=== PATIENT | female | born 1990 | race Two or more races ===

== ENCOUNTER 2020-01-03 15:21 | Emergency (ER) | payer OTHER, SELFPAY ==
[2020-01-03 15:39] VITALS: BP 158/68; PULSE 97; RESP 16; TEMP 37.1; O2SAT 97; BMI 32.9
--- NOTE | 2020-01-03 16:58 | ED_ITS ---
HPI - General Adult General Chief complaint: General Medical Stated complaint: Multiple complaints Time Seen by Provider: 01/03/20 16:58 Source: patient Mode of arrival: ambulatory Limitations: no limitations History of Present Illness HPI narrative: 21-year-old female with past medical history that is significant for hypertension, depression, pseudotumor cerebri status post MICROPALEONTOLOGIST shunt, surgical history of lap cholecystectomy, who presents today with complaint of headache and also complain of low back pain. States this is been going on since yesterday. Denies any fever or chills. Headache as described by her as chronic in nature however the back pain is new for her. States she suffers from chronic headaches and sees Neurology for this. She otherwise denies any fever or chills. Denies any nausea vomiting or diarrhea. No vaginal discharge or bleeding. Onset (ago): day(s) Location: head Severity: moderate Pain Consistency: constant Relieving factors: none Exacerbating factors: none Associated symptoms: denies other symptoms Treatments prior to arrival: none Related Data Previous Rx's Medication Instructions Recorded cyclobenzaprine 10 mg PO TID PRN #20 tab 01/03/20 ibuprofen 800 mg PO Q8H PRN #30 tab 01/03/20 lidocaine 1 patch TOPICAL Q24H PRN #10 ea 01/03/20 Allergies Allergy/AdvReac Type Severity Reaction Status Date / Time ketorolac [From TORADOL] Allergy Unknown ANXIETY, Unverified 11/11/19 16:53 NAUSEA, DIZZY Review of Systems Review of Systems: Constitutional: No Weight loss, No Fever, No Chills, No Night Sweats, No Fatigue, No Malaise ENT/Mouth: No Hearing loss, No Ear Pain, No Nasal Congestion, No Sinus Pain, No Hoarseness, No sore throat, No Rhinorrhea, No Swallowing Difficulty Eyes: No Eye Pain, No Swelling, No Redness, No Foreign Body, No Discharge, No Vision Changes Cardiovascular: No Chest Pain, No SOB, No Dyspnea on Exertion, No Orthopnea, No Edema, No Palpitations Respiratory: No Cough, No Sputum, No Wheezing, No Smoke Exposure, No Dyspnea Gastrointestinal: No Nausea, No Vomiting, No Diarrhea, No Constipation, No abdominal Pain, No Hematochezia, No Melena Genitourinary: no irregular bleeding, No Dysuria, No Urinary Frequency, No Hematuria, No Urinary Incontinence, No Urgency, No Flank Pain, No Urinary Flow Changes, No Hesitancy Musculoskeletal: No joint pain, No Myalgias, No Joint Swelling Skin: No Skin Lesions, No rash Neuro: No Weakness, No Numbness, No Paresthesias, No Loss of Consciousness, No Dizziness, + Headache Psych: No Anxiety/Panic, No Depression, No SI/HI/AH/VH No Social Issues, Heme/Lymph: No Bruising, No Bleeding,No Lymphadenopathy Endocrine: No Polyuria, No Polydipsia, No Temperature Intolerance Yes all other systems are reviewed and are negative [facility] Past Medical History Attestation statement: The following information was validated with the patient. Source: unable to obtain Medical History (Updated 01/03/20 @ 20:45 by Dario Torres NP) Hypertension Pseudotumor cerebri Rheumatoid arthritis Social History Social History Alcohol intake: never Smoked in Last 30 Days: No Use of substances other than those prescribed or required for medical reasons: No Advance Directives: No Advance Directives Information Provided: Yes Physical Exam Vital Signs: Vital Signs: Last Vital Signs Temp 97.5 F 01/03/20 19:06 Pulse 93 01/03/20 20:14 Resp 24 H 01/03/20 20:14 BP 161/97 H 01/03/20 20:14 Pulse Ox 100 01/03/20 19:06 Body Mass Index 32.9 Reviewed Const: General: cooperative and healthy appearing; No acute distress or intoxicated appearing Nutritional Appearance: average body habitus Orientation/consciousness: patient oriented x3 HENMT: Head: Yes normal to inspection Ears: hearing grossly normal bilaterally Eyes: General: appearance normal, both eyes and all related structures Visual Valdes: normal visual valdes by confrontation Neck: Neck: Yes normal visual inspection, No positive Brudzinski's sign, No positive Kernig's sign and No tender Thyroid: Thyroid normal Chest: Chest palpation & inspection: normal inspection of the chest Resp: Effort & Inspection: normal respiratory effort Cardio: Jugular venous distension: no JVD GI: Inspection: Yes normal to inspection Percussion: Yes normal to percussion Auscultation: normal bowel sounds : General: Yes no CVA tenderness Back/Spine/Pelvis: Back: no CVA tenderness Skin: General skin exam: no rashes or lesions noted Neuro: General: patient oriented x3 Extrem: General: Yes normal to inspection Course Course Course Narrative: Labs overall stable. CT of the abdomen pelvis reveals no acute stone or obstructive process. UA no infection. She was resting comfortably after she declined Toradol was given morphine however requested Dilaudid by name. Alternative offered. She is noted to be resting comfortably but when the provider goes and she starts to become tearful. States her pain is being noted. States she has been given Dilaudid in the past works well for her. At this time she has no red flags of her headache. No low back pain red flags. Given that she is hemodynamically stable I believe the nature of her complaint is chronic in etiology and her prescription monitoring program was reviewed and reveal that she has gotten multiple prescriptions for Tylenol No. 3 and now reveals to me that she does get this for chronic headaches. I am concerned for some medication seeking behavior and advised to follow-up with her neurologist closely call tomorrow and her primary care doctor. Off note patient did become very upset at me and did insult me she does not have any headache her only concern is her low back pain. Medical Decision Making Lab Data Result diagrams: 01/03/20 17:21 01/03/20 17:21 Labs: Lab Results 01/03/20 01/03/20 01/03/20 Range/Units 17:21 17:21 17:21 WBC 11.4 H (4.8-10.8) X10*3/uL RBC 4.16 L (4.20-5.50) X10*6/uL Hgb 11.5 L (12.0-16.0) g/dl Hct 37.4 (37-47) % MCV 89.9 (80-98) fL MCH 27.6 (27.0-33.0) pg MCHC 30.7 L (31.0-35.0) g/dl RDW 14.6 (11.0-16.0) % Plt Count 426 H (160-400) X10*3/uL MPV 8.7 L (9.4-12.3) fL Immature Gran % (Auto) 0.4 (0.0-0.4) % Neut % (Auto) 58.3 (45-73) % Lymph % (Auto) 35.0 (20-40) % [place] % (Auto) 5.3 (2-11) % Eos % (Auto) 0.8 (0-4) % Baso % (Auto) 0.2 (0-2) % Lymph # (Auto) 4.0 (1.2-4.9) X10*3/uL [place] # (Auto) 0.6 (0.1-1.2) X10*3/uL Eos # (Auto) 0.1 (0.0-0.4) X10*3/uL Baso # (Auto) 0.0 (0.0-0.2) X10*3/uL Abs Immat Gran (auto) 0.05 H (0.00-0.03) X10*3/uL Absolute Neuts (auto) 6.6 (2.0-8.3) X10*3/uL Absolute Nucleated RBC 0.000 (0.0-0.012) X10*3/uL Nucleated RBC % (auto) 0.0 (0.0-0.2) /100WBC Sodium 138 (135-145) mmol/L Potassium 4.1 (3.3-5.1) mmol/l Chloride 102 (96-108) mmol/L Carbon Dioxide 29 (22-29) mmol/L Anion Gap 11 L (12-20) BUN 14 (9-16) mg/dL Creatinine 0.74 (0.5-1.4) mg/dL Estim Creat Clear Calc 112.0 Estimated GFR > 60 Random Glucose 81 (60-115) mg/dL Calcium 9.1 (8.4-10.2) mg/dL Total Bilirubin 0.6 (0.0-1.0) mg/dL AST 16 (5-31) U/L ALT 12 (0-31) U/L Alkaline Phosphatase 73 (39-117) U/L Total Protein 6.7 (6.5-8.0) g/dL Albumin 4.1 (3.5-5.0) g/dL Urine Color YELLOW Urine Appearance CLEAR Urine pH 6.5 (5.0-8.0) Ur Specific [place] 1.025 (1.005-1.025) Urine Protein NEG (NEG-TRACE) MG/DL Urine Glucose (UA) NEG (NEG) MG/DL Urine Ketones NEG (NEG) MG/DL Urine Blood NEG (NEG) Urine Nitrite NEG (NEG) Ur Leukocyte Esterase NEG (NEG) Urine Test NEGATIVE (NEGATIVE) Coronavirus (PCR) (Negative) 01/03/20 Range/Units 19:36 WBC (4.8-10.8) X10*3/uL RBC (4.20-5.50) X10*6/uL Hgb (12.0-16.0) g/dl Hct (37-47) % MCV (80-98) fL MCH (27.0-33.0) pg MCHC (31.0-35.0) g/dl RDW (11.0-16.0) % Plt Count (160-400) X10*3/uL MPV (9.4-12.3) fL Immature Gran % (Auto) (0.0-0.4) % Neut % (Auto) (45-73) % Lymph % (Auto) (20-40) % [place] % (Auto) (2-11) % Eos % (Auto) (0-4) % Baso % (Auto) (0-2) % Lymph # (Auto) (1.2-4.9) X10*3/uL [place] # (Auto) (0.1-1.2) X10*3/uL Eos # (Auto) (0.0-0.4) X10*3/uL Baso # (Auto) (0.0-0.2) X10*3/uL Abs Immat Gran (auto) (0.00-0.03) X10*3/uL Absolute Neuts (auto) (2.0-8.3) X10*3/uL Absolute Nucleated RBC (0.0-0.012) X10*3/uL Nucleated RBC % (auto) (0.0-0.2) /100WBC Sodium (135-145) mmol/L Potassium (3.3-5.1) mmol/l Chloride (96-108) mmol/L Carbon Dioxide (22-29) mmol/L Anion Gap (12-20) BUN (9-16) mg/dL Creatinine (0.5-1.4) mg/dL Estim Creat Clear Calc Estimated GFR Random Glucose (60-115) mg/dL Calcium (8.4-10.2) mg/dL Total Bilirubin (0.0-1.0) mg/dL AST (5-31) U/L ALT (0-31) U/L Alkaline Phosphatase (39-117) U/L Total Protein (6.5-8.0) g/dL Albumin (3.5-5.0) g/dL Urine Color Urine Appearance Urine pH (5.0-8.0) Ur Specific [place] (1.005-1.025) Urine Protein (NEG-TRACE) MG/DL Urine Glucose (UA) (NEG) MG/DL Urine Ketones (NEG) MG/DL Urine Blood (NEG) Urine Nitrite (NEG) Ur Leukocyte Esterase (NEG) Urine Test (NEGATIVE) Coronavirus (PCR) NEGATIVE (Negative) Discharge Plan Discharge Clinical Impression: Headache Back pain Qualifiers: Back pain location: low back pain Chronicity: unspecified Back pain laterality: bilateral Patient Disposition: Home, Self-Care Instructions: Acute Headache (ED), Back Pain (ED) Prescriptions: New cyclobenzaprine 10 mg tablet 10 mg PO TID PRN (Reason: muscle spasm) Qty: 20 RF: 0 lidocaine 4 % adhesive patch,medicated 1 patch topical Q24H PRN (Reason: pain) Qty: 10 RF: 0 ibuprofen 800 mg tablet 800 mg PO Q8H PRN (Reason: pain) Qty: 30 RF: 0 Referrals: Miya Lara DO [Primary Care Provider] - 2 days
[2020-01-03] MEDS: 0.9 % Sodium Chloride 1,000 ML 1000 ML IV (17:22)
[2020-01-03 17:25] LABS: MANUAL DIFF FLAG NO
[2020-01-03 17:26] LABS: Basophils Percent Auto 0.2 % (0-2); Eosinophils Absolute Auto 0.1 X10*3/uL (0.0-0.4); Eosinophils Percent Auto 0.8 % (0-4); Hematocrit 37.4 % (37-47); Hemoglobin 11.5 g/dl (12.0-16.0); Imm Gran Abs Auto 0.05 X10*3/uL (0.00-0.03); Imm Gran Pct Auto 0.4 % (0.0-0.4); Mean Corpuscular HGB Conc 30.7 g/dl (31.0-35.0); Mean Corpuscular Hemoglobin 27.6 pg (27.0-33.0); Mean Corpuscular Volume 89.9 fL (80-98); Mean Platelet Volume 8.7 fL (9.4-12.3); Monocytes Absolute Auto 0.6 X10*3/uL (0.1-1.2); Monocytes Percent Auto 5.3 % (2-11); Neutrophils Absolute Auto 6.6 X10*3/uL (2.0-8.3); Neutrophils Percent Auto 58.3 % (45-73); Platelet Count 426 X10*3/uL (160-400); Red Blood Count 4.16 X10*6/uL (4.20-5.50); Red Cell Distribution Width 14.6 % (11.0-16.0); White Blood Count 11.4 X10*3/uL (4.8-10.8)
[2020-01-03 17:27] LABS: Glucose Urine UA NEG (NEG); Leukocyte Esterase Urine NEG (NEG); Nitrite Urine NEG (NEG); PH 6.5 (5.0-8.0); Specific Gravity - Urine 1.025 (1.005-1.025); Urine Blood NEG (NEG); Urine Ketones NEG (NEG); Urine Protein NEG (NEG-TRACE)
[2020-01-03] MEDS: Morphine Sulfate 4 MG/ML CARTRIDGE IVPUSH (17:33)
[2020-01-03] MEDS: ondansetron HCL 4 MG/2 ML VIAL IVPUSH (17:33)
[2020-01-03 17:44] LABS: Appearance Urine CLEAR; Color Urine YELLOW
--- NOTE | 2020-01-03 17:47 | CT_ITS ---
EXAMINATION: CT ABDOMEN AND PELVIS WITHOUT CONTRAST CLINICAL INFORMATION: Flank pain COMPARISON: CT abdomen pelvis 09/16/2017 TECHNIQUE: Multidetector volumetric imaging was performed from the superior aspect of the liver through the pubic symphysis. Sagittal and coronal reformatted images were obtained on the technologist's workstation. This CT examination was performed using dose optimization techniques as appropriate, variously including the following: *Automated exposure control *Adjustment of mA and/or kV according to patient size (this includes techniques or standardized protocols for targeted exams where dose is matched to indication/reason for exam; i.e. extremities or head) *Use of iterative reconstruction technique DLP: 675 mGy-cm FINDINGS: LUNG BASES: The visualized lung bases are unremarkable. LIVER, GALLBLADDER, AND BILIARY TREE: The liver is normal in size, shape, and attenuation. No focal hepatic lesion or biliary ductal dilatation is present. Status post cholecystectomy PANCREAS: Unremarkable. SPLEEN: Unremarkable. ADRENAL GLANDS: Unremarkable. KIDNEYS AND URETERS: The kidneys are normal in size, shape, and attenuation. No hydronephrosis, hydroureter, or calculi seen. No perinephric stranding. BLADDER: Unremarkable. GASTROINTESTINAL TRACT: The small and large bowel are unremarkable. The appendix is unremarkable. MESENTERY: Ventricular peritoneal shunt catheter loops through the mesentery. No inflammation. No free air. No free fluid. ABDOMINAL WALL: No significant hernia is appreciated. LYMPH NODES: Normal. VASCULAR: Unremarkable. PELVIC VISCERA: Lobular contour of the uterine body suggesting uterine fibroids. There is no adnexal abnormality. OSSEOUS STRUCTURES: Unremarkable. CT/CT abdomen pelvis wo con IMPRESSION: No acute abnormality CT scan abdomen pelvis.
[2020-01-03 17:51] LABS: UPreg QC Valid YES; Urine Pregnancy NEGATIVE (NEGATIVE)
[2020-01-03 18:00] LABS: Alanine Aminotransferase 12 U/L (0-31); Albumin Level 4.1 g/dL (3.5-5.0); Alkaline Phosphatase 73 U/L (39-117); Anion Gap 11 (12-20); Aspartate Amino Transferase 16 U/L (5-31); Bilirubin Total 0.6 mg/dL (0.0-1.0); Blood Urea Nitrogen 14 mg/dL (9-16); Calcium 9.1 mg/dL (8.4-10.2); Carbon Dioxide 29 mmol/L (22-29); Chloride 102 mmol/L (96-108); Estimated Glomerular Filt Rate > 60; Glucose Random 81 mg/dL (60-115); Potassium 4.1 mmol/l (3.3-5.1); Sodium 138 mmol/L (135-145); Total Protein 6.7 g/dL (6.5-8.0)
[2020-01-03 18:09] VITALS: RESP 20
--- NOTE | 2020-01-03 18:52 | PC.NURSE ---
Report taken from Karely mcclure RN resuming care. Pt not given Toradol by previous RN due to allergy, this RN documenting against.
[2020-01-03 19:06] VITALS: BP 145/89; PULSE 95; RESP 18; TEMP 36.4; O2SAT 100
--- NOTE | 2020-01-03 19:07 | PC.NURSE ---
Pt found sitting upright in bed, moaning, crying, shaking in pain, reports no relief after Morphine. AGRICULTURAL INSPECTOR aware. help desk technician at bedside updating VS.
[2020-01-03] MEDS: Acetaminophen 325 MG TABLET 650 MG PO (19:34)
--- NOTE | 2020-01-03 19:35 | PC.NURSE ---
Pt medicated with Tylenol per EMAR. Covid swab obtained. Pt requesting Morphine for 10/10 pain, FINAL FINISHER aware.
--- NOTE | 2020-01-03 19:59 | PC.NURSE ---
Off to CT on hospital bed, plan to medicate with Tylenol upon return.
--- NOTE | 2020-01-03 20:13 | PC.NURSE ---
Pt ringing her call dominguez, requesting pain medication, reports no relief. VC noted above. WOODWORKING MACHINE FEEDER aware. Continue to monitor.
[2020-01-03 20:14] VITALS: BP 161/97; PULSE 93; RESP 24
--- NOTE | 2020-01-03 20:21 | PC.NURSE ---
Pt aware of plan of care, per CIGAR MAKING SUPERVISOR, awaiting Covid results. Pt provided with warm blankets to back. Pt continues crying in pain, CIGAR MAKING SUPERVISOR aware of pts discomfort at this time. Pt reporting concern regarding a possible problem with her LP shunt, CIGAR MAKING SUPERVISOR aware. Continue to monitor.
[2020-01-03 20:36] LABS: SARS COV2 PCR INHOUSE NEGATIVE (Negative)
--- NOTE | 2020-01-03 20:57 | PC.NURSE ---
WEAPONS MECHANIC at bedside discussing results and plan of care. WEAPONS MECHANIC explaining to pt that he is unable to provide narcotics due to RX history. Pt visibly upset, crying and shouting insults at WEAPONS MECHANIC. Pt asking for Morphine and Dilaudid while in ER, WEAPONS MECHANIC was agreeable to one dose of Morphine. WEAPONS MECHANIC agreeable to DC with muscle relaxers and Lidocaine patches. IV removed, pt escorted to the waiting room by this RN.
== END 2020-01-03 21:01 | disposition home or self-care (01) ==
PROVIDERS: Nurse Practitioner Primary Care; Emergency Provider Emergency Medicine; PCP Internal Medicine
DX: R51.9 Headache, unspecified (principal); M54.5 Low back pain; I10 Essential (primary) hypertension; F33.1 Major depressive disorder, recurrent, moderate; Z20.828 Contact with and (suspected) exposure to other viral communicable diseases; Z79.899 Other long term (current) drug therapy
CPT/HCPCS: 36415; 74176; 80053; 81003; 81025; 85025; 96361; 96374; 96375; 99284; J2270; J2405; U0003

== ENCOUNTER 2020-01-13 14:58 | Outpatient (REF) | payer OTHER, SELFPAY | END 2020-01-13 14:59 | disposition home or self-care (01) | LOC: HO.LAB 14:58 | PROVIDERS: PCP Internal Medicine; Visit Provider Internal Medicine | DX: Z20.828 Contact with and (suspected) exposure to other viral communicable diseases (principal) | CPT/HCPCS: C9803; U0003 ==

== ENCOUNTER 2020-02-28 09:22 | Outpatient (REF) | payer OTHER, SELFPAY | END 2020-02-28 09:23 | disposition home or self-care (01) | LOC: HO.LAB 09:22 | PROVIDERS: Visit Provider Internal Medicine | DX: Z20.822 Contact with and (suspected) exposure to COVID-19 (principal) | CPT/HCPCS: 36415; C9803; U0003 ==

== ENCOUNTER 2020-03-08 08:49 | Outpatient (REF) | payer OTHER, SELFPAY | END 2020-03-08 08:50 | disposition home or self-care (01) | LOC: HO.LAB 08:49 | PROVIDERS: PCP Internal Medicine; Visit Provider Internal Medicine | DX: Z20.822 Contact with and (suspected) exposure to COVID-19 (principal) | CPT/HCPCS: 36415; C9803; U0003 ==

== ENCOUNTER 2020-05-03 22:03 | Emergency (ER) | payer OTHER, SELFPAY ==
--- NOTE | ~2020-05-03 | CT_ITS ---
EXAMINATION: CT ABDOMEN AND PELVIS WITHOUT CONTRAST CLINICAL INFORMATION: Left flank pain, rule out renal colic COMPARISON: 01/03/2020 TECHNIQUE: Multidetector volumetric imaging was performed from the superior aspect of the liver through the pubic symphysis. Sagittal and coronal reformatted images were obtained on the technologist's workstation. This CT examination was performed using dose optimization techniques as appropriate, variously including the following: *Automated exposure control *Adjustment of mA and/or kV according to patient size (this includes techniques or standardized protocols for targeted exams where dose is matched to indication/reason for exam; i.e. extremities or head) *Use of iterative reconstruction technique DLP: 719 mGy-cm FINDINGS: LUNG BASES: The visualized lung bases are unremarkable. LIVER, GALLBLADDER, AND BILIARY TREE: The liver is normal in size, shape, and attenuation. No focal hepatic lesion or biliary ductal dilatation is present. Patient is status post cholecystectomy. PANCREAS: Unremarkable. SPLEEN: Unremarkable. ADRENAL GLANDS: Unremarkable. KIDNEYS AND URETERS: The kidneys are normal in size, shape, and attenuation. No hydronephrosis, hydroureter, or obstructing calculi seen. No perinephric stranding. BLADDER: Unremarkable. GASTROINTESTINAL TRACT: The small and large bowel are unremarkable. The appendix is unremarkable. There is trace fluid in the lower abdomen. ABDOMINAL WALL: Redemonstrated catheter tubing extending from the spine to the right abdominal wall into the abdominal cavity, ultimately terminating in the anterior left abdomen. LYMPH NODES: No lymphadenopathy is seen, though assessment is limited in the absence of intravenous contrast. VASCULAR: Unremarkable. PELVIC VISCERA: Unremarkable. OSSEOUS STRUCTURES: Unremarkable. CT/CT abdomen pelvis wo con IMPRESSION: No acute findings identified. No hydronephrosis or obstructing calculus.
[2020-05-03 23:21] VITALS: BP 108/68; PULSE 84; RESP 16; TEMP 36.6; O2SAT 98; BMI 34.4
--- NOTE | 2020-05-04 00:37 | ED_ITS ---
HPI - Back Pain/Injury General Chief Complaint: Abdominal Pain Stated Complaint: Flank pain Time Seen by Provider: 05/03/20 22:33 Source: patient Mode of arrival: ambulatory Limitations: no limitations History of Present Illness HPI Narrative: back pain for 3 days, now increasing. patient denies injury, states that she has nausea and chills. patient with more left flank pain, there is some dysuria MD elicited complaint: back pain Pertinent past history: kidney stones Onset (ago): day(s) Timing: constant Severity: moderate Quality: sharp Related Data Previous Rx's Medication Instructions Recorded cyclobenzaprine 10 mg PO TID PRN #20 tab 01/03/20 ibuprofen 800 mg PO Q8H PRN #30 tab 01/03/20 lidocaine 1 patch TOPICAL Q24H PRN #10 ea 01/03/20 Allergies Allergy/AdvReac Type Severity Reaction Status Date / Time ketorolac [From TORADOL] Allergy Unknown ANXIETY, Verified 05/03/20 23:30 NAUSEA, DIZZY Review of Systems Constitutional: Constitutional: Reports no additional constitutional complaints Eyes: Eyes: Reports no additional eye complaints ENT: Denies dizziness Cardiovascular: Cardiovascular: Reports no additional cardiovascular complaints Respiratory: Respiratory: Reports as per HPI Gastrointestinal: Gastrointestinal: Reports no additional gastrointestinal complaints Genitourinary: Genitourinary: Reports no additional female genitourinary complaints Musculoskeletal: Musculoskeletal: Reports no additional musculoskeletal complaints Integumentary/Breasts: Skin/Breast: Denies rash Neurologic: Reports system reviewed and no additional complaints, except as d ocumented, Denies dizziness and Denies Sensory deficit (Neuro) Psychiatric: Psychiatric: Denies anxiety [facility] [place] Past Medical History Medical History Hypertension Kidney stones Pseudotumor cerebri Rheumatoid arthritis Social History Social History Alcohol intake: never Smoking Status: Never smoker Use of substances other than those prescribed or required for medical reasons: No Advance Directives: No Advance Directives Information Provided: No Physical Exam 2 Vital Signs: Vital Signs: Last Vital Signs Temp 98.3 F 05/04/20 01:24 Pulse 85 05/04/20 01:24 Resp 16 05/04/20 01:24 BP 120/63 05/04/20 01:24 Pulse Ox 100 05/04/20 01:24 Body Mass Index 34.4 Const: Other: female in pain, acting like colic Nutritional Appearance: average body habitus Orientation/consciousness: oriented to person and patient oriented x3 Limitations: no limitations HENMT: Head: Yes normal to inspection Ears: external ears normal General nose exam: Normal external nose present Mouth: Normal oral and palatal mucosa present and oropharynx normal Throat: Yes posterior oropharynx normal Eyes: General: appearance normal, both eyes and all related structures Neck: Other: supple Neck: Yes normal visual inspection Chest: Chest palpation & inspection: normal inspection of the chest Resp: Auscultation: clear to auscultation bilaterally Cardio: Jugular venous distension: no JVD Rate: regular rate Rhythm: regular rhythm Heart sounds: S1 normal heart sound present and S2 normal hear t sound present GI: Inspection: Yes normal to inspection Palpation (GI): Soft to palpation, nontender and No hepatosplenomegaly present Auscultation: normal bowel sounds Back/Spine/Pelvis: Other: left CVAT greater than right Skin: General skin exam: no rashes or lesions noted Neuro: General: oriented to person and patient oriented x3 Cranial nerves: Yes CN's II-XII intact bilaterally Motor exam (neuro): 5/5 motor strength present throughout Sensory Exam: No Sensory deficit (Neuro) Extrem: General: Yes normal to inspection Psych: Appearance: grossly normal Course Course Course Narrative: awaiting CT will sign out to Dr. Smith [facility] - Back Pain/Injury Lab Data Labs: Lab Results 05/04/20 05/04/20 Range/Units 01:26 01:26 Urine Color YELLOW Urine Appearance CLEAR Urine pH 6.0 (5.0-8.0) Ur Specific [place] >= 1.030 H (1.005-1.025) Urine Protein NEG (NEG-TRACE) MG/DL Urine Glucose (UA) NEG (NEG) MG/DL Urine Ketones NEG (NEG) MG/DL Urine Blood NEG (NEG) Urine Nitrite NEG (NEG) Ur Leukocyte Esterase NEG (NEG) Urine Test NEGATIVE (NEGATIVE) Discharge Plan Discharge Prescriptions: No Action cyclobenzaprine 10 mg tablet 10 mg PO TID PRN (Reason: muscle spasm) Qty: 20 RF: 0 lidocaine 4 % adhesive patch,medicated 1 patch topical Q24H PRN (Reason: pain) Qty: 10 RF: 0 ibuprofen 800 mg tablet 800 mg PO Q8H PRN (Reason: pain) Qty: 30 RF: 0
[2020-05-04 01:24] VITALS: BP 120/63; PULSE 85; RESP 16; TEMP 36.8; O2SAT 100
[2020-05-04 01:35] LABS: Glucose Urine UA NEG (NEG); Leukocyte Esterase Urine NEG (NEG); Nitrite Urine NEG (NEG); Specific Gravity - Urine >= 1.030 (1.005-1.025); Urine Blood NEG (NEG); Urine Ketones NEG (NEG); Urine Protein NEG (NEG-TRACE)
[2020-05-04 01:36] LABS: Appearance Urine CLEAR; Color Urine YELLOW
[2020-05-04] MEDS: 0.9 % Sodium Chloride 1,000 ML 999 ML IVCONT ×2 (01:36→02:37)
[2020-05-04 01:37] LABS: UPreg QC Valid YES; Urine Pregnancy NEGATIVE (NEGATIVE)
[2020-05-04] MEDS: Ketorolac Tromethamine 15 MG/ML VIAL 30 MG IV (01:37)
[2020-05-04] MEDS: ondansetron HCL 4 MG/2 ML VIAL IVPUSH (01:37)
--- NOTE | 2020-05-04 04:23 | PC.NURSE ---
Patient was being discharged and did not wait for papers. Patient left with an peripheral iv in, when this poem writer went in to discharge patient she had left unannounced. I attempted to call patient to have her comeback so that I could remove the IV. Patient did not answer and I left a message with the emergency room number to contact us. Charge nurse aware.
== END 2020-05-04 04:25 | disposition left against medical advice (07) ==
PROVIDERS: Student in an Organized Health Care Education/Training Program; Emergency Provider Emergency Medicine; PCP Internal Medicine
DX: M62.830 Muscle spasm of back (principal); I10 Essential (primary) hypertension; Z87.442 Personal history of urinary calculi
CPT/HCPCS: 74176; 81003; 81025; 96361; 96374; 96375; 96376; 99284; J1885; J2405

== ENCOUNTER 2021-01-31 13:00 | Outpatient (REF) | payer OTHER, SELFPAY | END 2021-01-31 13:01 | disposition home or self-care (01) | LOC: HO.LAB 13:00 | PROVIDERS: Visit Provider Internal Medicine | DX: Z20.822 Contact with and (suspected) exposure to COVID-19 (principal) | CPT/HCPCS: C9803; U0003; U0005 ==

== ENCOUNTER 2021-03-01 11:59 | Outpatient (REF) | payer OTHER, SELFPAY ==
[2021-03-01 15:39] LABS: Binax Now Covid-19 Ag Negative (Negative)
[2021-03-01 15:40] LABS: Binax Internal Control QC Valid
== END 2021-03-01 12:00 | disposition home or self-care (01) ==
LOC: HO.LAB 11:59
PROVIDERS: Visit Provider Internal Medicine
DX: Z20.822 Contact with and (suspected) exposure to COVID-19 (principal)
CPT/HCPCS: 36415; C9803

== ENCOUNTER 2021-07-12 15:48 | Emergency (ER) | payer OTHER, SELFPAY ==
--- NOTE | ~2021-07-12 | US_ITS ---
EXAMINATION: US PELVIS CLINICAL INFORMATION: Pelvic pain and heavy bleeding COMPARISON: None TECHNIQUE: Ultrasound of the pelvis is performed using both transabdominal and transvaginal transducers along with Doppler. Transvaginal imaging is performed due to inadequate visualization transabdominally. FINDINGS: Uterus: The uterus is anteverted and measures 9.0 x 3.3 x 5.5 cm. Incidental nabothian cysts in the cervix The double wall endometrial thickness is 0.9 mm. The uterus is smooth in contour and has normal myometrial echogenicity. No visible fibroid. Adnexa: Both ovaries are visualized. There is normal color flow to the adnexa. There is no ovarian torsion. There is no pelvic ascites or fluid collection. Right ovary measures 6.2 x 4.0 x 4.9 cm. Volume 64 mL. 5.7 cm appearing cyst is noted. Left ovary measures 5.3 x 3.2 x 3.5 cm. Volume 31 mL with a 4.6 cm simple appearing cyst US/US pelvic and transvaginal IMPRESSION: Physiologic changes in the uterus and endometrium. Bilateral simple appearing cysts are seen possibly physiologic in a patient of this age. Consider follow-up pelvic ultrasound in 2-3 menstrual cycles to assess for evolution.
[2021-07-12 16:02] VITALS: BP 169/116; PULSE 95; RESP 22; TEMP 36.4; O2SAT 97; BMI 31.6
[2021-07-12 16:20] LABS: MANUAL DIFF FLAG NO
[2021-07-12 16:22] LABS: Basophils Absolute Auto 0.1 X10*3/uL (0.0-0.2); Basophils Percent Auto 0.5 % (0-2); Eosinophils Absolute Auto 0.2 X10*3/uL (0.0-0.4); Eosinophils Percent Auto 1.8 % (0-4); Hematocrit 33.4 % (37.0-47.0); Hemoglobin 10.7 g/dl (12.0-16.0); Imm Gran Abs Auto 0.02 X10*3/uL (0.00-0.03); Imm Gran Pct Auto 0.2 % (0.0-0.4); Lymphocytes Absolute Auto 3.2 X10*3/uL (1.2-4.9); Lymphocytes Percent Auto 32.6 % (20-40); Mean Corpuscular Hemoglobin 27.2 pg (27.0-33.0); Mean Platelet Volume 9.3 fL (9.4-12.3); Monocytes Absolute Auto 0.5 X10*3/uL (0.1-1.2); Monocytes Percent Auto 4.7 % (2-11); Neutrophils Percent Auto 60.2 % (45-73); Platelet Count 383 X10*3/uL (160-400); Red Blood Count 3.93 X10*6/uL (4.20-5.50); Red Cell Distribution Width 14.3 % (11.0-16.0); White Blood Count 9.9 X10*3/uL (4.8-10.8)
[2021-07-12 16:36] LABS: Anion Gap 9 (12-20); Blood Urea Nitrogen 10 mg/dL (9-16); Calcium 9.8 mg/dL (8.4-10.2); Carbon Dioxide 24 mmol/L (22-29); Chloride 111 mmol/L (96-108); Creatinine Clr Calc Pharmacy 104.6; Estimated Glomerular Filt Rate > 60; Glucose Random 102 mg/dL (60-115); Potassium 3.6 mmol/L (3.3-5.1); Sodium 140 mmol/L (135-145)
--- NOTE | 2021-07-12 19:43 | ED_ITS ---
HPI - Abdominal Pain General Chief Complaint: Abdominal Pain <CHANTELL Ray - Last Filed: 07/12/21 21:11> Stated Complaint: lower abd pain <CHANTELL Ray - Last Filed: 07/12/21 21:11> Time Seen by Provider: 07/12/21 19:42 <CHANTELL Ray - Last Filed: 07/12/21 21:11> Source: patient <CHANTELL Ray - Last Filed: 07/12/21 21:11> Mode of arrival: ambulatory <CHANTELL Ray - Last Filed: 07/12/21 21:11> Limitations: no limitations <CHANTELL Ray - Last Filed: 07/12/21 21:11> History of Present Illness HPI narrative: 30-year-old female presents to the ER with lower abdominal pain and heavy vaginal bleeding for the last 4 days. She reports getting her period on 06/09 and she has been having vaginal bleeding since. Prior to this she had normal, regular periods. She states since Friday she has been having worsening cramping pain in her lower abdomen and heavy vaginal bleeding. When she got out of the shower today she bled all over the floor and had large clots come out. She is sexually active with 1 partner and denies STI conern or any vaginal discharge. No vomiting or fevers but she is nauseated. <CHANTELL Ray - Last Filed: 07/12/21 21:11> MD elicited complaint: abdominal pain <CHANTELL Ray - Last Filed: 07/12/21 21:11> Pertinent past history: none <CHANTELL Ray - Last Filed: 07/12/21 21:11> Onset (ago): day(s) (4) <CHANTELL Ray - Last Filed: 07/12/21 21:11> Pain Consistency: constant <CHANTELL Ray Last Filed: 07/12/21 21:11> Location: suprapubic and pelvis <CHANTELL Ray Last Filed: 07/12/21 21:11> Severity: severe <CHANTELL Ray Last Filed: 07/12/21 21:11> Pain scale (0-10): 10 <CHANTELL Ray - Last Filed: 07/12/21 21:11> Quality: cramping <CHANTELL Ray - Last Filed: 07/12/21 21:11> Radiation: none <CHANTELL Ray Last Filed: 07/12/21 21:11> Migration to: no migration <CHANTELL Ray - Last Filed: 07/12/21 21:11> Exacerbating factors: nothing <CHANTELL Ray Last Filed: 07/12/21 21:11> Relieving factors: nothing <CHANTELL Ray Last Filed: 07/12/21 21:11> Associated symptoms: nausea <CHANTELL Ray Last Filed: 07/12/21 21:11> Related Data Date of Last Menstrual Period: 06/09/21 <CHANTELL Ray Last Filed: 07/12/21 21:11> Patient : No <CHANTELL Ray Last Filed: 07/12/21 21:11> Home Medications: Previous Rx's Medication Instructions Recorded cyclobenzaprine 10 mg tablet 10 mg PO TID PRN #20 tab 01/03/20 ibuprofen 800 mg tablet 800 mg PO Q8H PRN #30 tab 01/03/20 lidocaine 4 % topical patch 1 patch TOPICAL Q24H PRN #10 ea 01/03/20 medroxyprogesterone 10 mg tablet 10 mg PO DAILY #5 tab 07/12/21 (Provera) tramadol 50 mg tablet 50 mg PO BID PRN #6 tab 07/12/21 <CHANTELL Ray Last Filed: 07/12/21 21:11> Allergies/Adverse Reactions: Allergies Allergy/AdvReac Type Severity Reaction Status Date / Time ketorolac [From TORADOL] Allergy Unknown ANXIETY, Verified 05/03/20 23:30 NAUSEA, DIZZY <CHATNELL Ray Last Filed: 07/12/21 21:11> Review of Systems Review of Systems Constitutional: No Fever, No Chills ENT/Mouth: No sore throat Cardiovascular: No Chest Pain, No SOB Respiratory: No Cough, No Sputum, No Wheezing, No dyspnea Gastrointestinal: + Nausea, No Vomiting, No Diarrhea, + abdominal Pain, No Hematochezia, No Melena Genitourinary: No Dysuria, No Urinary Frequency, No Hematuria,+heavy vaginal bleeding, no vaginal discharge Musculoskeletal: No joint pain, No Myalgias Skin: No Skin Lesions, No rash Neuro: No Weakness, No Numbness, No Dizziness, No Headache Psych: No Anxiety/Panic, No Depression Heme/Lymph: No Bruising, No Lymphadenopathy Endocrine: No Polyuria, No Polydipsia <CHANTELL Ray - Last Filed: 07/12/21 21:11> [facility] Past Medical History Medical History: Medical History Hypertension Kidney stones Pseudotumor cerebri Rheumatoid arthritis <CHANTELL Ray - Last Filed: 07/12/21 21:11> Date of Last Menstrual Period: 06/09/21 <CHANTELL Ray - Last Filed: 07/12/21 21:11> Social History Social History: Social History Alcohol intake: never Advance Directives: No Advance Directives Information Provided: Yes Patient : No <CHANTELL Ray - Last Filed: 07/12/21 21:11> Physical Exam ED Vital Signs: Vital Signs - 24 hr 07/12/21 16:02 07/12/21 20:45 07/12/21 22:15 Temperature 97.5 F 98.0 F 97.6 F Pulse Rate 95 70 84 Respiratory Rate 22 H 16 18 Blood Pressure 169/116 H 180/108 H 160/101 H Pulse Oximetry 97 100 100 BMI result Body Mass Index 31.6 <CHANTELL Ray - Last Filed: 07/12/21 21:11> Vital Signs - 24 hr 07/12/21 16:02 07/12/21 20:45 07/12/21 22:15 Temperature 97.5 F 98.0 F 97.6 F Pulse Rate 95 70 84 Respiratory Rate 22 H 16 18 Blood Pressure 169/116 H 180/108 H 160/101 H Pulse Oximetry 97 100 100 BMI result Body Mass Index 31.6 <Jackeline Huston MD - Last Filed: 07/12/21 22:22> Appearance: Alert young female tearful and appears to be in pain Eyes: Pupils equal, round and reactive to light. ENT: Pharynx normal. Neck: Normal inspection. Neck supple. CVS: Normal heart rate and rhythm. Pulses normal. Respiratory: No respiratory distress. Breath sounds normal. Abdomen: Soft with suprapubic abdomainal tenderness, no rebound or guarding. normal +BS x4 Pelvic: Normal external genitalia. Vaginal canal with small amount of jimenes red blood. No adnexal tenderness on bimanual examination, no palpable pelvic mas ses. Skin: Skin warm and dry. Normal skin color. Normal skin turgor. No rashes. Extremities: No lower extremity edema. Neuro: Oriented X 3. Grossly normal, nonfocal <CHANTELL Ray - Last Filed: 07/12/21 21:11> Course Course Course Narrative: 30-year-old female presents to the ER with severe lower abdominal cramping and heavy vaginal bleeding for the last several days. She denies chance of . She denies fevers or vomiting. On examination she is tearful and appears to be in significant pain. She has some mild tenderness to deep p alpation in her lower abdomen. Her lab workup shows some mild anemia, H&H from a baseline of two years ago. Her a beta hCG is negative. Pelvic ultrasound is pending. Will get IV access, medicate with morphine and Zofran given her reports of severe pain. Will perform pelvic examination was her pain is better controlled. <CHANTELL Ray - Last Filed: 07/12/21 21:11> Reevaluation(s) Reevaluation #1: Pelvic exam unrevealing, no heavy bleeding, no adenxal tenderness. Pelvic ultrasound is pending. <CHANTELL Ray - Last Filed: 07/12/21 21:11> Reevaluation #2: 9:10 pm - Physiologic changes in the uterus and endometrium. Bilateral simple appearing cysts are seen possibly physiologic in a patient of this age. No ovarian torsion. Consider follow-up pelvic ultrasound in 2-3 menstrual cycles to assess for evolution. Another dose of pain medication as been ordered. Will reassess. Plan to start Provera upon d/c. Signed out to night provider who will reassess her pain <CHANTELL Ray - Last Filed: 07/12/21 21:11> Reevaluation #3: I received sign-out from CHANTELL Wilson, patient is ready for discharge. Prescriptions have already been sent to the patient's pharmacy. I offered to the patient that I can send additional pain medication to a 24 hour pharmacy, patient declined, patient states she will went until tomorrow to pick it up by her regular pharmacy. <Jackeline Huston MD - Last Filed: 07/12/21 22:22> MDM - Abdominal Pain Lab Data Result diagrams: : 07/12/21 16:13 07/12/21 16:13 <CHANTELL Ray - Last Filed: 07/12/21 21:11> Labs: Lab Results 07/12/21 07/12/21 07/12/21 Range/Units 16:13 16:13 20:26 WBC 9.9 (4.8-10.8) X10*3/uL RBC 3.93 L (4.20-5.50) X10*6/uL Hgb 10.7 L (12.0-16.0) g/dl Hct 33.4 L (37.0-47.0) % MCV 85.0 (80.0-98.0) fL MCH 27.2 (27.0-33.0) pg MCHC 32.0 (31.0-35.0) g/dl RDW 14.3 (11.0-16.0) % Plt Count 383 (160-400) X10*3/uL MPV 9.3 L (9.4-12.3) fL Immature Gran % (Auto) 0.2 (0.0-0.4) % Neut % (Auto) 60.2 (45-73) % Lymph % (Auto) 32.6 (20-40) % [place] % (Auto) 4.7 (2-11) % Eos % (Auto) 1.8 (0-4) % Baso % (Auto) 0.5 (0-2) % Lymph # (Auto) 3.2 (1.2-4.9) X10*3/uL [place] # (Auto) 0.5 (0.1-1.2) X10*3/uL Eos # (Auto) 0.2 (0.0-0.4) X10*3/uL Baso # (Auto) 0.1 (0.0-0.2) X10*3/uL Abs Immat Gran (auto) 0.02 (0.00-0.03) X10*3/uL Absolute Neuts (auto) 6.0 (2.0-8.3) x10*3/uL Absolute Nucleated RBC 0.000 (0.0-0.012) X10*3/uL Nucleated RBC % (auto) 0.0 (0.0-0.2) /100WBC Sodium 140 (135-145) mmol/L Potassium 3.6 (3.3-5.1) mmol/L Chloride 111 H (96-108) mmol/L Carbon Dioxide 24 (22-29) mmol/L Anion Gap 9 L (12-20) BUN 10 (9-16) mg/dL Creatinine 0.77 (0.5-1.4) mg/dL Estim Creat Clear Calc 104.6 Estimated GFR > 60 Random Glucose 102 (60-115) mg/dL Calcium 9.8 D (8.4-10.2) mg/dL Beta HCG, Quant < 2 mIU/mL Urine Color YELLOW Urine Appearance HAZY Urine pH 6.5 (5.0-8.0) Ur Specific [place] 1.025 (1.005-1.025) Urine Protein NEG (NEG-TRACE) MG/DL Urine Glucose (UA) NEG (NEG) MG/DL Urine Ketones NEG (NEG) MG/DL Urine Blood 3+ H (NEG) Urine Nitrite NEG (NEG) Ur Leukocyte Esterase NEG (NEG) Urine RBC 1-4 (0) /HPF Urine WBC 0 (0-4) /HPF Ur Squamous Epith Cells 1+ /LPF Amorphous Sediment 1+ /LPF Urine Bacteria NONE /LPF <CHANTELL Ray - Last Filed: 07/12/21 21:11> Lab Results 07/12/21 07/12/21 07/12/21 Range/Units 16:13 16:13 20:26 WBC 9.9 (4.8-10.8) X10*3/uL RBC 3.93 L (4.20-5.50) X10*6/uL Hgb 10.7 L (12.0-16.0) g/dl Hct 33.4 L (37.0-47.0) % MCV 85.0 (80.0-98.0) fL MCH 27.2 (27.0-33.0) pg MCHC 32.0 (31.0-35.0) g/dl RDW 14.3 (11.0-16.0) % Plt Count 383 (160-400) X10*3/uL MPV 9.3 L (9.4-12.3) fL Immature Gran % (Auto) 0.2 (0.0-0.4) % Neut % (Auto) 60.2 (45-73) % Lymph % (Auto) 32.6 (20-40) % [place] % (Auto) 4.7 (2-11) % Eos % (Auto) 1.8 (0-4) % Baso % (Auto) 0.5 (0-2) % Lymph # (Auto) 3.2 (1.2-4.9) X10*3/uL [place] # (Auto) 0.5 (0.1-1.2) X10*3/uL Eos # (Auto) 0.2 (0.0-0.4) X10*3/uL Baso # (Auto) 0.1 (0.0-0.2) X10*3/uL Abs Immat Gran (auto) 0.02 (0.00-0.03) X10*3/uL Absolute Neuts (auto) 6.0 (2.0-8.3) x10*3/uL Absolute Nucleated RBC 0.000 (0.0-0.012) X10*3/uL Nucleated RBC % (auto) 0.0 (0.0-0.2) /100WBC Sodium 140 (135-145) mmol/L Potassium 3.6 (3.3-5.1) mmol/L Chloride 111 H (96-108) mmol/L Carbon Dioxide 24 (22-29) mmol/L Anion Gap 9 L (12-20) BUN 10 (9-16) mg/dL Creatinine 0.77 (0.5-1.4) mg/dL Estim Creat Clear Calc 104.6 Estimated GFR > 60 Random Glucose 102 (60-115) mg/dL Calcium 9.8 D (8.4-10.2) mg/dL Beta HCG, Quant < 2 mIU/mL Urine Color YELLOW Urine Appearance HAZY Urine pH 6.5 (5.0-8.0) Ur Specific [place] 1.025 (1.005-1.025) Urine Protein NEG (NEG-TRACE) MG/DL Urine Glucose (UA) NEG (NEG) MG/DL Urine Ketones NEG (NEG) MG/DL Urine Blood 3+ H (NEG) Urine Nitrite NEG (NEG) Ur Leukocyte Esterase NEG (NEG) Urine RBC 1-4 (0) /HPF Urine WBC 0 (0-4) /HPF Ur Squamous Epith Cells 1+ /LPF Amorphous Sediment 1+ /LPF Urine Bacteria NONE /LPF <Jackeline Huston MD - Last Filed: 07/12/21 22:22> Critical Care Time Critical Care Time Critical Care Time: No <CHANTELL Ray - Last Filed: 07/12/21 21:11> Discharge Plan Discharge Clinical Impression: Dysmenorrhea, Anemia <CHANTELL Ray - Last Filed: 07/12/21 21:11> Patient Disposition: Home, Self-Care <CHANTELL Ray - Last Filed: 07/12/21 21:11> Instructions: Dysmenorrhea (ED) <CHANTELL Ray - Last Filed: 07/12/21 21:11> Additional Instructions: Follow up with your [employer] as soon as possible Start taking the prescribed medication as directed. Also recommend starting iron tablets If you develop new or worsening symptoms call 911 or come back to the ER for further evaluation. <CHANTELL Ray - Last Filed: 07/12/21 21:11> Prescriptions: New medroxyprogesterone [Provera] 10 mg tablet 10 mg PO DAILY Qty: 5 0RF tramadol 50 mg tablet 50 mg PO BID PRN (Reason: pain) Qty: 6 0RF No Action cyclobenzaprine 10 mg tablet 10 mg PO TID PRN (Reason: muscle spasm) Qty: 20 0RF lidocaine 4 % adhesive patch,medicated 1 patch topical Q24H PRN (Reason: pain) Qty: 10 0RF Rx Instructions: may leave on for up to 12 hrs ibuprofen 800 mg tablet 800 mg PO Q8H PRN (Reason: pain) Qty: 30 0RF <CHANTELL Ray - Last Filed: 07/12/21 21:11>
[2021-07-12 20:12] LABS: HCG Quantitative < 2 mIU/mL
[2021-07-12 20:36] LABS: Appearance Urine HAZY; Color Urine YELLOW; Glucose Urine UA NEG (NEG); Leukocyte Esterase Urine NEG (NEG); Nitrite Urine NEG (NEG); PH 6.5 (5.0-8.0); Specific Gravity - Urine 1.025 (1.005-1.025); UACC Culture Trigger NO; Urine Blood 3+ (NEG); Urine Ketones NEG (NEG); Urine Protein NEG (NEG-TRACE)
[2021-07-12] MEDS: ondansetron HCL 4 MG/2 ML VIAL IVPUSH (20:43)
[2021-07-12] MEDS: Morphine Sulfate 4 MG/ML CARTRIDGE IVPUSH (20:43)
[2021-07-12 20:45] VITALS: BP 180/108; PULSE 70; RESP 16; TEMP 36.7; O2SAT 100
[2021-07-12 20:50] LABS: Amorphous Sediment Urine 1+ /LPF; Squamous Epithelial Cell Urine 1+ /LPF; WBC Urine 0 /HPF (0-4)
[2021-07-12] MEDS: HYDROmorphone HCl 0.5 MG/0.5 ML SYRINGE IVPUSH (21:23)
[2021-07-12] MEDS: LORazepam 2 MG/ML VIAL 1 MG IVPUSH (21:23)
[2021-07-12 22:15] VITALS: BP 160/101; PULSE 84; RESP 18; TEMP 36.4; O2SAT 100
[2021-07-12] MEDS: Acetaminophen 325 MG TABLET 975 MG PO (22:23)
== END 2021-07-12 22:32 | disposition home or self-care (01) ==
PROVIDERS: Physician Assistant; Emergency Provider Internal Medicine
DX: N94.4 Primary dysmenorrhea (principal); R10.30 Lower abdominal pain, unspecified; N93.8 Other specified abnormal uterine and vaginal bleeding; D64.9 Anemia, unspecified; R10.2 Pelvic and perineal pain; Z79.899 Other long term (current) drug therapy
CPT/HCPCS: 36415; 76830; 76856; 80048; 81001; 84702; 85025; 96374; 96375; 99284; J1170; J2060; J2270; J2405

== ENCOUNTER 2021-08-14 09:09 | Day surgery (SDC) | payer OTHER, SELFPAY ==
[2021-08-14] VITALS (10 sets, daily range): BP systolic 141–175; BP diastolic 74–113; PULSE 67–81; RESP 18; TEMP 37.2; O2SAT 99–100; BMI 32.0
--- NOTE | ~2021-08-14 | FL_ITS ---
EXAMINATION: XR LUMBAR PUNCTURE CLINICAL INFORMATION: Pseudotumor cerebri. Had a lumbar peritoneal shunt. Recent pelvic surgery where the shunt was tangled with the ovary and was segregated after much time. Now presents with complaints of headache and visual disturbance similar to previous history dating to 2012. COMPARISON: Lumbar puncture 01/18/2015 and 09/11/2015. TECHNIQUE: Following explaining fluoroscopy-guided lumbar puncture procedure, benefits and risks, a written consent was obtained. Patient was placed prone on fluoroscopy table and low back area was cleaned and draped after selecting a site at L4-L5 disc level and marking on the skin. 1% lidocaine was injected at puncture site. A 22-gauge spinal needle was advanced from the skin intrathecally at the L4-L5 disc level. No CSF could be obtained. Hence 1% lidocaine was injected at L2-L3 disc level and 22-gauge spinal needle was advanced at L2-L3 disc level intrathecally. There was CSF fluid observed and immediate pressure was obtained in left lateral decubitus view. Subsequently fluid was collected in 4 test tubes. Postprocedure, stylet was reintroduced and needle withdrawn. Patient tolerated procedure extremely well. Sterile Band-Aid applied postprocedure. Prior to lumbar puncture patient had headache and visual disturbance 8 out of 10. FINDINGS: On visualized images there is maintained lumbar lordosis. The vertebral heights and alignment are normal. There is a lumbar peritoneal shunt noted at the L2-L3 disc level. There was an initial dry tap at the L4-L5 disc level. Subsequent lumbar puncture L2-L3 disc level revealed a CSF pressure of 13 cm of water. Approximately 11 mL of CSF was collected in 4 test tubes and sent to lab. FLUOROSCOPY TIME: 2.4 minutes. DOSE AREA PRODUCT: 16.726 uGy-m2 (microgray-meter squared) FL/FL guided lumbar puncture LP IMPRESSION: Successful ultrasound-guided lumbar puncture performed at the L2-L3 disc level. Opening CSF pressure was 13 cm of water. The CSF was clear and approximately 11 mL collected. There was a dry tap at the L4-L5 disc level.
[2021-08-14 10:21] LABS: MANUAL DIFF FLAG NO
[2021-08-14 10:23] LABS: Basophils Percent Auto 0.5 % (0-2); Eosinophils Absolute Auto 0.1 X10*3/uL (0.0-0.4); Eosinophils Percent Auto 1.8 % (0-4); Hematocrit 32.9 % (37.0-47.0); Hemoglobin 10.4 g/dl (12.0-16.0); Imm Gran Abs Auto 0.03 X10*3/uL (0.00-0.03); Imm Gran Pct Auto 0.4 % (0.0-0.4); Lymphocytes Absolute Auto 2.1 X10*3/uL (1.2-4.9); Lymphocytes Percent Auto 28.1 % (20-40); Mean Corpuscular HGB Conc 31.6 g/dl (31.0-35.0); Mean Corpuscular Hemoglobin 26.6 pg (27.0-33.0); Mean Corpuscular Volume 84.1 fL (80.0-98.0); Mean Platelet Volume 9.5 fL (9.4-12.3); Monocytes Absolute Auto 0.3 X10*3/uL (0.1-1.2); Monocytes Percent Auto 4.6 % (2-11); Neutrophils Absolute Auto 4.7 x10*3/uL (2.0-8.3); Neutrophils Percent Auto 64.6 % (45-73); Platelet Count 334 X10*3/uL (160-400); Red Blood Count 3.91 X10*6/uL (4.20-5.50); Red Cell Distribution Width 14.6 % (11.0-16.0); White Blood Count 7.3 X10*3/uL (4.8-10.8)
[2021-08-14 10:30] LABS: Prothrombin Time 11.2 SEC (9.9-13.0)
[2021-08-14 10:33] LABS: UPreg QC Valid YES; Urine Pregnancy NEGATIVE (NEGATIVE)
[2021-08-14 10:33] LABS: Partial Thromboplastin Time 30.8 SEC (24.1-38.0)
[2021-08-14] MEDS: oxyCODONE HCl Immed Release 5 MG TABLET PO ×2 (13:00→14:22)
[2021-08-14] MEDS: Acetaminophen 325 MG TABLET 650 MG PO (13:00)
[2021-08-14 13:25] LABS: Glucose CSF 62 mg/dL; Total Protein CSF 24.4 mg/dL (15-45)
[2021-08-14 13:33] LABS: Appearance CSF CLEAR; CSF Tube # 4
[2021-08-14 13:34] LABS: CSF Monos 0 %; Color CSF COLORLESS; Lymphocytes CSF 100 %; Neutrophils CSF 0 %; Red Blood Cell CSF 8 MM*3; White Blood Cell CSF 5 MM*3
[2021-08-14 13:43] LABS: CSF Appearance Clear, Colorless
[2021-08-14 13:44] LABS: CSF Tube # 3
== END 2021-08-14 11:00 ==
LOC: HO.SSS 09:09
PROVIDERS: Psychiatry & Neurology Neurology; Visit Provider Radiology Diagnostic Radiology
PROC: 009U3ZZ Drainage of Spinal Canal, Percutaneous Approach (ICD-10-PCS; CPT 62270; principal; 2021-08-14 11:00)
DX: G93.2 Benign intracranial hypertension (principal); I10 Essential (primary) hypertension; M06.9 Rheumatoid arthritis, unspecified; G43.909 Migraine, unspecified, not intractable, without status migrainosus; Z98.2 Presence of cerebrospinal fluid drainage device
CPT/HCPCS: 36415; 62328; 81025; 82945; 84157; 85025; 85610; 85730; 87015; 87070; 87205; 89051

== ENCOUNTER 2021-08-14 17:36 | Inpatient (IN) | payer OTHER, SELFPAY ==
[2021-08-14] VITALS (7 sets, daily range): BP systolic 153–181; BP diastolic 88–93; PULSE 60–79; RESP 16–20; TEMP 36.6–36.7; O2SAT 99–100; BMI 32.0
--- NOTE | ~2021-08-14 | CT_ITS ---
EXAMINATION: CT HEAD WITHOUT CONTRAST CLINICAL INFORMATION: Headache. COMPARISON: CT head 09/12/2019 TECHNIQUE: Contiguous axial imaging was performed from the skull base to vertex without intravenous administration of contrast. Coronal and sagittal reformatted images are performed at the CT scanner. [This CT examination was performed using dose optimization techniques as appropriate, variously including the following: *Automated exposure control *Adjustment of mA and/or kV according to patient size (this includes techniques or standardized protocols for targeted exams where dose is matched to indication/reason for exam; i.e. extremities or head) *Use of iterative reconstruction technique] DLP: 639 mGy-cm. FINDINGS: There is no evidence of acute intracranial hemorrhage or territorial infarction. No abnormal mass-effect or midline shift is seen. Garcia to white matter differentiation is well preserved. No extra-axial fluid collections are identified. The ventricles are normal in size. There is no abnormal attenuation within the brain parenchyma. There is no osseous abnormality. The mastoid air cells and visualized portions of the paranasal sinuses are well-aerated. CT/CT head/brain wo con IMPRESSION: No acute intracranial pathology.
--- NOTE | 2021-08-14 17:42 | ED.GENADULT ---
HPI - General Adult General Chief complaint: General Medical <CHANTELL Ward - Last Filed: 08/14/21 20:22> Stated complaint: multiple complaints <CHANTELL Ward - Last Filed: 08/14/21 20:22> Time Seen by Provider: 08/14/21 17:42 <CHANTELL Ward - Last Filed: 08/14/21 20:22> Source: patient <CHANTELL Ward - Last Filed: 08/14/21 20:22> Mode of arrival: other (Postop) <CHANTELL Ward Last Filed: 08/14/21 20:22> Limitations: no limitations <CHANTELL Ward - Last Filed: 08/14/21 20:22> History of Present Illness HPI narrative: This is a 30-year-old female past medical history significant for pseudotumor cerebri status post lumbar peritoneal shunt presenting to the emergency department status post lumbar puncture now complaining of severe headache, weakness, numbness and tingling to bilateral lower extremities. Patient tells me that a lumbar puncture was done by Dr. Russell today, and most these symptoms started after the lumbar puncture. She tells me she had had boring headache for 5 days prior however after the lumbar puncture it unless a, 10/10 localized to the occipital aspect of the head. She tells me that movement makes her headache much worse. She tells me she also feels extremely dizzy, weak and is having sensitivity to light. Patient tells me that she felt like she was going to fall when she tried to stand up due to weakness. She reports that about a month ago patient had surgery due to ovarian torsion secondary to a large ovarian cyst, she tells me that when they went in to operate on her ovary they noted that her shunt was out of place therefore she was advised to have a lumbar puncture. Patient denies vision changes, nausea, vomiting, abdominal pain, chest pain, shortness of breath, urinary/bowel incontinence/retention. <CHANTELL Ward Last Filed: 08/14/21 20:22> Onset (ago): hour(s) (2) <CHANTELL Ward Last Filed: 08/14/21 20:22> Location: head <CHANTELL Ward - Last Filed: 08/14/21 20:22> Severity: severe <CHANTELL Ward - Last Filed: 08/14/21 20:22> Severity scale (1-10): >10 <CHANTELL Ward - Last Filed: 08/14/21 20:22> Quality: aching, crushing and constant <CHANTELL Ward - Last Filed: 08/14/21 20:22> Pain Consistency: constant <CHANTELL Ward - Last Filed: 08/14/21 20:22> Relieving factors: none <CHANTELL Ward - Last Filed: 08/14/21 20:22> Exacerbating factors: movement and other (photophobia) <CHANTELL Ward - Last Filed: 08/14/21 20:22> Associated symptoms: headaches, malaise and weakness <CHANTELL Ward - Last Filed: 08/14/21 20:22> Treatments prior to arrival: none <CHANTELL Ward - Last Filed: 08/14/21 20:22> Related Data Home medications: Previous Rx's Medication Instructions Recorded cyclobenzaprine 10 mg tablet 10 mg PO TID PRN muscle spasm #20 01/03/20 tabs ibuprofen 800 mg tablet 800 mg PO Q8H PRN pain #30 tabs 01/03/20 lidocaine 4 % topical patch 1 patch topical Q24H PRN pain #10 01/03/20 ea medroxyprogesterone 10 mg tablet 10 mg PO DAILY #5 tabs 07/12/21 (Provera) tramadol 50 mg tablet 50 mg PO BID PRN pain #6 tabs 07/12/21 <CHANTELL Ward - Last Filed: 08/14/21 20:22> Allergies/adverse reactions: Allergies Allergy/AdvReac Type Severity Reaction Status Date / Time ketorolac [From TORADOL] Allergy Unknown ANXIETY, Verified 05/03/20 23:30 NAUSEA, DIZZY <CHANTELL Ward - Last Filed: 08/14/21 20:22> Review of Systems Review of Systems: Constitutional : No Weight loss, No Fever, No Chills, No Fatigue, No Malaise ENT/Mouth : No sore throat, No Rhinorrhea Eyes: No Eye Pain, No Swelling, No Redness Cardiovascular : No Chest Pain, No SOB, No Dyspnea on Exertion, No Orthopnea, No Edema, No Palpitations Respiratory : No Cough, No Sputum, No Wheezing Gastrointestinal : No Nausea, No Vomiting, No Diarrhea, No Constipation, No abdominal Pain, No Hematochezia, No Melena Genitourinary : No Dysuria, No Urinary Frequency, No Hematuria, Musculoskeletal : No joint pain, No Myalgias, No Joint Swelling Skin : No Skin Lesions, No rash Neuro : + Weakness, + Numbness, No Dizziness, + Headache All other systems reviewed and are negative <CHANTELL Ward - Last Filed: 08/14/21 20:22> Yes all other systems are reviewed and are negative <CHANTELL Ward - Last Filed: 08/14/21 20:22> [facility] Past Medical History Attestation statement: The following information was validated with the patient. <CHANTELL Ward - Last Filed: 08/14/21 20:22> Source: old records reviewed and nursing notes reviewed <CHANTELL Ward - Last Filed: 08/14/21 20:22> Medical History: Medical History Hypertension Kidney stones Pseudotumor cerebri Rheumatoid arthritis <CHANTELL Ward - Last Filed: 08/14/21 20:22> Social History Social History: Social History Alcohol intake: never Advance Directives: No Advance Directives Information Provided: No <CHANTELL Ward - Last Filed: 08/14/21 20:22> Physical Exam ED Vital Signs: Vital Signs - 24 hr 08/14/21 17:42 08/14/21 17:54 08/14/21 18:09 Temperature 98.1 F 98 F Pulse Rate 68 79 Respiratory Rate 18 16 20 Blood Pressure 153/92 H 173/88 H Pulse Oximetry 99 100 Oxygen Delivery Method Room Air Room Air 08/14/21 19:17 08/14/21 19:31 Temperature Pulse Rate 71 Respiratory Rate 18 18 Blood Pressure 181/91 H Pulse Oximetry Oxygen Delivery Method BMI result Body Mass Index 32.0 Vital signs stable <CHANTELL Ward - Last Filed: 08/14/21 20:22> Vital Signs - 24 hr 08/14/21 17:42 08/14/21 17:54 08/14/21 18:09 Temperature 98.1 F 98 F Pulse Rate 68 79 Respiratory Rate 18 16 20 Blood Pressure 153/92 H 173/88 H Pulse Oximetry 99 100 Oxygen Delivery Method Room Air Room Air 08/14/21 19:17 08/14/21 19:31 Temperature Pulse Rate 71 Respiratory Rate 18 18 Blood Pressure 181/91 H Pulse Oximetry Oxygen Delivery Method BMI result Body Mass Index 32.0 <Deejay Hui MD - Last Filed: 08/14/21 19:29> Appearance: Alert.? Oriented X3.? No acute distress.? Patient appears uncomfortable, lying on the stretcher with her eyes closed. Head: Normocephalic, atraumatic, no step-offs or deformities Eyes: Pupils equal, round and reactive to light.? ENT: Pharynx normal.? Neck: Normal inspection.? Neck supple.? CVS: Normal heart rate and rhythm.? Pulses normal.? Respiratory: No respiratory distress.? Breath sounds normal.? Abdomen: Soft and nontender.? Skin: Skin warm and dry.? Normal skin color.? Normal skin turgor.?+ bandaid over area of L1 (suspected site of LP) Extremities: No lower extremity edema.? No calf ttp. 5/5 strength to bilateral upper and 3/5 strength to b/l lower extremities. 2+ patellar pulses equal bilateral. Back: No midline tenderness, no C-spine tenderness, full range of motion, no CVA tenderness bilaterally Neuro: Oriented X 3.? No motor deficit.? + decreased sensation from hips down to toes. <CHANTELL Ward - Last Filed: 08/14/21 20:22> Course Reevaluation(s) Reevaluation #1: CBC appears to be around patient's baseline. Chemistry with no acute findings. Discussed obtaining a head CT of my attending, no need for head CT at this time. My attending has also been in contact with Neurology, advised this to admit patient for close observation possibly MRI in the morning. Also admitting for pain control. <CHANTELL Ward - Last Filed: 08/14/21 20:22> Time: 20:20 <CHANTELL Ward - Last Filed: 08/14/21 20:22> Medical Decision Making [facility] Narrative Medical decision making narrative: [birth year] 30-year-old female presents status post lumbar puncture earlier today with complaints of severe headache, numbness, weakness to bilateral lower extremities. I spoke to who called in and expect on this patient who told me that this is a 30-year-old female who has a history of pseudotumor cerebri with a lumbar peritoneal shunt in place, no complaining of severe headache status post lumbar puncture. The lumbar puncture was done by Dr. Muhammad, he tells me that patient's headache is so severe that she appears to be in acne. Patient is also complaining of numbness and weakness to toes and feet, consistent with patient history. He advises admission for observation and pain control. He tried to get a hold of Neurosurgery with no success. Physical examination significant for weakness from the hip down to the feet, with decreased sensation, patient has 3/5 strength lower extremities 5/5 strength upper extremities. 2+ patellar reflexes equal and b/l. There is a Band-Aid overlying L1, likely site of lumbar puncture. Patient appears uncomfortable, lying in the stretcher with her eyes closed. Reports headache with movement. Plan at this time is basic labs, COVID, head CT, MRI without contrast Low suspicion for cauda equina. Low concerns for spinal hematoma secondary to LP. Discussed w/ Dr. Hui who will evaluate patient. 1915; patient seen and evaluated patient with history of pseudotumor cerebri status post spinal shunt been having headache for last few days had spinal tap by radiologist today who tried 2 times was done at the L1 level at 10:00 immediately after the spinal tap patient been complaining of pain in the lower back area with numbness feeling in both legs right more than the left no bladder or bowel involvement no motor weakness as such. On examination patient does have sensory loss to all modalities including pain temperature light touch and pin prick from level of T8 on the right side slightly crossing to the left not exactly in the midline all the way to the toes no loss of sensation to the other side deep tendon reflexes are 3+ bilateral has good strength bilateral Babinski bilateral negative tone is normal. Etiology of presentation is not very clear likely from lidocaine given during the procedure unlikely to be Brown-Sequard syndrome or any segmental syndrome. Case discussed with Dr. Urban neurologist advised to give for observation with the symptoms continues may need MRI at this time we cannot confirm the type of patient's shunt patient has . All the patient says that she had MRI after shunt was placed about 5 years ago, will admit the patient for pain control re-evaluate in the morning reassure the patient <CHANTELL Ward - Last Filed: 08/14/21 20:22> 1645 30-year-old female presents status post lumbar puncture earlier today with complaints of severe headache, numbness, weakness to bilateral lower extremities. I spoke to who called in and expect on this patient who told me that this is a 30-year-old female who has a history of pseudotumor cerebri with a lumbar peritoneal shunt in place, no complaining of severe headache status post lumbar puncture. The lumbar puncture was done by Dr. Muhammad, he tells me that patient's headache is so severe that she appears to be in acne. Patient is also complaining of numbness and weakness to toes and feet, consistent with patient history. He advises admission for observation and pain control. He tried to get a hold of Neurosurgery with no success. Physical examination significant for weakness from the hip down to the feet, with decreased sensation, patient has 3/5 strength lower extremities 5/5 strength upper extremities. 2+ patellar reflexes equal and b/l. There is a Band-Aid overlying L1, likely site of lumbar puncture. Patient appears uncomfortable, lying in the stretcher with her eyes closed. Reports headache with movement. Plan at this time is basic labs, COVID, head CT, MRI without contrast Low suspicion for cauda equina. However concerns for spinal hematoma secondary to LP. Will obtain an MRI to rule this Discussed w/ Dr. Hui who will evaluate patient. 1915; patient seen and evaluated patient with history of pseudotumor cerebri status post spinal shunt been having headache for last few days had spinal tap by radiologist today who tried 2 times was done at the L1 level at 10:00 immediately after the spinal tap patient been complaining of pain in the lower back area with numbness feeling in both legs right more than the left no bladder or bowel involvement no motor weakness as such. On examination patient does have sensory loss to all modalities including pain temperature light touch and pin prick from level of T8 on the right side slightly crossing to the left not exactly in the midline all the way to the toes no loss of sensation to the other side deep tendon reflexes are 3+ bilateral has good strength bilateral Babinski bilateral negative tone is normal. Etiology of presentation is not very clear likely from lidocaine given during the procedure unlikely to be Brown-Sequard syndrome or any segmental syndrome. Case discussed with Dr. Urban neurologist advised to give for observation with the symptoms continues may need MRI at this time we cannot confirm the type of patient's shunt patient has . All the patient says that she had MRI after shunt was placed about 5 years ago, will admit the patient for pain control re-evaluate in the morning reassure the patient <Deejay Hui MD - Last Filed: 08/14/21 19:29> Medical Records Medical records reviewed: Yes I reviewed the patient's medical records. <CHANTELL Ward - Last Filed: 08/14/21 20:22> Lab Data Lab results reviewed: Yes I reviewed the patient's lab results. <CHANTELL Ward - Last Filed: 08/14/21 20:22> Result diagrams: : 08/14/21 18:09 08/14/21 18:09 <CHANTELL Ward - Last Filed: 08/14/21 20:22> Labs: Lab Results 08/14/21 08/14/21 08/14/21 Range/Units 18:09 18:09 18:09 WBC 7.4 (4.8-10.8) X10*3/uL RBC 3.92 L (4.20-5.50) X10*6/uL Hgb 10.2 L (12.0-16.0) g/dl Hct 32.4 L (37.0-47.0) % MCV 82.7 (80.0-98.0) fL MCH 26.0 L (27.0-33.0) pg MCHC 31.5 (31.0-35.0) g/dl RDW 14.4 (11.0-16.0) % Plt Count 317 (160-400) X10*3/uL MPV 9.1 L (9.4-12.3) fL Immature Gran % (Auto) 0.3 (0.0-0.4) % Neut % (Auto) 53.4 (45-73) % Lymph % (Auto) 37.9 (20-40) % [place] % (Auto) 6.1 (2-11) % Eos % (Auto) 1.9 (0-4) % Baso % (Auto) 0.4 (0-2) % Lymph # (Auto) 2.8 (1.2-4.9) X10*3/uL [place] # (Auto) 0.5 (0.1-1.2) X10*3/uL Eos # (Auto) 0.1 (0.0-0.4) X10*3/uL Baso # (Auto) 0.0 (0.0-0.2) X10*3/uL Abs Immat Gran (auto) 0.02 (0.00-0.03) X10*3/uL Absolute Neuts (auto) 4.0 (2.0-8.3) x10*3/uL Absolute Nucleated RBC 0.000 (0.0-0.012) X10*3/uL Nucleated RBC % (auto) 0.0 (0.0-0.2) /100WBC PT 11.8 (9.9-13.0) SEC INR 1.0 (0.9-1.1) Sodium 140 (135-145) mmol/L Potassium 3.4 (3.3-5.1) mmol/L Chloride 108 (96-108) mmol/L Carbon Dioxide 25 (22-29) mmol/L Anion Gap 10 L (12-20) BUN 7 L (9-16) mg/dL Creatinine 0.72 (0.5-1.4) mg/dL Estim Creat Clear Calc 112.5 Estimated GFR > 60 Random Glucose 88 (60-115) mg/dL Calcium 9.0 D (8.4-10.2) mg/dL Magnesium 2.0 (1.6-2.6) mg/dL Total Bilirubin 0.5 (0.0-1.0) mg/dL AST 15 (5-31) U/L ALT 12 (0-31) U/L Alkaline Phosphatase 82 (39-117) U/L Total Protein 6.9 (6.5-8.0) g/dL Albumin 4.0 (3.5-5.0) g/dL COVID-19 ([facility]) (Negative) COVID-19 Clin Com 08/14/21 Range/Units 18:09 WBC (4.8-10.8) X10*3/uL RBC (4.20-5.50) X10*6/uL Hgb (12.0-16.0) g/dl Hct (37.0-47.0) % MCV (80.0-98.0) fL MCH (27.0-33.0) pg MCHC (31.0-35.0) g/dl RDW (11.0-16.0) % Plt Count (160-400) X10*3/uL MPV (9.4-12.3) fL Immature Gran % (Auto) (0.0-0.4) % Neut % (Auto) (45-73) % Lymph % (Auto) (20-40) % [place] % (Auto) (2-11) % Eos % (Auto) (0-4) % Baso % (Auto) (0-2) % Lymph # (Auto) (1.2-4.9) X10*3/uL [place] # (Auto) (0.1-1.2) X10*3/uL Eos # (Auto) (0.0-0.4) X10*3/uL Baso # (Auto) (0.0-0.2) X10*3/uL Abs Immat Gran (auto) (0.00-0.03) X10*3/uL Absolute Neuts (auto) (2.0-8.3) x10*3/uL Absolute Nucleated RBC (0.0-0.012) X10*3/uL Nucleated RBC % (auto) (0.0-0.2) /100WBC PT (9.9-13.0) SEC INR (0.9-1.1) Sodium (135-145) mmol/L Potassium (3.3-5.1) mmol/L Chloride (96-108) mmol/L Carbon Dioxide (22-29) mmol/L Anion Gap (12-20) BUN (9-16) mg/dL Creatinine (0.5-1.4) mg/dL Estim Creat Clear Calc Estimated GFR Random Glucose (60-115) mg/dL Calcium (8.4-10.2) mg/dL Magnesium (1.6-2.6) mg/dL Total Bilirubin (0.0-1.0) mg/dL AST (5-31) U/L ALT (0-31) U/L Alkaline Phosphatase (39-117) U/L Total Protein (6.5-8.0) g/dL Albumin (3.5-5.0) g/dL COVID-19 ([facility]VETTE) Negative (Negative) COVID-19 Clin Com See Note <CHANTELL Ward - Last Filed: 08/14/21 20:22> Lab Results 08/14/21 08/14/21 08/14/21 Range/Units 18:09 18:09 18:09 WBC 7.4 (4.8-10.8) X10*3/uL RBC 3.92 L (4.20-5.50) X10*6/uL Hgb 10.2 L (12.0-16.0) g/dl Hct 32.4 L (37.0-47.0) % MCV 82.7 (80.0-98.0) fL MCH 26.0 L (27.0-33.0) pg MCHC 31.5 (31.0-35.0) g/dl RDW 14.4 (11.0-16.0) % Plt Count 317 (160-400) X10*3/uL MPV 9.1 L (9.4-12.3) fL Immature Gran % (Auto) 0.3 (0.0-0.4) % Neut % (Auto) 53.4 (45-73) % Lymph % (Auto) 37.9 (20-40) % [place] % (Auto) 6.1 (2-11) % Eos % (Auto) 1.9 (0-4) % Baso % (Auto) 0.4 (0-2) % Lymph # (Auto) 2.8 (1.2-4.9) X10*3/uL [place] # (Auto) 0.5 (0.1-1.2) X10*3/uL Eos # (Auto) 0.1 (0.0-0.4) X10*3/uL Baso # (Auto) 0.0 (0.0-0.2) X10*3/uL Abs Immat Gran (auto) 0.02 (0.00-0.03) X10*3/uL Absolute Neuts (auto) 4.0 (2.0-8.3) x10*3/uL Absolute Nucleated RBC 0.000 (0.0-0.012) X10*3/uL Nucleated RBC % (auto) 0.0 (0.0-0.2) /100WBC PT 11.8 (9.9-13.0) SEC INR 1.0 (0.9-1.1) Sodium 140 (135-145) mmol/L Potassium 3.4 (3.3-5.1) mmol/L Chloride 108 (96-108) mmol/L Carbon Dioxide 25 (22-29) mmol/L Anion Gap 10 L (12-20) BUN 7 L (9-16) mg/dL Creatinine 0.72 (0.5-1.4) mg/dL Estim Creat Clear Calc 112.5 Estimated GFR > 60 Random Glucose 88 (60-115) mg/dL Calcium 9.0 D (8.4-10.2) mg/dL Magnesium 2.0 (1.6-2.6) mg/dL Total Bilirubin 0.5 (0.0-1.0) mg/dL AST 15 (5-31) U/L ALT 12 (0-31) U/L Alkaline Phosphatase 82 (39-117) U/L Total Protein 6.9 (6.5-8.0) g/dL Albumin 4.0 (3.5-5.0) g/dL COVID-19 ([facility]) (Negative) COVID-19 Clin Com 08/14/21 Range/Units 18:09 WBC (4.8-10.8) X10*3/uL RBC (4.20-5.50) X10*6/uL Hgb (12.0-16.0) g/dl Hct (37.0-47.0) % MCV (80.0-98.0) fL MCH (27.0-33.0) pg MCHC (31.0-35.0) g/dl RDW (11.0-16.0) % Plt Count (160-400) X10*3/uL MPV (9.4-12.3) fL Immature Gran % (Auto) (0.0-0.4) % Neut % (Auto) (45-73) % Lymph % (Auto) (20-40) % [place] % (Auto) (2-11) % Eos % (Auto) (0-4) % Baso % (Auto) (0-2) % Lymph # (Auto) (1.2-4.9) X10*3/uL [place] # (Auto) (0.1-1.2) X10*3/uL Eos # (Auto) (0.0-0.4) X10*3/uL Baso # (Auto) (0.0-0.2) X10*3/uL Abs Immat Gran (auto) (0.00-0.03) X10*3/uL Absolute Neuts (auto) (2.0-8.3) x10*3/uL Absolute Nucleated RBC (0.0-0.012) X10*3/uL Nucleated RBC % (auto) (0.0-0.2) /100WBC PT (9.9-13.0) SEC INR (0.9-1.1) Sodium (135-145) mmol/L Potassium (3.3-5.1) mmol/L Chloride (96-108) mmol/L Carbon Dioxide (22-29) mmol/L Anion Gap (12-20) BUN (9-16) mg/dL Creatinine (0.5-1.4) mg/dL Estim Creat Clear Calc Estimated GFR Random Glucose (60-115) mg/dL Calcium (8.4-10.2) mg/dL Magnesium (1.6-2.6) mg/dL Total Bilirubin (0.0-1.0) mg/dL AST (5-31) U/L ALT (0-31) U/L Alkaline Phosphatase (39-117) U/L Total Protein (6.5-8.0) g/dL Albumin (3.5-5.0) g/dL COVID-19 ([facility]) Negative (Negative) COVID-19 Clin Com See Note <Deejay Hui MD - Last Filed: 08/14/21 19:29> Critical Care Time Critical Care Time Critical Care Time: Yes <CHANTELL Ward - Last Filed: 08/14/21 20:22> Total Critical Care Time: 35 <CHANTELL Ward - Last Filed: 08/14/21 20:22> Attestation: I attest to this time spent taking care of the patient, obtaining history, physical, reviewing labs, imaging, speaking to my attending, speaking to specialist. <CHANTELL Ward - Last Filed: 08/14/21 20:22> Discharge Plan Discharge Clinical Impression: Weakness, Sensory deficit present, Headache <CHANTELL Ward - Last Filed: 08/14/21 20:22> Patient Disposition: Admitted As Inpatient <CHANTELL Ward - Last Filed: 08/14/21 20:22> Prescriptions: No Action cyclobenzaprine 10 mg tablet 10 mg PO TID PRN (Reason: muscle spasm) Qty: 20 0RF lidocaine 4 % adhesive patch,medicated 1 patch topical Q24H PRN (Reason: pain) Qty: 10 0RF Rx Instructions: may leave on for up to 12 hrs ibuprofen 800 mg tablet 800 mg PO Q8H PRN (Reason: pain) Qty: 30 0RF medroxyprogesterone [Provera] 10 mg tablet 10 mg PO DAILY Qty: 5 0RF tramadol 50 mg tablet 50 mg PO BID PRN (Reason: pain) Qty: 6 0RF <CHANTELL Ward - Last Filed: 08/14/21 20:22>
[2021-08-14] MEDS: ondansetron HCL 4 MG/2 ML VIAL IVPUSH (17:54)
[2021-08-14] MEDS: Morphine Sulfate 4 MG/ML CARTRIDGE IVPUSH (17:54)
[2021-08-14 18:17] LABS: MANUAL DIFF FLAG NO
[2021-08-14 18:19] LABS: Basophils Percent Auto 0.4 % (0-2); Eosinophils Absolute Auto 0.1 X10*3/uL (0.0-0.4); Eosinophils Percent Auto 1.9 % (0-4); Hematocrit 32.4 % (37.0-47.0); Hemoglobin 10.2 g/dl (12.0-16.0); Imm Gran Abs Auto 0.02 X10*3/uL (0.00-0.03); Imm Gran Pct Auto 0.3 % (0.0-0.4); Lymphocytes Absolute Auto 2.8 X10*3/uL (1.2-4.9); Lymphocytes Percent Auto 37.9 % (20-40); Mean Corpuscular HGB Conc 31.5 g/dl (31.0-35.0); Mean Corpuscular Volume 82.7 fL (80.0-98.0); Mean Platelet Volume 9.1 fL (9.4-12.3); Monocytes Absolute Auto 0.5 X10*3/uL (0.1-1.2); Monocytes Percent Auto 6.1 % (2-11); Neutrophils Percent Auto 53.4 % (45-73); Platelet Count 317 X10*3/uL (160-400); Red Blood Count 3.92 X10*6/uL (4.20-5.50); Red Cell Distribution Width 14.4 % (11.0-16.0); White Blood Count 7.4 X10*3/uL (4.8-10.8)
[2021-08-14 18:35] LABS: Prothrombin Time 11.8 SEC (9.9-13.0)
[2021-08-14 18:39] LABS: COVID-19 Test Negative (Negative); IDNOW Serial# 9DB6401D
[2021-08-14 18:42] LABS: Alanine Aminotransferase 12 U/L (0-31); Alkaline Phosphatase 82 U/L (39-117); Anion Gap 10 (12-20); Aspartate Amino Transferase 15 U/L (5-31); Bilirubin Total 0.5 mg/dL (0.0-1.0); Blood Urea Nitrogen 7 mg/dL (9-16); Carbon Dioxide 25 mmol/L (22-29); Chloride 108 mmol/L (96-108); Creatinine Clr Calc Pharmacy 112.5; Estimated Glomerular Filt Rate > 60; Glucose Random 88 mg/dL (60-115); Potassium 3.4 mmol/L (3.3-5.1); Sodium 140 mmol/L (135-145); Total Protein 6.9 g/dL (6.5-8.0)
--- NOTE | 2021-08-14 19:22 | PC.NURSE ---
Pt reported increased headache pain and lower back pain. Vitals reassessed. Provider notified.
[2021-08-14] MEDS: HYDROmorphone HCl 0.5 MG/0.5 ML SYRINGE IVPUSH ×2 (19:31→22:34)
[2021-08-14] MEDS: clonazePAM 1 MG TABLET PO (20:25)
[2021-08-14] MEDS: dexAMETHasone sod phosphate 10 MG/ML VIAL IVPUSH (20:25)
--- NOTE | 2021-08-14 20:35 | PHA.MEDREC ---
Pharmacy Consult ? Medication Reconciliation Pharmacy has completed the medication reconciliation. Pt states that she no longer takes cymbalta, norvasc, or hctz
--- NOTE | 2021-08-14 22:16 | P.HPHOSP_ITS ---
History of Present Illness Date of Service: 08/14/21 Chief Complaint: headache 30-year-old female with a past medical history of hypertension, pseudotumor cerebri status post LP shunt, rheumatoid arthritis, recent admission to the [facility] for ovarian torsion status post surgery; presented to the hospital today with a chief complaint of headache post lumbar puncture. Patient reported that when she had the surgery she was noted to have L patient dips dangling in the abdomen; later on concern for malfunctioning of the L patient. As patient has been complaining of headaches for the past 5 days as sociated blurry vision; 10/10 in intensity. Patient follows with Dr. Urban in the Neurology [facility] and has scheduled an outpatient lumbar puncture on 08/14/2021; post lumbar puncture patient developed severe headache and numbness in her right lower extremity subsequently patient was sent to the hospital for further evaluation. Patient reported that post lumbar puncture she developed 10/10 headache; also had back pain at the puncture site; followed by numbness in her right lower extremity. Mentioned that her pain slightly improved after she got pain medications in the ER. Denies any numbness tingling or focal weakness of the bilateral upper extremities are left lower extremity; Mentions that she has remote history of spinal headache postprocedure and received blood patch with improvement in her symptoms. Patient also mentioned that when she had the lumbar puncture done today she had about opening pressure of 13 cc of water; followed by patient had 9.5 cc of the cerebrospinal fluid removed. Denies any fever chills cough. Denies any neck pain. Denies any chest pain or palpitations. Denies any GI symptoms. Review of all other systems is negative except mentioned above ER course: Per ER team patient noted to have right lower extremity numbness; strength exam in the right lower extremity is limited secondary to the pain. Initially MRI was considered and discussed with neurology Dr. Urban-mentioned no need for MRI for tonight and can be admitted to the hospital for observation. Patient was given Dilaudid for pain. Off note: I interviewed the patient, explained about the patient's current management plan and recommendations with the Neurology; also suggested if he wants to MRI, patient can be transferred to the [facility] Asthma not have MRI available for tonight. Patient mentioned that she understands her current health situation and denied MRI as well as CT head. Mentioned that she would like to be admitted to the [facility]. [facility] Medical History Hypertension Kidney stones Pseudotumor cerebri Rheumatoid arthritis Pertinent family history: Reviewed Social History Household Members: Children Housing: House Do you presently have visiting nurse or other home services: No Alcohol intake: never Patient Tobacco Use Status: Current someday Tobacco user service: No Current occupational status: unemployed Meds Allergies Allergy/AdvReac Type Severity Reaction Status Date / Time ketorolac [From TORADOL] Allergy Unknown ANXIETY, Verified 05/03/20 23:30 NAUSEA, DIZZY Active Medications: Current Medications Amitriptyline HCl (Amitriptyline Hcl 50 Mg Tablet) 50 mg PO BEDTIME [facility] Aripiprazole (Aripiprazole 5 Mg Tablet) 5 mg PO DAILY [facility] Clonazepam (Clonazepam 1 Mg Tablet) 1 mg PO TID PRN PRN Reason: Anxiety Famotidine (Famotidine 20 Mg Tablet) 40 mg PO BEDTIME PRN PRN Reason: Heartburn Hydromorphone HCl (Hydromorphone Hcl 0.5 Mg/0.5 Ml Syringe) 0.5 mg IVPUSH Q4H PRN; Protocol PRN Reason: Pain, Severe (Pain Scale 7-10) Hydroxyzine HCl (Hydroxyzine Hcl 25 Mg Tablet) 25 mg PO BID PRN PRN Reason: Anxiety Sodium Chloride (Ns) 1,000 mls @ 75 mls/hr IVCONT .[id number] [facility] Ibuprofen (Ibuprofen 600 Mg Tablet) 600 mg PO Q6H PRN PRN Reason: mild pain Lisinopril (Lisinopril 40 Mg Tablet) 40 mg PO DAILY [facility]; Protocol Melatonin (Melatonin 3 Mg Tablet) 6 mg PO BEDTIME PRN PRN Reason: Insomnia Omeprazole (Omeprazole 40 Mg Capsule.Dr) 40 mg PO DAILY@0630 [facility] Pharmacy Consult (Consult Rx Perform Med Rec) 1 each MISCELLANE ONCE PRN PRN Reason: Consult order Senna (Sennosides 8.6 Mg Tablet) 17.2 mg PO BEDTIME PRN PRN Reason: Constipation Sodium Chloride (0.9 % Sodium Chloride Flush 3 Ml Syringe) 3 ml IVFLUSH QSHIFT [facility] Home Medications Medication Instructions Recorded Confirmed Last Taken Type acetaminophen 300 mg-codeine 30 mg 1 tab PO Q6H PRN migraine 08/14/21 08/14/21 08/14/21 History tablet amitriptyline 25 mg tablet 2 tab PO BEDTIME 08/14/21 08/14/21 08/13/21 History aripiprazole 5 mg tablet 1 tab PO DAILY 08/14/21 08/14/21 08/14/21 History clonazepam 1 mg tablet 1 tab PO TID PRN Anxiety 08/14/21 08/14/21 08/14/21 History famotidine 40 mg tablet 1 tab PO BEDTIME PRN Heartburn 08/14/21 08/14/21 Unknown History hydroxyzine pamoate 25 mg capsule 1 cap PO BID PRN Anxiety 08/14/21 08/14/21 Unknown History ibuprofen 600 mg tablet 1 tab PO Q6H PRN mild pain 08/14/21 08/14/21 Unknown History lisinopril 40 mg tablet 1 tab PO DAILY 08/14/21 08/14/21 08/14/21 History omeprazole 20 mg capsule,delayed 40 mg PO DAILY 08/14/21 08/14/21 08/14/21 History release Physical Exam Vital Signs and Narrative: Vital Signs: Last Vital Signs Temp 98 F 08/14/21 18:09 Pulse 71 08/14/21 19:17 Resp 18 08/14/21 19:31 BP 181/91 H 08/14/21 19:17 Pulse Ox 100 08/14/21 18:09 O2 Del Method 08/14/21 18:09 BMI result Body Mass Index 32.0 Gen: Appears be in no acute distress. Speaks in full sentences HEENT: NCAT, Moist mucosa. Neck is supple. Pulmonary: Vesicular breath sounds, fair air entry CVS: Normal S1-S2 Abdomen: BS+, Soft, Nontender Extremities: Warm well perfused Neuro: Alert and awake. Strength 5/5 in bilateral upper extremities and left lower extremity; right lower extremity exam limited secondary to the pain. Patient able to bend the knee and also plantar flex 5/5 on the right lower extremity. Sensations equal bilaterally except for right lower extremity-patient sensation decreased spoke to soft touch and pinprick. Reflexes normal on bilateral knees. Results Labs CBC and Chem 7: 08/15/21 07:08 08/15/21 07:08 Labs: Laboratory Results - last 24 hr 08/14/21 08/14/21 08/14/21 18:09 18:09 18:09 MCV 82.7 MCH 26.0 L MCHC 31.5 RDW 14.4 Plt Count 317 MPV 9.1 L Immature Gran % (Auto) 0.3 Neut % (Auto) 53.4 Lymph % (Auto) 37.9 Lee % (Auto) 6.1 Eos % (Auto) 1.9 Baso % (Auto) 0.4 Lymph # (Auto) 2.8 Lee # (Auto) 0.5 Eos # (Auto) 0.1 Baso # (Auto) 0.0 Abs Immat Gran (auto) 0.02 Absolute Neuts (auto) 4.0 Absolute Nucleated RBC 0.000 Nucleated RBC % (auto) 0.0 PT 11.8 INR 1.0 Anion Gap 10 L Estim Creat Clear Calc 112.5 Estimated GFR > 60 Random Glucose 88 Calcium 9.0 D Magnesium 2.0 Total Bilirubin 0.5 AST 15 ALT 12 Alkaline Phosphatase 82 Total Protein 6.9 Albumin 4.0 COVID-19 ([facility]) COVID-19 Clin Com 08/14/21 18:09 MCV MCH MCHC RDW Plt Count MPV Immature Gran % (Auto) Neut % (Auto) Lymph % (Auto) Lee % (Auto) Eos % (Auto) Baso % (Auto) Lymph # (Auto) Lee # (Auto) Eos # (Auto) Baso # (Auto) Abs Immat Gran (auto) Absolute Neuts (auto) Absolute Nucleated RBC Nucleated RBC % (auto) PT INR Anion Gap Estim Creat Clear Calc Estimated GFR Random Glucose Calcium Magnesium Total Bilirubin AST ALT Alkaline Phosphatase Total Protein Albumin COVID-19 ([facility]) Negative COVID-19 Clin Com See Note Assessment and Plan (1) Headache: (2) Sensory deficit present: (3) Headache: Status: Acute Plan 30-year-old female with a past medical history of hypertension, pseudotumor cerebri status post LP shunt, rheumatoid arthritis, recent admission to the [facility] for ovarian torsion status post surgery; presented to the hospital today with a chief complaint of headache post lumbar puncture under IR guidance by Dr. Muhammad. Headaches: Concern for spinal headache. Patient had 9.6 cc of CSF fluid removed from the LP on 08/14/2021. Patient had opening pressure of 13 cc of water. Will continue gentle IV fluids Dilaudid p.r.n. for pain control. Patient refused CT head. Dr. Urban from Neurology aware of the patient. Low back pain/right leg numbness: Question related to anesthesia Strength exam on the right lower extremity is limited secondary to the pain. Neurology consult recommended admission for observation, no further imaging overnight. Pain control Fall precautions Neuro checks History of pseudotumor cerebri: Patient does LP stone. History of hypertension: Continue home lisinopril History of anxiety/depression: Continue home amitriptyline, aripiprazole, clonazepam DVT prophylaxis: SCD boots Code status: Full code Quality Stroke Does the patient have a stroke diagnosis?: No VTE Prior VTE?: No VTE Risk Level:: Medical - moderate - high VTE Device Contraindication: N/A - Device Ordered VTE Drug Contraindication: Treatment Not Indicated
[2021-08-14] MEDS: 0.9 % Sodium Chloride 1,000 ML 75 ML IVCONT (22:34)
--- NOTE | 2021-08-14 23:40 | PC.NURSE ---
Pt refused covid swab, states She is not here for Covid. Will agree to swab only if admitted
[2021-08-15] VITALS: BP 147/89; PULSE 70; RESP 16; TEMP 36.5; O2SAT 98
[2021-08-15] MEDS: clonazePAM 1 MG TABLET PO ×4 (00:46→20:44)
[2021-08-15] MEDS: Amitriptyline HCl 50 MG TABLET PO ×2 (00:59→20:41)
[2021-08-15] MEDS: 0.9 % Sodium Chloride Flush 3 ML SYRINGE IVFLUSH (01:00)
[2021-08-15] MEDS: Melatonin 3 MG TABLET 6 MG PO (01:36)
[2021-08-15] MEDS: Ibuprofen 600 MG TABLET PO ×2 (01:36→20:41)
[2021-08-15] MEDS: HYDROmorphone HCl 0.5 MG/0.5 ML SYRINGE IVPUSH ×4 (02:35→17:16)
[2021-08-15 02:53] VITALS: BMI 31.7
[2021-08-15] MEDS: Omeprazole 40 MG CAPSULE.DR PO (06:26)
[2021-08-15 07:36] LABS: Basophils Percent Auto 0.1 % (0-2); Hematocrit 35.4 % (37.0-47.0); Hemoglobin 11.1 g/dl (12.0-16.0); Imm Gran Abs Auto 0.04 X10*3/uL (0.00-0.03); Imm Gran Pct Auto 0.5 % (0.0-0.4); Lymphocytes Absolute Auto 0.7 X10*3/uL (1.2-4.9); Lymphocytes Percent Auto 8.5 % (20-40); MANUAL DIFF FLAG SCAN; Mean Corpuscular HGB Conc 31.4 g/dl (31.0-35.0); Mean Corpuscular Hemoglobin 26.2 pg (27.0-33.0); Mean Corpuscular Volume 83.5 fL (80.0-98.0); Mean Platelet Volume 9.7 fL (9.4-12.3); Monocytes Absolute Auto 0.1 X10*3/uL (0.1-1.2); Monocytes Percent Auto 0.7 % (2-11); Neutrophils Absolute Auto 6.9 x10*3/uL (2.0-8.3); Neutrophils Percent Auto 90.2 % (45-73); Platelet Count 349 X10*3/uL (160-400); Red Blood Count 4.24 X10*6/uL (4.20-5.50); Red Cell Distribution Width 14.3 % (11.0-16.0); SCAN SMEAR FLAG 1; White Blood Count 7.6 X10*3/uL (4.8-10.8)
[2021-08-15] MEDS: ARIPiprazole 5 MG TABLET PO (07:39)
[2021-08-15] MEDS: lisinopriL 40 MG TABLET PO (07:39)
[2021-08-15 07:48] VITALS: BP 129/74; PULSE 63; RESP 20; TEMP 36.3; O2SAT 97
[2021-08-15 07:53] LABS: Anion Gap 12 (12-20); Blood Urea Nitrogen 10 mg/dL (9-16); Calcium 9.1 mg/dL (8.4-10.2); Carbon Dioxide 25 mmol/L (22-29); Chloride 104 mmol/L (96-108); Creatinine Clr Calc Pharmacy 113.6; Estimated Glomerular Filt Rate > 60; Glucose Random 133 mg/dL (60-115); Potassium 4.1 mmol/L (3.3-5.1); Sodium 137 mmol/L (135-145)
[2021-08-15 07:56] LABS: SLIDE REVIEW VERIFIED
--- NOTE | 2021-08-15 09:25 | MHC.CM.PN ---
Addendum entered by Lacey Juárez 08/15/21 09:28: No HCP on file. A copy of pts HCP has been requested. Original Note: Female 30 DX Headache she lives with her kids. She is independent with all functional mobility. PCP is Dr Arabella Holland. DP home no services family transport.
[2021-08-15] MEDS: Butalb/Acetamin/Caff 50/325/40 TABLET 1 TAB PO (10:38)
--- NOTE | 2021-08-15 10:43 | P.CNNE_ITS ---
History of Present Illness Data of Consult Service Date: 08/15/21 Primary Care Provider: Unknown Physician HPI Reason for consult: severe headache. Right lower extremity numbness up to umbilicus this is a 30-year-old woman who I follow in the office for about 10 years for pseudotumor cerebri which was treated with a lumbar peritoneal shunt by Dr. Bell about 7 years ago. She has continued having headaches and her last few lumbar puncture showed normal opening pressure in her spinal fluid. She also suffers from tension anxiety depression and chronic headache. She came in for a lumbar puncture on 08/14/21 because she had recently had some abdominal procedure in which her shunt and was found to be entangled. She was having severe headaches and we wanted to rule out shunt malfunction. Lumbar puncture was done by Dr. Forbes at L4-5 and he says he got a dry tap so he went to L2-3 and was able to obtain normal sspinal fluid with an opening pressure of 11. The normal pressure indicated either that she does not need the shunt or that it is working. After the procedure she said her pre-existing headache got a lot worse even in the lying position but no postural change and her back pain became a lot worse radiating from the lumbar spine up to the neck and then after a while she said she couldn't feel anything in the right lower extremity. She was seen in the emergency room where she was found to have no sensation of any kind up to the umbilicus on the right but normal on the left. She was therefore admitted for observation Review of Systems 2 Review of Systems: Yes all other systems are reviewed and are negative [facility] Past Medical History Medical History Hypertension Kidney stones Pseudotumor cerebri Rheumatoid arthritis Family History Pertinent family history: Reviewed Social History Social History Household Members: Children Housing: House Do you presently have visiting nurse or other home services: No Alcohol intake: never Patient Tobacco Use Status: Current someday Tobacco user Patient Interested in Nicotine Replacement: No Patient Given Instructions on How to Stop Smoking: Yes Date Education Initiated: 08/15/21 Use of substances other than those prescribed or required for medical reasons: No Have you been hit, kicked, punched, or otherwise hurt by someone within the past year? If so, by whom?: No Do you feel safe in your current relationship?: No Current Relationship Is there a partner from a previous relationship who is making you feel unsafe now?: No Are you made to feel afraid or neglected: No Advance Directives: No Advance Directives Information Provided: No Do you have thoughts of harming others: None Do you have a plan to hurt others: No Plan Recently lost weight without trying: No Eating poorly because of decreased appetite: No Nutrition Risks: No Nutritional Risk Patient : No : No Poor oral hygiene: No service: No Current occupational status: unemployed Meds Allergies Allergy/AdvReac Type Severity Reaction Status Date / Time ketorolac [From TORADOL] Allergy Unknown ANXIETY, Verified 05/03/20 23:30 NAUSEA, DIZZY Active Medications: Current Medications Acetaminophen/Butalbital/Caffeine (Butalb/Acetamin/Caff 50/325/40 Tablet) 1 tab PO Q4H PRN PRN Reason: headache Last Admin: 08/15/21 10:38 Dose: 1 tab Amitriptyline HCl (Amitriptyline Hcl 50 Mg Tablet) 50 mg PO BEDTIME [facility] Last Admin: 08/15/21 00:59 Dose: 50 mg Aripiprazole (Aripiprazole 5 Mg Tablet) 5 mg PO DAILY [facility] Last Admin: 08/15/21 07:39 Dose: 5 mg Clonazepam (Clonazepam 1 Mg Tablet) 1 mg PO TID PRN PRN Reason: Anxiety Last Admin: 08/15/21 07:43 Dose: 1 mg Famotidine (Famotidine 20 Mg Tablet) 40 mg PO BEDTIME PRN PRN Reason: Heartburn Hydromorphone HCl (Hydromorphone Hcl 0.5 Mg/0.5 Ml Syringe) 0.5 mg IVPUSH Q4H PRN; Protocol PRN Reason: Pain, Severe (Pain Scale 7-10) Last Admin: 08/15/21 10:38 Dose: 0.5 mg Hydroxyzine HCl (Hydroxyzine Hcl 25 Mg Tablet) 25 mg PO BID PRN PRN Reason: Anxiety Sodium Chloride (Ns) 1,000 mls @ 75 mls/hr IVCONT .[id number] [facility] Last Infusion: 08/15/21 08:40 Dose: 75 mls/hr Ibuprofen (Ibuprofen 600 Mg Tablet) 600 mg PO Q6H PRN PRN Reason: mild pain Last Admin: 08/15/21 01:36 Dose: 600 mg Lisinopril (Lisinopril 40 Mg Tablet) 40 mg PO DAILY [facility]; Protocol Last Admin: 08/15/21 07:39 Dose: 40 mg Melatonin (Melatonin 3 Mg Tablet) 6 mg PO BEDTIME PRN PRN Reason: Insomnia Last Admin: 08/15/21 01:36 Dose: 6 mg Omeprazole (Omeprazole 40 Mg Capsule.Dr) 40 mg PO DAILY@0630 [facility] Last Admin: 08/15/21 06:26 Dose: 40 mg Pharmacy Consult (Consult Rx Perform Med Rec) 1 each MISCELLANE ONCE PRN PRN Reason: Consult order Senna (Sennosides 8.6 Mg Tablet) 17.2 mg PO BEDTIME PRN PRN Reason: Constipation Sodium Chloride (0.9 % Sodium Chloride Flush 3 Ml Syringe) 3 ml IVFLUSH QSHIFT [facility] Last Admin: 08/15/21 10:04 Dose: Not Given Home Medications Medication Instructions Recorded Confirmed Last Taken Type acetaminophen 300 mg-codeine 30 mg 1 tab PO Q6H PRN migraine 08/14/21 08/14/21 08/14/21 History tablet amitriptyline 25 mg tablet 2 tab PO BEDTIME 08/14/21 08/14/21 08/13/21 History aripiprazole 5 mg tablet 1 tab PO DAILY 08/14/21 08/14/21 08/14/21 History clonazepam 1 mg tablet 1 tab PO TID PRN Anxiety 08/14/21 08/14/21 08/14/21 History famotidine 40 mg tablet 1 tab PO BEDTIME PRN Heartburn 08/14/21 08/14/21 Unknown History hydroxyzine pamoate 25 mg capsule 1 cap PO BID PRN Anxiety 08/14/21 08/14/21 Unknown History ibuprofen 600 mg tablet 1 tab PO Q6H PRN mild pain 08/14/21 08/14/21 Unknown History lisinopril 40 mg tablet 1 tab PO DAILY 08/14/21 08/14/21 08/14/21 History omeprazole 20 mg capsule,delayed 40 mg PO DAILY 08/14/21 08/14/21 08/14/21 History release Physical Exam Vital Signs: Vital Signs: Last Vital Signs Temp 97.4 F 08/15/21 07:48 Pulse 63 08/15/21 07:48 Resp 20 08/15/21 07:48 BP 129/74 08/15/21 07:48 Pulse Ox 97 08/15/21 07:48 O2 Del Method 08/15/21 07:48 BMI result Body Mass Index 31.7 Neuro: Other: she cllaims to have a headache at this time 10 on a scale of 10 is lying in bed with the head up about 5? and was on her cell phone when I went into the room. She does not have any photophobia or sonophobia her neck is supple. Cognitive functions are normal. Muscle tone and strength are normal in the upper extremities. She complains of a lot of pain on moving the right lower extremity and yet says that she has no feeling in the right lower extremity where she denies feeling any pinprick up to the T9 level on the right with a sharp split at the midline. She would not feel any vibration sensation at the ankles and knees and iliac crest. When I did the yes and no pinprick test every time I start the pin on her right anesthetics side on the back she would see no indicating that this is a conversion disorder. Reflexes are symmetrical 2+ plantar response was flexor. She is able to bear weight to take a few steps. Results Labs CBC & Chem 7: 08/15/21 07:08 08/15/21 07:08 Labs: Short CBC 08/14/21 08/15/21 Range/Units 18:09 07:08 WBC 7.4 7.6 (4.8-10.8) X10*3/uL Hgb 10.2 L 11.1 L (12.0-16.0) g/dl Hct 32.4 L 35.4 L (37.0-47.0) % Plt Count 317 349 (160-400) X10*3/uL BMP 08/14/21 08/15/21 18:09 07:08 Sodium 140 137 Potassium 3.4 4.1 D Chloride 108 104 Carbon Dioxide 25 25 BUN 7 L 10 Creatinine 0.72 0.71 Calcium 9.0 D 9.1 Liver Function 08/14/21 Range/Units 18:09 Total Bilirubin 0.5 (0.0-1.0) mg/dL AST 15 (5-31) U/L ALT 12 (0-31) U/L Alkaline Phosphatase 82 (39-117) U/L Albumin 4.0 (3.5-5.0) g/dL Assessment and Plan (1) Conversion disorder: Status: Acute her right lower extremity sensory abnormality is clearly a conversion disorder based on my examination and has no neurological basis. The patient was reassured that these things can happen sometimes after the procedure and should clear up within 24 hours. She was encouraged to not worry about it and to walk about normally (2) Headache: Status: Acute chronic headache currently not related to pseudotumor cerebri as her opening pressure was only 11. The headache is not a post lumbar puncture headache because lying in bed in flat she still says that she has a 10 out of 10 headache and yet she is on her cell phone in her checking her messages. I would treat her headaches with Percocet 5/325 every 6 hours as needed. No blood patch as necessary (3) Sensory deficit present: Status: Acute (4) Back pain: Status: Acute the Percocet for the headache should cover the back pain. She may use some heat to the back. Plan 30-year-old female with a past medical history of hypertension, pseudotumor cerebri status post LP shunt, rheumatoid arthritis, recent admission to the [facility] for ovarian torsion status post surgery; presented to the hospital today with a chief complaint of headache post lumbar puncture under IR guidance by Dr. Muhammad. Headaches: Concern for spinal headache. Patient had 9.6 cc of CSF fluid removed from the LP on 08/14/2021. Patient had opening pressure of 13 cc of water. Will continue gentle IV fluids Dilaudid p.r.n. for pain control. Patient refused CT head. Dr. Urban from Neurology aware of the patient. Low back pain/right leg numbness: Question related to anesthesia Strength exam on the right lower extremity is limited secondary to the pain. Neurology consult recommended admission for observation, no further imaging overnight. Pain control Fall precautions Neuro checks History of pseudotumor cerebri: Patient does LP stone. History of hypertension: Continue home lisinopril History of anxiety/depression: Continue home amitriptyline, aripiprazole, clonazepam DVT prophylaxis: SCD boots Code status: Full code Procedures Date of Service Date of Service: 08/15/21
[2021-08-15 11:48] VITALS: BP 141/91; PULSE 69; RESP 20; TEMP 36.6; O2SAT 93
--- NOTE | 2021-08-15 14:10 | P.PNIM_ITS ---
Subjective Subjective Date of Service: 08/15/21 Interval History: severe 10/10 headache RLE numbness Review of Systems Review of Systems: Yes all other systems are reviewed and are negative Physical Exam Vital Signs: Vital Signs: Last Vital Signs Temp 97.8 F 08/15/21 11:48 Pulse 69 08/15/21 11:48 Resp 20 08/15/21 11:48 BP 141/91 H 08/15/21 11:48 Pulse Ox 93 08/15/21 11:48 O2 Del Method 08/15/21 11:48 BMI result Body Mass Index 31.7 Gen: in no acute distress HEENT: sclera anicteric, moist mucus membranes Neck: supple Lungs: clear to auscultation bilaterally Heart: regular rate and rhythm, no murmurs Abd: soft, non-tender, non-distended Ext: no edema Skin: warm/well-perfused Neuro: alert and oriented x3, no focal findings Psych: appropriate affect Objective Data Active Medications Acetaminophen/Butalbital/Caffeine (Butalb/Acetamin/Caff 50/325/40 Tablet) 1 tab PO Q4H PRN PRN Reason: headache Last Admin: 08/15/21 10:38 Dose: 1 tab Documented By: PRAKASH Amitriptyline HCl (Amitriptyline Hcl 50 Mg Tablet) 50 mg PO BEDTIME [facility] Last Admin: 08/15/21 00:59 Dose: 50 mg Documented By: AIRAM Aripiprazole (Aripiprazole 5 Mg Tablet) 5 mg PO DAILY [facility] Last Admin: 08/15/21 07:39 Dose: 5 mg Documented By: PRAKASH Clonazepam (Clonazepam 1 Mg Tablet) 1 mg PO TID PRN PRN Reason: Anxiety Last Admin: 08/15/21 07:43 Dose: 1 mg Documented By: PRAKASH Famotidine (Famotidine 20 Mg Tablet) 40 mg PO BEDTIME PRN PRN Reason: Heartburn Hydroxyzine HCl (Hydroxyzine Hcl 25 Mg Tablet) 25 mg PO BID PRN PRN Reason: Anxiety Sodium Chloride (Ns) 1,000 mls @ 75 mls/hr IVCONT .[id number] [facility] Last Infusion: 08/15/21 08:40 Dose: 75 mls/hr Documented By: PRAKASH Ibuprofen (Ibuprofen 600 Mg Tablet) 600 mg PO Q6H PRN PRN Reason: mild pain Last Admin: 08/15/21 01:36 Dose: 600 mg Documented By: ALEXANDER Lisinopril (Lisinopril 40 Mg Tablet) 40 mg PO DAILY [facility]; Protocol Last Admin: 08/15/21 07:39 Dose: 40 mg Documented By: PRAKASH Melatonin (Melatonin 3 Mg Tablet) 6 mg PO BEDTIME PRN PRN Reason: Insomnia Last Admin: 08/15/21 01:36 Dose: 6 mg Documented By: ALEXANDER Omeprazole (Omeprazole 40 Mg Capsule.Dr) 40 mg PO DAILY@0630 [facility] Last Admin: 08/15/21 06:26 Dose: 40 mg Documented By: ALEXANDER Oxycodone HCl (Oxycodone Hcl Immed Release 5 Mg Tablet) 5 mg PO Q4H PRN PRN Reason: severe pain Pharmacy Consult (Consult Rx Perform Med Rec) 1 each MISCELLANE ONCE PRN PRN Reason: Consult order Senna (Sennosides 8.6 Mg Tablet) 17.2 mg PO BEDTIME PRN PRN Reason: Constipation Sodium Chloride (0.9 % Sodium Chloride Flush 3 Ml Syringe) 3 ml IVFLUSH QSHIFT [facility] Last Admin: 08/15/21 10:04 Dose: Not Given Documented By: PRAKASH Non-Admin Reason: IV Running Labs CBC & Chem 7: 08/15/21 07:08 08/15/21 07:08 Labs: Laboratory Results - last 24 hr 08/14/21 08/14/21 08/14/21 18:09 18:09 18:09 MCV 82.7 MCH 26.0 L MCHC 31.5 RDW 14.4 Plt Count 317 MPV 9.1 L Immature Gran % (Auto) 0.3 Neut % (Auto) 53.4 Lymph % (Auto) 37.9 [place] % (Auto) 6.1 Eos % (Auto) 1.9 Baso % (Auto) 0.4 Lymph # (Auto) 2.8 [place] # (Auto) 0.5 Eos # (Auto) 0.1 Baso # (Auto) 0.0 Abs Immat Gran (auto) 0.02 Absolute Neuts (auto) 4.0 Absolute Nucleated RBC 0.000 Nucleated RBC % (auto) 0.0 Smear Tech's Comments PT 11.8 INR 1.0 Anion Gap 10 L Estim Creat Clear Calc 112.5 Estimated GFR > 60 Random Glucose 88 Calcium 9.0 D Magnesium 2.0 Total Bilirubin 0.5 AST 15 ALT 12 Alkaline Phosphatase 82 Total Protein 6.9 Albumin 4.0 COVID-19 ([facility]) COVID-19 Clin Com 08/14/21 08/15/21 08/15/21 18:09 07:08 07:08 MCV 83.5 MCH 26.2 L MCHC 31.4 RDW 14.3 Plt Count 349 MPV 9.7 Immature Gran % (Auto) 0.5 H Neut % (Auto) 90.2 H Lymph % (Auto) 8.5 L [place] % (Auto) 0.7 L Eos % (Auto) 0.0 Baso % (Auto) 0.1 Lymph # (Auto) 0.7 L [place] # (Auto) 0.1 Eos # (Auto) 0.0 Baso # (Auto) 0.0 Abs Immat Gran (auto) 0.04 H Absolute Neuts (auto) 6.9 Absolute Nucleated RBC 0.000 Nucleated RBC % (auto) 0.0 Smear Tech's Comments VERIFIED PT INR Anion Gap 12 Estim Creat Clear Calc 113.6 Estimated GFR > 60 Random Glucose 133 H Calcium 9.1 Magnesium Total Bilirubin AST ALT Alkaline Phosphatase Total Protein Albumin COVID-19 ([facility]ETTE) Negative COVID-19 Clin Com See Note Assessment and Plan (1) Conversion disorder: Status: Acute (2) Sensory deficit present: Status: Acute (3) Headache: Status: Acute Plan hospital d#2 30yo F with pseudotumor cerebri s/p lumbar peritoneal shunt, underwent LP yesterday to r/o shunt dysfunction. Found to have normal opening pressure indicating shunt working, or perhaps shunt not needed. Admitted for post-LP HILL + RLE numbness. # post-LP HILL - Neuro consulted, not thought to be a dural leak. giving oxycodone + Fioricet prn # sensory deficit - per Neuro likely conversion disorder; should clear within 24 hr chronic issues: # HTN: continue lisinopril # mood disorder: continue amitriptylline, aripiprazole, clonazepam # VTE ppx: SCDs In my clinical judgment, the patient requires continued hospitalization for the following reasons: severe pain Quality Stroke Does the patient have a stroke diagnosis?: No VTE Prior VTE?: No VTE Risk Level:: Medical - moderate - high VTE Device Contraindication: N/A - Device Ordered VTE Drug Contraindication: Treatment Not Indicated
[2021-08-15] MEDS: oxyCODONE HCl Immed Release 5 MG TABLET PO ×2 (14:52→20:44)
[2021-08-15 16:00] VITALS: BP 134/73; PULSE 76; RESP 14; TEMP 36.8; O2SAT 97
[2021-08-15 20:00] VITALS: BP 130/65; PULSE 89; RESP 14; TEMP 36.2; O2SAT 98
[2021-08-16] VITALS: BP 128/70; PULSE 67; RESP 16; TEMP 36.7
[2021-08-16] MEDS: HYDROmorphone HCl 0.5 MG/0.5 ML SYRINGE IVPUSH (01:16)
[2021-08-16] MEDS: 0.9 % Sodium Chloride Flush 3 ML SYRINGE IVFLUSH (01:17)
[2021-08-16] MEDS: Butalb/Acetamin/Caff 50/325/40 TABLET 1 TAB PO ×2 (01:17→13:28)
[2021-08-16 03:22] VITALS: BP 149/68; PULSE 56; RESP 16; TEMP 37.2; O2SAT 95
[2021-08-16 08:00] VITALS: BP 149/89; PULSE 80; RESP 18; TEMP 36.6; O2SAT 99
[2021-08-16] MEDS: lisinopriL 40 MG TABLET PO (09:43)
[2021-08-16] MEDS: ARIPiprazole 5 MG TABLET PO (09:43)
[2021-08-16] MEDS: oxyCODONE HCl Immed Release 5 MG TABLET PO (09:48)
--- NOTE | 2021-08-16 09:49 | P.DS_ITS ---
DS: Providers Provider Date of Service: 08/16/21 Date of admission: 08/14/21 21:51 Date of discharge: 08/16/21 Primary care physician: Marisol Holland MD Consults: 08/14/21 22:12 Consult to Neurology Routine Consulting Provider: [facility] Reason for consultation: RLE numbness; back pain post LP and Headache DS: Diagnosis Discharge Diagnosis (1) Conversion disorder: Status: Acute (2) Sensory deficit present: Status: Acute (3) Headache: Status: Acute DS: Summary Hospital Course Hospital Course: from admission H+P by Og Guerra, 08/14/21: 30-year-old female with a past medical history of hypertension, pseudotumor cerebri status post LP shunt, rheumatoid arthritis, recent admission to the [facility] for ovarian torsion status post surgery; presented to the hospital today with a chief complaint of headache post lumbar puncture.? Patient reported that when she had the surgery she was noted to have L patient dips dangling in the abdomen; later on concern for malfunctioning of the L patient.? As patient has been complaining of headaches for the past 5 days associated blurry vision; 10/10 in intensity.? Patient follows with Dr. Urban in the Neurology Clinic and has scheduled an outpatient lumbar puncture on 08/14/2021; post lumbar puncture patient developed severe headache and numbness in her right lower extremity subsequently patient was sent to the hospital for further evaluation.? Patient reported that post lumbar puncture she developed 10/10 headache; also had back pain at the puncture site; followed by numbness in her right lower extremity.? Mentioned that her pain slightly improved after she got pain medications in the ER.? Denies any numbness tingling or focal weakness of the bilateral upper extremities are left lower extremity; Mentions that she has remote history of spinal headache postprocedure and received blood patch with improvement in her symptoms.? Patient also mentioned that when she had the lumbar puncture done today she had about opening pressure of 13 cc of water; followed by patient had 9.5 cc of the cerebrospinal fluid removed.? Denies any fever chills cough.? Denies any neck pain. Denies any chest pain or palpitations.? Denies any GI symptoms.? Review of all other systems is negative except mentioned above ER course: Per ER team patient noted to have right lower extremity numbness; strength exam in the right lower extremity is limited secondary to the pain.? Initially MRI was considered and discussed with neurology Dr. Urban-mentioned no need for MRI for tonight and can be admitted to the hospital for observation. Patient was given Dilaudid for pain.? Off note: I interviewed the patient, explained about the patient's current management plan and recommendations with the Neurology; also suggested if he wants to MRI, patient can be transferred to the [facility] Asthma not have MRI available for tonight.? Patient mentioned that she understands her current health situation and denied MRI as well as CT head.? Mentioned that she would like to be admitted to the [facility]. 30yo F with pseudotumor cerebri s/p lumbar peritoneal shunt, underwent LP yesterday to r/o shunt dysfunction.? Found to have normal opening pressure indicating shunt working, or perhaps shunt not needed.? Admitted for post-LP HILL + RLE numbness Per her neurologist, who saw her in the hospital: (1) Conversion disorder: ?Status:?Acute her right lower extremity sensory abnormality is clearly a conversion disorder based on my examination and has no neurological basis.? The patient was reassured that these things can happen sometimes after the procedure and should clear up within 24 hours.? She was encouraged to not worry about it and to walk about normally (2) Headache: ?Status:?Acute chronic headache currently not related to pseudotumor cerebri as her opening pressure was only 11.? The headache is not a post lumbar puncture headache because lying in bed in flat she still says that she has a 10 out of 10 headache and yet she is on her cell phone in her checking her messages.? I would treat her headaches with Percocet 5/325 every 6 hours as needed.? No blood patch as necessary Leg numbness resolved. She was discharged home with prescription for Fiorcet as needed for headache. Time Spent with Patient Time attestation: Total time spent providing and/or coordinating discharge services: Discharge coordination time: Less than 30 minutes Quality: Safe Use of Opioids Does Pt have an Active Cancer Diagnosis on the Problem List?: No Quality: Stroke Does the patient have a stroke diagnosis?: No Physical Exam Vital Signs: Vital Signs: Last Vital Signs Temp 97.9 F 08/16/21 08:00 Pulse 80 08/16/21 08:00 Resp 18 08/16/21 08:00 BP 149/89 H 08/16/21 08:00 Pulse Ox 99 08/16/21 08:00 O2 Del Method 08/16/21 08:00 BMI result Body Mass Index 31.7 Gen: in no acute distress HEENT: sclera anicteric, moist mucus membranes Neck: supple Lungs: clear to auscultation bilaterally Heart: regular rate and rhythm, no murmurs Abd: soft, non-tender, non-distended Ext: no edema Skin: warm/well-perfused Neuro: alert and oriented x3, no focal findings Psych: appropriate affect DS: Data Data Completed and Pending Completed studies during hospitalization [Text1]: Laboratory Results WBC 7.6 X10*3/uL (4.8-10.8) 08/15/21 07:08 RBC 4.24 X10*6/uL (4.20-5.50) 08/15/21 07:08 Hgb 11.1 g/dl (12.0-16.0) L 08/15/21 07:08 Hct 35.4 % (37.0-47.0) L 08/15/21 07:08 MCV 83.5 fL (80.0-98.0) 08/15/21 07:08 MCH 26.2 pg (27.0-33.0) L 08/15/21 07:08 MCHC 31.4 g/dl (31.0-35.0) 08/15/21 07:08 RDW 14.3 % (11.0-16.0) 08/15/21 07:08 Plt Count 349 X10*3/uL (160-400) 08/15/21 07:08 MPV 9.7 fL (9.4-12.3) 08/15/21 07:08 Immature Gran % (Auto) 0.5 % (0.0-0.4) H 08/15/21 07:08 Neut % (Auto) 90.2 % (45-73) H 08/15/21 07:08 Lymph % (Auto) 8.5 % (20-40) L 08/15/21 07:08 [place] % (Auto) 0.7 % (2-11) L 08/15/21 07:08 Eos % (Auto) 0.0 % (0-4) 08/15/21 07:08 Baso % (Auto) 0.1 % (0-2) 08/15/21 07:08 Lymph # (Auto) 0.7 X10*3/uL (1.2-4.9) L 08/15/21 07:08 [place] # (Auto) 0.1 X10*3/uL (0.1-1.2) 08/15/21 07:08 Eos # (Auto) 0.0 X10*3/uL (0.0-0.4) 08/15/21 07:08 Baso # (Auto) 0.0 X10*3/uL (0.0-0.2) 08/15/21 07:08 Abs Immat Gran (auto) 0.04 X10*3/uL (0.00-0.03) H 08/15/21 07:08 Absolute Neuts (auto) 6.9 x10*3/uL (2.0-8.3) 08/15/21 07:08 Absolute Nucleated RBC 0.000 X10*3/uL (0.0-0.012) 08/15/21 07:08 Nucleated RBC % (auto) 0.0 /100WBC (0.0-0.2) 08/15/21 07:08 Smear Tech's Comments VERIFIED 08/15/21 07:08 PT 11.8 SEC (9.9-13.0) 08/14/21 18:09 INR 1.0 (0.9-1.1) 08/14/21 18:09 Sodium 137 mmol/L (135-145) 08/15/21 07:08 Potassium 4.1 mmol/L (3.3-5.1) D 08/15/21 07:08 Chloride 104 mmol/L (96-108) 08/15/21 07:08 Carbon Dioxide 25 mmol/L (22-29) 08/15/21 07:08 Anion Gap 12 (12-20) 08/15/21 07:08 BUN 10 mg/dL (9-16) 08/15/21 07:08 Creatinine 0.71 mg/dL (0.5-1.4) 08/15/21 07:08 Estim Creat Clear Calc 113.6 08/15/21 07:08 Estimated GFR > 60 08/15/21 07:08 Random Glucose 133 mg/dL (60-115) H 08/15/21 07:08 Calcium 9.1 mg/dL (8.4-10.2) 08/15/21 07:08 Magnesium 2.0 mg/dL (1.6-2.6) 08/14/21 18:09 Total Bilirubin 0.5 mg/dL (0.0-1.0) 08/14/21 18:09 AST 15 U/L (5-31) 08/14/21 18:09 ALT 12 U/L (0-31) 08/14/21 18:09 Alkaline Phosphatase 82 U/L (39-117) 08/14/21 18:09 Total Protein 6.9 g/dL (6.5-8.0) 08/14/21 18:09 Albumin 4.0 g/dL (3.5-5.0) 08/14/21 18:09 COVID-19 ([facility]) Negative (Negative) 08/14/21 18:09 COVID-19 Clin Com See Note 08/14/21 18:[address] 08/14/21 23:14 IMPRESSION: No acute intracranial pathology. Discharge Plan Discharge Patient Disposition: Home, Self-Care Discharge Diagnosis: headache, sensory deficit Referrals: [facility] [Provider Group] - 1 Week Nathan Urban MD [Physician] - 1 Week Marisol Holland MD [Primary Care Provider] - 1 Week Discharge Medications: New ynegnwrwbi-mzlirdynkaumz-apbp 50-325-40 mg Tablet 1 tab PO Q4H PRN (Reason: headache) Qty: 18 0RF Continued famotidine 40 mg tablet 1 tab PO BEDTIME PRN (Reason: Heartburn) clonazepam 1 mg tablet 1 tab PO TID PRN (Reason: Anxiety) acetaminophen-codeine 300-30 mg tablet 1 tab PO Q6H PRN (Reason: migraine) amitriptyline 25 mg tablet 2 tab PO BEDTIME omeprazole 20 mg Capsule,Delayed Release(Dr/Ec) 40 mg PO DAILY ibuprofen 600 mg tablet 1 tab PO Q6H PRN (Reason: mild pain) lisinopril 40 mg tablet 1 tab PO DAILY hydroxyzine pamoate 25 mg capsule 1 cap PO BID PRN (Reason: Anxiety) aripiprazole 5 mg tablet 1 tab PO DAILY Diet: advance to usual diet Activity on Discharge: As tolerated Stand Alone Forms: Patient Portal Discharge page Care Plan Goals: relief of headache Health Concerns: headache sensory deficit Plan of Treatment: Fiorcet as needed for headache follow up with primary care and neurology in 1-2 weeks Assessment: See Discharge Summary
[2021-08-16 11:12] VITALS: BP 140/83; PULSE 76; RESP 18; TEMP 36.7; O2SAT 98
[2021-08-16 13:19] VITALS: BP 140/83; PULSE 76; O2SAT 98
[2021-08-16] MEDS: Ibuprofen 600 MG TABLET PO (13:27)
[2021-08-16] MEDS: hydrOXYzine HCL 25 MG TABLET PO (13:28)
--- NOTE | 2021-08-16 16:15 | MHC.CM.PN ---
P.T. recommends Acute rehab. Referrals have been made to all 3 rehabs. The patient left with dc instructions and prescriptions. No services ordered. She declind Acute Rehab as a final dispo.
== END 2021-08-16 13:00 | disposition home or self-care (01) | DRG 54 ==
LOC: HO.ED 20:22 → HO.EDOVER 22:19 → HO.IMC 08-15 00:37
PROVIDERS: Physician Assistant; Admitting Provider Hospitalist; Emergency Provider Internal Medicine; PCP Internal Medicine; Visit Provider Family Medicine
DX: R51.9 Headache, unspecified (principal); F44.6 Conversion disorder with sensory symptom or deficit; F17.210 Nicotine dependence, cigarettes, uncomplicated; F41.9 Anxiety disorder, unspecified; F32.A Depression, unspecified; I10 Essential (primary) hypertension; G93.2 Benign intracranial hypertension; M06.9 Rheumatoid arthritis, unspecified; Z71.6 Tobacco abuse counseling; Z56.0 Unemployment, unspecified; Z20.822 Contact with and (suspected) exposure to COVID-19; Z98.2 Presence of cerebrospinal fluid drainage device; Z79.899 Other long term (current) drug therapy
CPT/HCPCS: 36415; 70450; 80048; 80053; 83735; 85025; 85610; 87635; 96374; 96375; 97163; 99219; 99285; J1100; J1170; J2270; J2405

== ENCOUNTER 2022-12-05 23:16 | Emergency (ER) | payer OTHER, SELFPAY ==
--- NOTE | 2022-12-05 | ECG_ITS ---
Test Reason : CHEST PAIN Blood Pressure : / mmHG Vent. Rate : 108 BPM Atrial Rate : 108 BPM P-R Int : 142 ms QRS Dur : 096 ms QT Int : 362 ms P-R-T Axes : 021 -07 043 degrees QTc Int : 485 ms Sinus tachycardia Minimal voltage criteria for LVH, may be normal variant ( R in aVL ) Borderline ECG When compared with ECG of 23-OCT-2019 13:03, No significant change was found Referred By: Generic ED Physician Electronically Signed By:MENDEL FARMER MD
--- NOTE | ~2022-12-05 | XR_ITS ---
EXAMINATION: XR KUB, XR lumbar spine 2-3V CLINICAL INFORMATION: Reason for Exam eval shunt COMPARISON: None. TECHNIQUE: Supine AP views of the abdomen 3 views of the lumbar spine FINDINGS: Images demonstrate a lumboperitoneal shunt which enters the thecal sac at the level of L3-L4 terminating at the level of T12. The shunt courses through the soft tissues of the right flank before entering the peritoneal cavity posterolaterally. The shunt catheter terminates in the left hemiabdomen. The catheter/tubing is intact without kinking or discontinuity. Limited lumbar spine intact. No fractures. Vertebral body heights maintained. Paraspinal soft tissues unremarkable. XR/XR lumbar spine 2-3V IMPRESSION: Lumboperitoneal shunt as described. The catheter/tubing is intact without kinking or discontinuity.
--- NOTE | ~2022-12-05 | CT_ITS ---
EXAMINATION: CT HEAD WITHOUT CONTRAST CLINICAL INFORMATION: History of pseudotumor cerebri status post LP shunt. Headache. COMPARISON: 08/14/2021 TECHNIQUE: Contiguous axial imaging was performed from the skull base to vertex without intravenous administration of contrast. This CT examination was performed using dose optimization techniques as appropriate, variously including the following: *Automated exposure control *Adjustment of mA and/or kV according to patient size (this includes techniques or standardized protocols for targeted exams where dose is matched to indication/reason for exam; i.e. extremities or head) *Use of iterative reconstruction technique DLP: 650 mGy-cm FINDINGS: There is no evidence of acute intracranial hemorrhage or territorial infarction. No abnormal mass effect or midline shift is seen. Garcia to white matter differentiation is well preserved. No extra-axial fluid collections are identified. No hydrocephalus. No significant volume loss. There is no abnormal attenuation within the brain parenchyma. No acute osseous or soft tissue abnormality. The mastoid air cells and visualized portions of the paranasal sinuses are well aerated. CT/CT head/brain wo IV con IMPRESSION: No acute intracranial pathology.
--- NOTE | ~2022-12-05 | XR_ITS ---
EXAMINATION: XR KUB, XR lumbar spine 2-3V CLINICAL INFORMATION: Reason for Exam eval shunt COMPARISON: None. TECHNIQUE: Supine AP views of the abdomen 3 views of the lumbar spine FINDINGS: Images demonstrate a lumboperitoneal shunt which enters the thecal sac at the level of L3-L4 terminating at the level of T12. The shunt courses through the soft tissues of the right flank before entering the peritoneal cavity posterolaterally. The shunt catheter terminates in the left hemiabdomen. The catheter/tubing is intact without kinking or discontinuity. Limited lumbar spine intact. No fractures. Vertebral body heights maintained. Paraspinal soft tissues unremarkable. XR/XR KUB IMPRESSION: Lumboperitoneal shunt as described. The catheter/tubing is intact without kinking or discontinuity.
[2022-12-05 23:29] VITALS: BP 158/83; PULSE 116; RESP 18; TEMP 36.8; O2SAT 98; BMI 29.6
[2022-12-05 23:33] LABS: Hematocrit 36.1 % (37.0-47.0); Hemoglobin 11.5 g/dl (12.0-16.0); Mean Corpuscular HGB Conc 31.9 g/dl (31.0-35.0); Mean Corpuscular Volume 81.7 fL (80.0-98.0); Mean Platelet Volume 9.2 fL (9.4-12.3); Platelet Count 347 X10*3/uL (160-400); Red Blood Count 4.42 X10*6/uL (4.20-5.50); Red Cell Distribution Width 17.3 % (11.0-16.0); White Blood Count 10.2 X10*3/uL (4.8-10.8)
[2022-12-05 23:47] LABS: Alanine Aminotransferase 9 U/L (0-31); Albumin Level 4.6 g/dL (3.5-5.0); Alkaline Phosphatase 79 U/L (39-117); Anion Gap 14 (12-20); Aspartate Amino Transferase 15 U/L (5-31); Bilirubin Total 0.3 mg/dL (0.0-1.0); Blood Urea Nitrogen 12 mg/dL (9-16); Calcium 9.9 mg/dL (8.4-10.2); Carbon Dioxide 20 mmol/L (22-29); Chloride 109 mmol/L (96-108); Estimated Glomerular Filt Rate > 60; Glucose Random 115 mg/dL (60-115); Potassium 3.2 mmol/L (3.3-5.1); Sodium 140 mmol/L (135-145); Total Protein 7.9 g/dL (6.5-8.0)
[2022-12-05 23:57] LABS: Troponin-I High Sensitivity < 2.7 ng/L (<3.5-17.0)
--- NOTE | 2022-12-06 00:27 | ED_ITS ---
HPI - Chest Pain General Chief Complaint: Chest Pain Stated Complaint: Chest pain, left arm pain Time Seen by Provider: 12/06/22 00:25 Source: patient, RN notes reviewed and old records reviewed History of Present Illness HPI narrative: 32-year-old female with a past medical history of HTN, pseudotumor cerebri s/p LP shunt, RA, conversion disorder, presenting to the ED complaining of headache x1 week described as pressure with associated nausea and visual changes. States HILL worsening over the past 2 days. admits to similar headache in the past. Also reports CP and SOB with increasing anxiety x today w/ associated LUE paresthesias. Admits to taking Motrin today for pain without relief. Denies fever/chills, vomiting diarrhea, weakness, abdominal pain MD complaint: chest pain Related Data Home Medications Medication Instructions Recorded Confirmed acetaminophen 300 mg-codeine 30 mg 1 tab PO Q6H PRN migraine 08/14/21 05/20/22 tablet aripiprazole 5 mg tablet 1 tab PO DAILY 08/14/21 08/14/21 famotidine 40 mg tablet 1 tab PO BEDTIME PRN Heartburn 08/14/21 08/14/21 hydroxyzine pamoate 25 mg capsule 1 cap PO BID PRN Anxiety 08/14/21 08/14/21 ibuprofen 600 mg tablet 1 tab PO Q6H PRN mild pain 08/14/21 05/20/22 lisinopril 40 mg tablet 1 tab PO DAILY 08/14/21 05/20/22 adalimumab 40 mg/0.4 mL 40 mg subcut Q2W 05/20/22 05/20/22 subcutaneous pen kit (Humira(CF) Pen) amitriptyline 25 mg tablet 25 mg PO BEDTIME 05/20/22 05/20/22 clonazepam 1 mg tablet 1 mg PO BID PRN Anxiety 05/20/22 05/20/22 gabapentin 100 mg capsule 100 mg PO TID 05/20/22 05/20/22 omeprazole 20 mg capsule,delayed 20 mg PO BID 05/20/22 05/20/22 release polyethylene glycol 3350 17 gram 17 g PO DAILY 05/20/22 05/20/22 oral powder packet (Miralax) Previous Rx's Medication Instructions Recorded ctdeaudjof-urvnyebssjchb-gtvkvukv 1 tab PO Q4H PRN headache #18 tabs 06/23/22 50 mg-325 mg-40 mg tablet Allergies Allergy/AdvReac Type Severity Reaction Status Date / Time ketorolac [From TORADOL] Allergy Unknown ANXIETY, Verified 05/03/20 23:30 NAUSEA, DIZZY diphenhydramine Allergy Hives Verified 12/05/22 23:36 [From Benadryl] metoclopramide [From Reglan] Allergy Hives Verified 12/05/22 23:36 Review of Systems 2 Review of Systems: Constitutional: No Fever, No Chills, No Fatigue, No Malaise ENT/Mouth: No Ear Pain, No Nasal Congestion, No sore throat, No Rhinorrhea, No Swallowing Difficulty Eyes: No Eye Pain, No Swelling, No Redness, No Discharge, + Vision Changes Cardiovascular: + Chest Pain, + SOB, No Edema, No Palpitations Respiratory: No Cough, No Sputum, No Dyspnea Gastrointestinal: No Nausea, No Vomiting, No Diarrhea, No Constipation, No Abdominal pain Genitourinary: No Dysuria, No Urinary Frequency, No Hematuria, No Flank Pain Musculoskeletal: No joint pain, No Myalgias, No Joint Swelling Skin: No Skin Lesions, No rash Neuro: No Weakness, No Numbness, + Paresthesias, No Loss of Consciousness, No Dizziness, + Headache Yes all other systems are reviewed and are negative Constitutional: Constitutional: Reports as per HPI Neurologic: Denies Abnormal speech present [facility] Past Medical History Attestation statement: The following information was validated with the patient. Source: old records reviewed Medical History delivery delivered Pseudotumor cerebri Pituitary microadenoma Papanicolaou smear of cervix with low grade squamous intraepithelial lesion (LGSIL) Conversion disorder Back pain Headache Sensory deficit present Weakness Kidney stones Hypertension Rheumatoid arthritis Surgical History History of esophagogastroduodenoscopy (EGD) S/P [employer] shunt H/O lumbosacral spine surgery Family History Family History Mother Asthma HTN (hypertension) Pituitary tumor Anxiety Arthritis Brain tumor Father Arthritis Prediabetes Hyperlipidemia Pacemaker Sister Asthma Lupus Brother Arthritis Maternal Grandmother HTN (hypertension) Hyperlipidemia Diabetes Arthritis Maternal Grandfather Heart attack Paternal Grandfather Alzheimer disease Maternal Aunt Breast cancer Social History Social History Household Members: Children Housing: House Do you presently have visiting nurse or other home services: No Alcohol intake: current Alcohol intake frequency: does not drink Patient Tobacco Use Status: Current someday Tobacco user Tobacco use type: Cigarette Smoked in Last 30 Days: No Use of substances other than those prescribed or required for medical reasons: No Advance Directives: No Advance Directives Information Provided: No Patient : No service: No Current occupational status: unemployed Physical Exam 2 Vital Signs: Vital Signs: Last Vital Signs Temp 98.3 F 12/05/22 23:29 Pulse 108 H 12/06/22 01:02 Resp 18 12/06/22 01:02 BP 158/83 H 12/05/22 23:29 Pulse Ox 97 12/06/22 01:02 O2 Del Method Room Air 12/06/22 01:02 BMI result Body Mass Index 29.6 Const: Other: tearful General: cooperative, healthy appearing, no acute distress and anxious O rientation/consciousness: patient oriented x3 Limitations: no limitations HEENT: Head: Yes normal to inspection and Yes atraumatic Ears: hearing grossly normal bilaterally General nose exam: Normal external nose present Face and sinus: Yes normal facial exam Throat: Yes posterior oropharynx normal, Yes uvula midline, No uvula laterally displaced and No uvular edema Eyes: General: appearance normal, both eyes and all related structures P upils: Equal, round and reactive pupils present EOM: EOMs intact bilaterally Direct Ophthalmoscopy: no photophobia Neck: Neck: Yes normal visual inspection and Yes no meningeal signs Resp: Effort & Inspection: normal respiratory effort and no respiratory distress Auscultation: clear to auscultation bilaterally Cardio: Rate: regular rate and tachycardic Heart sounds: S1 normal heart sound present and S2 normal heart sound present GI: Inspection: Yes normal to inspection Palpation (GI): Soft to palpation, nontender, no guarding and not rigid Skin: Rashes: no rashes Wounds: no wounds Neuro: General: patient oriented x3, tone normal, moves all extremities, no meningeal signs, no focal motor deficits and CN's II-XI intact bilaterally C ranial nerves: Yes CN's II-XII intact bilaterally, Yes Equal, round and reactive pupils present and Yes Bilaterally intact EOM present Cognition (Neuro): n ormal cognition Speech: No Abnormal speech present Motor exam (neuro): 5/5 motor strength present throughout, Pronator motor function not present and no tremor noted Coordination: fxaagz-ts-vxba test normal Romberg Test: N egative Extrem: General: Yes normal to inspection Course Course Course Narrative: -0111-- no leukocytosis. H&H at patient's baseline. Potassium low at 3.2 > 60 mEq p.o. repletion ordered - initial troponin negative -0200-- ED care transferred to Dr. Hui pending repeat troponin, COVID-19 testing, UA, head CT, x-rays, and re-evaluation Medications Administered Generic Name Dose Route Start Last Admin Trade Name Freq PRN Reason Stop Dose Admin Sodium Chloride 1,000 mls @ 999 mls/hr 12/06/22 00:45 12/06/22 01:11 Ns IV 12/06/22 01:45 999 mls/hr .Q1H1M CLEMENTE Administration Discontinued Medications Generic Name Dose Route Start Last Admin Trade Name Freq PRN Reason Stop Dose Admin Acetaminophen/Butalbital/Caffeine 2 tab 12/06/22 00:40 12/06/22 01:03 Butalb/Acetamin/Caff 50/325/40 Tablet PO 12/06/22 00:41 2 tab ONCE ONE Administration Droperidol 1.25 mg 12/06/22 01:04 12/06/22 01:16 Droperidol 5 Mg/2 Ml Vial IVPUSH 12/06/22 01:05 1.25 mg ONCE ONE Administration Ondansetron HCl 4 mg 12/06/22 00:58 12/06/22 01:16 Ondansetron Hcl 4 Mg/2 Ml Vial IVPUSH 12/06/22 00:59 4 mg ONCE ONE Administration Potassium Chloride 60 meq 12/06/22 01:12 12/06/22 01:24 Potassium Chloride Packet 20 Meq Packet PO 12/06/22 01:13 60 meq ONCE ONE Administration Medical Decision Making Medical Decision Making [facility] Narrative: 32-year-old female with a past medical history of HTN, pseudotumor cerebri s/p LP shunt, RA, conversion disorder, presenting to the ED complaining of headache x1 week described as pressure with associated nausea and visual changes. Also reports CP and SOB with increasing anxiety x today w/ associated LUE paresthesias. On exam anxious, tachycardic likely from anxiety, tearful, no focal deficits, lungs CTA, abdomen soft /nontender. Concern for migraine headache vs shunt malfunction vs anxiety vs viral syndrome vs ACS. Lower suspicion for PE, ICH, pneumonia low suspicion for severe sepsis plan: EKG, labs, head CT, KUB, lumbar x-ray, IVF, antiemetics, pain control, re-evaluate Please refer to course for remaining clinical decision making, interpretation of labs/imaging results, and discussions with consultants and/or family members. Differential Diagnosis Differential Diagnoses: The differential diagnosis associated with the presentation includes As above Admission/Observation Consideration of admission/observation: Escalation of care including admission/observation considered Lab Data MDM Lab Attestation statement: I reviewed the patient's lab results. 12/05/22 23:25 12/05/22 23:25 Labs: Lab Results 12/05/22 Range/Units 23:25 WBC 10.2 (4.8-10.8) X10*3/uL RBC 4.42 (4.20-5.50) X10*6/uL Hgb 11.5 L (12.0-16.0) g/dl Hct 36.1 L (37.0-47.0) % MCV 81.7 (80.0-98.0) fL MCH 26.0 L (27.0-33.0) pg MCHC 31.9 (31.0-35.0) g/dl RDW 17.3 H (11.0-16.0) % Plt Count 347 (160-400) X10*3/uL MPV 9.2 L (9.4-12.3) fL Absolute Nucleated RBC 0.000 (0.0-0.012) X10*3/uL Nucleated RBC % (auto) 0.0 (0.0-0.2) /100WBC Sodium 140 (135-145) mmol/L Potassium 3.2 L D (3.3-5.1) mmol/L Chloride 109 H (96-108) mmol/L Carbon Dioxide 20 L (22-29) mmol/L Anion Gap 14 (12-20) BUN 12 (9-16) mg/dL Creatinine 0.75 (0.5-1.4) mg/dL Estim Creat Clear Calc 102.0 Estimated GFR > 60 Random Glucose 115 (60-115) mg/dL Calcium 9.9 D (8.4-10.2) mg/dL Magnesium 1.8 (1.6-2.6) mg/dL Total Bilirubin 0.3 (0.0-1.0) mg/dL AST 15 (5-31) U/L ALT 9 (0-31) U/L Alkaline Phosphatase 79 (39-117) U/L Troponin I High Sens < 2.7 (<3.5-17.0) ng/L Total Protein 7.9 (6.5-8.0) g/dL Albumin 4.6 (3.5-5.0) g/dL Independent Interpretation I performed an independent interpretation of an: EKG ( my interpretation EKG sinus tachycardia rate of 108. QRS 96. QTC 485. No significant change when compared to prior) Radiology Impression Discussion of test interpretation with radiology: I have reviewed the radiologist's reading. External Record Review External record reviewed: Inpatient record, Office record, Outpatient record, Prior outpatient labs, Prior outpatient radiology, Primary care record and Outside ED record Tests considered The following testing was considered but not selected: As above Prescription Management I considered prescription management with: Pain Medication Chronic Conditions Patient?s care impacted by: Other ( pseudotumor cerebri s/p [employer]GER shunt) Critical Care Time Critical Care Time Critical Care Time: Yes Total Critical Care Time: 35 Attestation: I have personally provided critical care time exclusive of time spent on separately billable procedures. Time includes review of lab data, radiology results, discussion with consultants, and monitoring for potential decompensation. Intervention performed as documented. Discharge Plan Discharge Clinical Impression: Headache, Chest pain Patient Disposition: Still a Patient Instructions: Chest Pain (DC), Acute Headache (DC) Prescriptions: No Action famotidine 40 mg tablet 1 tab PO BEDTIME PRN (Reason: Heartburn) acetaminophen-codeine 300-30 mg tablet 1 tab PO Q6H PRN (Reason: migraine) ibuprofen 600 mg tablet 1 tab PO Q6H PRN (Reason: mild pain) lisinopril 40 mg tablet 1 tab PO DAILY hydroxyzine pamoate 25 mg capsule 1 cap PO BID PRN (Reason: Anxiety) aripiprazole 5 mg tablet 1 tab PO DAILY ypfqpkkebj-detptrqkyyfjf-xmnn 50-325-40 mg Tablet 1 tab PO Q4H PRN (Reason: headache) Qty: 18 0RF amitriptyline 25 mg tablet 25 mg PO BEDTIME clonazepam 1 mg tablet 1 mg PO BID PRN (Reason: Anxiety) omeprazole 20 mg capsule,delayed release(DR/EC) 20 mg PO BID Humira(CF) Pen 40 mg/0.4 mL pen injector kit 40 mg subcut Q2W gabapentin 100 mg capsule 100 mg PO TID polyethylene glycol 3350 [Miralax] 17 gram powder in packet 17 g PO DAILY Referrals: Nathan Urban MD [Physician] - Anish Wesley MD [Primary Care Provider] -
[2022-12-06 00:41] LABS: Magnesium 1.8 mg/dL (1.6-2.6)
[2022-12-06 01:02] VITALS: PULSE 108; RESP 18; O2SAT 97
[2022-12-06] MEDS: Butalb/Acetamin/Caff 50/325/40 TABLET 2 TAB PO (01:03)
[2022-12-06] MEDS: 0.9 % Sodium Chloride 1,000 ML 999 ML IV (01:11)
[2022-12-06] MEDS: ondansetron HCL 4 MG/2 ML VIAL IVPUSH (01:16)
[2022-12-06] MEDS: droPERidol 5 MG/2 ML VIAL 1.25 MG IVPUSH (01:16)
--- OUTSIDE RECORDS SUMMARY | 2022-12-06 01:16 | XMS_ITS | Continuity of Care Document ---
Author Name Unknown Organization [facility] ter Address [address] [place] [phone] Care Team Providers Care Java Project Manager Name Role Phone Jeffrey Adiel Miya [facility] Donna wei Encounter [facility] Date(s): 02/06/22 - 02/09/[address] [address]- Discharge Disposition: A-D/C Home Attending Physician: Jason CALABRESE, Nate Admitting Physician: Talisha Velazquez MD Referring Physician: Not on Staff, Referring MD Allergies, Adverse Reactions, Alerts Substance Reaction Severity Status ketorolac Severe anxiety (panic) Activ e Immunizations Given and Recorded Vaccine Date Status Refusal Reason influenza virus vaccine, inactivated 02/08/22 Give n influenza virus vaccine, inactivated 11/24/19 North rded influenza virus vaccine, inactivated 12/05/17 Give n influenza virus vaccine, inactivated 11/12/12 North rded influenza virus vaccine, inactivated 12/26/11 North rded influenza virus vaccine, inactivated 11/20/10 North rded influenza virus vaccine, inactivated 11/13/09 North rded influenza virus vaccine, inactivated 11/22/08 North rded influenza virus vaccine, inactivated 01/06/08 North rded SARS-CoV-2 (COVID-19) mRNA-1273 vaccine 10/17/20 R ecorded SARS-CoV-2 (COVID-19) mRNA-1273 vaccine 09/19/20 R ecorded tetanus/diphtheria/pertussis, acel(Tdap) 11/24/19 Recorded tetanus/diphtheria/pertussis, acel(Tdap) 09/20/08 Recorded Human Papillomavirus Vaccine 01/06/08 Recorded Human Papillomavirus Vaccine 01/27/07 Recorded Human Papillomavirus Vaccine 11/24/06 Recorded Meningococcal Conjugate Vaccine 11/24/06 Recorded tetanus-diphtheria toxoids (Td) 1 04/15/03 Given Hepatitis B Vaccine (old term) 12/17/96 Given Hepatitis B Vaccine (old term) 10/15/96 Given Hepatitis B Vaccine (old term) 07/22/96 Given Haemophilus B Conj Vaccine (oldterm) 11/12/95 Give n Haemophilus B Conj Vaccine (oldterm) 01/24/93 Give n Haemophilus B Conj Vaccine (oldterm) 05/01/92 Give n Haemophilus B Conj Vaccine (oldterm) 03/02/92 Give n Poliovirus Vaccine, Inactivated 11/12/95 Given Poliovirus Vaccine, Inactivated 01/24/93 Given Poliovirus Vaccine, Inactivated 05/01/92 Given Poliovirus Vaccine, Inactivated 03/12/92 Given Poliovirus Vaccine, Inactivated 03/02/92 Recorded Diphth/Pertussis, Whl Cell/Tet(oldterm) 11/12/95 G iven Diphth/Pertussis, Whl Cell/Tet(oldterm) 08/30/93 G iven Diphth/Pertussis, Whl Cell/Tet(oldterm) 01/24/93 G iven Diphth/Pertussis, Whl Cell/Tet(oldterm) 05/01/92 G iven Diphth/Pertussis, Whl Cell/Tet(oldterm) 03/12/92 G iven diphtheria/tetanus/pertussis, acel(DTaP) 08/31/95 Recorded Measles/Mumps/Rubella Virus Vaccine 05/12/93 Given Measles/Mumps/Rubella Virus Vaccine 2 01/24/93 Giv en 1Admin Note: TD 2Admin Note: hx varicella Medications acetaminophen 325 mg oral tablet 650 mg, By Mouth, 3 times a day, Temperature Greater than 100.5, Refills 0, Maintenance, 02/09/22 11:13:00 EST, Partial fill upon patient request if the prescription is for a schedule II opioid drug. Start Date: 02/09/22 Status: Ordered Acetaminophen Tablet 650 mg, Tablet, By Mouth, Temperature Greater than 100.5, 02/09/22 9:00:00 EST, Stop date 02/09/22 9:00:00 EST Start Date: 02/09/22 Stop Date: 02/09/22 Status: Completed amitriptyline 25 mg oral tablet TAKE 2 TABLETS BY MOUTH EVERY DAY AT BEDTIME Start Date: 02/07/22 Status: Ordered clonazePAM 1 mg oral tablet TAKE 1 TABLET BY MOUTH THREE TIMES A DAY NEEDED Start Date: 02/07/22 Status: Ordered lisinopril 20 mg oral tablet 40 mg, Tablet, By Mouth, 02/09/22 9:00:00 EST Start Date: 02/09/22 Stop Date: 02/09/22 Status: Completed lisinopril 40 mg oral tablet TAKE 1 TABLET BY MOUTH DAILY Start Date: 02/07/22 Status: Ordered omeprazole 40 mg oral enteric coated capsule TAKE 1 CAPSULE BY MOUTH EVERY DAY Start Date: 02/07/22 Status: Ordered oxyCODONE 5 mg oral tablet 10 mg, Tablet, By Mouth, Every 6 hours, PRN for Pain , Severe, KARMA, 02/07/22 11:20:00 EST Start Date: 02/07/22 Stop Date: 02/09/22 Status: Discontinued oxyCODONE 5 mg oral tablet 5 mg, 1, tablet, By Mouth, Every 6 hours, PRN, for 2 days, # 8 tablet, Refills 0, Tot. Refills 0, Acute 02/11/22 11:13:00 EST, Pain , Severe, 02/09/22 11:13:00 EST, Route to Pharmacy Electronically, [facility]/pharmacy #[id number], Partial fill upon patient reques... Start Date: 02/09/22 Stop Date: 02/11/22 Status: Ordered topiramate 100 mg oral tablet 1 tablet = 100 mg, By Mouth, 2 times a day, # 60 tablet, 0 Refills, Maintenance, 02/09/22 11:12:00 EST, Tablet, [facility]/pharmacy #[id number], Partial fill upon patient request if the prescription is for a schedule II opioid drug., 157.4, cm, 02/09/22 4:25:00 ES... Start Date: 02/09/22 Stop Date: 03/11/22 Status: Ordered Problem List Condition Confirmation Course Effective Dates Status Health St atus Informant Anxiety Confirmed Active Pseudotumor cerebri Confirmed Active GERD (gastroesophageal reflux disease) 1 Confirmed 2012 Active Hx of preeclampsia, prior , currently Confirmed Active TOOL WORKER (ventriculoperitone al) shunt status Confirmed Active Headache 2 Confirmed Active HTN (hypertension) 3 Confirmed 2009 Active IBS (irritable bowel syndrome) 4 Confirmed 2013 Active Obese class I Confirmed Active Severe pre-eclampsia, with delivery Confirmed Active 1On medication 2During , currently treated for them, related to shunt/extra fluid 3On Medication 4Not using being treating, not seeing specialist right now Results Radiology Reports * Exam Date Time Procedure Performing Provider Status 02/06/22 8:[address] Head/Brain W/O Contrast Susy Johnson; Auth (Verified) Notes: (CT Head/Brain W/O Contrast) Reason For Exam: Headache(s) RESULT: CT Head/Brain W/O Contrast CT Head/Brain W/O Contrast INDICATION: Hx of Present Illness: midsternal cp since 3am, constant. Radiating up neck. Head pressure all over, hx of shunt placed 8 years ago. Finishing antibiotics for recent UTI.; Reason: Headache(s); Clinical Question(s): Subarachnoid Hemorrhage; TECHNIQUE: Noncontrast head CT using axial technique and reconstructed in axial and coronal plane. Iterative reconstruction techniques are used to optimize dose and image quality. CTDIvol Head: 45.12 mGy, DLP Head: 722 mGy*cm. COMPARISON: Noncontrast head CT 01/06/2019. FINDINGS: BRAIN and EXTRA-AXIAL SPACES: No parenchymal hemorrhage, midline shift or mass effect. Garcia-white matter differentiation is well preserved. No acute infarct. Ventricles, sulci and basilar cisterns are normal. No white matter lesions. No subarachnoid hemorrhage, subdural or epidural collections. CALVARIUM, SKULL BASE AND SOFT TISSUES: No fractures or suspicious bony lesions. Aerosolized secretions in the right sphenoid sinus. Visualized orbits and globes are intact. The extracranial soft tissues are unremarkable. IMPRESSION: No acute intracranial abnormality. Aerosolized secretions in the right sphenoid sinus; clinically correlate for sinusitis. I have personally reviewed the images and I agree with this report. WSN: [id number] Ordering Physician: Oc Lugo Dictated By: Erasmo Fernandes DO Dictated Date/Time: 02/06/22 9:19 pm Reviewed By: Lupillo Britton MD Signed By: Lupillo Britton MD Signed Date/Time: 02/06/22 9:24 pm Transcribed By: TUNDE Transcribed Date/Time: 02/06/22 8:56 pm Vital Signs Most recent to oldest [Reference Range]: 1 2 3 Height 157.4 cm (02/09/22 4:25 AM) 157.4 cm (02/08/22 11:05 PM) 157.4 cm (02/08/22 7:17 PM) Weight 76 kg (02/07/22 5:49 AM) 76 kg (02/07/22 4:36 AM) 77.2 kg (02/07/22 1:50 AM) Oxygen Saturation [94-100 %] 100 % (02/09/22 11:30 AM) 100 % (02/09/22 7:34 AM) 98 % (02/09/22 4:25 AM) Pulse Rate [55-90 bpm] 89 bpm (02/09/22 11:30 AM) 92 bpm *H* (02/09/22 7:34 AM) 85 bpm (02/09/22 4:25 AM) Body Mass Index [18.5-24.99 kg/m2] 30.68 kg/m2 *>HHI* (02/07/22 5:49 AM) 30.68 kg/m2 *>HHI* (02/07/22 4:36 AM) Blood Pressure [90-138/55-84 mm Hg] 101/65mm Hg (02/09/22 11:30 AM) 106/61mm Hg (02/09/22 8:15 AM) 106/61mm Hg (02/09/22 7:34 AM) Respiratory Rate [16-30 br/min] 16 br/min (02/09/22 11:30 AM) 17 br/min (02/09/22 11:23 AM) 17 br/min (02/09/22 9:15 AM) Temperature [96.8-100.4 DegF] 97.6 DegF (02/09/22 11:30 AM) 97.4 DegF (02/09/22 7:34 AM) 97.7 DegF (02/09/22 4:25 AM) Mode of Delivery (Oxygen) Room air (02/09/22 11:30 AM) Room air (02/09/22 7:34 AM) Room air (02/09/22 4:25 AM) Blood pressure sites Arm, left (02/09/22 11:30 AM) Arm, left (02/09/22 7:34 AM) Arm, right (02/09/22 4:25 AM) Temperature Route Oral (02/09/22 11:30 AM) Oral (02/09/22 7:34 AM) Oral (02/09/22 4:25 AM) Dry Weight 76 kg (02/07/22 5:49 AM) 77 kg (02/06/22 1:14 PM) Weight Obtained Via Standing scale (02/07/22 4:36 AM) Patient/family stated (02/06/22 1:14 PM) Dry Weight Obtained Via Patient/family s tated (02/06/22 1:14 PM) Social History Social History Type Response Smoking Status Never smoker; Tobacc o user in household: Yes; Other: father; entered on: 11/14/17 Sex Admission evaluation note * Bessie Parra DO: MODIFY, MODIFY, PERFORM, MODIFY Event Display: Admission Note Authored Date: [id number] Patient: ??MARIO JIMENEZ ? Age:??31 Years?Sex:??Female?:??1990?? Chief Complaint/Reason for Consultation headache, back pain, and blurry spots in vision History of Present Illness Mario Jimenez is a 31 year old female with PMH of pseudotumor cerebri with lumbar shunt who presented to ED on 02/06 with headache, back pain, and blurry spots in vision. ?? Patient reports she developed sudden onset headache along with chest pain at 4am on day of presentation. She has had headaches like this before when she needed fluid drained. She reports the headacheas being behind her eyes, rated 10/10 associated with blurry spots in her vision. She reports left sided chest pain which radiated up to her neck, which was associated with shortness of breath. She has never had pain like this before. She reported some back pain, which has since resolved. She was recently treated outside for UTI with course of keflex, which she has since completed. She denies fevers, cough, shortness of breath, weakness, decreased sensation, any urinary symptoms or decreased urination. ?? In ED, vitals were BP 135-166/72-101, HR 73-82, RR 16-20, T afebrile, and O2 on RA. Labs were WBC 5.3, Hgb 10.6, Plt 299, normal electrolytes and kidney function, negative, COVID negative. UA with 4 WBCs, negative nitrites and albumin. EKG - NSR. ?? CT head noncontrast with no acute intracranial abnormality, aerosolized secretions in right sphenoid sinus. ?? In ED, patient received compazine, morphine, acetazolamide, and topamax. ?? On my evaluation of patient, she reported that headache had improved to about 7/10 which was tolerable. She reports chest pain had resolved. Review of Systems A full review of systems was completed and is otherwise negative except as mentioned in history of present illness. Objective Vital Signs?? Temperature: 97.8 DegF (02/06/22 23:40:00) Temperature Route: Oral (02/06/22 23:40:00) Pulse Rate: 76 bpm (02/06/22 23:40:00) Respiratory Rate: 16 br/min (02/06/22 23:40:00) Systolic Blood Pressure: 138 mm Hg (02/06/22 23:40:00) Diastolic Blood Pressure: 72 mm Hg (02/06/22 23:40:00) Blood pressure sites: Arm, left (02/06/22 23:40:00) Mean Arterial Pressure: 105 mm Hg (02/06/22 22:03:00) Pulse Pressure: 49 mm Hg (02/06/22 22:03:00) Oxygen Saturation: 98 % (02/06/22 23:40:00) Mode of Delivery (Oxygen): Room air (02/06/22 23:40:00) Early Warning Score: 2 (02/07/22 00:08:45) ? Physical Exam Constitutional: Alert, in no acute distress. Head EENT: Extraocular muscle movement intact.??Moist mucous membranes.?? Neck: Supple. No JVD. Cardiovascular: S1S2 regular. No murmurs, rubs or gallops. Respiratory: Clear to auscultation. No wheezing or crackles. No use of accessory muscles. Gastrointestinal: Abdomen soft, non-tender, non-distended. Normal bowel sounds. Extremities: No lower extremity pitting??edema. Neurologic: AAOx3, Speech normal. CN II-XII grossly intact. No focal neurological deficits. Skin: No rash. Psychiatric: Normal mood and affect. Assessment/Plan Mario Jimenez is a 31 year old female with PMH of pseudotumor cerebri with lumbar shunt who presented to ED on 02/06 with headache, back pain, and blurry spots in vision. ?? Headache, back pain, blurry vision History of pseudotumor cerebri s/p TOOL WORKER shunt Patient presenting with symptoms when she usually gets LP to help with symptoms They did improve some with pain and nausea meds given in ED CT head negative for acute intracranial abnormality She has no focal neurological deficits ?? Plan: -Neuro checks Q4h -Order placed for IR guided LP ?? Lymphocytosis Unclear etiology, denies infectious symptoms, COVID negative ?? Plan: -Repeat CBC in AM ?? Chest pain - resolved ACS ruled out with EKG showing NSR and negative troponin ?? Chronic stable medical conditions Hypertension: continue lisinopril Anxiety: continue clonazepam and amitriptyline GERD: continue PPI ?? Quality Measures Diet: NPO after MN DVT Prophylaxis: hold for procedure Code: FULL ?? Patient's care and plan discussed with attending, Dr. Velazquez. ?? Bessie Parra DO Internal Medicine PGY2 [id number] Histories Allergies Allergies ?(Active and Proposed Allergies Only) ketorolac? (Severity: Unknown severity, Onset: Unknown) ?Reactions: Severe anxiety (panic) ?? Past Medical History/Problem List Active Problems??(9) Anxiety GERD (gastroesophageal reflux disease) Headache HTN (hypertension) Hx of preeclampsia, prior , currently IBS (irritable bowel syndrome) Pseudotumor cerebri Severe pre-eclampsia, with delivery TOOL WORKER (ventriculoperitoneal) shunt status ?? Past Surgical History delivery only;: 03/04/18 Lumboperitoneal shunt: 2016 Polyp of cervix: 2014 Cholecystectomy: 2011 ?? Social History 5-6 cigarettes/day for 1 year, quit recently Social alcohol use Denies recreational drug use? Family History Mother: Asthma; Depression; Hyperlipidemia; Hypertension; Migraine; Thyroid disease Father: Alcoholism; Congestive heart failure; Hyperlipidemia; Hypertension Medications Home Medications amiTRIPTYLINE (amitriptyline 25 mg oral tablet)?TAKE 2 TABLETS BY MOUTH EVERY DAY AT BEDTIME Clonazepam (clonazePAM 1 mg oral tablet)?TAKE 1 TABLET BY MOUTH THREE TIMES A DAY NEEDED Lisinopril (lisinopril 40 mg oral tablet)?TAKE 1 TABLET BY MOUTH DAILY Norethindrone (norethindrone 0.35 mg oral tablet)?TAKE 1 TABLET BY MOUTH EVERY DAY Omeprazole (omeprazole 40 mg oral enteric coated capsule)?TAKE 1 CAPSULE BY MOUTH EVERY DAY Results Recent Labs BLOOD COUNT & DIFF WBC 5.3 k/mm3 ()?? 02/06/2022 13:31 RBC 4.20 m/mm3 ()?? 02/06/2022 13:31 Hgb 10.6 Gm/dL (Low)?? 02/06/2022 13:31 Hct 34.8 % (Low)?? 02/06/2022 13:31 MCV 82.9 femtoliters ()?? 02/06/2022 13:31 MCH 25.2 pg (Low)?? 02/06/2022 13:31 MCHC 30.5 g/dL (Low)?? 02/06/2022 13:31 Platelet Count 299 k/mm3 ()?? 02/06/2022 13:31 RDW-SD 47.7 femtoliters (High)?? 02/06/2022 13:31 MPV 9.4 femtoliters ()?? 02/06/2022 13:31 Nucleated RBC (Automated) 0.0 #/100 WBC'S ()?? 02/06/2022 13:31 Abs. NRBC 0.0 k/mm3 ()?? 02/06/2022 13:31 Abs. Neut 1.9 k/mm3 ()?? 02/06/2022 13:31 Abs. Lymph 3.1 k/mm3 ()?? 02/06/2022 13:31 Abs. [place] 0.3 k/mm3 (Low)?? 02/06/2022 13:31 Abs. Eo 0.1 k/mm3 ()?? 02/06/2022 13:31 Abs. Baso 0.0 k/mm3 ()?? 02/06/2022 13:31 Neut % 35.0 % (Low)?? 02/06/2022 13:31 Lymph % 58.2 % (High)?? 02/06/2022 13:31 [place] % 4.9 % ()?? 02/06/2022 13:31 Eos % 1.3 % ()?? 02/06/2022 13:31 Baso % 0.4 % ()?? 02/06/2022 13:31 Imm Gran 0.2 % ()?? 02/06/2022 13:31 Abs. Imm Gran 0.0 k/mm3 ()?? 02/06/2022 13:31 ?? CARDIAC High Sensitivity Troponin (HSTnT) <6 ng/L ()?? 02/06/2022 13:27 ?? CHEM GENERAL Sodium 140 mmol/L ()?? 02/06/2022 13:31 Potassium 4.5 mmol/L ()?? 02/06/2022 13:31 Chloride 106 mmol/L ()?? 02/06/2022 13:31 Bicarbonate Level 26 mmol/L ()?? 02/06/2022 13:31 Anion Gap 8 ()?? 02/06/2022 13:31 Glucose Level 89 mg/dL ()?? 02/06/2022 13:31 BUN 12 mg/dL ()?? 02/06/2022 13:31 Creatinine-Blood 0.7 mg/dL ()?? 02/06/2022 13:31 Estimated GFR Creatinine 120 ML/MIN/1.73 M2 ()?? 02/06/2022 13:31 Calcium 9.4 mg/dL ()?? 02/06/2022 13:31 ?? ENDOCRINE/TUMOR MARKER Serum Qual NEGATIVE mIU/mL ()?? 02/06/2022 13:31 ?? HEME OTHER Hold Blue Top SPECIMEN DISCARDED AFTER 4 HOURS. ()?? 02/06/2022 13:31 ?? UA/URINALYSIS Appear/Color, Urine LIGHT YELLOW ()?? 02/06/2022 23:37 Specific [place], Urine 1.022 ()?? 02/06/2022 23:37 pH, Urine 6.0 ()?? 02/06/2022 23:37 Albumin, Urine NEGATIVE ()?? 02/06/2022 23:37 Glucose, Urine NEGATIVE ()?? 02/06/2022 23:37 Ketones, Urine NEGATIVE ()?? 02/06/2022 23:37 Bilirubin, Urine NEGATIVE ()?? 02/06/2022 23:37 Hemoglobin, Urine NEGATIVE ()?? 02/06/2022 23:37 Nitrite, Urine NEGATIVE ()?? 02/06/2022 23:37 Leukocyte, Urine 1+ (Abnormal)?? 02/06/2022 23:37 Urobilinogen NORMAL mg/dL ()?? 02/06/2022 23:37 WBC's, Urine 4 /HPF ()?? 02/06/2022 23:37 RBC's, Urine 2 /HPF ()?? 02/06/2022 23:37 Squamous Epith 8 /HPF ()?? 02/06/2022 23:37 Mucus SLIGHT /LPF ()?? 02/06/2022 23:37 Hold Urine Culture Testing available 48 hours from time of collection. ()?? 02/06/2022 23:37 ?? VIROLOGY COVID-19 POC Result NEGATIVE ()?? 02/06/2022 16:53 ?? * Marcus CALABRESE, Talisha Recinos: PERFORM Event Display: Admission Note Authored Date: [id number] Attending attestation.??Patient seen and examined on Feb 07. Reviewed HPIGILMA. I have independently examined the patient and confirmed physical exam findings. Agree with assessment and plan as outlined in Dr. Parra's??note. ?? 31-year-old woman with history of hypertension, IIH status post lumbar shunt presents to the emergency room for evaluation of headache, back pain and blurry vision. Apparently she has had similar symptoms in the past requiring lumbar puncture under IR guidance. Upon presentation she was afebrile, blood pressure 166/102 labs notable for normal white cell count, no left shift. Hemoglobin 10.6, hematocrit 34.8. COVID-[address] CT was reported as no acute intracranial abnormality. She was given 500 mg of acetazolamide, 25 mg of diphenhydramine, 4 mg of Zofran, 100 mg of topiramate, 4 mg of IV morphine followed by 2 mg of IV morphine, 10 mg of Compazine in the emergency room. Appa rently her lumbar shunt was [facility] in [facility] by Dr. Bell. EKG study * Event Display: ECG 12-Lead Authored Date: Please click on pdf link to open report * Event Display: ECG 12-Lead Authored Date: Ventricular Rate: 77 BPM Atrial Rate: 77 BPM P-R Interval: 158 ms QRS Duration: 100 ms Q-T Interval: 410 ms QTC Calculation(Bazett): 463 ms P Addy: 21 degrees R Addy: 2 degrees T Addy: 18 degrees Normal sinus rhythm Normal ECG When compared with ECG of 12-AUG-2020 16:06, No significant change was found Confirmed by YARI CALABRESE [facility] ([id number]) on 02/06/2022 4:50:49 PM [place]: YARI CALABRESE,[facility] Progress note * Jason CALABRESE, Nate: PERFORM Event Display: [facility] Authored Date: Patient: ??MARIO JIMENEZ ? Age:??31 Years?Sex:??Female?:??1990?? Subjective Follow-up on acute on chronic headache. ?? Patient seen eval in a.m. Reviewed lab, medication, neurosurgery consult and??neurology ??Per neurosurgery, no issues on TOOL WORKER shunt Headache better after adding Topamax? no fever, no leukocytosis, no neck stiffness, unlikely??intracranial infection??headache better, ?? Possible discharge home tomorrow if headache getting better ?? Review of Systems Headache better,??retrobulbar/eye pain better No neck stiffness No altered mental status ??no nausea vomiting or diarrhea No chest pain no chest heaviness ?? As above otherwise negative ?? Objective Measurements?? Height: 157.4 cm (02/08/22) Weight: 76 kg (02/07/22) Dry Weight: 76 kg (02/07/22) Body Mass Index:??30.68 kg/m2??Critical (02/07/22) ? Vital Signs?? Temperature: 98.2 DegF (02/08/22 11:31:00) Temperature Route: Oral (02/08/22 11:31:00) Pulse Rate: 67 bpm (02/08/22 11:31:00) Respiratory Rate: 18 br/min (02/08/22 11:31:00) Systolic Blood Pressure: 98 mm Hg (02/08/22 11:31:00) Diastolic Blood Pressure: 56 mm Hg (02/08/22 11:31:00) Blood pressure sites: Arm, left (02/08/22 11:31:00) Mean Arterial Pressure: 70 mm Hg (02/08/22 11:31:00) Pulse Pressure: 42 mm Hg (02/08/22 11:31:00) Oxygen Saturation: 97 % (02/08/22 11:31:00) Mode of Delivery (Oxygen): Room air (02/08/22 11:31:00) Early Warning Score: 1 (02/08/22 11:31:37) ? Intake/Output? 02/06 12:55 02/08 07:00 02/07 07:00 02/06 07:00 02/05 07:00 ?? 02/08 11:34 02/08 11:34 02/08 06:59 02/07 06:59 02/06 06:59 Intake ?170 ?0 ?170 ?0 ?0 Output ?0 ?0 ?0 ?0 ?0 Net Total ?170 ?0 ?170 ?0 ?0 ? Physical Exam ?? General:??Alert, awake, not in?? acute cardiopulmonary distress. Neck:??Supple, Full range of motion. ??No neck stiffness, no??rigidity, Respiratory:??Clear to auscultation??. No wheezing, rales or rhonchi. Cardiovascular:??Heart sounds normal. Regular rate and rhythm, no murmurs Gastrointestinal:??Abdomen soft, non-tender, non-distended. Normal bowel sounds. Genitourinary:??No costovertebral angle tenderness. Neurologic:??Cranial nerves II-XII grossly intact. No focal neurological deficits.?? Skin:??No rashes or lesions. No edema. Musculoskeletal:??No cyanosis or clubbing. No gross deformities. _ Home Medications amiTRIPTYLINE (amitriptyline 25 mg oral tablet)?TAKE 2 TABLETS BY MOUTH EVERY DAY AT BEDTIME Clonazepam (clonazePAM 1 mg oral tablet)?TAKE 1 TABLET BY MOUTH THREE TIMES A DAY NEEDED Lisinopril (lisinopril 40 mg oral tablet)?TAKE 1 TABLET BY MOUTH DAILY Norethindrone (norethindrone 0.35 mg oral tablet)?TAKE 1 TABLET BY MOUTH EVERY DAY Omeprazole (omeprazole 40 mg oral enteric coated capsule)?TAKE 1 CAPSULE BY MOUTH EVERY DAY ? Inpatient Medications Medications (14) Active SCHEDULED: (6) Acetaminophen 325 mg Tablet (Acetaminophen Tablet) ??650 mg, By Mouth, 3 times a day Amitriptyline 25 mg Tablet (amitriptyline 25 mg oral tablet) ??50 mg, By Mouth, Daily at bedtime Lisinopril 20 mg Tablet (lisinopril 20 mg oral tablet) ??40 mg, By Mouth, Daily NaCl 0.9% Flush 3ml (NaCL 0.9% Flush) ??3 mL, IV Push, Every 8 hours Pantoprazole 20 mg EC Tablet (pantoprazole 20 mg oral delayed release tablet) ??20 mg, By Mouth, Daily Topiramate 100 mg Tablet (Topamax Tablet) ??100 mg, By Mouth, 2 times a day CONTINUOUS: (0) PRN: (8) Clonazepam 1 mg Tablet (clonazePAM 1 mg oral tablet) ??1 mg, By Mouth, 3 times a day Melatonin 3 mg Tablet (Melatonin Tablet) ??3 mg, By Mouth, Daily at bedtime MorPHINE 2 mg Inj Syringe (MorPHINE Inj) ??2 mg, IV Push Slowly, Every 4 hours NaCl 0.9% Flush 3ml (NaCL 0.9% Flush) ??3 mL, IV Push, Every 8 hours OxyCODONE 5 mg IR Tablet (oxyCODONE 5 mg oral tablet) ??10 mg, By Mouth, Every 6 hours Polyethylene Glycol 17 Gm Powder (MiraLax Powder) ??17 Gm 1 pack/packet, By Mouth, Daily Senna 8.6 mg / Docusate 50 mg tablet (Docusate/Senna Tablet) ??1 tablet, By Mouth, 2 times a day Simethicone 80 mg Chewable Tablet (Simethicone Tablet) ??80 mg, Chew, 3 times a day ? Results Recent Labs BLOOD COUNT & DIFF WBC 5.2 k/mm3 ()?? 02/08/2022 03:55 RBC 4.62 m/mm3 ()?? 02/08/2022 03:55 Hgb 11.4 Gm/dL (Low)?? 02/08/2022 03:55 Hct 39.0 % ()?? 02/08/2022 03:55 MCV 84.4 femtoliters ()?? 02/08/2022 03:55 MCH 24.7 pg (Low)?? 02/08/2022 03:55 MCHC 29.2 g/dL (Low)?? 02/08/2022 03:55 Platelet Count 320 k/mm3 ()?? 02/08/2022 03:55 RDW-SD 49.2 femtoliters (High)?? 02/08/2022 03:55 MPV 9.4 femtoliters ()?? 02/08/2022 03:55 Nucleated RBC (Automated) 0.0 #/100 WBC'S ()?? 02/08/2022 03:55 Abs. NRBC 0.0 k/mm3 ()?? 02/08/2022 03:55 ?? CHEM GENERAL Sodium 137 mmol/L ()?? 02/08/2022 03:55 Potassium 4.8 mmol/L ()?? 02/08/2022 03:55 Chloride 106 mmol/L ()?? 02/08/2022 03:55 Bicarbonate Level 21 mmol/L (Low)?? 02/08/2022 03:55 Anion Gap 10 ()?? 02/08/2022 03:55 Creatinine-Blood 1.0 mg/dL ()?? 02/08/2022 03:55 Estimated GFR Creatinine 75 ML/MIN/1.73 M2 ()?? 02/08/2022 03:55 C-Reactive Protein <0.3 mg/dL ()?? 02/08/2022 03:55 ?? HEME OTHER Sed Rate 51 mm/hr (High)?? 02/08/2022 03:55 ? Assessment/Plan ?? Mario Jimenez is a 31 year old female with PMH of pseudotumor cerebri with lumbar shunt who presented to ED on 02/06 with headache, back pain, and blurry spots in vision.?? Patient has chronic pain,normally follows ??with a neurologist at [facility]. ? Headache, back pain, blurry vision History of pseudotumor cerebri s/p TOOL WORKER shunt CT head negative for acute intracranial abnormality s/p lumboperitoneal shunt by Dr. Bell She has no focal neurological deficits Neurosurgery has seen patient,??and reviewed CT abdomen from [facility]?01/31???no issues on TOOL WORKER shunt??, no further intervention Depakote did not help for headache, better headache with Topamax Per neurology,??idiopathic intracranial hypertension-IIH??unlikely in setting of functioning shunt and previous LP for similar symptoms with normal pressure Neurosurgery, neurology signed off Plan: Neuro checks Q4h Continue Topamax-to be discharged on Topamax??continue home medication???amitriptyline outpatient ophthalmology evaluation?? and follow up with her neurologist after discharge Spoke to patient regarding avoiding OCPs with IIH ?? Lymphocytosis Unclear etiology, denies infectious symptoms, COVID negative Plan: -Repeat CBC ? Chest pain - resolved ACS ruled out EKG showing NSR and negative troponin ?? Chronic stable medical conditions Hypertension: continue lisinopril Anxiety: continue clonazepam and amitriptyline GERD: continue PPI ?? Quality Measures Diet: Regular DVT Prophylaxis: Patient ambulatory, SCD boot Code: FULL ? Discharge plan???possible discharge home tomorrow on Topamax. * Bety Sims: MODIFY, MODIFY, MODIFY, MODIFY, PERFORM, MODIFY, MODIFY, MODIFY, MODIFY Event Display: Progress Note Hospital Authored Date: [id number] Patient: ??MARIO JIMENEZ ? Age:??31 Years?Sex:??Female?:??1990?? Subjective Interval history Pt continues with headache Started on topamax 100 mg bid headache 10/03 - slightly better but not resolved No other complaints ? Review of Systems ?Eyes: denies visual changes, blurry vision ?ENT: denies hearing changes ?Neurological: +headache;??denies?? dizziness, loss of vision, blurry vision, hearing changes, trouble swallowing, slurring, word finding difficulties ?? Past Medical History Active Problems??(10) Anxiety GERD (gastroesophageal reflux disease) Headache HTN (hypertension) Hx of preeclampsia, prior , currently IBS (irritable bowel syndrome) Obese class I Pseudotumor cerebri Severe pre-eclampsia, with delivery TOOL WORKER (ventriculoperitoneal) shunt status ? Objective Vital Signs?? Temperature: 98.4 DegF (02/08/22 07:29:00) Temperature Route: Oral (02/08/22 07:29:00) Pulse Rate: 76 bpm (02/08/22 07:29:00) Respiratory Rate: 18 br/min (02/08/22 07:29:00) Systolic Blood Pressure: 120 mm Hg (02/08/22 08:41:00) Diastolic Blood Pressure: 67 mm Hg (02/08/22 08:41:00) Blood pressure sites: Arm, left (02/08/22 07:29:00) Mean Arterial Pressure: 85 mm Hg (02/08/22 07:29:00) Pulse Pressure: 53 mm Hg (02/08/22 07:29:00) Oxygen Saturation: 99 % (02/08/22 07:29:00) Mode of Delivery (Oxygen): Room air (02/08/22 07:29:00) Early Warning Score: 0 (02/08/22 08:42:30) ? Physical Exam General Exam Appearance: Appears comfortable and appropriate, in no acute distress. Appears stated age.? HEENT: Normocephalic, atraumatic.? Respiratory: Normal inspiration and expiration ?? Rheumatologic: No swelling, deformities or tenderness ?? Dermatologic: No significant skin lesions, rash, or bruising ?? Extremities: No edema or stasis changes ?? Psychiatric: Not depressed or anxious. Full and appropriate Affect. ?? Neurologic: Mentation: Awake, alert. Patient is oriented to person, place, time, and situation. Speech is clearand without slurring. Follows commands. chaser apprentice: PERRL. EOMI. No nystagmus. VFF to confrontation. No droop. Tongue midline and uvula rises symmetrically. Facial sensation in tact to light touch. Hearing acuity in tact to voice. Lateral head deviation and shoulder shrug 5/5?? Motor: Normal bulk/tone. Strength 5/5 UEs and LEs. 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 No pronator drift. Sensation: In tact to light touch of UEs and LEs, no extinction to DTS Coordination: Finger to nose smooth Gait:??deferred _ Home Medications amiTRIPTYLINE (amitriptyline 25 mg oral tablet)?TAKE 2 TABLETS BY MOUTH EVERY DAY AT BEDTIME Clonazepam (clonazePAM 1 mg oral tablet)?TAKE 1 TABLET BY MOUTH THREE TIMES A DAY NEEDED Lisinopril (lisinopril 40 mg oral tablet)?TAKE 1 TABLET BY MOUTH DAILY Norethindrone (norethindrone 0.35 mg oral tablet)?TAKE 1 TABLET BY MOUTH EVERY DAY Omeprazole (omeprazole 40 mg oral enteric coated capsule)?TAKE 1 CAPSULE BY MOUTH EVERY DAY ? Inpatient Medications Medications (14) Active SCHEDULED: (6) Acetaminophen 325 mg Tablet (Acetaminophen Tablet) ??650 mg, By Mouth, 3 times a day Amitriptyline 25 mg Tablet (amitriptyline 25 mg oral tablet) ??50 mg, By Mouth, Daily at bedtime Lisinopril 20 mg Tablet (lisinopril 20 mg oral tablet) ??40 mg, By Mouth, Daily NaCl 0.9% Flush 3ml (NaCL 0.9% Flush) ??3 mL, IV Push, Every 8 hours Pantoprazole 20 mg EC Tablet (pantoprazole 20 mg oral delayed release tablet) ??20 mg, By Mouth, Daily Topiramate 100 mg Tablet (Topamax Tablet) ??100 mg, By Mouth, 2 times a day CONTINUOUS: (0) PRN: (8) Clonazepam 1 mg Tablet (clonazePAM 1 mg oral tablet) ??1 mg, By Mouth, 3 times a day Melatonin 3 mg Tablet (Melatonin Tablet) ??3 mg, By Mouth, Daily at bedtime MorPHINE 2 mg Inj Syringe (MorPHINE Inj) ??2 mg, IV Push Slowly, Every 4 hours NaCl 0.9% Flush 3ml (NaCL 0.9% Flush) ??3 mL, IV Push, Every 8 hours OxyCODONE 5 mg IR Tablet (oxyCODONE 5 mg oral tablet) ??10 mg, By Mouth, Every 6 hours Polyethylene Glycol 17 Gm Powder (MiraLax Powder) ??17 Gm 1 pack/packet, By Mouth, Daily Senna 8.6 mg / Docusate 50 mg tablet (Docusate/Senna Tablet) ??1 tablet, By Mouth, 2 times a day Simethicone 80 mg Chewable Tablet (Simethicone Tablet) ??80 mg, Chew, 3 times a day ? Results Recent Labs BLOOD COUNT & DIFF WBC 5.2 k/mm3 ()?? 02/08/2022 03:55 RBC 4.62 m/mm3 ()?? 02/08/2022 03:55 Hgb 11.4 Gm/dL (Low)?? 02/08/2022 03:55 Hct 39.0 % ()?? 02/08/2022 03:55 MCV 84.4 femtoliters ()?? 02/08/2022 03:55 MCH 24.7 pg (Low)?? 02/08/2022 03:55 MCHC 29.2 g/dL (Low)?? 02/08/2022 03:55 Platelet Count 320 k/mm3 ()?? 02/08/2022 03:55 RDW-SD 49.2 femtoliters (High)?? 02/08/2022 03:55 MPV 9.4 femtoliters ()?? 02/08/2022 03:55 Nucleated RBC (Automated) 0.0 #/100 WBC'S ()?? 02/08/2022 03:55 Abs. NRBC 0.0 k/mm3 ()?? 02/08/2022 03:55 ?? CHEM GENERAL Sodium 137 mmol/L ()?? 02/08/2022 03:55 Potassium 4.8 mmol/L ()?? 02/08/2022 03:55 Chloride 106 mmol/L ()?? 02/08/2022 03:55 Bicarbonate Level 21 mmol/L (Low)?? 02/08/2022 03:55 Anion Gap 10 ()?? 02/08/2022 03:55 Creatinine-Blood 1.0 mg/dL ()?? 02/08/2022 03:55 Estimated GFR Creatinine 75 ML/MIN/1.73 M2 ()?? 02/08/2022 03:55 C-Reactive Protein <0.3 mg/dL ()?? 02/08/2022 03:55 ?? HEME OTHER Sed Rate 51 mm/hr (High)?? 02/08/2022 03:55 ? Assessment/Plan 31yo F PMH IIH s/p lumboperitoneal shunt by Dr. Bell not on meds follows with Dr. Urban requiring intermittent therapeutic LPs despite shunt, anxiety, IBS, HTN, obesity,??who presented 02/06 withc/o acute onset headache which woke her from sleep day of arrival. Endorses few days of eye pain then acute onset 10/10 throbbing posterior headache with blurry vision and floaters which has persisted . BP elevated??to 170/120s day of presentation.??Minimal relief with migraine cocktail in ER. Also endorsed fluctuance of lower back at drain site. CTH nonacute. Neurosurg saw and shunt in tact on their review of recent 01/31/22 outpt films.??No relief with depakote. Started on topamax with minimal i mprovement. ?? Ddx: acute onset headache with prodromal eye pain; no improvement with depakote - IIH unlikely in setting of functioning shunt and previous LP for similar symptoms with normal pressure; less likely migraine given characteristics and patient denies hx of migraine however external med list shows typical meds for migraine from neurologist, vs ?rebound headache??if taking any of her prescriptions forfioricet or acetaminophen/codeine (history inconsistent) ? Recs: - nsg has seen for shunt - in tact per notes - continue topamax 100 mg bid - will help migraine and IIH - Patient should have outpatient ophthalmology evaluation for papilledema and follow up with her neurologist after discharge -??Spoke to patient regarding avoiding OCPs with IIH ? thank you no further neuro recs, signing off pls call if questions ?? Dw Dr. Yates, cortext Dr. Gomez?? * Victorino Marquez RN: PERFORM, SIGN, VERIFY Event Display: Progress Note Hospital Authored Date: [id number] Patient: MARIO JIMENEZ Age: 31 years Sex: Female : 1990 Associated Diagnoses: None Author: Victorino Marquez RN Findings Narrative/Incidental A+O x 4, MARIO with generalized weakness. Speech clear, appropriate, follows commands. Hand grasps equal, strong, +plantar dorsi flexion. Continues to c/o headache 7-8/10. Medicated with Oxycodone 10mgalternating with IV Morphine. Pt reports improvement in pain to 4-5/10 but only lasts a short whileand headache returns. Room dark througout the night and cold packs applied to head for comfort. Assisted to turn and reposition. Hourly rounding in place to address patient needs.. Note * Tamela Lane RN: PERFORM Event Display: Discharge/Transfer Note Hospital Authored Date: [id number] Nursing Discharge Note Entered On: 02/09/2022 12:58 EST Performed On: 02/09/2022 12:[address] RN Nursing Discharge Note 2 Discharge Time : 02/09/2022 12:58 EST Discharge Level of Care at Discharge : Home/Mcfp/Foster Care Patient Left Unit Via : Wheelchair Patient Accompanied Off Unit with : Responsible adult DC Instructions Provided & Signed by Pt : Yes Patient Understands D/C Instructions : Yes Patient Instructions Discharge Signed : Yes Did Pt have Specialty Bed or Wound Vac : No Tamela Lane RN - 02/09/2022 12:58 EST * Nate Gomez MD: PERFORM Event Display: Discharge/Transfer Note Hospital Authored Date: [id number] Patient: ??MARIO JIMENEZ ? Age:??31 Years?Sex:??Female?:??1990?? Patient Information Discharge Location: [facility] Primary Care Physician: Miya Lara DO Admit Date/Time: 02/06/22 12:55 Discharge Disposition Discharge Disposition: Home: No Services Discharge Diagnosis ??Acute on chronic headache GERD?? essential hypertension History of pseudotumor cerebri Anxiety _ Discharge Medications Acetaminophen (acetaminophen 325 mg oral tablet)?650?Milligram?By Mouth?3 times a day?Temperature Greater than 100.5 amiTRIPTYLINE (amitriptyline 25 mg oral tablet)?TAKE 2 TABLETS BY MOUTH EVERY DAY AT BEDTIME Clonazepam (clonazePAM 1 mg oral tablet)?TAKE 1 TABLET BY MOUTH THREE TIMES A DAY NEEDED Lisinopril (lisinopril 40 mg oral tablet)?TAKE 1 TABLET BY MOUTH DAILY Omeprazole (omeprazole 40 mg oral enteric coated capsule)?TAKE 1 CAPSULE BY MOUTH EVERY DAY Oxycodone (oxyCODONE 5 mg oral tablet)?5?Milligram?1?tablet?By Mouth?Every 6 hours?as needed?for 2?Days?Pain , Severe Topiramate (topiramate 100 mg oral tablet)?1?tab(s)?100?Milligram?By Mouth?2 times a day?for 30?Days ? Medications Started Topamax, Tylenol, oxycodone Medications Discontinued ??None Doses Changed ??None Allergies Allergies ?(Active and Proposed Allergies Only) ketorolac? (Severity: Unknown severity, Onset: Unknown) ?Reactions: Severe anxiety (panic) ? PCP Follow-Up/Heads-Up Follow-up with PCP on headache.? follow-up with ophthalmology for??headache? Hospital Course ? Mario Jimenez is a 31 year old female with PMH of pseudotumor cerebri with lumbar shunt who presented to ED on 02/06 with headache, back pain, and blurry spots in vision.?? Patient has chronic pain,normally follows ??with a neurologist at [facility]. ??Has got history of LP shunt placement [place] [address] Bell at [facility] who arrives from home with severe acute on chronic HILL and Lt posterioreye pain.?Patient does have chronic headache at baseline. ??Initially called neurosurgery to assess??lumbar shunt functionality.?? Per neurosurgery, ``CT abd from [facility] which was performed on 01/31/2022 was personally reviewed by neurosurgery??attending which did not show evidence of shunt complications. Unlikely this is a shunt problem given the chronic, intermittent nature of pt's symptoms with previous workup during 2019 exacerbation and recent imaging without evidence of shunt malfunction.`` ??Seen by neurology, no signs of??intracranial infection.?? Recommended IV Depakote, did not help for headache.?? After starting Topamax, headache is much better.? Currently patient awake alert oriented, headache better,??ambulating. ??Being discharged home todaywith follow-up??with her primary care doctor as well as her neurologist in [facility].?? Patient??needs ??to follow-up with??ophthalmology for??HILL evaluation as outpatient, patient fully aware ? Acute??on chronic headache??of unknown etiology Headache, back pain, blurry vision History of pseudotumor cerebri s/p TOOL WORKER shunt CT head negative for acute intracranial abnormality s/p lumboperitoneal shunt by Dr. Bell She has no focal neurological deficits Neurosurgery has seen patient,??and reviewed CT abdomen from [facility]?01/31???no issues on TOOL WORKER shunt??, no further intervention Depakote did not help for headache, better headache with Topamax Per neurology,??idiopathic intracranial hypertension-IIH??unlikely in setting of functioning shunt and previous LP for similar symptoms with normal pressure Neurosurgery, neurology signed off Headache better with Topamax Plan:?? Continue Topamax???new medication, sent to her pharmacy home medication???amitriptyline, clonazepam?? patient does not take anymore control pill???advised to??avoid it and??to use different mode of contraception?? Follow-up with primary ??neurologist at [facility] Follow-up with ophthalmology??as outpatient??for headache evaluation, patient fully aware ? Chest pain - resolved ACS ruled out EKG showing NSR and negative troponin ?? Chronic stable medical conditions Hypertension: continue lisinopril Anxiety: continue clonazepam and amitriptyline GERD: continue PPI ? . Objective Assessment and Plan Discharge Planning:? Vital Signs?? Temperature: 97.4 DegF (02/09/22 07:34:00) Temperature Route: Oral (02/09/22 07:34:00) Pulse Rate:??92 bpm??High (02/09/22 07:34:00) Respiratory Rate: 17 br/min (02/09/22 09:15:00) Systolic Blood Pressure: 106 mm Hg (02/09/22 08:15:00) Diastolic Blood Pressure: 61 mm Hg (02/09/22 08:15:00) Blood pressure sites: Arm, left (02/09/22 07:34:00) Mean Arterial Pressure: 78 mm Hg (02/09/22 04:25:00) Pulse Pressure: 45 mm Hg (02/09/22 04:25:00) Oxygen Saturation: 100 % (02/09/22 07:34:00) Mode of Delivery (Oxygen): Room air (02/09/22 07:34:00) Early Warning Score: 2 (02/09/22 10:56:09) ? . Physical Exam General:??Alert, awake, not in?? acute cardiopulmonary distress. Eyes:??no eye redness Ear, Nose and Throat:??Oropharynx clear, mucous membranes moist.??no thrush Neck:??Supple, Full range of motion. Respiratory:??Clear to auscultation??. No wheezing, rales or rhonchi. Cardiovascular:??Heart sounds normal. Regular rate and rhythm, no murmurs Gastrointestinal:??Abdomen soft, non-tender, non-distended. Normal bowel sounds. Genitourinary:??No costovertebral angle tenderness. Neurologic:??Cranial nerves II-XII grossly intact. No focal neurological deficits.?? Skin:??No rashes or lesions. No edema. Musculoskeletal:??No cyanosis or clubbing. No gross deformities. Consultants Neurosurgery, neurology Pending Results COVID-19 (2019 Novel Coronavirus) PCR ordered on 02/07/2022 Follow-Up Appointments Added Follow Up ?Time Frame ?Comments Jeffrey Chun DO, Miya?1 to 2 weeks?Follow-up withPCP in 1 to 2 weeks for headache. ??Please give a call to office for appointment Post Discharge Care Diet: Regular Diet Code Status: ?? Full Resuscitation Condition: Stable Prognosis: Fair Discharge ?02/09/22 11:16:00 EST Discharge Prescriptions ?ePrescribed, ??02/09/22 11:16:00 EST Home Health Face to Face ^HomeHealthFTF Results Discharge Labs BLOOD COUNT & DIFF WBC 5.2 k/mm3 ()?? 02/08/2022 03:55 RBC 4.62 m/mm3 ()?? 02/08/2022 03:55 Hgb 11.4 Gm/dL (Low)?? 02/08/2022 03:55 Hct 39.0 % ()?? 02/08/2022 03:55 MCV 84.4 femtoliters ()?? 02/08/2022 03:55 MCH 24.7 pg (Low)?? 02/08/2022 03:55 MCHC 29.2 g/dL (Low)?? 02/08/2022 03:55 Platelet Count 320 k/mm3 ()?? 02/08/2022 03:55 RDW-SD 49.2 femtoliters (High)?? 02/08/2022 03:55 MPV 9.4 femtoliters ()?? 02/08/2022 03:55 Nucleated RBC (Automated) 0.0 #/100 WBC'S ()?? 02/08/2022 03:55 Abs. NRBC 0.0 k/mm3 ()?? 02/08/2022 03:55 Abs. Neut 1.9 k/mm3 ()?? 02/06/2022 13:31 Abs. Lymph 3.1 k/mm3 ()?? 02/06/2022 13:31 Abs. [place] 0.3 k/mm3 (Low)?? 02/06/2022 13:31 Abs. Eo 0.1 k/mm3 ()?? 02/06/2022 13:31 Abs. Baso 0.0 k/mm3 ()?? 02/06/2022 13:31 Neut % 35.0 % (Low)?? 02/06/2022 13:31 Lymph % 58.2 % (High)?? 02/06/2022 13:31 [place] % 4.9 % ()?? 02/06/2022 13:31 Eos % 1.3 % ()?? 02/06/2022 13:31 Baso % 0.4 % ()?? 02/06/2022 13:31 Imm Gran 0.2 % ()?? 02/06/2022 13:31 Abs. Imm Gran 0.0 k/mm3 ()?? 02/06/2022 13:31 ?? CARDIAC High Sensitivity Troponin (HSTnT) <6 ng/L ()?? 02/06/2022 13:27 ? CHEM GENERAL Sodium 137 mmol/L ()?? 02/08/2022 03:55 Potassium 4.8 mmol/L ()?? 02/08/2022 03:55 Chloride 106 mmol/L ()?? 02/08/2022 03:55 Bicarbonate Level 21 mmol/L (Low)?? 02/08/2022 03:55 Anion Gap 10 ()?? 02/08/2022 03:55 Glucose Level 89 mg/dL ()?? 02/06/2022 13:31 BUN 12 mg/dL ()?? 02/06/2022 13:31 Creatinine-Blood 1.0 mg/dL ()?? 02/08/2022 03:55 Estimated GFR Creatinine 75 ML/MIN/1.73 M2 ()?? 02/08/2022 03:55 Calcium 9.4 mg/dL ()?? 02/06/2022 13:31 C-Reactive Protein <0.3 mg/dL ()?? 02/08/2022 03:55 ? ENDOCRINE/TUMOR MARKER Serum Qual NEGATIVE mIU/mL ()?? 02/06/2022 13:31 ? HEME OTHER Sed Rate 51 mm/hr (High)?? 02/08/2022 03:55 Hold Blue Top SPECIMEN DISCARDED AFTER 4 HOURS. ()?? 02/06/2022 13:31 ?? UA/URINALYSIS Appear/Color, Urine LIGHT YELLOW ()?? 02/06/2022 23:37 Specific [place], Urine 1.022 ()?? 02/06/2022 23:37 pH, Urine 6.0 ()?? 02/06/2022 23:37 Albumin, Urine NEGATIVE ()?? 02/06/2022 23:37 Glucose, Urine NEGATIVE ()?? 02/06/2022 23:37 Ketones, Urine NEGATIVE ()?? 02/06/2022 23:37 Bilirubin, Urine NEGATIVE ()?? 02/06/2022 23:37 Hemoglobin, Urine NEGATIVE ()?? 02/06/2022 23:37 Nitrite, Urine NEGATIVE ()?? 02/06/2022 23:37 Leukocyte, Urine 1+ (Abnormal)?? 02/06/2022 23:37 Urobilinogen NORMAL mg/dL ()?? 02/06/2022 23:37 WBC's, Urine 4 /HPF ()?? 02/06/2022 23:37 RBC's, Urine 2 /HPF ()?? 02/06/2022 23:37 Squamous Epith 8 /HPF ()?? 02/06/2022 23:37 Mucus SLIGHT /LPF ()?? 02/06/2022 23:37 Hold Urine Culture Testing available 48 hours from time of collection. ()?? 02/06/2022 23:37 ?? VIROLOGY COVID-19 POC Result NEGATIVE ()?? 02/06/2022 16:53 ? Imaging(s) ?CT Head/Brain W/O Contrast ?? 02/06/2022 20:51??by Lupillo Britton MD ? IMPRESSION: ?? No acute intracranial abnormality ? 35_ minutes spent on discharge * Tamela Lane RN: PERFORM Event Display: Patient Education/Instruction Authored Date: [id number] Inpatient Adult Discharge Instructions [address] [address] Name: MARIO JIMENEZ : 1990 Visit: 02/06/2022 12:55:00 Current Date: 02/09/2022 12:16 Account: [id number] Inpatient Adult Discharge Instructions We would like to thank you for allowing us to assist you with your healthcare needs. The following includes patient education materials and information regarding your injury/illness. Our entire staffstrives to provide an excellent experience for our patients and their families. PLEASE ENSURE YOU FOLLOW-UP PER THE INSTRUCTIONS BELOW! ?? YOUR OPINION IS IMPORTANT TO US! Please complete the survey you may receive by mail or email. Your feedback will be used to make improvements to the healthcare experiences of our patients and their families. Surveys are administered by [employer] ?? If further treatment with your primary care physician or another doctor is recommended, it is important for you to keep the appointment. Call your primary care physician or return to the Emergency Department immediately if your condition worsens, fails to improve, or new symptoms develop. If you need to find a doctor, you can call [facility] [employer] for a referral at [phone] or toll free at [phone]) or log in to [email or web address].. ?? You can view and manage your care through the patient portal or by using a health care gabo of your choosing. [employer] is a website that allows you to securely view your medical information including your hospital discharge summary, office visit summaries, medications and follow-up visits. You can also request appointments, renew medications, and request access to your medical information using a health care gabo of your choosing, or just ask a question. You can enroll at [email or web address] or register during your next office visit. You have been discharged from [facility], Patient Care Unit: D3B. If you have any questions regarding these instructions after you leave, please call us and we will be happy to assist you. [facility] Your Care Team Attending Physician Jason CALABRESE, Nate Consulting Providers Jason CALABRESE, Nate Discharging Providers Jason CALABRESE, Nate Reason for Admission chest pain/htn Tests Performed Below is a partial list of the tests performed during your hospitalization. You may have had other tests and procedures not included in this list. Please discuss all test results with your provider. Basic Metabolic Panel CBC CBC w/ Differential COVID-19 RNA POC Creatinine CRP ESR High??Sensitivity??Troponin T Hold Blue Top Tube Lytes Serum Qualitative Urinalysis w/hold for Urine Culture CT Head/Brain W/O Contrast Primary Care Provider Miya Lara DO Advance Directive Health Care Proxy on File Yes - Health Care Proxy No qualifying data available. Discharge Vitals Temperature: 97.6 DegF Height: 157.4 cm Pulse Rate: 89 bpm Weight: 76 kg Respiratory Rate: 16 br/min Body Mass Index:??30.68 kg/m2??Critical Systolic Blood Pressure: 101 mm Hg Body surface area: 1.82 Diastolic Blood Pressure: 65 mm Hg ?? Oxygen Saturation: 100 % ?? Studies Pending All tests and labs ordered during this hospital stay have been completed unless listed below. Please discuss all pending results with your provider listed above in these instructions. ?? COVID-19 (2019 Novel Coronavirus) PCR What to do next Instructions From Your Doctor Discharge Orders Diet:??Regular Diet Code Status:?? Full Resuscitation Condition:??Stable Prognosis:??Fair You Need to Schedule the Following Appointments Follow Up with??Miya Lara DO When??Within 1 to 2 weeks Why: Follow-up with PCP in 1 to 2 weeks for headache. ??Please give a call to office for appointment Where: ?? Discharge Medications MARIO JIMENEZ :1990 Visit Date:02/06/2022 Medications: Please continue your medications until treatment is completed or stopped by your provider. Medications not listed below should be discontinued. Discuss any questions related to medications with your provider. What How Much When Instructions Next Dose New Acetaminophen (acetaminophen 325 mg oral tablet) 650 Milligram Oral 3 times a day Temperature Greater than 100.5 ?? as needed New Oxycodone (oxyCODONE 5 mg oral tablet) 1 tab(s) Oral Every 6 hours as needed for Pain , Severe Duration: 2 Days Pickup at [facility]/pharmacy #[id number] last dose @ 11:20AM New Topiramate (topiramate 100 mg oral tablet) 1 tab(s) Oral Twice a day Duration: 30 Days Pickup at [facility]/pharmacy #[id number] 02/09 PM Changed Clonazepam (clonazePAM 1 mg oral tablet) TAKE 1 TABLET BY MOUTH THREE TIMES A DAY NEEDED ?? as needed Changed Lisinopril (lisinopril 40 mg oral tablet) TAKE 1 TABLET BY MOUTH DAILY ?? 02/10 Changed Omeprazole (omeprazole 40 mg oral enteric coated capsule) TAKE 1 CAPSULE BY MOUTH EVERY DAY ?? 02/10 Unchanged amiTRIPTYLINE (amitriptyline 25 mg oral tablet) TAKE 2 TABLETS BY MOUTH EVERY DAY AT BEDTIME ?? 02/09 PM Pharmacy Information [facility]/pharmacy #[id number]: [address] [place] [address] [phone] ?? What How Much When Comments Stop Taking Aspirin (aspirin 81 mg oral delayed release tablet) 1 tab(s) Oral Daily Stop Taking Docusate (Colace sodium 100 mg oral capsule) 1 capsule Oral Twice a day as needed for for constipation Stop Taking Durable Medical Equipment ( Cradle) See instructions Use as directed ?? Stop Taking Famotidine Stop Taking Ferrous Sulfate (ferrous sulfate 325 mg oral enteric coated tablet) 1 tab(s) Oral Twice a day Stop Taking Labetalol (labetalol 200 mg oral tablet) 1 tab(s) Oral Twice a day Stop Taking Multivitamin, ( Multivitamin Tablet) 20 Milligram Oral Daily Stop Taking Norethindrone (norethindrone 0.35 mg oral tablet) TAKE 1 TABLET BY MOUTH EVERY DAY ?? Stop Taking Ondansetron (Zofran ODT 4 mg oral tablet, disintegrating) 4 Milligram Oral 3 times a day Test Results Below is a partial list of the most recent Laboratory test results done prior to this discharge. You may have had other tests and procedures not included in this list. Please discuss all test resultswith your provider. Basic Metabolic Panel (02/06/2022) ???Sodium - 140 mmol/L???Potassium - 4.5 mmol/L???Chloride - 106 mmol/L???Bicarbonate Level - 26 mmol/L???Anion Gap - 8???Glucose Level - 89 mg/dL???BUN - 12 mg/dL???Creatinine-Blood - 0.7 mg/dL???Estimated GFR Creatinine - 120 ML/MIN/1.73 M2???Calcium - 9.4 mg/dL CBC (02/08/2022) ???WBC - 5.2 k/mm3???RBC - 4.62 m/mm3???Hgb - 11.4 Gm/dL???Hct - 39.0 %???MCV - 84.4 femtoliters???MCH - 24.7 pg???MCHC - 29.2 g/dL???Platelet Count - 320 k/mm3???RDW-SD - 49.2 femtoliters???MPV - 9.4 femtoliters???Nucleated RBC (Automated) - 0.0 #/100 WBC'S???Abs. NRBC - 0.0 k/mm3 CBC w/ Differential (02/06/2022) ???WBC - 5.3 k/mm3???RBC - 4.20 m/mm3???Hgb - 10.6 Gm/dL???Hct - 34.8 %???MCV - 82.9 femtoliters???MCH - 25.2 pg???MCHC - 30.5 g/dL???Platelet Count - 299 k/mm3???RDW-SD - 47.7 femtoliters???MPV - 9.4 femtoliters???Nucleated RBC (Automated) - 0.0 #/100 WBC'S???Abs. NRBC - 0.0 k/mm3???Abs. Neut - 1.9 k/mm3???Abs. Lymph - 3.1 k/mm3???Abs. [place] - 0.3 k/mm3???Abs. Eo - 0.1 k/mm3???Abs. Baso - 0.0 k/mm3???Neut % - 35.0 %???Lymph % - 58.2 %???[place] % - 4.9 %???Eos % - 1.3 %???Baso % - 0.4 %???Imm Gran- 0.2 %???Abs. Imm Gran - 0.0 k/mm3 COVID-19 RNA POC (02/06/2022) ???COVID-19 POC Result - NEGATIVE Creatinine (02/08/2022) ???Creatinine-Blood - 1.0 mg/dL???Estimated GFR Creatinine - 75 ML/MIN/1.73 M2 CRP (02/08/2022) ? ?C-Reactive Protein - <0.3 mg/dL ESR (02/08/2022) ???Sed Rate - 51 mm/hr High??Sensitivity??Troponin T (02/06/2022) ? ?High Sensitivity Troponin (HSTnT) - <6 ng/L Hold Blue Top Tube (02/06/2022) ???Hold Blue Top - SPECIMEN DISCARDED AFTER 4 HOURS. Lytes (02/08/2022) ???Sodium - 137 mmol/L???Potassium - 4.8 mmol/L???Chloride - 106 mmol/L???Bicarbonate Level - 21 mmol/L???Anion Gap - 10 Serum Qualitative (02/06/2022) ??? Serum Qual - NEGATIVE Urinalysis w/hold for Urine Culture (02/06/2022) ???Appear/Color, Urine - LIGHT YELLOW???Specific [place], Urine - 1.022???pH, Urine - 6.0???Albumin, Urine - NEGATIVE???Glucose, Urine - NEGATIVE???Ketones, Urine - NEGATIVE???Bilirubin, Urine - NEGATIVE???Hemoglobin, Urine - NEGATIVE???Nitrite, Urine - NEGATIVE???Leukocyte, Urine - 1+???Urobilinogen - NORMAL???WBC's, Urine - 4 /HPF???RBC's, Urine - 2 /HPF???Squamous Epith - 8 /HPF???Mucus - SLIGHT???Hold Urine Culture - Testing available 48 hours from time of collection. Immunizations This Visit Given Vaccine Dateinfluenza virus vaccine, inactivated 02/08/2022 Allergies (NKA means No Known Allergies) ketorolac??(Severe anxiety (panic)) Problems Active Problems??(11) Anxiety?? GERD (gastroesophageal reflux disease)?? Headache?? HTN (hypertension)?? Hx of preeclampsia, prior , currently ?? IBS (irritable bowel syndrome)?? Obese class I?? palpitations?? Pseudotumor cerebri?? Severe pre-eclampsia, with delivery?? TOOL WORKER (ventriculoperitoneal) shunt status?? Education Materials Below is the list of Educational Leaflet Providered with your Discharge Instructions. Valuables and Belongings I fully understand and agree that [facility] accepts no responsibility for all my personal property including clothing, toilet articles, radios, jewelry, dentures, hearing aids, rings, money, or any other property that is in my possession or is brought to me after admission. I understand certain valuables may be placed in a hospital safe for a short period of time. I understand that the hospital is not liable for loss or damage due to accident, fire, or other natural occurrence while said property is in the safe. I accept full responsibility for any personal property that I keep with me, and will not hold the hospital responsible in case of loss or disappearance. I acknowledge that i have been encouraged to send valuables and belongings home. ?? Review of Valuable and Belonging List: With patient Date for Pt to Sign Valuables/Belongings: 02/07/22 04:37:00 ?? Other Discharge Information ? Pulmonary Rehab Status?? Pulmonary Rehab Discharge Status?? Respiratory Rate: 16 br/min ? Common Emergency Awareness Tips IS IT A STROKE? Act FAST and Check for these signs: FACE Does the face look uneven? ARM Does one arm drift down? SPEECH Does their speech sound strange? TIME Call at any sign of stroke ?? Heart Attack Signs Chest discomfort: Most heart attacks involve discomfort in the center of the chest and lasts more than a few minutes, or goes away and comes back. It can feel like uncomfortable pressure, squeezing, fullness or pain. Discomfort in upper body: Symptoms can include pain or discomfort in one or both arms, back, neck, jaw or stomach. Shortness of breath: With or without discomfort. Other signs: Breaking out in a cold sweat, nausea, or lightheaded. Remember, MINUTES DO MATTER. If you experience any of these heart attack warning signs, call to get immediate medical attention! ?? Smoking can increase your chances of developing chronic health problems and can cause harmful effects to other family members in your house. If you smoke, you are strongly encouraged to quit. Please call [facility] at [phone] or [phone] ([phone]) or log in to [email or web address] for referrals to smoking cessation programs. ?? The National Suicide Prevention Hotline is available 16/09 if you or someone you know needs to find a reason to keep living. By calling 8-961-880-[employer] (0982) you'll be connected to a skilled, trained counselor at a crisis center in your area. INPATIENT DISCHARGE INSTRUCTIONS SIGNATURE MARIO ROJAS Location:[facility] Registration Date and Time:02/06/2022 12:55 EST Primary Care Physician: Miya Lara DO, I MARIO JIMENEZ, have received the above patient education materials/instructions and have verbalized understanding. If ambulance or transport services are being used I further acknowledge being given a choice of service. ?? If you need to contact me, please call me at this number: . Patient/Cork Molder Name: Patient/Cork Molder Signature: Relationship to Patient: Witness Name/Signature: Date: * Tamela Lane RN: PERFORM Event Display: Patient Education Leaflets Authored Date: [id number] Unspecified Headache ?? [id number] Headache, Unspecified A number of things can cause headaches. The cause of your headache isn???t clear. But it doesn???t seem to be a sign of any serious illness. Headache affects almost everyone at some time. It's the most common reason people miss days from work or school. You could have a tension headache or a migraine headache. Stress can cause a tension headache. This can happen if you tense the muscles of your shoulders, neck, and scalp without knowing it. If this stress lasts long enough, you may develop a tension headache. It's not clear why migraines occur, but certain things called triggers can raise the risk of having a migraine attack. Migraine triggers may include emotional stress or depression, or by hormone changes during the menstrual cycle. Other triggers include control pills and other medicines, alcohol or caffeine, foods with tyramine such as aged cheese or wine, eyestrain, weather changes, missed meals, and lack of sleep or oversleeping. Other causes of headache include: ??? Viral illness with high fever ??? Head injury with concussion ??? Sinus, ear, or throat infection ??? Dental pain and jaw joint (TMJ) pain More serious but less common causes of headache include stroke, brain hemorrhage, brain tumor, meningitis, and encephalitis. Home care Follow these tips when taking care of yourself at home: ??? Don???t drive yourself home if you were given pain medicine for your headache. Instead, have someone else drive you home. Try to sleep when you get home. You should feel much better when you wakeup. ??? Apply heat to the back of your neck to ease a neck muscle spasm. Take care of a migraine headache by putting an ice pack on your forehead or at the base of your skull. ??? If you have nausea or vomiting, eat a light diet until your headache eases. ??? If you have a migraine headache, use sunglasses when in the daylight or around bright indoor lighting until your symptoms get better. Bright glaring light can make this type of headache worse. Follow-up care Follow up with your healthcare provider, or as advised. Talk with your provider if you have frequent headaches. They can help figure out a treatment plan. By knowing the earliest signs of headache, and starting treatment right away, you may be able to stop the pain yourself. When to seek medical advice Call your healthcare provider right away??if any of these occur: ??? Your head pain suddenly gets worse after sexual intercourse or strenuous activity ??? Your head pain doesn???t get better within 24 hours ??? You aren???t able to keep liquids down (repeated vomiting) ??? Fever of 100.4??F (38??C)or higher, or as directed by your healthcare provider ??? Stiff neck ??? Extreme drowsiness, confusion, or fainting ??? Dizziness or dizziness with spinning sensation (vertigo) ??? Weakness in an armor leg or one side of your face ??? You have trouble talking or seeing Last Reviewed Date: 2020 ?? 1555-1960 [employer]. All rights reserved. This information is not intended as a substitute for professional medical care. Always follow your healthcare professional's instructions. ?? CT Head WO contrast * BHSPowerscribe , CIS S: TRANSCRILupillo Dillon MD: VERIFY Erasmo Fernandes DO: SIGN Event Display: Result: Authored Date: [id number] CT Head/Brain W/O Contrast INDICATION: Hx of Present Illness: midsternal cp since 3am, constant. Radiating up neck. Head pressure all over, hx of shunt placed 8 years ago. Finishing antibiotics for recent UTI.; Reason: Headache(s); Clinical Question(s): Subarachnoid Hemorrhage; TECHNIQUE: Noncontrast head CT using axial technique and reconstructed in axial and coronal plane. Iterative reconstruction techniques are used to optimize dose and image quality. CTDIvol Head: 45.12 mGy, DLP Head: 722 mGy*cm. COMPARISON: Noncontrast head CT 01/06/2019. FINDINGS: BRAIN and EXTRA-AXIAL SPACES: No parenchymal hemorrhage, midline shift or mass effect. Garcia-white matter differentiation is well preserved. No acute infarct. Ventricles, sulci and basilar cisterns are normal. No white matter lesions. No subarachnoid hemorrhage, subdural or epidural collections. CALVARIUM, SKULL BASE AND SOFT TISSUES: No fractures or suspicious bony lesions. Aerosolized secretions in the right sphenoid sinus. Visualized orbits and globes are intact. The extracranial soft tissues are unremarkable. IMPRESSION: No acute intracranial abnormality. Aerosolized secretions in the right sphenoid sinus; clinically correlate for sinusitis. I have personally reviewed the images and I agree with this report. WSN: [id number] Ordering Physician: Oc Lugo Dictated By: Erasmo Fernandes DO Dictated Date/Time: 02/06/22 9:19 pm Reviewed By: Lupillo Britton MD Signed By: Lupillo Britton MD Signed Date/Time: 02/06/22 9:24 pm Transcribed By: TUNDE Transcribed Date/Time: 02/06/22 8:56 pm Patient Care team information Care Team Personnel Name: Claudia Marie RN Position: [facility] OB RN Member Role: Primary Care Nurse Name: Ilda Cheema RN Position: [facility] OB RN Member Role: Primary Care Nurse Name: Nita Arguelles Position: [facility] RN Member Role: Primary Care Nurse Name: Miya Lara DO Position: [facility] Physician (General Medicine) Member Role: PCP Address: Address: [address] [place] [address] Name: Alfred Ko RN Position: [facility] RN Member Role: Primary Care Nurse Name: Anne Trinidad RN Position: [facility] RN Member Role: Primary Care Nurse Name: *[facility], Inpt Attending Position: [facility] ED Medicine MD Name: Nissa Mena Position: [facility] ED OA Charge Member Role: ED Associate Name: Liseth Jiménez LPN Position: [facility] ED RN W/OE and Tasks Member Role: Patient Care Provider Name: Michelle Weller Position: [facility] ED TA [facility] Member Role: Patient Care Provider Care Team Related Persons Name: JINNY KIRBY Address: [address] Address: [address] [place] [address] [place] Name: MIKIE BRENNAN Address: home [address] [place] [address]
--- OUTSIDE RECORDS SUMMARY | 2022-12-06 01:16 | XMS_ITS | Continuity of Care Document ---
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 Role Phone Miya Lara DO Primary Care Donna wei En[place] [facility] [place](s): 12/16/19 - 12/23/19 [facility] [address] [place] [address]- [facility] Attending Physician: Viviana Maurer MD Referring Physician: Miya Lara DO Allergies, Adverse Reactions, Alerts Substance Reaction Severity Status ketorolac Severe anxiety (panic) Activ e Immunizations Given and Recorded Vaccine Date Status Refusal Reason influenza virus vaccine, inactivated 12/05/17 Give n tetanus-diphtheria toxoids (Td) 1 04/15/03 Given Hepatitis [...] 05/01/92 Given Poliovirus Vaccine, Inactivated 03/12/92 Given Diphth/Pertussis, Whl Cell/Tet(oldterm) 11/12/95 G iven Diphth/Pertussis, Whl Cell/Tet(oldterm) 08/30/93 G iven Diphth/Pertussis, Whl Cell/Tet(oldterm) 01/24/93 G iven Diphth/Pertussis, Whl Cell/Tet(oldterm) 05/01/92 G iven Diphth/Pertussis, Whl Cell/Tet(oldterm) 03/12/92 G iven Measles/Mumps/Rubella Virus Vaccine 05/12/93 Given Measles/Mumps/Rubella Virus Vaccine 2 01/24/93 Giv en 1Admin Note: TD 2Admin Note: hx varicella Medications aspirin 81 mg oral delayed release tablet 81 mg, 1, tablet, By Mouth, Daily, # 90 tablet, Refills 6, Tot. Refills 6, Maintenance, 12/05/17 8:55:17 EDT, Route to Pharmacy Electronically, NCPDP_ID- [id number], [facility] Start Date: 12/05/17 Status: Ordered clonazePAM 0.5 mg oral tablet 1 tablet = 0.5 mg, By Mouth, 3 times a day, 0 Refills, Maintenance, 08/04/16 17:54:44 Start Date: 08/04/16 Status: Ordered Colace sodium 100 mg oral capsule 100 mg, 1, capsule, By Mouth, 2 times a day, PRN, # 40 capsule, Refills 0, Tot. Refills 0, Maintenance, for constipation, 12/23/17 4:55:41 EDT, Route to Pharmacy Electronically, NCPDP_ID-[id number], [facility] [address] Start Date: 12/23/17 Status: Ordered Famotidine 0 Refills, Maintenance, 11/01/17 0:13:56 EDT Start Date: 11/01/17 Status: Ordered ferrous sulfate 325 mg oral enteric coated tablet 325 mg, 1, tablet, By Mouth, 2 times a day, # 120 tablet, Refills 2, Tot. Refills 2, Maintenance, 02/25/18 20:14:50 EST, Route to Pharmacy Electronically, NCPDP_ID-[id number], [facility] [address] Start Date: 02/25/18 Status: Ordered labetalol 200 mg oral tablet 1 tablet = 200 mg, By Mouth, 2 times a day, # 60 tablet, 2 Refills, Maintenance, 02/25/18 22:24:36 EST, Tablet Start Date: 02/25/18 Status: Ordered Lisinopril By Mouth, Daily, 0 Refills, Maintenance, 06/02/18 9:56:22 EDT Start Date: 06/02/18 Status: Ordered Omeprazole By Mouth, Daily, 0 Refills, Maintenance, 01/06/19 14:48:01 EST Start Date: 01/06/19 Status: Ordered Cradle See Instructions, # 1 units, Maintenance, Use as directed, 02/13/18 10:25:36 EST, [facility] Start Date: 02/13/18 Status: Ordered Multivitamin Tablet = 20 mg, By Mouth, Daily, 0 Refills, Maintenance, 11/01/17 0:14:14 EDT Start Date: 11/01/17 Status: Ordered Zofran ODT 4 mg oral tablet, disintegrating 1 tablet = 4 mg, By Mouth, 3 times a day, # 90 tablet, 1 Refills, Maintenance, 11/01/17 4:09:42 EDT Start Date: 11/01/17 Status: Ordered Problem List Condition Effective Dates Status Health Status Inform ant Anxiety(Confirmed) Active Pseudotumor cerebri(Confirmed) Active GERD (gastroesophageal reflu x disease)(Confirmed) 1 2012 Active Hx of preeclampsia, prior pr egnancy, currently (Confirmed) Active 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
--- OUTSIDE RECORDS SUMMARY | 2022-12-06 01:17 | XMS_ITS | Continuity of Care Document ---
Author Name Unknown Organization [facility] Address [address] [place] [address]- Care Team Providers Care Director Of Development Name Role Phone Miya Lara DO Primary Care Donna wei [place] [facility] [place] 11/25/19 - 12/02/19 [facility] [address] [place] [address]- [facility] Encounter Diagnosis Travel advice encounter(Discharge Diagnosis) - 11/25/19 Attending Physician: Roberto Jolley MD Referring Physician: Miya Lara DO Allergies, [...] Diphth/Pertussis, Whl Cell/Tet(oldterm) 01/24/93 G iven Diphth/Pertussis, l Cell/Tet(oldterm) 05/01/92 G iven Diphth/Pertussis, [facility] Cell/Tet(oldterm) 03/12/92 G iven Measles/Mumps/Rubella Virus Vaccine 05/12/93 Given Measles/Mumps/Rubella Virus Vaccine 2 01/24/93 Giv en 1Admin Note: TD 2Admin Note: hx varicella Medications aspirin 81 mg oral delayed release tablet 81 mg, 1, tablet, By Mouth, Daily, # 90 tablet, Refills 6, Tot. Refills 6, Maintenance, 12/05/17 8:55:17 EDT, Route to Pharmacy Electronically, NCPDP_ID- [id number], [facility] Start Date: 12/05/17 Status: Ordered clonazePAM 0.5 [...] 12/23/17 4:55:41 EDT, Route to Pharmacy Electronically, NCPDP_ID-[id number], [facility] Start Date: 12/23/17 Status: Ordered Famotidine 0 Refills, Maintenance, 11/01/17 0:13:56 EDT Start Date: 11/01/17 Status: Ordered ferrous sulfate 325 mg oral enteric coated tablet 325 mg, 1, tablet, By Mouth, 2 times a day, # 120 tablet, Refills 2, Tot. 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) sh unt status(Confirmed) Active Headache(Confirmed) 2 Active HTN (hypertension)(Confirmed) 3 2009 Active IBS (irritable bowel syndrome)(Confirmed) 4 2013 Active Severe pre-eclampsia, with delivery(Confirmed) Active 1On medication 2During , currently treated for them, related to shunt/extra fluid 3On Medication 4Not using being treating, not seeing specialist right now Diagnosis Diagnosis Type Effective Dates Health Status Cl inical Service Informant Travel advice encounter Discharge Diagnosis 11/25/19 Social History Social History Type Response Smoking Status Never smoker; Tobacc o user in household: Yes; Other: father; entered on: 11/14/17 Sex
--- OUTSIDE RECORDS SUMMARY | 2022-12-06 01:17 | XMS_ITS | Continuity of Care Document ---
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 Name Role Phone Jeffrey Adiel Miya Primary Care Donna wei Encounter [facility] Date(s): 08/12/20 - 08/12/[address] [address]- Discharge Disposition: A-D/C Walkout Attending Physician: Not on Staff, Attending MD Admitting Physician: Not on Staff, Admitting MD Referring Physician: Not on Staff, Referring [...] 8:55:17 EDT, Route to Pharmacy Electronically, NCPDP_ID- [id number], [facility] Start Date: 12/05/17 Status: Ordered clonazePAM 0.5 [...] 12/23/17 4:55:41 EDT, Route to Pharmacy Electronically, NCPDP_ID-[id number], [facility] Start Date: 12/23/17 Status: Ordered Famotidine 0 Refills, Maintenance, 11/01/17 0:13:56 EDT Start Date: 11/01/17 Status: Ordered ferrous sulfate 325 mg oral enteric coated tablet 325 mg, 1, tablet, By Mouth, 2 times a day, # 120 tablet, Refills 2, Tot. 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(Confirmed) Active Headache(Confirmed) 2 Active HTN (hypertension)(Confirmed) 3 2009 Active IBS (irritable bowel syndrome)(Confirmed) 4 2013 Active Severe pre-eclampsia, with delivery(Confirmed) Active 1On medication 2During , currently treated for them, related to shunt/extra fluid 3On Medication 4Not using being treating, not seeing specialist right now Vital Signs Most recent to oldest [Reference Range]: 1 Oxygen Saturation [94-100 %] 98 % (08/12/20 3:12 PM) Pulse Rate [55-90 bpm] 92 bpm *H* (08/12/20 3:12 PM) Blood Pressure [90-138/55-84 mm Hg] 128/ 65mm Hg (08/12/20 3:12 PM) Respiratory Rate [16-30 br/min] 18 br/mi n (08/12/20 3:12 PM) Temperature [96.8-100.4 DegF] 98.6 DegF (08/12/20 3:12 PM) Mode of Delivery (Oxygen) Room air (08/12/20 3:12 PM) Blood pressure sites Arm, right (08/12/20 3:12 PM) Temperature Route Oral (08/12/20 3:12 PM) Social History Social History Type Response Smoking Status Never smoker; Tobacc o user in household: Yes; Other: father; entered on: 11/14/17 Sex
[2022-12-06] MEDS: Potassium Chloride Packet 20 MEQ PACKET 60 MEQ PO (01:24)
--- NOTE | 2022-12-06 01:31 | PC.NURSE ---
this rn assumed care of pt. pt reports a migraine for one week that has not subsided. pt reports when she arrived to the ED she felt anxious with chest pain. 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 pt tearful at this time and reporting a 10/10 headache. pt a&ox3. nuero assessment in tact. pt lung sounds clear bilaterally. pt sinus tachy on tele 106-110. iv access established and medicated per apr. pt resting with lights off.
[2022-12-06 01:51] LABS: HCG Quantitative < 2 mIU/mL
[2022-12-06 01:51] LABS: Troponin-I High Sensitivity < 2.7 ng/L (<3.5-17.0)
[2022-12-06 01:54] LABS: COVID-19 Test Negative (Negative); IDNOW Serial# 6674DD1D
[2022-12-06 02:34] VITALS: BP 140/95; PULSE 106; RESP 12; O2SAT 98
[2022-12-06] MEDS: HYDROmorphone HCl 1 MG/ML SYRINGE IVPUSH (02:50)
--- NOTE | 2022-12-06 02:52 | PC.NURSE ---
pt refused ativan dose at this time. pt reports she does not like the feeling . provider aware.
[2022-12-06 03:00] LABS: Appearance Urine Clear; Color Urine Yellow; Glucose Urine UA Negative (Negative); Leukocyte Esterase Urine Negative (Negative); Nitrite Urine Negative (Negative); Urine Blood Negative (Negative); Urine Ketones Negative (Negative); Urine Protein Negative (Neg-Trace)
[2022-12-06 03:02] LABS: UPreg QC Valid YES; Urine Pregnancy NEGATIVE (NEGATIVE)
== END 2022-12-06 03:35 | disposition home or self-care (01) ==
PROVIDERS: Physician Assistant; Emergency Provider Emergency Medicine; PCP Internal Medicine
DX: R07.9 Chest pain, unspecified (principal); R51.9 Headache, unspecified; F44.9 Dissociative and conversion disorder, unspecified; Z79.899 Other long term (current) drug therapy; I10 Essential (primary) hypertension; Z11.52 Encounter for screening for COVID-19
CPT/HCPCS: 36415; 70450; 72100; 74018; 80053; 81003; 81025; 83735; 84484; 84702; 85027; 87635; 93005; 96361; 96374; 96375; 99285; J1170; J1790; J2405

== ENCOUNTER 2023-03-06 18:25 | Emergency (ER) | payer OTHER, SELFPAY ==
[2023-03-06 18:43] VITALS: BP 153/77; PULSE 86; RESP 20; TEMP 36.7; O2SAT 99; BMI 31.8
--- NOTE | 2023-03-06 18:43 | ED.ABDPAIN ---
HPI - Abdominal Pain General Chief Complaint: Abdominal Pain Stated Complaint: back pain Time Seen by Provider: 03/07/23 00:24 Source: patient Mode of arrival: ambulatory Limitations: no limitations History of Present Illness HPI narrative: Patient comes to the emergency room complaining of dysuria, bilateral flank pain, frequency for approximately 2 weeks. Patient denies fever chills. Patient denies any injuries, complaining also of epigastric pain with eating or drinking for several weeks. Related Data Home Medications Medication Instructions Recorded Confirmed acetaminophen 300 mg-codeine 30 mg 1 tab PO Q6H PRN migraine 08/14/21 05/20/22 tablet aripiprazole 5 mg tablet 1 tab PO DAILY 08/14/21 08/14/21 famotidine 40 mg tablet 1 tab PO BEDTIME PRN Heartburn 08/14/21 08/14/21 hydroxyzine pamoate 25 mg capsule 1 cap PO BID PRN Anxiety 08/14/21 08/14/21 ibuprofen 600 mg tablet 1 tab PO Q6H PRN mild pain 08/14/21 05/20/22 lisinopril 40 mg tablet 1 tab PO DAILY 08/14/21 05/20/22 adalimumab 40 mg/0.4 mL 40 mg subcut Q2W 05/20/22 05/20/22 subcutaneous pen kit (Humira(CF) Pen) amitriptyline 25 mg tablet 25 mg PO BEDTIME 05/20/22 05/20/22 clonazepam 1 mg tablet 1 mg PO BID PRN Anxiety 05/20/22 05/20/22 gabapentin 100 mg capsule 100 mg PO TID 05/20/22 05/20/22 omeprazole 20 mg capsule,delayed 20 mg PO BID 05/20/22 05/20/22 release polyethylene glycol 3350 17 gram 17 g PO DAILY 05/20/22 05/20/22 oral powder packet (Miralax) Previous Rx's Medication Instructions Recorded dtofncumgo-jffdoyuhjthtd-nqvuvkxp 1 tab PO Q4H PRN headache #18 tabs 08/16/21 50 mg-325 mg-40 mg tablet acetaminophen 500 mg tablet 500 mg PO QID PRN pain #20 tabs 03/07/23 (Tylenol Extra Strength) levofloxacin 500 mg tablet 500 mg PO DAILY #9 tabs 03/07/23 omeprazole 20 mg capsule,delayed 20 mg PO DAILY #20 caps 03/07/23 release Allergies Allergy/AdvReac Type Severity Reaction Status Date / Time ketorolac [From TORADOL] Allergy Unknown ANXIETY, Verified 03/06/23 18:46 NAUSEA, DIZZY diphenhydramine Allergy Hives Verified 03/06/23 18:46 [From Benadryl] metoclopramide [From Reglan] Allergy Hives Verified 03/06/23 18:46 Review of Systems Review of Systems Constitutional : No Weight loss, No Fever, No Chills, No Night Sweats, No Fatigue, No Malaise ENT/Mouth : No Hearing loss, No Ear Pain, No Nasal Congestion, No Sinus Pain, No Hoarseness, No sore throat, No Rhinorrhea, No Swallowing Difficulty Eyes: No Eye Pain, No Swelling, No Redness, No Foreign Body, No Discharge, No Vision Changes Cardiovascular : No Chest Pain, No SOB, No Dyspnea on Exertion, No Orthopnea, No Edema, No Palpitations Respiratory : No Cough, No Sputum, No Wheezing, No Smoke Exposure, No Dyspnea Gastrointestinal : No Nausea, No Vomiting, No Diarrhea, No Constipation, complaining of epigastric burning sensation with eating and drinking. No abdominal Pain, No Hematochezia, No Melena Genitourinary : Complaining of dysuria, frequency, No Hematuria, No Urinary Incontinence, No Urgency, No Flank Pain, No Urinary Flow Changes, No Hesitancy Musculoskeletal : No joint pain, No Myalgias, No Joint Swelling Skin : No Skin Lesions, No rash Neuro : No Weakness, No Numbness, No Paresthesias, No Loss of Consciousness, No Dizziness, No Headache Psych : No Anxiety/Panic, No Depression, No SI/HI/AH/VH, No Social Issues, Heme/Lymph: No Bruising, No Bleeding,No Lymphadenopathy Endocrine : No Polyuria, No Polydipsia, No Temperature Intolerance PMFSH Past Medical History Onset Date is defined in the Problem List Problems that require an onset date and time if occurred within 24 hrs of arrival to the ED Aortic Dissection and Rupture; Neurologic impairment; Cardiopulmonary Arrest; Endotracheal Intubation; Insertion or Replacement of Mechanical Circulatory Assist Device Medical History delivery delivered Pseudotumor cerebri Pituitary microadenoma Papanicolaou smear of cervix with low grade squamous intraepithelial lesion (LGSIL) Conversion disorder Back pain Headache Sensory deficit present Weakness Kidney stones Hypertension Rheumatoid arthritis Surgical History History of esophagogastroduodenoscopy (EGD) S/P FOX RAISER shunt H/O lumbosacral spine surgery Family History Family History Mother Asthma HTN (hypertension) Pituitary tumor Anxiety Arthritis Brain tumor Father Arthritis Prediabetes Hyperlipidemia Pacemaker Sister Asthma Lupus Brother Arthritis Maternal Grandmother HTN (hypertension) Hyperlipidemia Diabetes Arthritis Maternal Grandfather Heart attack Paternal Grandfather Alzheimer disease Maternal Aunt Breast cancer Social History Social History Household Members: Children Housing: House Do you presently have visiting nurse or other home services: No Alcohol intake: current Alcohol intake frequency: does not drink Patient Tobacco Use Status: Current someday Tobacco user Tobacco use type: Cigarette service: No Current occupational status: unemployed Physical Exam ED Vital Signs: Vital Signs - 24 hr 03/06/23 18:43 Temperature 98.0 F Pulse Rate 86 Respiratory Rate 20 Blood Pressure 153/77 H Pulse Oximetry 99 Oxygen Delivery Method Room Air BMI result Body Mass Index 31.8 Const Other: Appearance: Alert. Oriented X3. No acute distress. Well-appearing Eyes: Pupils equal, round and reactive to light. ENT: Pharynx normal. Neck: Normal inspection. Neck supple. No lymph nodes noted. No crepitus CVS: Normal heart rate and rhythm. Pulses normal. Normal S1 and S2 Respiratory: No respiratory distress. Breath sounds normal. No Wheezing. No rales Abdomen: Soft and nontender. No rigidity. No distention. Back: No pain to palpation over cervical thoracic or lumbar spine. Pain in bilateral flanks and bilateral paraspinal muscles Skin: Skin warm and dry. Normal skin color. Normal skin turgor. Extremities: No lower extremity edema. No Lacerations. No Rash Neuro: Oriented X 3. No motor deficit. No sensory deficit. Moving all extremities. No slurred speech. CN 2 through 12 grossly intact Psych: calm, cooperative, normal affect Course Course Course Narrative: Right mid back to RUQ pain x 3 days with associated nausea and intermittent sharp stabbing pains. Symptoms worse after eating. Reports slow urination that starts and stops. Denies fevers hx: cholecystectomy, kidney stones RME: NAD, A&Ox4, MAEx4, LS CTA, HR RRR, Abd soft tender to palp RUQ. Medical Decision Making Medical Decision Making [facility] Narrative: -my interpretation of labs: Hematology and chemistry unremarkable. Urinalysis is borderline positive. Patient has a large amount of squamous cells in the urine. However, patient has positive leukocyte esterase and also given her symptoms, we will go ahead and treat as UTI. -patient was given a dose of levofloxacin in the emergency room -sepsis is not suspected, normal vitals -regarding the burning sensation with eating in the epigastric area, patient likely has gastritis versus peptic ulcer. Patient has history of cholecystectomy, no right upper quadrant pain Differential Diagnosis Differential Diagnoses: The differential diagnosis associated with the presentation includes (Musculoskeletal pain, UTI, pyelonephritis) Lab Data [facility] Lab Attestation statement: I reviewed the patient's lab results. 03/06/23 19:41 03/06/23 19:41 Labs: Lab Results 03/06/23 Range/Units 19:41 WBC 9.9 (4.8-10.8) X10*3/uL RBC 3.94 L (4.20-5.50) X10*6/uL Hgb 10.2 L (12.0-16.0) g/dl Hct 33.2 L (37.0-47.0) % MCV 84.3 (80.0-98.0) fL MCH 25.9 L (27.0-33.0) pg MCHC 30.7 L (31.0-35.0) g/dl RDW 14.4 (11.0-16.0) % Plt Count 314 (160-400) X10*3/uL MPV 9.3 L (9.4-12.3) fL Immature Gran % (Auto) 0.2 (0.0-0.4) % Neut % (Auto) 63.0 (45-73) % Lymph % (Auto) 29.5 (20-40) % Ralls % (Auto) 5.4 (2-11) % Eos % (Auto) 1.4 (0-4) % Baso % (Auto) 0.5 (0-2) % Lymph # (Auto) 2.9 (1.2-4.9) X10*3/uL Ralls # (Auto) 0.5 (0.1-1.2) X10*3/uL Eos # (Auto) 0.1 (0.0-0.4) X10*3/uL Baso # (Auto) 0.1 (0.0-0.2) X10*3/uL Abs Immat Gran (auto) 0.02 (0.00-0.03) X10*3/uL Absolute Neuts (auto) 6.2 (2.0-8.3) x10*3/uL Absolute Nucleated RBC 0.000 (0.0-0.012) X10*3/uL Nucleated RBC % (auto) 0.0 (0.0-0.2) /100WBC Sodium 141 (135-145) mmol/L Potassium 3.8 (3.3-5.1) mmol/L Chloride 109 H (96-108) mmol/L Carbon Dioxide 26 (22-29) mmol/L Anion Gap 10 L (12-20) BUN 12 (9-16) mg/dL Creatinine 0.82 (0.5-1.4) mg/dL Estim Creat Clear Calc 96.6 Estimated GFR > 60 Random Glucose 103 (60-115) mg/dL Calcium 9.6 (8.4-10.2) mg/dL Total Bilirubin 0.2 (0.0-1.0) mg/dL AST 20 (5-31) U/L ALT 14 (0-31) U/L Alkaline Phosphatase 80 (39-117) U/L Total Protein 7.3 (6.5-8.0) g/dL Albumin 4.1 (3.5-5.0) g/dL Amylase 56 (28-100) U/L Lipase 31 (8-78) U/L Urine Color Yellow Urine Appearance Clear Urine pH 6.0 (5.0-9.0) Ur Specific [place] 1.025 (1.005-1.025) Urine Protein Negative (Neg-Trace) mg/dL Urine Glucose (UA) Negative (Negative) mg/dL Urine Ketones Trace (Negative) mg/dL Urine Blood Negative (Negative) Urine Nitrite Negative (Negative) Ur Leukocyte Esterase Small (1+) H (Negative) Urine RBC 0-2 (0-2) /HPF Urine WBC 11-20 H (0-5) /HPF Ur Squamous Epith Cells 11-20 (0-2) /HPF Urine Bacteria Trace (None Seen) Hyaline Casts 0-2 (0-2) /LPF COVID-19 (YVETTE) Negative (Negative) COVID-19 Clin Com See Note Influenza Type A (STACY) Negative (Negative) Influenza Type B (STACY) Negative (Negative) Influenza A & B Note See Note Discharge Plan Discharge Clinical Impression: Pyelonephritis, Peptic ulcer Patient Disposition: Home, Self-Care Instructions: Diet for Stomach Ulcers and Gastritis (ED), Kidney Infection (ED) Additional Instructions: Please follow-up with your primary care physician tomorrow. If you have any worsening or new symptoms, please return to the emergency room or call 911 Prescriptions: New levofloxacin 500 mg tablet 500 mg PO DAILY Qty: 9 0RF omeprazole 20 mg capsule,delayed release(DR/EC) 20 mg PO DAILY Qty: 20 0RF acetaminophen [Tylenol Extra Strength] 500 mg tablet 500 mg PO QID PRN (Reason: pain) Qty: 20 0RF No Action famotidine 40 mg tablet 1 tab PO BEDTIME PRN (Reason: Heartburn) acetaminophen-codeine 300-30 mg tablet 1 tab PO Q6H PRN (Reason: migraine) ibuprofen 600 mg tablet 1 tab PO Q6H PRN (Reason: mild pain) lisinopril 40 mg tablet 1 tab PO DAILY hydroxyzine pamoate 25 mg capsule 1 cap PO BID PRN (Reason: Anxiety) aripiprazole 5 mg tablet 1 tab PO DAILY bynoqjtxwm-mjhxbospqzvkw-pwsb 50-325-40 mg Tablet 1 tab PO Q4H PRN (Reason: headache) Qty: 18 0RF amitriptyline 25 mg tablet 25 mg PO BEDTIME clonazepam 1 mg tablet 1 mg PO BID PRN (Reason: Anxiety) omeprazole 20 mg capsule,delayed release(DR/EC) 20 mg PO BID Humira(CF) Pen 40 mg/0.4 mL pen injector kit 40 mg subcut Q2W gabapentin 100 mg capsule 100 mg PO TID polyethylene glycol 3350 [Miralax] 17 gram powder in packet 17 g PO DAILY
[2023-03-06 19:47] LABS: MANUAL DIFF FLAG NO
[2023-03-06 19:49] LABS: Appearance Urine Clear; Basophils Absolute Auto 0.1 X10*3/uL (0.0-0.2); Basophils Percent Auto 0.5 % (0-2); Color Urine Yellow; Eosinophils Absolute Auto 0.1 X10*3/uL (0.0-0.4); Eosinophils Percent Auto 1.4 % (0-4); Glucose Urine UA Negative (Negative); Hematocrit 33.2 % (37.0-47.0); Hemoglobin 10.2 g/dl (12.0-16.0); Imm Gran Abs Auto 0.02 X10*3/uL (0.00-0.03); Imm Gran Pct Auto 0.2 % (0.0-0.4); Leukocyte Esterase Urine Small (1+) (Negative); Lymphocytes Absolute Auto 2.9 X10*3/uL (1.2-4.9); Lymphocytes Percent Auto 29.5 % (20-40); Mean Corpuscular HGB Conc 30.7 g/dl (31.0-35.0); Mean Corpuscular Hemoglobin 25.9 pg (27.0-33.0); Mean Corpuscular Volume 84.3 fL (80.0-98.0); Mean Platelet Volume 9.3 fL (9.4-12.3); Monocytes Absolute Auto 0.5 X10*3/uL (0.1-1.2); Monocytes Percent Auto 5.4 % (2-11); Neutrophils Absolute Auto 6.2 x10*3/uL (2.0-8.3); Nitrite Urine Negative (Negative); Platelet Count 314 X10*3/uL (160-400); Red Blood Count 3.94 X10*6/uL (4.20-5.50); Red Cell Distribution Width 14.4 % (11.0-16.0); Specific Gravity - Urine 1.025 (1.005-1.025); UMIC TRIGGER UACC YES; Urine Blood Negative (Negative); Urine Ketones Trace mg/dL (Negative); Urine Protein Negative (Neg-Trace); White Blood Count 9.9 X10*3/uL (4.8-10.8)
[2023-03-06 19:52] LABS: Bacteria Urine Trace (None Seen); Hyaline Casts Urine 0-2 /LPF (0-2); RBC Urine 0-2 /HPF (0-2); UACC Culture Trigger YES
[2023-03-06 20:02] LABS: Alanine Aminotransferase 14 U/L (0-31); Albumin Level 4.1 g/dL (3.5-5.0); Alkaline Phosphatase 80 U/L (39-117); Amylase 56 U/L (28-100); Anion Gap 10 (12-20); Aspartate Amino Transferase 20 U/L (5-31); Bilirubin Total 0.2 mg/dL (0.0-1.0); Blood Urea Nitrogen 12 mg/dL (9-16); Calcium 9.6 mg/dL (8.4-10.2); Carbon Dioxide 26 mmol/L (22-29); Chloride 109 mmol/L (96-108); Creatinine Clr Calc Pharmacy 96.6; Estimated Glomerular Filt Rate > 60; Glucose Random 103 mg/dL (60-115); Lipase 31 U/L (8-78); Potassium 3.8 mmol/L (3.3-5.1); Sodium 141 mmol/L (135-145); Total Protein 7.3 g/dL (6.5-8.0)
[2023-03-06 20:05] LABS: COVID-19 Test Negative (Negative); IDNOW Serial# 08D9AD1C
[2023-03-06 20:06] LABS: IDNOW Serial# 152EDE1D; Influenza A Negative (Negative); Influenza B2 Negative (Negative)
[2023-03-07] MEDS: levoFLOXacin 500 MG TABLET PO (00:54)
--- NOTE | 2023-03-07 00:56 | PC.NURSE ---
pt very upset that she waiting so long in the waitnig room just to be brought back and d/c. refused vitals upon d/c
== END 2023-03-07 00:56 | disposition home or self-care (01) ==
PROVIDERS: Nurse Practitioner Family; Emergency Provider Emergency Medicine
DX: N12 Tubulo-interstitial nephritis, not specified as acute or chronic (principal); K27.9 Peptic ulcer, site unspecified, unspecified as acute or chronic, without hemorrhage or perforation; R30.0 Dysuria; M54.50 Low back pain, unspecified; R10.9 Unspecified abdominal pain; Z11.52 Encounter for screening for COVID-19; Z20.828 Contact with and (suspected) exposure to other viral communicable diseases; Z79.899 Other long term (current) drug therapy
CPT/HCPCS: 36415; 80053; 81001; 82150; 83690; 85025; 87086; 87502; 87635; 99282; 99283

== ENCOUNTER 2023-08-04 09:06 | Emergency (ER) | payer OTHER, SELFPAY ==
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
[2023-08-04 09:13] VITALS: BP 182/104; BP 189/101; PULSE 100; PULSE 89; RESP 18; TEMP 36.7; O2SAT 98; O2SAT 99; BMI 31.6
--- OUTSIDE RECORDS SUMMARY | 2023-08-04 09:31 | XMS_ITS | Continuity of Care Document ---
Author Organization [facility] ter Address [address] [place] [id number]- Care Team Providers Care [employer] Name Role Phone Jeffrey Adiel Miya DENISE Primary Care Donna wei Encounter [facility] Date(s): 07/17/23 - 07/17/[address] [address]- Encounter Diagnosis Acute gastritis(Final) - 07/17/23 Discharge Disposition: A-D/C Home Attending Physician: Gen Shahid MD Admitting Physician: Gen Shahid MD Referring Physician: Not on Staff, Referring MD Allergies, Adverse Reactions, Alerts Substance Reaction Severity Status ketorolac Severe anxiety (panic) Activ e Singulair Active Immunizations Given and Recorded Vaccine Date Status [...] opioid drug. Start Date: 02/09/22 Status: Ordered aluminum hydroxide-magnesium carbonate 95 mg-358 mg/15 mL oral suspension 15 mL, By Mouth, 3 times a day after meals and bedtime, PRN for indigestion, # 355 mL, 0 Refills, Acute 08/18/23 19:47:00 EDT, 07/17/23 19:47:00 EDT, Suspension, [id number], Partial fill uponpatient request if the prescription is for a schedu... Start Date: 07/17/23 Stop Date: 08/18/23 Status: Ordered amitriptyline 25 mg oral tablet TAKE 2 TABLETS BY MOUTH EVERY DAY AT BEDTIME Start Date: 02/07/22 Status: Ordered clonazePAM 1 mg oral tablet TAKE 1 TABLET BY MOUTH THREE TIMES A DAY NEEDED Start Date: 02/07/22 Status: Ordered lisinopril 40 mg oral tablet TAKE 1 TABLET BY MOUTH DAILY Start Date: 02/07/22 Status: Ordered omeprazole 40 mg oral enteric coated capsule TAKE 1 CAPSULE BY MOUTH EVERY DAY Start Date: 02/07/22 Status: Ordered ondansetron 4 mg oral tablet, disintegrating 1 tablet = 4 mg, By Mouth, Every 6 hours, PRN as needed for nausea/vomiting, # 8 tablet, 0 Refills,Acute 08/18/23 19:26:00 EDT, 07/17/23 19:26:00 EDT, DIS Tablet, [id number], Partial fill upon patient request if the prescription is for a sche... 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 (ventriculoperitone al) shunt status Confirmed Active Headache [...] recent to oldest [Reference Range]: 1 2 Oxygen Saturation [94-100 %] 100 % (07/17/23 7:34 PM) 98 % (07/17/23 3:17 PM) Pulse Rate [55-90 bpm] 83 bpm (07/17/23 7:34 PM) 75 bpm (07/17/23 3:17 PM) Blood Pressure [90-138/55-84 mm Hg] 136/ 74mm Hg (07/17/23 7:34 PM) 180/100mm Hg *H* (07/17/23 3:17 PM) Respiratory Rate [16-30 br/min] 18 br/mi n (07/17/23 7:34 PM) 18 br/min (07/17/23 3:17 PM) Temperature [96.8-100.4 DegF] 97.4 DegF (07/17/23 7:34 PM) 98.3 DegF (07/17/23 3:17 PM) Mode of Delivery (Oxygen) Room air (07/17/23 7:34 PM) Room air (07/17/23 3:17 PM) Blood pressure sites Arm, left (07/17/23 7:34 PM) Arm, left (07/17/23 3:17 PM) Temperature Route Oral (07/17/23 7:34 PM) Oral (07/17/23 3:17 PM) Social History Social History Type Response Smoking Status Never smoker; Tobacc o user in household: Yes; Other: father; entered on: 11/14/17 Sex Note * Yessenia Espinoza MD: PERFORM Event Display: Patient Education Leaflets Authored Date: [id number] GERD (Gastroesophageal Reflux Disease) ?? GERD (Gastroesophageal Reflux Disease) - Video Gastroesophageal reflux disease (GERD) is more commonly known as acid indigestion or heartburn. It is a burning feeling behind the breastbone. This video takes a look at the possible causes of GERD, typical symptoms, and when treatment is warranted. To view the video go to this web address: [email or web address] Or, scan this QR code with your smart phone Last Reviewed Date: 2020 ?? [employer]. All rights reserved. This information is not intended as a substitute for professional medical care. Always follow your healthcare professional's instructions. ?? * Yessenia Espinoza MD: PERFORM Event Display: Patient Education Leaflets Authored Date: [id number] GERD (Adult) ?? [id number] GERD (Adult) The esophagus is a tube that carries food from the mouth to the stomach. A valve (lower esophageal sphincter) prevents stomach acid from flowing upward. Sometimes this valve doesn't work correctly. Then stomach contents may flow (reflux) into the esophagus. When it happens again and again, it's called??GERD (gastroesophageal reflux disease).??GERD can irritate the esophagus. It can cause pain. Itcan also cause problems with swallowing or breathing. In severe cases, GERD can cause pneumonia that keeps coming back. This is from breathing in particles (aspiration). Symptoms of reflux include burning, pressure, or sharp pain in the upper belly (abdomen). Symptoms may also be in the mid- to lower chest. The pain can spread to the neck, back, or shoulder. You may have: ??? Belching ??? Acid taste in the back of the throat ??? Chronic cough ??? Sore throat ??? Hoarseness GERD symptoms often occur during the day after a big meal. They can also occur at night when lying down.?? Home care Lifestyle changes can help ease symptoms. Your healthcare provider may also prescribe medicines.??Symptoms often get better with treatment. But if treatment is stopped, the symptoms often return after a few months. Most people with GERD will need to continue treatment. Or they may need treatment onand off. Lifestyle changes ??? Limit or don't eat fatty, fried, or spicy foods. Also limit coffee, chocolate, mint, and foods with high acid content. These include tomatoes and citrus fruit and juices (orange, grapefruit, and lemon). ??? Don???t eat large meals, especially at night. Frequent, smaller meals are best. Don't lie down right after eating. And don???t eat anything 3 hours before going to bed. ??? Don't drink alcohol or smoke. As much as possible, stay away from secondhand smoke. ??? If you are overweight, losing weight will reduce symptoms.? Don't wear tight clothing around your stomach area. ??? If your symptoms occur during sleep, use a foam wedge to raise your upper body not just your head. Or place 4-inch blocks under the head of your bed. Or use 2 bed risers under your bed frame. ??? Talk with your provider if you have trouble making the suggested lifestyle changes. They may be able to give you resources to help. Medicines Medicines can help ease the symptoms of GERD. They also help prevent damage to the esophagus. Discuss a medicine plan with your healthcare provider. This may include one or more of these medicines: ??? Antacids. These help neutralize the normal acids in your stomach. ??? Acid blockers (histamine or H2 blockers). These decrease how much acid your stomach makes. ??? Acid inhibitors (proton pump inhibitors PPIs). These also decrease how much acid your body makes, but in a different way from the blockers. They may work better. But they can take a little longer to do so. Take an antacid 30 to 60 minutes after eating and at bedtime, but not at the same time as an acid corey. Try not to take medicines such as ibuprofen and aspirin. If you take aspirin for your heart or other health reasons, talk with your healthcare provider about stopping it. ?? Follow-up care Follow up with your healthcare provider as advised. ?? When to seek medical advice Call your healthcare provider if any of the following occur: ??? Stomach pain gets worse or moves to the lower right belly (appendix area) ??? Chest pain appears or gets worse, or spreads to the back, neck, shoulder, or arm ??? An dven-veo-rrwmknt trial of medicine doesn't relieve your symptoms ???Weight loss that can't be explained ??? Trouble or pain swallowing ??? Frequent vomiting (can???t keep down liquids) ??? Blood in the stool or vomit (red or black in color) ??? Feeling weak or dizzy ??? Fever of 100.4??F (38??C) or higher, or as directed by your healthcare provider ??? Symptoms getworse or you have new symptoms ?? Last Reviewed Date: 2020 ?? [id number] [employer]. All rights reserved. This information is not intended as a substitute for professional medical care. Always follow your healthcare professional's instructions. ?? * Yessenia Espinoza MD: PERFORM Event Display: Patient Education Leaflets Authored Date: [id number] Gastritis (Adult) ?? [id number] Gastritis (Adult) Gastritis is??inflammation and??irritation of the stomach lining. You can have it for a short time (acute) or it can be long lasting (chronic). Infection with bacteria called??H. pylori most often causes gastritis.??More than 1 out of 3 people in the [place] have these bacteria in their bodies. In many cases,??H. pylori??causes no problems or symptoms. But in some people, the infection irritates thestomach lining and causes gastritis. H. pylori may be diagnosed through blood, stool, or breath tests, or by a biopsy during an endoscopy. Other causes of stomach irritation include drinking alcohol,smoking or chewing tobacco, or taking pain-relieving medicines called nonsteroidal anti-inflammatory drugs (NSAIDs), such as aspirin or ibuprofen. Some illegal drugs (such as cocaine) and immune conditions can also cause gastritis. Symptoms of gastritis can include: ??? Belly pain or bloating ??? Feeling full quickly ??? Loss of appetite ??? Weight loss ??? Nauseaor vomiting ??? Vomiting blood or having black stools ??? Feeling more tired than normal An inflamed and irritated stomach lining is more likely to develop a sore called an ulcer. To help prevent this, gastritis should be evaluated and treated as soon as symptoms occur. Home care If needed, your healthcare provider may prescribe medicines. If you have??H. pylori??infection, treating it will likely ease your symptoms. Other changes can help reduce stomach irritation and help it heal. ??? Take prescription medicines as directed. If you have been prescribed medicines for??H. pylori??infection, take them as directed. Take all of the medicine until it's finished or until your provider tells you to stop taking it, even if you start to feel better. ??? Follow your healthcare provider's advice on NSAIDs. Your provider may advise you not to take NSAIDs such as ibuprofen. If you take daily aspirin for your heart or other health reasons, don't stop without talking with your provider first. ??? Don't drink alcohol. If you need help stopping your use of alcohol, ask your provider for treatment resources. ??? Stop smoking. Smoking can irritate the stomach and delay healing. As much as possible, stay away from secondhand smoke. If you smoke and have trouble stopping, ask your provider for help. ?? Follow-up care Follow up with your healthcare provider, or as advised. You may need testing to check for inflammation or an ulcer. ?? When to get medical advice Call your healthcare provider if any of the following occur: ??? Stomach pain that gets worse or moves to the lower right belly (appendix area) ??? Chest pain that suddenly appears or gets worse, or spreads to the back, neck, shoulder, or arm ??? Frequent vomiting (can???t keep down liquids) ??? Blood in the stool or vomit (red or black in color) ??? Feeling weak or dizzy ??? Shortness of breath ??? Unexplained weight loss ??? Fever of 100.4??F (38??C) or higher, or as directed by your healthcare provider ??? Symptoms that get worse, or new symptoms ?? Last Reviewed Date: 2022 ?? [id number] [employer]. All rights reserved. This information is not intended as a substitute for professional medical care. Always follow your healthcare professional's instructions. ?? Patient Care team information Care Team Personnel Name: Claudia Marie RN Position: [facility] RN Member Role: Primary Care Nurse Name: Ilda Cheema RN Position: [facility] RN Member Role: Primary Care Nurse Name: Nita Arguelles Position: S RN Member Role: Primary Care Nurse Name: Miya Lara DO Position: [facility] Physician - Primary Care Member Role: PCP Address: Address: [address] [place] [id number]- Name: Alfred Ko RN Position: S RN Member Role: Primary Care Nurse Name: Anne Trinidad RN Position: S RN Member Role: Primary Care Nurse Care Team Related Persons Name: JINNY KIRBY Address: [id number] Address: home [address] [place] [id number] [place] Name: MIKIE BRENNAN Address: home [address] [place] [id number]
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
[2023-08-04] MEDS: Acetaminophen 325 MG TABLET 650 MG PO (11:28)
[2023-08-04 12:05] LABS: MANUAL DIFF FLAG NO
[2023-08-04 12:08] LABS: Basophils Percent Auto 0.1 % (0-2); Eosinophils Percent Auto 0.1 % (0-4); Hematocrit 34.3 % (37.0-47.0); Hemoglobin 10.6 g/dl (12.0-16.0); Imm Gran Abs Auto 0.07 X10*3/uL (0.00-0.03); Imm Gran Pct Auto 0.5 % (0.0-0.4); Lymphocytes Absolute Auto 3.1 X10*3/uL (1.2-4.9); Lymphocytes Percent Auto 20.6 % (20-40); Mean Corpuscular HGB Conc 30.9 g/dl (31.0-35.0); Mean Corpuscular Hemoglobin 24.6 pg (27.0-33.0); Mean Corpuscular Volume 79.6 fL (80.0-98.0); Mean Platelet Volume 8.9 fL (9.4-12.3); Monocytes Absolute Auto 0.8 X10*3/uL (0.1-1.2); Monocytes Percent Auto 5.2 % (2-11); Neutrophils Absolute Auto 10.9 x10*3/uL (2.0-8.3); Neutrophils Percent Auto 73.5 % (45-73); Platelet Count 334 X10*3/uL (160-400); Red Blood Count 4.31 X10*6/uL (4.20-5.50); Red Cell Distribution Width 17.2 % (11.0-16.0); White Blood Count 14.9 X10*3/uL (4.8-10.8)
[2023-08-04 12:21] LABS: Prothrombin Time 11.7 SEC (11.1-13.3)
[2023-08-04 12:24] VITALS: BP 176/93; PULSE 82; RESP 18; O2SAT 99
[2023-08-04 12:24] LABS: Partial Thromboplastin Time 26.9 SEC (26.0-36.8)
[2023-08-04 12:28] LABS: HCG Quantitative < 2 mIU/mL
[2023-08-04 12:30] LABS: Alanine Aminotransferase 11 U/L (0-31); Albumin Level 4.2 g/dL (3.5-5.0); Alkaline Phosphatase 82 U/L (39-117); Anion Gap 10 (12-20); Aspartate Amino Transferase 17 U/L (5-31); Blood Urea Nitrogen 6 mg/dL (9-16); Calcium 9.8 mg/dL (8.4-10.2); Carbon Dioxide 25 mmol/L (22-29); Chloride 109 mmol/L (96-108); Creatinine Clr Calc Pharmacy 108.3; Estimated Glomerular Filt Rate > 60; Glucose Random 95 mg/dL (60-115); Potassium 3.2 mmol/L (3.3-5.1); Sodium 141 mmol/L (135-145); Total Protein 7.5 g/dL (6.5-8.0)
[2023-08-04] MEDS: ondansetron HCL 4 MG/2 ML VIAL IVPUSH (12:30)
[2023-08-04] MEDS: Morphine Sulfate 4 MG/ML CARTRIDGE IVPUSH (12:30)
[2023-08-04 12:42] LABS: Bilirubin Total 0.4 mg/dL (0.0-1.0)
[2023-08-04] MEDS: iohexoL 350 MG/ML 100 ML INFUS..BTL 85 ML IV (13:13)
[2023-08-04] MEDS: HYDROmorphone HCl 0.5 MG/0.5 ML SYRINGE IVPUSH (14:21)
[2023-08-04 15:50] VITALS: BP 176/93; PULSE 82; RESP 18; TEMP 36.7; O2SAT 99
== END 2023-08-04 15:51 | disposition home or self-care (01) ==
PROVIDERS: Physician Assistant Medical; Registered Nurse Emergency; Emergency Provider Emergency Medicine; PCP Internal Medicine
DX: Z04.1 Encounter for examination and observation following transport accident (principal); M54.50 Low back pain, unspecified; M54.2 Cervicalgia; R51.9 Headache, unspecified; I10 Essential (primary) hypertension
CPT/HCPCS: 36415; 70450; 72125; 72132; 80053; 84702; 85025; 85610; 85730; 96374; 96375; 99284; J1170; J2270; J2405; Q9967

== ENCOUNTER 2023-12-24 09:08 | Day surgery (SDC) | payer OTHER, SELFPAY ==
[2023-12-24] VITALS (7 sets, daily range): BP systolic 119–135; BP diastolic 77–88; PULSE 71–79; RESP 6–18; TEMP 36.6–36.9; O2SAT 95–99; BMI 30.7
--- NOTE | ~2023-12-24 | FL_ITS ---
FLUOROSCOPIC LUMBAR PUNCTURE INDICATION: Pseudotumor cerebri status post shunting. Assess opening pressure to determine if shunt is functioning. TECHNIQUE: Risks and benefits and possible complications were discussed with the patient and the consent form was signed. Patient was placed prone on the fluoroscopy table. The back was prepped and draped in routine sterile fashion. Betadine was used as a skin antiseptic. Utilizing fluoroscopic guidance, the L4-5 level was accessed with a 22 gague Kyra spinal needle and clear CSF fluid was obtained. Opening pressure was 17 cm H2O. 10 cc of fluid was sent for analysis. The needle was removed without immediate complications. Total fluoroscopy time: 0.4 min FL/FL guided lumbar puncture LP IMPRESSION: Successful fluoroscopic guided lumbar puncture at L4-L5. Opening pressure was 17 cm H2O. This procedure was performed by Car Prajapati PA-C and supervised by Dr. Montenegro. Electronically signed by: Norris Montenegro MD 12/25/2023 02:02 PM EDT
--- OUTSIDE RECORDS SUMMARY | 2023-12-24 09:10 | XMS_ITS | Continuity of Care Document ---
Author Organization [facility] ter Address [address] [place] [address]- Care Team Providers Care Filling Operator Name Role Phone Jeffrey Adiel Miya Primary Care Donna wei Encounter [facility] [place] Date(s): 12/01/23 - 12/01/[address] [address]- Discharge Disposition: A-D/C Walkout Attending Physician: Not on Staff, Attending MD Admitting Physician: Not on Staff, Admitting MD Referring Physician: Not on Staff, Referring MD Allergies, Adverse Reactions, Alerts Substance Reaction Severity Status ketorolac Severe anxiety (panic) Activ e Reglan Active Singulair Active Immunizations Given and Recorded Vaccine [...] Note: TD 2Admin Note: hx varicella Medications amitriptyline 25 mg oral tablet TAKE 2 TABLETS BY MOUTH EVERY DAY AT BEDTIME Start Date: 02/07/22 Status: Ordered amLODIPine 5 mg oral tablet TAKE 1 TABLET BY MOUTH EVERY DAY Start Date: 09/18/23 Status: Ordered cholecalciferol 2000 intl units oral tablet TAKE 1 TABLET BY MOUTH EVERY DAY Start Date: 09/18/23 Status: Ordered clonazePAM 1 mg oral tablet TAKE 1 TABLET BY MOUTH THREE TIMES A DAY NEEDED Start Date: 02/07/22 Status: Ordered escitalopram 10 mg oral tablet TAKE 1 TABLET BY MOUTH EVERY MORNING FOR ANXIETY AND DEPRESSION Start Date: 09/18/23 Status: Ordered ferrous gluconate 324 mg oral tablet TAKE 1 TABLET BY MOUTH EVERY DAY Start Date: 09/18/23 Status: Ordered folic acid 1 mg oral tablet TAKE 1 TABLET BY MOUTH EVERY DAY Start Date: 09/18/23 Status: Ordered ibuprofen 600 mg oral tablet TAKE 1 TABLET BY MOUTH EVERY 8 HOURS NEEDED FOR PAIN Start Date: 09/18/23 Status: Ordered lisinopril 40 mg oral tablet TAKE 1 TABLET BY MOUTH DAILY Start Date: 02/07/22 Status: Ordered omeprazole 40 mg oral enteric coated capsule TAKE 1 CAPSULE BY MOUTH EVERY DAY Start Date: 02/07/22 Status: Ordered sucralfate 1 gm oral tablet TAKE 1 TABLET BY MOUTH 3 TIMES DAILY WITH MEALS Start Date: 09/18/23 Status: Ordered Problem List Condition Confirmation Course Effective Dates Status Health St atus Informant Anxiety Confirmed Active Pseudotumor cerebri Confirmed Active GERD (gastroesophageal reflux disease) 1 Confirmed 2012 Active Hx of preeclampsia, prior , currently Confirmed Active 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 Headache 2 Confirmed Active HTN (hypertension) 3 Confirmed 2009 Active IBS (irritable bowel syndrome) 4 Confirmed 2013 Active Severe pre-eclampsia, with delivery Confirmed Active 1On medication 2During , currently treated for them, related to shunt/extra fluid 3On Medication 4Not using being treating, not seeing specialist right now Vital Signs Most recent to oldest [Reference Range]: 1 2 3 Height 158 cm (12/01/23 10:34 PM) 158 cm (12/01/23 7:55 PM) 158 cm (12/01/23 3:35 PM) Weight 73 kg (12/01/23 10:34 PM) 73 kg (12/01/23 7:55 PM) 73 kg (12/01/23 3:35 PM) Oxygen Saturation [94-100 %] 98 % (12/01/23 10:34 PM) 100 % (12/01/23 8:43 PM) 98 % (12/01/23 7:55 PM) Pulse Rate [55-90 bpm] 79 bpm (12/01/23 10:34 PM) 70 bpm (12/01/23 8:43 PM) 71 bpm (12/01/23 7:55 PM) Body Mass Index [18.5-24.99 kg/m2] 29.24 kg/m2 *H* (12/01/23 10:34 PM) 29.24 kg/m2 *H* (12/01/23 7:55 PM) Blood Pressure [90-138/55-84 mm Hg] 150/90mm Hg *H* (12/01/23 10:34 PM) 158/93mm Hg *H* (12/01/23 8:43 PM) 161/96mm Hg *H* (12/01/23 7:55 PM) Respiratory Rate [16-30 br/min] 19 br/min (12/01/23 10:34 PM) 20 br/min (12/01/23 8:43 PM) 19 br/min (12/01/23 7:55 PM) Temperature [96.8-100.4 DegF] 97.9 DegF (12/01/23 8:43 PM) 98.0 DegF (12/01/23 6:11 PM) 98.4 DegF (12/01/23 2:59 PM) Mode of Delivery (Oxygen) Room air (12/01/23 10:34 PM) Room air (12/01/23 8:43 PM) Room air (12/01/23 7:55 PM) Blood pressure sites Arm, right (12/01/23 8:43 PM) Arm, left (12/01/23 6:11 PM) Arm, right (12/01/23 2:59 PM) Temperature Route Oral (12/01/23 8:43 PM) Oral (12/01/23 6:11 PM) Oral (12/01/23 2:59 PM) Dry Weight 73 kg (12/01/23 10:34 PM) 73 kg (12/01/23 7:55 PM) 73 kg (12/01/23 3:35 PM) Weight Obtained Via Patient/family state d (12/01/23 2:59 PM) Dry Weight Obtained Via Patient/family s tated (12/01/23 2:59 PM) Social History Social History Type Response Smoking Status Never smoker; Tobacc o user in household: Yes; Other: father; entered on: 11/14/17 Sex EKG study * Event Display: ECG 12-Lead Authored Date: Please click on pdf link to open report * Event Display: ECG 12-Lead Authored Date: Ventricular Rate: 70 BPM Atrial Rate: 70 BPM P-R Interval: 138 ms QRS Duration: 94 ms Q-T Interval: 434 ms QTC Calculation(Bazett): 468 ms P Cougar: 41 degrees R Cougar: 8 degrees T Cougar: 7 degrees Normal sinus rhythm Normal ECG When compared with ECG of 18-SEP-2023 02:26, No significant change was found Confirmed by AUGUSTUS MARTINEZ ([id number]) on 12/01/2023 3:38:14 PM Commerce: AUGUSTUS MARTINEZ Patient Care team information Care Team Personnel Name: Claudia Marie RN Position: S OB RN Member Role: Primary Care Nurse Name: Andrews Lowry RN Position: S RN Member Role: Primary Care Nurse Name: Ilda Cheema RN Position: [facility] OB RN Member Role: Primary Care Nurse Name: Nita Arguelles Position: S RN Member Role: Primary Care Nurse Name: Miya Lara DO Position: S Physician - Primary Care Member Role: PCP Address: Address: [address] [place] [address] Name: Alfred Ko RN Position: S RN Member Role: Primary Care Nurse Name: Anne Trinidad RN Position: S RN Member Role: Primary Care Nurse Name: Shalini Mccauley LPN Position: S RN Member Role: Primary Care Nurse Care Team Related Persons Name: JINNY KIRBY Address: [id number] Address: home [address] [place] [id number] [place] Name: MIKIE BRENNAN Address: home [address] [place] [address]
--- OUTSIDE RECORDS SUMMARY | 2023-12-24 09:10 | XMS_ITS | Continuity of Care Document ---
Author Organization [facility] ter Address [address] [place] [id number]- Care Team Providers Care Engineering Secretary Name Role Phone Miya Lara DO Primary Care Donna wei Encounter [facility] Date(s): 12/13/23 - 12/13/[address] [address]- Discharge Disposition: A-D/C Home Attending Physician: Kalpesh Tipton DO Admitting Physician: Kalpesh Tipton DO Referring Physician: Not on Staff, Referring MD Allergies, Adverse Reactions, Alerts Substance Reaction Severity Status ketorolac Severe anxiety (panic) Activ e Singulair Active Reglan Active Immunizations Given and Recorded Vaccine Date [...] of preeclampsia, prior , currently Confirmed Active DIRECTOR OF RADIO SERVICES (ventriculoperitone al) shunt status Confirmed Active Headache [...] Exam Date Time Procedure Performing Provider Status 12/13/23 10:50 PM Abdomen AP Gailrocki Talyaa; Auth (V erified) Notes: (Abdomen AP) Reason For Exam: Vomiting;Other: RESULT: XR Abdomen AP XR Abdomen AP 1 view INDICATION/CLINICAL QUESTION: Hx of Present Illness: Patient reports chest pain, sob, dizziness x 2days.; Reason: Other:; Vomiting; Clinical Question(s): Obstruction; Special Instructions: Flat COMPARISON: None FINDINGS: Moderate stool retention but otherwise normal bowel gas pattern. No evidence of obstruction. No evidence of pneumoperitoneum. No organomegaly, masses or calcifications. No acute bone findings. IMPRESSION: Moderate stool retention but otherwise normal. WSN: [id number] Ordering Physician: Princess Mcfarlane Dictated By: Lupillo Britton MD Dictated Date/Time: 12/13/23 10:53 p Reviewed By: Lupillo Britton MD Signed By: Lupillo Britton MD Signed Date/Time: 12/13/23 10:53 pm Transcribed By: TUNDE Transcribed Date/Time: 12/13/23 10:53 pm * Exam Date Time Procedure Performing Provider Status 12/13/23 10:[address] Head/Brain W/O Contrast Pete Benitez; Ovidio (Verified) Notes: (CT Head/Brain W/O Contrast) Reason For Exam: Headache(s) RESULT: CT Head/Brain W/O Contrast CT Head/Brain W/O Contrast INDICATION: Hx of Present Illness: Patient reports chest pain, sob, dizziness x 2 dasy.; Reason: Headache(s); Clinical Question(s): Other:; Special Instructions: DIRECTOR OF RADIO SERVICES shunt TECHNIQUE: Noncontrast head CT using axial technique and reconstructed in axial and coronal planes.Iterative reconstruction techniques are used to optimize dose and image quality. COMPARISON: None. FINDINGS: Java Support Engineer view findings, lines and tubes: None. BRAIN AND EXTRA-AXIAL SPACES: No parenchymal hemorrhage, midline shift, or mass effect. Garcia-white matter differentiation is wellpreserved. No acute infarct. Ventricles, sulci, and basilar cisterns are normal. No white matter lesions. No subarachnoid hemorrhage. No subdural or epidural collection. CALVARIUM, SKULL BASE, AND SOFT TISSUES: No fractures or suspicious bony lesions. The paranasal sinuses and mastoid air cells are clear. Visualized orbits and globes are intact. The extracranial soft tissues are unremarkable. IMPRESSION: No acute intracranial pathology. WSN: [id number] Ordering Physician: Princess Mcfarlane Dictated By: Osmar Vargas MD Dictated Date/Time: 12/13/23 10:27 p Reviewed By: Osmar Vargas MD Signed By: Osmar Vargas MD Signed Date/Time: 12/13/23 10:27 pm Transcribed By: TUNDE Transcribed Date/Time: 12/13/23 10:26 pm * Exam Date Time Procedure Performing Provider Status 12/13/23 8:30 PM Chest 2 Views Frontal and Lat Roly Malloy (Verified) Notes: (Chest 2 Views Frontal and Lat) Reason For Exam: Chest Pain;Other: RESULT: Chest 2 Views Frontal and Lat Chest 2 Views Frontal and Lat Reason: Other:; Chest Pain; Clinical Question(s): Other: COMPARISON: None. FINDINGS: LINES AND TUBES: None. LUNGS AND PLEURA: Clear lungs. Normal pulmonary vascularity. No pleural effusion. No pneumothorax. HEART, MEDIASTINUM AND RICARDO: Heart is normal in size. Normal mediastinal and hilar contour. BONES AND SOFT TISSUES: No acute abnormality. IMPRESSION: No acute abnormality. WSN: [id number] Ordering Physician: Jackeline Howard Dictated By: Lupillo Britton MD Dictated Date/Time: 12/13/23 8:44 pm Reviewed By: Lupillo Britton MD Signed By: Lupillo Britton MD Signed Date/Time: 12/13/23 8:44 pm Transcribed By: TUNDE Transcribed Date/Time: 12/13/23 8:44 pm Vital Signs Most recent to oldest [Reference Range]: 1 2 3 Height 158 cm (12/13/23 9:19 PM) 158 cm (12/13/23 7:44 PM) Weight 77.5 kg (12/13/23 9: PM) 77.5 kg (12/13/23 7:44 PM) Oxygen Saturation [94-100 %] 100 % (12/13/23: PM) 100 % (12/13/23 7:44 PM) 100 % (12/13/23 7:38 PM) Pulse Rate [55-90 bpm] 64 bpm (12/13/23 11: PM) 92 bpm *H* (12/13/23 7:44 PM) 95 bpm *H* (12/13/23 7:38 PM) Body Mass Index [18.5-24.99 kg/m2] 31.04 kg/m2 *>HHI* (12/13/23 7:44 PM) Blood Pressure [90-138/55-84 mm Hg] 117/63mm Hg (12/13/23: PM) 150/95mm Hg *H* (12/13/23 7:44 PM) Respiratory Rate [16-30 br/min] 16 br/min (12/13/23 11:27 PM) 19 br/min (12/13/23 7:44 PM) 18 br/min (12/13/23 7:38 PM) Temperature [96.8-100.4 DegF] 97.7 DegF (12/13/23 11: PM) 97.9 DegF (12/13/23 7:44 PM) Mode of Delivery (Oxygen) Room air (12/13/23 11:27 PM) Room air (12/13/23 9:40 PM) Room air (12/13/23 7:44 PM) Blood pressure sites Arm, left (12/13/23 11:27 PM) Arm, left (12/13/23 9:40 PM) Arm, left (12/13/23 7:44 PM) Temperature Route Oral (12/13/23 11:27 PM) Oral (12/13/23 9:40 PM) Oral (12/13/23 7:44 PM) Dry Weight 77.5 kg (12/13/23 9:19 PM) 77.5 kg (12/13/23 7:44 PM) Weight Obtained Via Standing scale (12/13/23 7:44 PM) Dry Weight Obtained Via Standing scale (12/13/23 7:44 PM) Social History Social History Type Response Smoking Status Never smoker; Tobacc o user in household: Yes; Other: father; entered on: 11/14/17 Sex Patient Care team information Care Team Personnel Name: Claudia Marie RN Position: [facility] OB RN Member Role: Primary Care Nurse Name: Andrews Lowry RN Position: S RN Member Role: Primary Care Nurse Name: Ilda Cheema RN Position: [facility] OB RN Member Role: Primary Care Nurse Name: Nita Arguelles Position: [facility] RN Araceli Member Role: Primary Care Nurse Name: Miya Lara DO Position: [facility] Physician - Primary Care Member Role: PCP Address: Address: [address] [place] [address]- Name: Alfred Ko RN Position: S RN Member Role: Primary Care Nurse Name: Anne Trinidad RN Position: S RN Member Role: Primary Care Nurse Name: Shalini Mccauley LPN Position: S RN Member Role: Primary Care Nurse Care Team Related Persons Name: JINNY KIRBY Address: [id number] Address: home [address] [place] [phone] [place] Name: MIKIE BRENNAN Address: home [address] [place] [id number]
--- OUTSIDE RECORDS SUMMARY | 2023-12-24 09:10 | XMS_ITS | Continuity of Care Document ---
Author Organization [facility] ter Address [address] [place] [id number] Care Team Providers Care Tile Professional Name Role Phone Jeffrey Adiel Miya Primary Care Donna wei Encounter [facility] – [place] Date(s): 09/18/23 - 09/22/[address] [id number] Encounter Diagnosis Recurrent syncope(Final) - 09/18/23 IIH (idiopathic intracranial hypertension)(Final) - 09/18/23 Fall(Final) - 09/18/23 Fall(Final) - 09/18/23 Recurrent syncope(Final) - 09/18/23 IIH (idiopathic intracranial hypertension)(Final) - 09/18/23 Discharge Disposition: A-D/C Home Attending Physician: Miquel Cetneno MD Admitting Physician: Brady Borjas MD Referring Physician: Not on Staff, Referring [...] Note: TD 2Admin Note: hx varicella Medications acetaminophen/butalbital/caffeine 325 mg-50 mg-40 mg oral tablet 1 tablet, By Mouth, Every 4 hours, PRN Pain , Moderate, for 7 days, TAKE 1 TABLET BY MOUTH EVERY 6 HOURS NEEDED FOR 30 DAYS ORALLY 30 DAYS, # 28 tablet, 0 Refills, Acute 09/29/23 10:56:00 EDT, 09/22/23 10:56:00 EDT, Tablet, [facility]... Start Date: 09/22/23 Stop Date: 09/29/23 Status: Ordered amitriptyline 25 mg oral tablet TAKE 2 TABLETS BY MOUTH EVERY DAY AT BEDTIME Start Date: 02/07/22 Status: Ordered amLODIPine 5 mg oral tablet 5 mg, Tablet, By Mouth, 09/22/23 9:00:00 EDT Start Date: 09/22/23 Stop Date: 09/22/23 Status: Completed amLODIPine 5 mg oral tablet TAKE 1 TABLET BY MOUTH EVERY DAY Start Date: 09/18/23 Status: Ordered cholecalciferol 2000 intl units oral tablet TAKE 1 TABLET BY MOUTH EVERY DAY Start Date: 09/18/23 Status: Ordered clonazePAM 1 mg oral tablet TAKE 1 TABLET BY MOUTH THREE TIMES A DAY NEEDED Start Date: 02/07/22 Status: Ordered Dilaudid 2 mg oral tablet 1 tablet = 2 mg, By Mouth, 4 times a day, PRN as needed for pain, for 3 days, # 12 tablet, 0 Refills, Acute 09/25/23 10:57:00 EDT, 09/22/23 10:57:00 EDT, Tablet, [facility], Partial fill upon patient request if the prescription is for a... 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 (ventriculoperitone al) shunt status Confirmed Active Headache [...] Exam Date Time Procedure Performing Provider Status 09/19/23 1:47 AM MRI Brain W/O Contrast Karlee , Case y; Auth (Verified) Notes: (MRI Brain W/O Contrast) Reason For Exam: Paresthesia;Headache(s) RESULT: MRI Brain W/O Contrast MRI Brain W/O Contrast INDICATION / CLINICAL QUESTION: Reason: Headache(s); Paresthesia; Clinical Question(s): Infarction;Mass effect; Order Comment: Please see Reference Text for complete list of contraindications Infarction TECHNIQUE: MRI of the brain was performed without contrast utilizing sagittal T1, axial T2, axial FLAIR, axial SWAN, and axial DWI sequences. COMPARISON: MRI brain 03/01/2018. FINDINGS: BRAIN and EXTRA-AXIAL SPACES: The midline structures, including sella, corpus callosum, and craniocervical junction, are unremarkable. There is no mass effect, midline shift, or effacement of the basal cisterns. On diffusion weighted imaging, there are no regions of restricted diffusion to indicatean acute or subacute infarct. There is no evidence of intracranial hemorrhage on susceptibility sensitive sequence. Brain parenchyma demonstrates no significant signal abnormality. Ventricles, cisterns, and sulci are normal in size and configuration, without hydrocephalus. No abnormal extra-axial fluid collections are seen. Meningeal surfaces are normal. Major intracranial flow voids are present. EXTRACRANIAL SOFT TISSUES: Orbits are unremarkable. Paranasal sinuses and mastoids are unremarkable. BONES: Marrow signal is preserved. IMPRESSION: Normal brain MRI. WSN: [id number] Ordering Physician: Adelia Phan Dictated By: Elyse Tavarez MD Dictated Date/Time: 09/19/23 7:36 am Reviewed By: Elyse Tavarez MD Signed By: Elyse Tavarez MD Signed Date/Time: 09/19/23 7:36 am Transcribed By: TUNDE Transcribed Date/Time: 09/19/23 7:34 am * Exam Date Time Procedure Performing Provider Status 09/18/23 7:[address] Angio Neck Flora Victor; Auth (Ve rified) Notes: (CT Angio Neck) Reason For Exam: fall, paresthesia, headache;Trauma RESULT: CT Angio Neck CT Angio Head, CT Angio Neck Reason: Headache(s); Paresthesia; Clinical Question(s): Infarction; dissection?; Order Comment: / Infarction TECHNIQUE: CT angiogram of the head and neck was performed after bolus administration of intravenous contrast. 100 mL of Omnipaque 300 was administered intravenously. Coronal and sagittal MIP reformatted images were obtained. Additional 3-D images were created on a separate workstation under concurrent supervision by the attending radiologist. All stenoses are measured using NASCET criteria. Weight-based protocol using automatic tube modulation was used to optimize exposure parameters. RADIATION DOSE PARAMETERS: CTDIvol Body: 12.87 mGy, DLP Body: 439 mGy*cm. COMPARISON: Noncontrast CT head performed concurrently. FINDINGS: CTA OF THE NECK: Arch: There is a two vessel aortic arch, with common origin of the brachiocephalic artery and left common carotid artery. The origins of the supra aortic vessels are patent. Right carotid system: The common carotid and cervical internal carotid arteries are patent. No stenosis (0%) by NASCET criteria. There is no dissection or aneurysm. Upper cervical ICA is tortuous. Left carotid system: The common carotid and cervical internal carotid arteries are patent. No stenosis (0%) by NASCET criteria. There is no dissection or aneurysm. Upper cervical ICA is tortuous. There is a co-dominant vertebral artery system. Right vertebral: No significant stenosis. No evidence of dissection or aneurysm. Left vertebral: No significant stenosis. No evidence of dissection or aneurysm. Other: Soft tissues and bones: No evidence of lymphadenopathy or mass. The thyroid is unremarkable. Visualized lungs are mildly blurred by motion artifact, without significant superimposed airspace opacity.No acute osseous abnormality. CTA OF THE HEAD: Anterior circulation: Bilateral intracranial ICAs and their MAGGIE and MCA branches are patent. Triplicated A2 segments are incidentally noted. There is no significant stenosis, proximal cutoff, aneurysm, or vascular malformation. Posterior circulation: Bilateral intracranial vertebral arteries, the basilar artery, and bilateralsuperior cerebellar and posterior cerebral branches are patent. There is no significant stenosis, proximal cutoff, aneurysm, or vascular malformation. Veins: Major dural venous sinuses are patent. Other: Soft tissues and bones: No midline shift or effacement of the basal cisterns. No space-occupying hemorrhage. No territorial loss of garcia-white matter differentiation. Orbits are unremarkable. No significant opacification in the paranasal sinuses or mastoid air cells. IMPRESSION: No aneurysm, dissection, proximal occlusion, high grade stenosis, or other significant abnormality of the major arteries of the head and neck. WSN: [id number] Ordering Physician: Adelia Phan Dictated By: Elyse Tavarez MD Dictated Date/Time: 09/19/23 7:33 am Reviewed By: Elyse Tavarez MD Signed By: Elyse Tavarez MD Signed Date/Time: 09/19/23 7:33 am Transcribed By: TUNDE Transcribed Date/Time: 09/19/23 7:17 am * Exam Date Time Procedure Performing Provider Status 09/18/23 7:[address] Angio Head Flora Victor; Auth (Ve rified) Notes: (CT Angio Head) Reason For Exam: Paresthesia;Headache(s) RESULT: CT Angio Head CT Angio Head, CT Angio Neck Reason: Headache(s); Paresthesia; Clinical Question(s): Infarction; dissection?; Order Comment: / Infarction TECHNIQUE: CT angiogram of the head and neck was performed after bolus administration of intravenous contrast. 100 mL of Omnipaque 300 was administered intravenously. Coronal and sagittal MIP reformatted images were obtained. Additional 3-D images were created on a separate workstation under concurrent supervision by the attending radiologist. All stenoses are measured using NASCET criteria. Weight-based protocol using automatic tube modulation was used to optimize exposure parameters. RADIATION DOSE PARAMETERS: CTDIvol Body: 12.87 mGy, DLP Body: 439 mGy*cm. COMPARISON: Noncontrast CT head performed concurrently. FINDINGS: CTA OF THE NECK: Arch: There is a two vessel aortic arch, with common origin of the brachiocephalic artery and left common carotid artery. The origins of the supra aortic vessels are patent. Right carotid system: The common carotid and cervical internal carotid arteries are patent. No stenosis (0%) by NASCET criteria. There is no dissection or aneurysm. Upper cervical ICA is tortuous. Left carotid system: The common carotid and cervical internal carotid arteries are patent. No stenosis (0%) by NASCET criteria. There is no dissection or aneurysm. Upper cervical ICA is tortuous. There is a co-dominant vertebral artery system. Right vertebral: No significant stenosis. No evidence of dissection or aneurysm. Left vertebral: No significant stenosis. No evidence of dissection or aneurysm. Other: Soft tissues and bones: No evidence of lymphadenopathy or mass. The thyroid is unremarkable. Visualized lungs are mildly blurred by motion artifact, without significant superimposed airspace opacity.No acute osseous abnormality. CTA OF THE HEAD: Anterior circulation: Bilateral intracranial ICAs and their MAGGIE and MCA branches are patent. Triplicated A2 segments are incidentally noted. There is no significant stenosis, proximal cutoff, aneurysm, or vascular malformation. Posterior circulation: Bilateral intracranial vertebral arteries, the basilar artery, and bilateralsuperior cerebellar and posterior cerebral branches are patent. There is no significant stenosis, proximal cutoff, aneurysm, or vascular malformation. Veins: Major dural venous sinuses are patent. Other: Soft tissues and bones: No midline shift or effacement of the basal cisterns. No space-occupying hemorrhage. No territorial loss of garcia-white matter differentiation. Orbits are unremarkable. No significant opacification in the paranasal sinuses or mastoid air cells. IMPRESSION: No aneurysm, dissection, proximal occlusion, high grade stenosis, or other significant abnormality of the major arteries of the head and neck. WSN: [id number] Ordering Physician: Adelia Phan Dictated By: Elyse Tavarez MD Dictated Date/Time: 09/19/23 7:33 am Reviewed By: Elyse Tavarez MD Signed By: Elyse Tavarez MD Signed Date/Time: 09/19/23 7:33 am Transcribed By: TUNDE Transcribed Date/Time: 09/19/23 7:17 am * Exam Date Time Procedure Performing Provider Status 09/18/23 3:[address] Abd/Pelvis W/ IV Contrast Only Valentina Casarez; Auth (Verified) Notes: (CT Abd/Pelvis W/ IV Contrast Only) Reason For Exam: LLQ abdominal pain;Other: RESULT: CT Abd/Pelvis W/ IV Contrast Only CT Chest W/ Contrast, CT Lumbar Spine W/ Contrast, CT Thoracic Spine W/ Contrast, CT Abd/Pelvis W/ IV Contrast Only INDICATION: Hx of Present Illness: from home, had syncopal episode w fall down flight of stairs, + HS, + LOC, - thinners. LP shunt, c o bl hip pain, back pain, neck pain - c-collar in place; Reason: Other:; Pulmonary Lesion; Clinical Question(s): Interstitial Alveolar Infiltration TECHNIQUE: Helical CT scan of the chest, abdomen, and pelvis with IV contrast, formatted in 3 planes. The original dataset was reconstructed with a small field of view around the thoracic and lumbar spine utilizing soft tissue and bone algorithm reconstructions in 3 planes. 100 cc of Omnipaque 300 was administered intravenously. This study was performed without oral contrast. Weight-based protocol was performed using automatic exposure control. CTDIvol Body: 9.50 mGy, DLP Body: 651 mGy*cm. COMPARISON: 08/03/2016. FINDINGS: Veneer Glue Jointer Feedback view findings, lines and tubes: LP shunt present with tip at the inferior endplate of T12. Trachea and airways: Patent without evidence of tracheal or endobronchial lesion. Lungs and pleura: Dependent atelectasis. No effusion or pneumothorax. Mediastinum and martin: No mass or hematoma. Incidentally noted is residual thymic tissue. No mediastinal or hilar lymphadenopathy. No esophageal abnormality. Partially imaged thyroid is unremarkable. Heart: Heart is normal in size. No pericardial effusion. No coronary arterial calcifications. Aorta: No aortic aneurysm. Pulmonary arteries: Normal caliber. No evidence of pulmonary embolism on this study performed without angiographic technique. Chest wall soft tissues: No acute abnormality. Diaphragm: Intact. Liver: Normal in attenuation and morphology. No suspicious lesion. Gallbladder: Absent consistent with prior cholecystectomy. Bile ducts: No biliary ductal dilation. Spleen: Normal in size. Pancreas: No suspicious lesion or ductal dilatation. Adrenal glands: No nodule. Kidneys and ureters: No hydronephrosis, stone, or suspicious lesion. Bladder: No wall thickening or surrounding stranding. Reproductive organs: 1.5 cm left ovarian corpus luteal cyst. Uterus is unremarkable. Stomach, small bowel, and large bowel: Normal caliber stomach and bowel loops. No surrounding inflammatory changes. Large bowel is mostly decompressed. Appendix: No evidence of acute appendicitis. Peritoneum and retroperitoneum: Trace free fluid within the pelvis, likely physiologic. No pneumoperitoneum. No omental or mesenteric lesions. Lymph nodes: No enlarged lymph nodes. Blood vessels: No vascular calcifications or aneurysm. No evidence of venous thrombosis. Abdominal and pelvic wall soft tissues: Small fat-containing umbilical hernia.. Bones (including thoracic and lumbar spine): No acute abnormality. IMPRESSION: No acute traumatic abnormality in the chest, abdomen, pelvis or thoracolumbar spine. I have personally reviewed the images and I agree with this report. WSN: [id number] Ordering Physician: Sloane Whipple Dictated By: Yaneli Felder DO Dictated Date/Time: 09/18/23 7:45 am Reviewed By: Bhavin Whitman MD Signed By: Bhavin Whitman MD Signed Date/Time: 09/18/23 7:50 am Transcribed By: TUNDE Transcribed Date/Time: 09/18/23 4:44 am * Exam Date Time Procedure Performing Provider Status 09/18/23 3:[address] Thoracic Spine W/ Contrast Leida , Efrem veronica; Auth (Verified) Notes: (CT Thoracic Spine W/ Contrast) Reason For Exam: Spine fracture, thoracic, traumatic;Other: RESULT: CT Thoracic Spine W/ Contrast CT Chest W/ Contrast, CT Lumbar Spine W/ Contrast, CT Thoracic Spine W/ Contrast, CT Abd/Pelvis W/ IV Contrast Only INDICATION: Hx of Present Illness: from home, had syncopal episode w fall down flight of stairs, + HS, + LOC, - thinners. LP shunt, c o bl hip pain, back pain, neck pain - c-collar in place; Reason: Other:; Pulmonary Lesion; Clinical Question(s): Interstitial Alveolar Infiltration TECHNIQUE: Helical CT scan of the chest, abdomen, and pelvis with IV contrast, formatted in 3 planes. The original dataset was reconstructed with a small field of view around the thoracic and lumbar spine utilizing soft tissue and bone algorithm reconstructions in 3 planes. 100 cc of Omnipaque 300 was administered intravenously. This study was performed without oral contrast. Weight-based protocol was performed using automatic exposure control. CTDIvol Body: 9.50 mGy, DLP Body: 651 mGy*cm. COMPARISON: 08/03/2016. FINDINGS: Veneer Glue Jointer Feedback view findings, lines and tubes: LP shunt present with tip at the inferior endplate of T12. Trachea and airways: Patent without evidence of tracheal or endobronchial lesion. Lungs and pleura: Dependent atelectasis. No effusion or pneumothorax. Mediastinum and martin: No mass or hematoma. Incidentally noted is residual thymic tissue. No mediastinal or hilar lymphadenopathy. No esophageal abnormality. Partially imaged thyroid is unremarkable. Heart: Heart is normal in size. No pericardial effusion. No coronary arterial calcifications. Aorta: No aortic aneurysm. Pulmonary arteries: Normal caliber. No evidence of pulmonary embolism on this study performed without angiographic technique. Chest wall soft tissues: No acute abnormality. Diaphragm: Intact. Liver: Normal in attenuation and morphology. No suspicious lesion. Gallbladder: Absent consistent with prior cholecystectomy. Bile ducts: No biliary ductal dilation. Spleen: Normal in size. Pancreas: No suspicious lesion or ductal dilatation. Adrenal glands: No nodule. Kidneys and ureters: No hydronephrosis, stone, or suspicious lesion. Bladder: No wall thickening or surrounding stranding. Reproductive organs: 1.5 cm left ovarian corpus luteal cyst. Uterus is unremarkable. Stomach, small bowel, and large bowel: Normal caliber stomach and bowel loops. No surrounding inflammatory changes. Large bowel is mostly decompressed. Appendix: No evidence of acute appendicitis. Peritoneum and retroperitoneum: Trace free fluid within the pelvis, likely physiologic. No pneumoperitoneum. No omental or mesenteric lesions. Lymph nodes: No enlarged lymph nodes. Blood vessels: No vascular calcifications or aneurysm. No evidence of venous thrombosis. Abdominal and pelvic wall soft tissues: Small fat-containing umbilical hernia.. Bones (including thoracic and lumbar spine): No acute abnormality. IMPRESSION: No acute traumatic abnormality in the chest, abdomen, pelvis or thoracolumbar spine. I have personally reviewed the images and I agree with this report. WSN: [id number] Ordering Physician: Sloane Whipple Dictated By: Yaneli Felder DO Dictated Date/Time: 09/18/23 7:45 am Reviewed By: Bhavin Whitman MD Signed By: Bhavin Whitman MD Signed Date/Time: 09/18/23 7:50 am Transcribed By: TUNDE Transcribed Date/Time: 09/18/23 4:44 am * Exam Date Time Procedure Performing Provider Status 09/18/23 3:[address] Lumbar Spine W/ Contrast Raul Casarez da; Auth (Verified) Notes: (CT Lumbar Spine W/ Contrast) Reason For Exam: Spine fracture, lumbar, traumatic;Other: RESULT: CT Lumbar Spine W/ Contrast CT Chest W/ Contrast, CT Lumbar Spine W/ Contrast, CT Thoracic Spine W/ Contrast, CT Abd/Pelvis W/ IV Contrast Only INDICATION: Hx of Present Illness: from home, had syncopal episode w fall down flight of stairs, + HS, + LOC, - thinners. LP shunt, c o bl hip pain, back pain, neck pain - c-collar in place; Reason: Other:; Pulmonary Lesion; Clinical Question(s): Interstitial Alveolar Infiltration TECHNIQUE: Helical CT scan of the chest, abdomen, and pelvis with IV contrast, formatted in 3 planes. The original dataset was reconstructed with a small field of view around the thoracic and lumbar spine utilizing soft tissue and bone algorithm reconstructions in 3 planes. 100 cc of Omnipaque 300 was administered intravenously. This study was performed without oral contrast. Weight-based protocol was performed using automatic exposure control. CTDIvol Body: 9.50 mGy, DLP Body: 651 mGy*cm. COMPARISON: 08/03/2016. FINDINGS: Veneer Glue Jointer Feedback view findings, lines and tubes: LP shunt present with tip at the inferior endplate of T12. Trachea and airways: Patent without evidence of tracheal or endobronchial lesion. Lungs and pleura: Dependent atelectasis. No effusion or pneumothorax. Mediastinum and martin: No mass or hematoma. Incidentally noted is residual thymic tissue. No mediastinal or hilar lymphadenopathy. No esophageal abnormality. Partially imaged thyroid is unremarkable. Heart: Heart is normal in size. No pericardial effusion. No coronary arterial calcifications. Aorta: No aortic aneurysm. Pulmonary arteries: Normal caliber. No evidence of pulmonary embolism on this study performed without angiographic technique. Chest wall soft tissues: No acute abnormality. Diaphragm: Intact. Liver: Normal in attenuation and morphology. No suspicious lesion. Gallbladder: Absent consistent with prior cholecystectomy. Bile ducts: No biliary ductal dilation. Spleen: Normal in size. Pancreas: No suspicious lesion or ductal dilatation. Adrenal glands: No nodule. Kidneys and ureters: No hydronephrosis, stone, or suspicious lesion. Bladder: No wall thickening or surrounding stranding. Reproductive organs: 1.5 cm left ovarian corpus luteal cyst. Uterus is unremarkable. Stomach, small bowel, and large bowel: Normal caliber stomach and bowel loops. No surrounding inflammatory changes. Large bowel is mostly decompressed. Appendix: No evidence of acute appendicitis. Peritoneum and retroperitoneum: Trace free fluid within the pelvis, likely physiologic. No pneumoperitoneum. No omental or mesenteric lesions. Lymph nodes: No enlarged lymph nodes. Blood vessels: No vascular calcifications or aneurysm. No evidence of venous thrombosis. Abdominal and pelvic wall soft tissues: Small fat-containing umbilical hernia.. Bones (including thoracic and lumbar spine): No acute abnormality. IMPRESSION: No acute traumatic abnormality in the chest, abdomen, pelvis or thoracolumbar spine. I have personally reviewed the images and I agree with this report. WSN: [id number] Ordering Physician: Sloane Whipple Dictated By: Yaneli Felder DO Dictated Date/Time: 09/18/23 7:45 am Reviewed By: Bhavin Whitman MD Signed By: Bhavin Whitman MD Signed Date/Time: 09/18/23 7:50 am Transcribed By: TUNDE Transcribed Date/Time: 09/18/23 4:44 am * Exam Date Time Procedure Performing Provider Status 09/18/23 3:[address] Chest W/ Contrast Valentina Casarez; Aut h (Verified) Notes: (CT Chest W/ Contrast) Reason For Exam: Pulmonary Lesion;Other: RESULT: CT Chest W/ Contrast CT Chest W/ Contrast, CT Lumbar Spine W/ Contrast, CT Thoracic Spine W/ Contrast, CT Abd/Pelvis W/ IV Contrast Only INDICATION: Hx of Present Illness: from home, had syncopal episode w fall down flight of stairs, + HS, + LOC, - thinners. LP shunt, c o bl hip pain, back pain, neck pain - c-collar in place; Reason: Other:; Pulmonary Lesion; Clinical Question(s): Interstitial Alveolar Infiltration TECHNIQUE: Helical CT scan of the chest, abdomen, and pelvis with IV contrast, formatted in 3 planes. The original dataset was reconstructed with a small field of view around the thoracic and lumbar spine utilizing soft tissue and bone algorithm reconstructions in 3 planes. 100 cc of Omnipaque 300 was administered intravenously. This study was performed without oral contrast. Weight-based protocol was performed using automatic exposure control. CTDIvol Body: 9.50 mGy, DLP Body: 651 mGy*cm. COMPARISON: 08/03/2016. FINDINGS: Veneer Glue Jointer Feedback view findings, lines and tubes: LP shunt present with tip at the inferior endplate of T12. Trachea and airways: Patent without evidence of tracheal or endobronchial lesion. Lungs and pleura: Dependent atelectasis. No effusion or pneumothorax. Mediastinum and martin: No mass or hematoma. Incidentally noted is residual thymic tissue. No mediastinal or hilar lymphadenopathy. No esophageal abnormality. Partially imaged thyroid is unremarkable. Heart: Heart is normal in size. No pericardial effusion. No coronary arterial calcifications. Aorta: No aortic aneurysm. Pulmonary arteries: Normal caliber. No evidence of pulmonary embolism on this study performed without angiographic technique. Chest wall soft tissues: No acute abnormality. Diaphragm: Intact. Liver: Normal in attenuation and morphology. No suspicious lesion. Gallbladder: Absent consistent with prior cholecystectomy. Bile ducts: No biliary ductal dilation. Spleen: Normal in size. Pancreas: No suspicious lesion or ductal dilatation. Adrenal glands: No nodule. Kidneys and ureters: No hydronephrosis, stone, or suspicious lesion. Bladder: No wall thickening or surrounding stranding. Reproductive organs: 1.5 cm left ovarian corpus luteal cyst. Uterus is unremarkable. Stomach, small bowel, and large bowel: Normal caliber stomach and bowel loops. No surrounding inflammatory changes. Large bowel is mostly decompressed. Appendix: No evidence of acute appendicitis. Peritoneum and retroperitoneum: Trace free fluid within the pelvis, likely physiologic. No pneumoperitoneum. No omental or mesenteric lesions. Lymph nodes: No enlarged lymph nodes. Blood vessels: No vascular calcifications or aneurysm. No evidence of venous thrombosis. Abdominal and pelvic wall soft tissues: Small fat-containing umbilical hernia.. Bones (including thoracic and lumbar spine): No acute abnormality. IMPRESSION: No acute traumatic abnormality in the chest, abdomen, pelvis or thoracolumbar spine. I have personally reviewed the images and I agree with this report. WSN: [id number] Ordering Physician: Sloane Whipple Dictated By: Yaneli Felder DO Dictated Date/Time: 09/18/23 7:45 am Reviewed By: Bhavin Whitman MD Signed By: Bhavin Whitman MD Signed Date/Time: 09/18/23 7:50 am Transcribed By: TUNDE Transcribed Date/Time: 09/18/23 4:44 am * Exam Date Time Procedure Performing Provider Status 09/18/23 3:[address] Cervical Spine W/O Contrast Patrick Casarez; Auth (Verified) Notes: (CT Cervical Spine W/O Contrast) Reason For Exam: Neck trauma, dangerous injury mechanism;Other: RESULT: CT Cervical Spine W/O Contrast CT Head/Brain W/O Contrast, CT Cervical Spine W/O Contrast INDICATION: Hx of Present Illness: from home, had syncopal episode w fall down flight of staris, + HS, + LOC, - thinners. LP shunt, c o bl hip pain, back pain, neck pain - c-collar in place; Reason: Trauma; Clinical Question(s): Hematoma; Order Comment: TECHNIQUE: Noncontrast head CT using axial technique was reconstructed in axial and coronal planes.Noncontrast spiral CT through the cervical spine was formatted in 3 planes. Automatic tube modulation was used for the cervical spine and iterative dose reconstruction was used for both the head and cervical spine to optimize scan parameters and image quality. CTDIvol Body: 12.60 mGy, DLP Body: 296 mGy*cm. CTDIvol Head: 39.80 mGy, DLP Head: 672 mGy*cm. COMPARISON: 02/06/2022 FINDINGS: Veneer Glue Jointer Feedback View Findings, Lines and Tubes: None. BRAIN AND EXTRA-AXIAL SPACES: No parenchymal hemorrhage, midline shift, or mass effect. Garcia-white matter differentiation is wellpreserved. No acute infarct. Negative insular ribbon and hyperdense vessel signs. Ventricles, sulci, and basilar cisterns are normal. No white matter lesions. No subarachnoid hemorrhage. No subdural or epidural collection. CALVARIUM, SKULL BASE, AND SOFT TISSUES: No fractures or suspicious bony lesions. The paranasal sinuses and mastoid air cells are clear. Visualized orbits and globes are intact. The extracranial soft tissues are unremarkable. CERVICAL SPINE: No fracture. No acute osseous abnormalities. Straightening of the cervical lordosis may be either positional or due to muscle spasm. No locked or perched facet. Intervertebral disc spaces and vertebral body heights are preserved. OTHER BONES: No acute abnormality. CERVICAL SOFT TISSUES AND LUNG APICES: Normal soft tissues. Visualized lung apices are clear. Normal thyroid. IMPRESSION: No acute abnormality of the head. Paraspinal muscle spasm with otherwise normal cervical spine. I have personally reviewed the images and I agree with this report. WSN: [id number] Ordering Physician: Sloane Whipple Dictated By: Yaneli Felder DO Dictated Date/Time: 09/18/23 7:33 am Reviewed By: Edward Bush MD Signed By: Edward Bush MD Signed Date/Time: 09/18/23 7:38 am Transcribed By: TUNDE Transcribed Date/Time: 09/18/23 4:25 am * Exam Date Time Procedure Performing Provider Status 09/18/23 3:[address] Head/Brain W/O Contrast Priscilla Casarez; Auth (Verified) Notes: (CT Head/Brain W/O Contrast) Reason For Exam: Trauma RESULT: CT Head/Brain W/O Contrast CT Head/Brain W/O Contrast, CT Cervical Spine W/O Contrast INDICATION: Hx of Present Illness: from home, had syncopal episode w fall down flight of staris, + HS, + LOC, - thinners. LP shunt, c o bl hip pain, back pain, neck pain - c-collar in place; Reason: Trauma; Clinical Question(s): Hematoma; Order Comment: TECHNIQUE: Noncontrast head CT using axial technique was reconstructed in axial and coronal planes.Noncontrast spiral CT through the cervical spine was formatted in 3 planes. Automatic tube modulation was used for the cervical spine and iterative dose reconstruction was used for both the head and cervical spine to optimize scan parameters and image quality. CTDIvol Body: 12.60 mGy, DLP Body: 296 mGy*cm. CTDIvol Head: 39.80 mGy, DLP Head: 672 mGy*cm. COMPARISON: 02/06/2022 FINDINGS: Veneer Glue Jointer Feedback View Findings, Lines and Tubes: None. BRAIN AND EXTRA-AXIAL SPACES: No parenchymal hemorrhage, midline shift, or mass effect. Garcia-white matter differentiation is wellpreserved. No acute infarct. Negative insular ribbon and hyperdense vessel signs. Ventricles, sulci, and basilar cisterns are normal. No white matter lesions. No subarachnoid hemorrhage. No subdural or epidural collection. CALVARIUM, SKULL BASE, AND SOFT TISSUES: No fractures or suspicious bony lesions. The paranasal sinuses and mastoid air cells are clear. Visualized orbits and globes are intact. The extracranial soft tissues are unremarkable. CERVICAL SPINE: No fracture. No acute osseous abnormalities. Straightening of the cervical lordosis may be either positional or due to muscle spasm. No locked or perched facet. Intervertebral disc spaces and vertebral body heights are preserved. OTHER BONES: No acute abnormality. CERVICAL SOFT TISSUES AND LUNG APICES: Normal soft tissues. Visualized lung apices are clear. Normal thyroid. IMPRESSION: No acute abnormality of the head. Paraspinal muscle spasm with otherwise normal cervical spine. I have personally reviewed the images and I agree with this report. WSN: [id number] Ordering Physician: Sloane Whipple Dictated By: Yaneli Felder DO Dictated Date/Time: 09/18/23 7:33 am Reviewed By: Edward Bush MD Signed By: Edward Bush MD Signed Date/Time: 09/18/23 7:38 am Transcribed By: TUNDE Transcribed Date/Time: 09/18/23 4:25 am Vital Signs Most recent to oldest [Reference Range]: 1 2 3 Height 157.48 cm (09/20/23 4:04 PM) 157.48 cm (09/20/23 7:53 AM) 157.48 cm (09/18/23 4:48 PM) Weight 78.6 kg (09/18/23 3:49 PM) 77.2 kg (09/18/23 3:11 PM) Oxygen Saturation [94-100 %] 99 % (09/22/23 12:00 PM) 100 % (09/22/23 8:00 AM) 100 % (09/22/23 3:00 AM) Pulse Rate [55-90 bpm] 86 bpm (09/22/23 12:00 PM) 78 bpm (09/22/23 8:00 AM) 98 bpm *H* (09/22/23 3:00 AM) Body Mass Index [18.5-24.99 kg/m2] 31.69 kg/m2 *>HHI* (09/18/23 3:49 PM) Blood Pressure [90-138/55-84 mm Hg] 134/79mm Hg (09/22/23 12:00 PM) 14/106mm Hg *L* (09/22/23 8:43 AM) 144/106mm Hg *H* (09/22/23 8:43 AM) Respiratory Rate [16-30 br/min] 20 br/min (09/22/23 3:19 PM) 20 br/min (09/22/23 2:53 PM) 18 br/min (09/22/23 12:00 PM) Temperature [96.8-100.4 DegF] 97.6 DegF (09/22/23 12:00 PM) 97.2 DegF (09/22/23 8:00 AM) 96.9 DegF (09/22/23 3:00 AM) Mode of Delivery (Oxygen) Room air (09/22/23 12:00 PM) Room air (09/22/23 8:00 AM) Room air (09/22/23 3:00 AM) Blood pressure sites Arm, left (09/22/23 12:00 PM) Arm, left (09/22/23 8:00 AM) Arm, left (09/22/23 3:00 AM) Temperature Route Oral (09/22/23 12:00 PM) Temporal (09/22/23 8:00 AM) Temporal (09/22/23 3:00 AM) Weight Obtained Via Bed scale (09/18/23 3:49 PM) Bed scale (09/18/23 3:11 PM) Social History Social History Type Response Smoking Status Never smoker; Tobacc o user in household: Yes; Other: father; entered on: 11/14/17 Sex Admission evaluation note * Adelia Phan MD: PERFORM Event Display: Admission Note Authored Date: [id number] Patient: ??MARIO LEO ? Age:??32 Years?Sex:??Female?:??1990?? History of Present Illness Mario??Tony is a 32 yo woman w/ PMH of IIH s/p LP shunt (2016), GERD,??HTN,??pre-eclampsia, anxiety/depression, iron deficiency anemia, and frequent headaches who presents after??syncope and unwitnessed??fall.? Patient reports 3 days of severe headaches that feel like pressure all around her head. Associated with bilateral eye pressure, blurry vision, and floating black dots. Reports that these symptoms??feel similar to IIH headaches. After putting her daughter to bed, patient was at the top of the staircase when she suddenly saw black and lost consciousness, falling down the stairs. Reports feeling heart palpitations prior to losing consciousness. Denies other prodromal symptoms such as nausea, sweating, dizziness.?Duration of syncope unknown. Upon regaining consciousness, pt felt confused and disoriented. Even while calling 911, reports at times she could not understand the conversation. Her b jeremiah was shaking as if she was cold and felt very sleepy. Pt also reports tingling and decreased sensation down the entire left side of her face and body.? Patient notes that she has had high BP even before her pregnancies and is followed by a photovoltaic solar cell designer due to history of pre-eclampsia and persistent HTN. She checks her BP at home which is typically in the 150-160s systolic and 100s diastolic. Her photovoltaic solar cell designer recently started her on nifedipine and amlodipine with minimal response.? Of note, patient had 3??syncopal events in the past month, which is new. None of these events are associated with any particular activity or intense emotions, as she is??relaxing when they happen. The only notable change??in the past month is that her sister's health is rapidly declining which is causing stress. ?? Family history positive for??seizures (mom and sister with psychogenic nonepileptic seizures) and heart conditions (mom with pacemaker at 46 y/o, dad with pacemaker and ICD). Mom also with history ofpituitary tumor.?? Social history:?? - ETOH 1-2 times a month, if any at all. - Quit tobacco 4 months ago after 1 year of 3 cigarettes/day. - Uses marijuana vape. - Denies use of any other substances. ?? ED course: Hypertensive, 156/110. Vitals otherwise stable.?? Labs notable for Hgb 9.9 (baseline ~10.5-11), otherwise unremarkable. EKG without arrhythmia. CT head/neck/spine/chest/abdomen??without acute abnormalities. Received morphine and dilaudid. Pt reports some??relief of headache with dilaudid.?? Review of Systems Review of systems otherwise negative??except for as mentioned above. Objective Measurements?? Height: 157.48 cm (09/18/23) Weight: 78.6 kg (09/18/23) Body Mass Index:??31.69 kg/m2??Critical (09/18/23) ? Vital Signs?? Temperature: 98.1 DegF (09/18/23 15:11:00) Temperature Route: Oral (09/18/23 15:11:00) Pulse Rate:??118 bpm??High (09/18/23 15:11:00) Pulse Rate, Lyin bpm (09/18/23 16:48:00) Systolic Blood Pressure, Lyin mm Hg (09/18/23 16:48:00) Diastolic Blood Pressure, Lyin mm Hg (09/18/23 16:48:00) Pulse Rate, Sittin bpm (09/18/23 16:48:00) Systolic Blood Pressure, Sittin mm Hg (09/18/23 16:48:00) Diastolic Blood Pressure, Sittin mm Hg (09/18/23 16:48:00) Pulse Rate, Standin bpm (09/18/23 16:48:00) Systolic Blood Pressure, Standin mm Hg (09/18/23 16:48:00) Diastolic Blood Pressure, Standin mm Hg (09/18/23 16:48:00) Respiratory Rate: 18 br/min (09/18/23 16:36:00) Systolic Blood Pressure:??178 mm Hg??High (09/18/23 15:11:00) Diastolic Blood Pressure:??100 mm Hg??High (09/18/23 15:11:00) Blood pressure sites: Arm, left (09/18/23 15:11:00) Mean Arterial Pressure: 126 mm Hg (09/18/23 15:11:00) Pulse Pressure: 78 mm Hg (09/18/23 15:11:00) Oxygen Saturation: 98 % (09/18/23 15:11:00) Mode of Delivery (Oxygen): Room air (09/18/23 15:11:00) Early Warning Score: 2 (09/18/23 18:04:09) ? Intake/Output? 09/17 06:05 09/17 07:00 09/16 07:00 09/15 07:00 09/14 07:00 ?? 09/17 19:14 09/17 19:14 09/17 06:59 09/16 06:59 09/15 06:59 Intake ?362 ?360 ?2 ?0 ?0 Output ?0 ?0 ?0 ?0 ?0 Net Total ?362 ?360 ?2 ?0 ?0 ? Physical Exam General: Lying in bed, appearing uncomfortable, NAD. HEENT: Atraumatic, normocephalic.??EOMI. No scleral icterus. Neck supple. Dry MM. Dentition intact.No erythema or exudates on throat. Cardiovascular: RRR, S1 and S2 heard. No murmurs, gallops, or rubs appreciated. Respiratory:??Breath sounds clear to auscultation bilaterally. No wheezes/crackles. Good air movement throughout both lungs. GI: Soft. Nontender and nondistended. Normal bowel sounds present throughout abdomen.? MS: No edema or erythema in the lower extremities. Lumbar??paraspinal tenderness??to palpation.?? Skin:??No rashes. Warm and dry. Skin intact. Neuro: No facial droop.??Tongue midline and uvula rises symmetrically.??Reduced facial sensation onleft??including forehead. 4/5 left shoulder shrug.? Motor: Normal bulk/tone. 4/5 strength in LUE and LLE.??5/5 strength in RUE and RLE. Left hand dining room host/hostess weaker than right. Sensation: Left hemibody, hemifacial paresis Coordination: Finger to nose smooth Psych: Appropriate affect and mood.?? Assessment/Plan Mario??Tony is a 32 yo woman w/ PMH of [facility] s/p lumboperitoneal shunt (2016), GERD,??HTN,??pre-eclampsia, anxiety/depression, iron deficiency anemia, and frequent headaches requiring intermittent therapeutic??lumbar puncture??who presents after syncope and unwitnessed??fall.? Recurrent syncope (R55):?? Patient with history of 3 syncopal events in the past month resulting in unwitnessed falls, which is new. Patient denies prodromal symptoms but does endorse palpitations before each event, raising concern for cardiac etiology.??Broad differential, including cardiac etiology (given no prodromal symptoms but does endorse??palpitations prior each??syncopal event), complicated migraine syncope,??seizure??(family history of seizure,??post- ictal??state),??stroke (left sided paresthesia). Orthostatic vitals negative.? Plan:?? - Cardiac monitoring - Neurology consulted, appreciate recs?? - Ordered MRI of brain and CTA head/neck given paresthesia after a fall to rule out dissection - Ordered TSH w/ T4 reflex - Seizure precautions - Q4H neurochecks ? Hemiparesthesia (R20.2):?? Patient presenting with left sided paresthesia involving face, arm, and leg after a fall. ?? Plan: -??Given the presentation in the setting of a recent fall, ordered MRI of brain and CTA head/neck as above. - Neurology consulted - Q4H neurochecks - Per neuro recs,??permissive HTN to 220s ?? Hypertensive urgency (I16.0):?? Pt with history of HTN and pre-eclampsia. BPs at home??range 150-160 systolic and 100-110 diastolicon home lisinopril, amlodipine, and nifedipine. No evidence of end organ damage at this time. Pain??possibly contributing to high BPs??as well. She is followed by her photovoltaic solar cell designer since being diagnosed with pre-eclampsia.? Plan: - Hold home anti-hypertensives for permissive HTN to 220s - Pain control with dilaudid PRN - Monitor CMP daily ?? IIH (idiopathic intracranial hypertension) (G93.2):?? Headache (R51.9) Pt has history of frequent headaches??requiring intermittent therapeutic lumber punctures??despite the shunt. She??reports??that??her headaches feel similar to that of IIH which usually resolves withLP. Headache feels like tight??pressure around her head associated with pressure behind both eyes. Headache now seems to be improving. ?? Plan:?? - IR consulted for evaluation??and possible??LP -??Continue home amitriptyline at bed time ?? Fall (W19.XXXA):??Pt fell down the stairs after losing consciousness, unwitnessed. Pt endorses neck/lower spine/left hip pain,??worse with movement. Initial imaging including CT head/neck/spine/chest/abd??unremarkable.? Chronic medical conditions: GERD (K21.9) - Continue pantoprazole Anemia (D64.9) - Continue home ferrous sulfate qod ?? Quality Measures Code Status: Full Diet: Regular DVT prophylaxis: Compression boots? Patient seen and discussed with Dr. Haider. Adelia Phan MD Internal Medicine PGY1 Pager?? [phone] ? Medications Inpatient Medications Medications (15) Active SCHEDULED: (5) Amitriptyline 25 mg Tablet (amitriptyline 25 mg oral tablet) ??50 mg, By Mouth, Daily at bedtime Ferrous Sulfate 325 mg EC Tablet (ferrous sulfate 325 mg oral enteric coated tablet) ??325 mg, By Mouth, Every other day NaCl 0.9% Flush 3ml (NaCL 0.9% Flush) ??3 mL, IV Push, Every 8 hours Pantoprazole 40 mg EC Tablet (pantoprazole 40 mg oral delayed release tablet) ??40 mg, By Mouth, Daily Sucralfate 1 Gm Tablet (sucralfate 1 gm oral tablet) ??1 Gm, By Mouth, 3 times a day with meals CONTINUOUS: (0) PRN: (10) Acetaminophen 325 mg Tablet (Acetaminophen Tablet) ??650 mg, By Mouth, Every 4 hours Clonazepam 1 mg Tablet (clonazePAM 1 mg oral tablet) ??1 mg, By Mouth, 3 times a day Dextromethorphan-Guaifenesin 20 mg-200 mg/10 mL Liqu UD (Robitussin DM Liquid) ??10 mL, By Mouth, Every 4 hours Docusate Sodium 100 mg Capsule (Docusate Sodium Capsule) ??100 mg 1 capsule, By Mouth, 2 times a day HYDROmorphone 0.5 mg/0.5 mL Inj Syringe (Dilaudid Inj) ??0.5 mg 0.5 mL, IV Push Slowly, Every 4 hours Melatonin 3 mg Tablet (Melatonin Tablet) ??3 mg, By Mouth, Daily at bedtime NaCl 0.9% Flush 3ml (NaCL 0.9% Flush) ??3 mL, IV Push, Every 8 hours Polyethylene Glycol 17 Gm Powder (MiraLax Powder) ??17 Gm 1 pack/packet, By Mouth, Daily Senna Tablet ??8.6 mg 1 tablet, By Mouth, 2 times a day Simethicone 80 mg Chewable Tablet (Simethicone Tablet) ??80 mg, Chew, 3 times a day ? Results Recent Labs BLOOD COUNT & DIFF WBC 7.8 k/mm3 ()?? 09/18/2023 02:28 RBC 4.02 m/mm3 (Low)?? 09/18/2023 02:28 Hgb 9.9 Gm/dL (Low)?? 09/18/2023 02:28 Hct 32.4 % (Low)?? 09/18/2023 02:28 MCV 80.6 femtoliters ()?? 09/18/2023 02:28 MCH 24.6 pg (Low)?? 09/18/2023 02:28 MCHC 30.6 g/dL (Low)?? 09/18/2023 02:28 Platelet Count 360 k/mm3 ()?? 09/18/2023 02:28 RDW-SD 52.1 femtoliters (High)?? 09/18/2023 02:28 MPV 9.3 femtoliters (Low)?? 09/18/2023 02:28 Nucleated RBC (Automated) 0.0 #/100 WBC'S ()?? 09/18/2023 02:28 Abs. NRBC 0.0 k/mm3 ()?? 09/18/2023 02:28 Abs. Neut 4.4 k/mm3 ()?? 09/18/2023 02:28 Abs. Lymph 2.9 k/mm3 ()?? 09/18/2023 02:28 Abs. [place] 0.4 k/mm3 ()?? 09/18/2023 02:28 Abs. Eo 0.1 k/mm3 ()?? 09/18/2023 02:28 Abs. Baso 0.0 k/mm3 ()?? 09/18/2023 02:28 Neut % 55.9 % ()?? 09/18/2023 02:28 Lymph % 36.9 % ()?? 09/18/2023 02:28 [place] % 5.2 % ()?? 09/18/2023 02:28 Eos % 1.3 % ()?? 09/18/2023 02:28 Baso % 0.4 % ()?? 09/18/2023 02:28 Imm Gran 0.3 % ()?? 09/18/2023 02:28 Abs. Imm Gran 0.0 k/mm3 ()?? 09/18/2023 02:28 ?? CHEM GENERAL Sodium 143 mmol/L ()?? 09/18/2023 02:28 Potassium 3.7 mmol/L ()?? 09/18/2023 02:28 Chloride 106 mmol/L ()?? 09/18/2023 02:28 Bicarbonate Level 25 mmol/L ()?? 09/18/2023 02:28 Anion Gap 12 ()?? 09/18/2023 02:28 Glucose Level 114 mg/dL (High)?? 09/18/2023 02:28 BUN 9 mg/dL ()?? 09/18/2023 02:28 Creatinine-Blood 0.78 mg/dL ()?? 09/18/2023 02:28 Estimated GFR Creatinine 104 ML/MIN/1.73 M2 ()?? 09/18/2023 02:28 Calcium 9.2 mg/dL ()?? 09/18/2023 02:28 Protein, Total 6.8 Gm/dL ()?? 09/18/2023 02:28 Albumin 4.2 Gm/dL ()?? 09/18/2023 02:28 AG Ratio 1.6 ()?? 09/18/2023 02:28 Alkaline Phosphatase 95 units/L ()?? 09/18/2023 02:28 Lipase 34 units/L ()?? 09/18/2023 02:28 AST (SGOT) 21 units/L ()?? 09/18/2023 02:28 ALT (SGPT) 8 units/L ()?? 09/18/2023 02:28 Bilirubin, Total <0.2 mg/dL ()?? 09/18/2023 02:28 ?? ENDOCRINE/TUMOR MARKER TSH 5.98 uIU/mL (High)?? 09/18/2023 16:10 Free T4 1.25 ng/dL ()?? 09/18/2023 16:10 Blood <1 mIU/mL ()?? 09/18/2023 02:28 ?? UA/URINALYSIS Appear/Color, Urine COLORLESS ()?? 09/18/2023 06:36 Specific [place], Urine 1.034 (High)?? 09/18/2023 06:36 pH, Urine 7.5 ()?? 09/18/2023 06:36 Albumin, Urine NEGATIVE ()?? 09/18/2023 06:36 Glucose, Urine NEGATIVE ()?? 09/18/2023 06:36 Ketones, Urine NEGATIVE ()?? 09/18/2023 06:36 Bilirubin, Urine NEGATIVE ()?? 09/18/2023 06:36 Hemoglobin, Urine NEGATIVE ()?? 09/18/2023 06:36 Nitrite, Urine NEGATIVE ()?? 09/18/2023 06:36 Leukocyte, Urine NEGATIVE ()?? 09/18/2023 06:36 Urobilinogen NORMAL mg/dL ()?? 09/18/2023 06:36 WBC's, Urine 2 /HPF ()?? 09/18/2023 06:36 RBC's, Urine 1 /HPF ()?? 09/18/2023 06:36 Squamous Epith 2 /HPF ()?? 09/18/2023 06:36 ? * Bhavin Haider MD: PERFORM Event Display: Admission Note Authored Date: Attending Attestation:??I saw and examined the patient with the resident team and reviewed the chart on the day of service. ??I have discussed the case and its management??with the resident as documented in the resident note on the day of service.??I agree with the resident's note and plan as documented. EKG study * Event Display: ECG 12-Lead Authored Date: Please click on pdf link to open report * Event Display: ECG 12-Lead Authored Date: Ventricular Rate: 68 BPM Atrial Rate: 68 BPM P-R Interval: 150 ms QRS Duration: 100 ms Q-T Interval: 418 ms QTC Calculation(Bazett): 444 ms P Tony: 20 degrees R Tony: 6 degrees T Tony: 21 degrees Normal sinus rhythm Normal ECG When compared with ECG of 06-FEB-2022 13:27, Nonspecific T wave abnormality now evident in Anterior leads Confirmed by Alfred Lee ([id number]) on 09/19/2023 7:37:10 AM [place] * Mignon Ron RN: PERFORM, SIGN, VERIFY Event Display: Progress Note Hospital Authored Date: Patient: MARIO LEO Age: 32 years Sex: Female : 1990 Associated Diagnoses: None Author: Mignon Ron RN Findings Problem Related to Alteration in Neurological : Alteration in Neurological Function/new 09/21/2023 20:00 EDT Alteration in Neuro status Related to Other: syncopal episode/ fall Goals & Outcomes, Neurological Lab studies/diagnostic tests within pt specific limits, Pt is safe with transfers & activities, Pt will be discharged without infection, Pt will be hemodynamically stable, Pt will be Neurologically stable, Pt will become pain free with appropriate intervention, Pt will maintain intact skin integrity, Pt will remain free from injury, Pt will resume/maintain ad equate cardiac output, Pt will state importance of adhering to medication regime, Pt/caregiver willreceive psychosocial support as needed, Pt/caregiver will state understanding of rehab plan, Pt/caregiver will state strategies to reduce risk factors, Pt/caregiver will state understanding aspiration precautions, Pt/caregiver will state understanding dietary modifications, Pt/caregiver will state understanding of disease process, Pt/caregiver will state understanding of plan/goals of care Interventions, Neurological Assess/monitor for abnormal posturing, Assess/monitor for gaze pattern/extraocular movements, Assess/monitor for increased Intracranial Pressure, Assess/monitor neurologicstatus, Assess/monitor VS per unit standards & prn, Call/Report variances in assessments to provider, Collaborate w/ provider to implement appropriate guidelines, Collaborate with Nutrition, Collaborate with provider re: medication regime, Document & Monitor O2 Sats; Administer O2 as ordered, Emergency airway equipment at bedside, Identify psychosocial issues related to diagnosis/illness,If no bowel movement in 3 days activate bowel regime, [place] alternate means of communication, Ke ep patient's head & body in good alignment, Maintain HOB at least 30 deg, Maintain normothermia, report temp >101.5 F, Maintain patient safety if unsteady gait, Maintain strict intake & output, Monitor Fluid & Electrolytes, Serum Osmolarity, Monitor for headaches, nausea, vomiting, Monitor speech fluency, aphasia, word finding difficulty, Physical assessment per unit standards, Prov jaqui emotional support to Pt/caregiver, Teach & encourage deep breath & cough exercises, Teach and encourage use of Incentive spirometer, Teach pt/caregiver discharge plan & follow up care, Teach pt/caregiver on plan of care, treatment, s/s & meds, Teach pt/caregiver on use of pain scale BH Goals/Interventions, Neurological Yes Neurological, Problem Start 09/18/2023 17:01 Reviewed plan with, Neurological Patient Patient Progression, Neurological Pt progressing according to plan . Nursing Data Neurological Data. : Neurological Data. 09/21/2023 20:00 EDT Tongue Disposition Midline Neurological Symptoms Headache: persistent, changing or sudden, Numbness Level of Consciousness Full Consciousness Orientated to person, place, time Person, Place, Time, Event Hallucinations None Facial Symmetry Intact Characteristics of Speech Clear and normal Swallowing Difficulty None Pupil description, left Regular Pupil description, right Regular Pupil reaction, left Brisk Pupil reaction, right Brisk Strength LUE 5-Active movement against gravity & full resistance Strength RUE 5-Active movement against gravity & full resistance Strength LLE 5-Active movement against gravity & full resistance Strength RLE 5-Active movement against gravity & full resistance Tone LUE Normal Tone RUE Normal Tone LLE Normal Tone RLE Normal Sensation LUE Intact Sensation RUE Intact Sensation LLE Intact Sensation RLE Intact Movement LUE Spontaneous Movement RUE Spontaneous Movement LLE Spontaneous Movement RLE Spontaneous Gait Steady Response Eye Opening Spontaneously Motor Response-Adult Obeys commands Verbal Response-Adult Oriented and converses Teetee Coma Score 15 Neuro WNL except Corneal/Blink Reflex Intact right, Intact left Eyes and Movements Conjugate gaze: Move in same direction at same speed Headaches, Characteristic Bilateral, Pressing/tightening Headaches, Duration Constant Memory Intact Swallow - Neuro Normal . Evaluation Pt A&O x4. C/O headache 7-9 when medication is due. Taking Dilaudid q 4 hours. Eating and drinking well and ambulating to the bathroom. Using icepaks for body soreness from fall and mild parathesis to left thigh but getting better. 5/5 all extremeities. See CIS for biophysical assessment, all safety measures in place. . * Andrews Lowry RN: VERIFY, PERFORM, SIGN Event Display: Progress Note Hospital Authored Date: Patient: MARIO LEO Age: 32 years Sex: Female : 1990 Associated Diagnoses: None Author: Andrews Lowry RN Findings Problem Related to Alteration in Neurological : Alteration in Neurological Function/new 09/21/2023 7:00 EDT Alteration in Neuro status Related to Other: syncopal episode/ fall Goals & Outcomes, Neurological Lab studies/diagnostic tests within pt specific limits, Pt is safe with transfers & activities, Pt will be discharged without infection, Pt will be hemodynamically stable, Pt will be Neurologically stable, Pt will become pain free with appropriate intervention, Pt will maintain intact skin integrity, Pt will remain free from injury, Pt will resume/maintain ad equate cardiac output, Pt will state importance of adhering to medication regime, Pt/caregiver willreceive psychosocial support as needed, Pt/caregiver will state understanding of rehab plan, Pt/caregiver will state strategies to reduce risk factors, Pt/caregiver will state understanding aspiration precautions, Pt/caregiver will state understanding dietary modifications, Pt/caregiver will state understanding of disease process, Pt/caregiver will state understanding of plan/goals of care Interventions, Neurological Assess/monitor neurologic status Goals/Interventions, Neurological Yes Neurological, Problem Start 09/18/2023 17:01 Reviewed plan with, Neurological Patient Patient Progression, Neurological Pt progressing according to plan . Narrative/Incidental A+Ox4. Standbye assist with RW. IVF inititated. Complains of pain in head and neck. Also having anxiety. Both being managed with PRN medications.. * Zaid CALABRESE, Jorje Nguyen: MODIFY, PERFORM Event Display: Progress Note Hospital Authored Date: Patient: ??MARIO LEO ? Age:??32 Years?Sex:??Female?:??1990?? Subjective ?? Slept poorly overnight due to migraine. It responds well to current regiment, however continues to return as medictions were off.?? Some improvement in frequency of dilaudid at least into the afternoon Occasional nausia ? Review of Systems A full review of systems was completed and is otherwise negative except as mentioned in history of present illness. Objective Vital Signs?? Temperature: 97.2 DegF (09/21/23 07:00:00) Temperature Route: Temporal (09/21/23 07:00:00) Pulse Rate: 79 bpm (09/21/23 07:00:00) Respiratory Rate: 16 br/min (09/21/23 08:38:00) Systolic Blood Pressure:??149 mm Hg??High (09/21/23 08:37:00) Systolic Blood Pressure:??149 mm Hg??High (09/21/23 08:37:00) Diastolic Blood Pressure:??96 mm Hg??High (09/21/23 08:37:00) Diastolic Blood Pressure:??96 mm Hg??High (09/21/23 08:37:00) Blood pressure sites: Arm, right (09/21/23 07:00:00) Mean Arterial Pressure: 91 mm Hg (09/21/23 04:58:00) Pulse Pressure: 53 mm Hg (09/21/23 07:00:00) Oxygen Saturation: 99 % (09/21/23 07:00:00) Mode of Delivery (Oxygen): Room air (09/21/23 07:00:00) Early Warning Score: 2 (09/21/23 08:50:36) ? Intake/Output? 09/17 06:05 09/20 07:00 09/19 07:00 09/18 07:00 09/17 07:00 ?? 09/20 08:57 09/20 08:57 09/20 06:59 09/19 06:59 09/18 06:59 Intake ? 1922 ?0 ?840 ?720 ?360 Output ?0 ?0 ?0 ?0 ?0 Net Total ? 1922 ?0 ?840 ?720 ?360 ? Urine Count ?8 ?0 ?5 ?3 ?0 ? Physical Exam ?? General Appearance: The patient appears uncomfortable Cardiovascular: S1 and S2 heard with no M/R/G. No JVD. Respiratory: ??Breath sounds clear to auscultation bilaterally. No added sounds, equal air entry GI: Soft. Nontender and nondistended. Normal bowel sounds present throughout abdomen.?? MS: ??No edema or erythema in the lower extremities. No wounds seen on the feet. Peripheral sensation intact.?? Neuro: ??No slurred speech. ??Patient seen moving their upper and lower extremities independently. Psych: Alert and oriented x3. Appropriate and pleasant. Lines: Peripheral IV in place.? _ Inpatient Medications Medications (18) Active SCHEDULED: (7) Amitriptyline 25 mg Tablet (amitriptyline 25 mg oral tablet) ??50 mg, By Mouth, Daily at bedtime Amlodipine 5 mg Tablet (amLODIPine 5 mg oral tablet) ??5 mg, By Mouth, Daily Ferrous Sulfate 325 mg EC Tablet (ferrous sulfate 325 mg oral enteric coated tablet) ??325 mg, By Mouth, Every other day Lisinopril 20 mg Tablet (lisinopril 20 mg oral tablet) ??40 mg, By Mouth, Daily NaCl 0.9% Flush 3ml (NaCL 0.9% Flush) ??3 mL, IV Push, Every 8 hours Pantoprazole 40 mg EC Tablet (pantoprazole 40 mg oral delayed release tablet) ??40 mg, By Mouth, Daily Sucralfate 1 Gm Tablet (sucralfate 1 gm oral tablet) ??1 Gm, By Mouth, 3 times a day with meals CONTINUOUS: (0) PRN: (11) Acetaminophen/Butalbital/Caffeine Tablet (Fioricet Tablet) ??2 tablet, By Mouth, Every 4 hours Clonazepam 1 mg Tablet (clonazePAM 1 mg oral tablet) ??1 mg, By Mouth, 3 times a day Dextromethorphan-Guaifenesin 20 mg-200 mg/10 mL Liqu UD (Robitussin DM Liquid) ??10 mL, By Mouth, Every 4 hours Docusate Sodium 100 mg Capsule (Docusate Sodium Capsule) ??100 mg 1 capsule, By Mouth, 2 times a day HYDROmorphone 1 mg/mL Inj Syringe (HYDROmorphone Inj) ??1 mg 1 mL, IV Push Slowly, Every 4 hours Melatonin 3 mg Tablet (Melatonin Tablet) ??3 mg, By Mouth, Daily at bedtime Metoclopramide 5 mg/mL Inj (2 mL) (Metoclopramide Inj) ??10 mg, IV Push Slowly, 3 times a day before meals and bedtime NaCl 0.9% Flush 3ml (NaCL 0.9% Flush) ??3 mL, IV Push, Every 8 hours Polyethylene Glycol 17 Gm Powder (MiraLax Powder) ??17 Gm 1 pack/packet, By Mouth, Daily Senna Tablet ??8.6 mg 1 tablet, By Mouth, 2 times a day Simethicone 80 mg Chewable Tablet (Simethicone Tablet) ??80 mg, Chew, 3 times a day ? Results K remains at 3.5 ?? Assessment/Plan Mario??Tony is a 32 yo woman w/ PMH of IIH s/p lumboperitoneal shunt (2016), GERD,??HTN,??pre-eclampsia, anxiety/depression, iron deficiency anemia, and frequent headaches requiring intermittent therapeutic??lumbar puncture??who presents after syncope and unwitnessed??fall.?Prior to arrival,the patient had a few day history of??significant migraine, as well as recent falls which have occurred??at the top of her stairs on 3 separate occasions. ??She has otherwise had no syncopal or presyncopal episodes outside of these.?? Following the fall,??from which she fell down her stairs hittingher head she has had??a much more severe headache??and occasional nausea.?? CT a without dissection? ?and??tid[place] CT without??fractures or damage to her??LP shunt.?? MRI??brain??performed due to??complaints of paresthesia and headache??without acute intracranial pathology??infarct or hydrocephalus.?? Per neurology, they suspect the patient's??headaches are a combination of migraines with post??concussion??headache.?? With regards to the patient's syncope,??suspect patient may have situational syncope versus??syncope secondary to migraines.?? Currently with normal EKG without events on cardiac telemetry??and given the??situational syncope less suspicious for cardiac events.?? Less suspicious forIIH headache given??her functioning LP shunt and??normal MRI without hydrocephalus.?? Currently being managed for??severe migraine requiring??IV pain medication, following improvement can be discharged home and follow-up with neurology Dr. Urban??for history IIH. ? Recurrent syncope (R55) Headache IIH (idiopathic intracranial hypertension) (G93.2):?? Hx of 3 syncopal events all of which occur at the top of her stairs at home. The past few days she endorses worsening headache, with the same sensation from her previous headaches in the past which have responded to LP. Since her fall, her headache is more severe, and we suspect she has a concosion on top of her current issue. Unclear the degree to which her headache is secondary to IIH, which she has not been on medication for. With regards to her syncopal episodes, they have all occured at the top of her stairs. Differentials migraine syncope, situational syncope, seizure??vs cardiac syncope??given she does have a family history. No fractures from fall. CTA for dissection given her paresthesia complaints which was negative EKG NSR. Confirmed w/ neurosurgery -??her AS400 ADMINISTRATOR shunt??does not need reprograming post-MRI. ? Plan: -LR IV fluid support for persistant migraine. -Neurology following - recommend holding of LP as they suspect IIH is not the sole etiology of her headache, so should monitor instead of jumping to an invasive procedure with risks in the setting ofan overlapping shunt running over the lumbar spine. -Titrating medication for acute headache -Continue cardiac monitoring in case of abnormality to suggest cardiac etiology, however so far w.traceeue -Q4 neuro checks -seizure precautions -Fioracept prn mild -IV dilaudid??1 mg q4 hr prn severe pain ? Hemiparesthesia (R20.2):?? Patient presenting with left sided paresthesia involving face, arm, and leg after a fall. Now??is only localized??per patient on my assessment ot her left leg.?? -suggests relating pathology to above syncope/migraine. Should localize in MRI however normal image. -Will d/c w/ permisive HTN as CVA??has been ruled out. ?? Hypertensive urgency (I16.0) (improved) Resume hold amlidipine 5 mg daily, lisinopril 40 mg daily ?? IIH (idiopathic intracranial hypertension) (G93.2):?? Headache (R51.9) Pt has history of frequent headaches??requiring intermittent therapeutic lumber punctures??despite the shunt. She??reports??that??her headaches feel similar to that of IIH which usually resolves withLP. Headache feels like tight??pressure around her head associated with pressure behind both eyes. Headache now seems to be improving. Confirmed w/ neurosurgery -??her AS400 ADMINISTRATOR shunt??does not need reprograming post-MRI. ? Fall (W19.XXXA):??Pt fell down the stairs after losing consciousness, unwitnessed. Pt endorses neck/lower spine/left hip pain,??worse with movement. Initial imaging including CT head/neck/spine/chest/abd??unremarkable.? Chronic medical conditions: GERD (K21.9) - Continue pantoprazole Anemia (D64.9) - Continue home ferrous sulfate qod ?? Quality Measures Code Status: Full Diet: Regular DVT prophylaxis: Compression boots Dispo: pending improvement in migraine, cardiac monitoring? Jorje Mar MD Internal Medicine PGY3; Pager: #[phone] ?? Precepted with attending physician,?Marcus ? * Marcus CALABRESE, Talisha Recinos: PERFORM Event Display: Progress Note Hospital Authored Date: Attending attestation:??I have evaluated and examined the patient??on the day of service. I have discussed the care and management,??and developed the plan with??the medical team. Agree with written findings, assessment and plan as outlined in Dr. Mar's note. Consult note * [place] ABDUL, Ras Patino: PERFORM Event Display: Consultation Note Authored Date: Patient: ??MARIO LEO ? Age:??32 Years?Sex:??Female?:??1990?? Chief Complaint/Reason for Consultation from home, had syncopal episode w/ fall down flight of staris, + HS, + LOC, - thinners. LP shunt, c/o bl hip pain, back pain, neck pain - c-collar in place History of Present Illness 32yo?? R handed F PMH IIH s/p lumboperitoneal shunt by Dr. Bell not on meds follows with Dr. Urban requiring intermittent therapeutic LPs despite shunt, anxiety, IBS, HTN, obesity, who had??episode where she felt her heart was racing last night??at 11:30 PM??and was going up the stairs and thenlost consciousness.?? This is the third time she has passed out on her stairs.?? She has not had prior workup for this.?? Next thing she knew she woke up at the bottom of the stairs??laying on her side??and??she was sore on her back??and head??and noticed she had some??numbness on her left??face arm and leg.?? She also noted some heaviness in her left leg.?? She came into the emergency room by EMS??and had??a CT of her??spine as well as??her head??which showed no acute process.?? She was admitted for??syncope workup??and we are consulted regarding??her left-sided??symptoms.?? She has a mild headache right now she has never had symptoms like this before.?? She denies recent illness.?? No prior history of stroke??or seizure.?? She denies chest pain or shortness of breath.?? No recent illness.?? No new change in??vision??or trouble naming.?? No facial droop or slurred speech. Review of Systems See above Objective Vital Signs?? Temperature: 98.1 DegF (09/18/23 15:11:00) Temperature Route: Oral (09/18/23 15:11:00) Pulse Rate:??118 bpm??High (09/18/23 15:11:00) Respiratory Rate: 18 br/min (09/18/23 15:36:00) Systolic Blood Pressure:??178 mm Hg??High (09/18/23 15:11:00) Diastolic Blood Pressure:??100 mm Hg??High (09/18/23 15:11:00) Blood pressure sites: Arm, left (09/18/23 15:11:00) Mean Arterial Pressure: 126 mm Hg (09/18/23 15:11:00) Pulse Pressure: 78 mm Hg (09/18/23 15:11:00) Oxygen Saturation: 98 % (09/18/23 15:11:00) Mode of Delivery (Oxygen): Room air (09/18/23 15:11:00) Early Warning Score: 2 (09/18/23 15:38:46) ? Intake/Output? 09/17 06:05 09/17 07:00 09/16 07:00 09/15 07:00 09/14 07:00 ?? 09/17 15:56 09/17 15:56 09/17 06:59 09/16 06:59 09/15 06:59 Intake ?362 ?360 ?2 ?0 ?0 Output ?0 ?0 ?0 ?0 ?0 Net Total ?362 ?360 ?2 ?0 ?0 ? Physical Exam Gen- NAD?? back tenderness of paraspinals mid to low back CV- RRR lungs- nl respirations extremities- no edema or eccymosis ?? neuro- mentation- alert and oriented x person, place, time, and disposition. ??able to name simple objectssuch as watch and eyeglasses. ??able to follow simple and complex commands. ??no aphasia. ??good fund of knowledge. ??ST and LT memory intact. ?? eyes- PERRLA, EOMI, no visual field deficits hearing- intact face- symmetric, sensation intact speech- clear, fluent shrug- symmetric tongue- midline ?? Motor- good muscle bulk and tone RUE- 5/5 ?? RLE- 5/5 LUE- 4/5 HF?LLE- 5/5 ?? sensation-??decresaed to LT left arm leg and face,??left abd.?? no change on her back ?? coordination- good fnf, heal to phan, HARSH ?? reflexes- symmetric 2+ biceps, patellar, ankle toes- mute ?? gait-??deferred ?? Assessment/Plan 32yo?? R handed F PMH IIH s/p lumboperitoneal shunt by Dr. Bell not on meds follows with Dr. Urban requiring intermittent therapeutic LPs despite shunt, anxiety, IBS, HTN, obesity, who had??episode where she felt her heart was racing last night??at 11:30 PM??and was going up the stairs and thenlost consciousness.?? This is the third time she has passed out on her stairs.?? She has not had prior workup for this.?? Next thing she knew she woke up at the bottom of the stairs??laying on her side??and??she was sore on her back??and head??and noticed she had some??numbness on her left??face arm and leg.?? She also noted some heaviness in her left leg.?nihss 1 for sensory change.?? not a candidate for TNK OOW. ?? r/o stroke vs contusion from fall, initial imaging negative.?? possible complicated migraine syncope- question cardiogenic as heart racing prior to spell, no ?? REC ??mri brain w/o blair CTA head and neck with contrast due to neurologic symptoms post fall r/o dissection neurologic check nursing swallow ?? we will follow with you d/w dr Braun??[facility] messaged team ? Histories Allergies Allergies ?(Active and Proposed Allergies Only) Singulair? (Severity: Unknown severity, Onset: Unknown) ketorolac? (Severity: Unknown severity, Onset: Unknown) ?Reactions: Severe anxiety (panic) ? Past Medical History/Problem List Active Problems(10) Anxiety GERD (gastroesophageal reflux disease) Headache HTN (hypertension) Hx of preeclampsia, prior , currently IBS (irritable bowel syndrome) Obese class I Pseudotumor cerebri Severe pre-eclampsia, with delivery AS400 ADMINISTRATOR (ventriculoperitoneal) shunt status ? Past Surgical History delivery only;: 03/04/18 Lumboperitoneal shunt: 2016 Polyp of cervix: 2014 Cholecystectomy: 2011 ? Social History Alcohol Details:??Use: Past. ??Frequency: 1-2 times per month. ??Type: Liquor. ??Alcohol use in household: No. Employment/School Details:??Status: Disabled. Exercise Details:??Self assessment: Poor condition. Home/Environment Details:??Living situation: Home with assistance. ??Lives with: Children, Father, Mother. ??DCF involvement: None. Nutrition/Health Details:??Diet: Regular. Sexual Details:??Sexually involved in last 6 months: Yes. ??Sexual orientation: Heterosexual. ??Gender identity: Female. ??Preferred pronoun: She/her. Substance Abuse Details:??Use: Never. ??Substance abuse in household: No. Tobacco Details:??Never smoker, Tobacco user in household: Yes. ??Other: father. ? Family History Mother: Asthma; Depression; Hyperlipidemia; Hypertension; Migraine; Thyroid disease Father: Alcoholism (Recovering); Congestive heart failure; Hyperlipidemia; Hypertension ? Medications Home Medications Acetaminophen/Butalbital/Caffeine (acetaminophen/butalbital/caffeine 325 mg-50 mg-40 mg oral tablet)?TAKE 1 TABLET BY MOUTH EVERY 6 HOURS NEEDED FOR 30 DAYS ORALLY 30 DAYS amiTRIPTYLINE (amitriptyline 25 mg oral tablet)?TAKE 2 TABLETS BY MOUTH EVERY DAY AT BEDTIME Amlodipine (amLODIPine 5 mg oral tablet)?TAKE 1 TABLET BY MOUTH EVERY DAY Cholecalciferol (cholecalciferol 2000 intl units oral tablet)?TAKE 1 TABLET BY MOUTH EVERY DAY Clonazepam (clonazePAM 1 mg oral tablet)?TAKE 1 TABLET BY MOUTH THREE TIMES A DAY NEEDED Escitalopram (escitalopram 10 mg oral tablet)?TAKE 1 TABLET BY MOUTH EVERY MORNING FOR ANXIETY AND DEPRESSION Ferrous Gluconate (ferrous gluconate 324 mg oral tablet)?TAKE 1 TABLET BY MOUTH EVERY DAY Folic Acid (folic acid 1 mg oral tablet)?TAKE 1 TABLET BY MOUTH EVERY DAY Ibuprofen (ibuprofen 600 mg oral tablet)?TAKE 1 TABLET BY MOUTH EVERY 8 HOURS NEEDED FOR PAIN Lisinopril (lisinopril 40 mg oral tablet)?TAKE 1 TABLET BY MOUTH DAILY NIFEdipine (NIFEdipine (Eqv-Adalat CC) 30 mg oral tablet, extended release)?TAKE 1 TABLET BY MOUTH EVERYDAY AT BEDTIME Omeprazole (omeprazole 40 mg oral enteric coated capsule)?TAKE 1 CAPSULE BY MOUTH EVERY DAY Sucralfate (sucralfate 1 gm oral tablet)?TAKE 1 TABLET BY MOUTH 3 TIMES DAILY WITH MEALS ? Inpatient Medications Medications (15) Active SCHEDULED: (5) Amitriptyline 25 mg Tablet (amitriptyline 25 mg oral tablet) ??50 mg, By Mouth, Daily at bedtime Ferrous Sulfate 325 mg EC Tablet (ferrous sulfate 325 mg oral enteric coated tablet) ??325 mg, By Mouth, Every other day NaCl 0.9% Flush 3ml (NaCL 0.9% Flush) ??3 mL, IV Push, Every 8 hours Pantoprazole 40 mg EC Tablet (pantoprazole 40 mg oral delayed release tablet) ??40 mg, By Mouth, Daily Sucralfate 1 Gm Tablet (sucralfate 1 gm oral tablet) ??1 Gm, By Mouth, 3 times a day with meals CONTINUOUS: (0) PRN: (10) Acetaminophen 325 mg Tablet (Acetaminophen Tablet) ??650 mg, By Mouth, Every 4 hours Clonazepam 1 mg Tablet (clonazePAM 1 mg oral tablet) ??1 mg, By Mouth, 3 times a day Dextromethorphan-Guaifenesin 20 mg-200 mg/10 mL Liqu UD (Robitussin DM Liquid) ??10 mL, By Mouth, Every 4 hours Docusate Sodium 100 mg Capsule (Docusate Sodium Capsule) ??100 mg 1 capsule, By Mouth, 2 times a day HYDROmorphone 0.5 mg/0.5 mL Inj Syringe (Dilaudid Inj) ??0.5 mg 0.5 mL, IV Push Slowly, Every 4 hours Melatonin 3 mg Tablet (Melatonin Tablet) ??3 mg, By Mouth, Daily at bedtime NaCl 0.9% Flush 3ml (NaCL 0.9% Flush) ??3 mL, IV Push, Every 8 hours Polyethylene Glycol 17 Gm Powder (MiraLax Powder) ??17 Gm 1 pack/packet, By Mouth, Daily Senna Tablet ??8.6 mg 1 tablet, By Mouth, 2 times a day Simethicone 80 mg Chewable Tablet (Simethicone Tablet) ??80 mg, Chew, 3 times a day ? Results Recent Labs BLOOD COUNT & DIFF WBC 7.8 k/mm3 ()?? 09/18/2023 02:28 RBC 4.02 m/mm3 (Low)?? 09/18/2023 02:28 Hgb 9.9 Gm/dL (Low)?? 09/18/2023 02:28 Hct 32.4 % (Low)?? 09/18/2023 02:28 MCV 80.6 femtoliters ()?? 09/18/2023 02:28 MCH 24.6 pg (Low)?? 09/18/2023 02:28 MCHC 30.6 g/dL (Low)?? 09/18/2023 02:28 Platelet Count 360 k/mm3 ()?? 09/18/2023 02:28 RDW-SD 52.1 femtoliters (High)?? 09/18/2023 02:28 MPV 9.3 femtoliters (Low)?? 09/18/2023 02:28 Nucleated RBC (Automated) 0.0 #/100 WBC'S ()?? 09/18/2023 02:28 Abs. NRBC 0.0 k/mm3 ()?? 09/18/2023 02:28 Abs. Neut 4.4 k/mm3 ()?? 09/18/2023 02:28 Abs. Lymph 2.9 k/mm3 ()?? 09/18/2023 02:28 Abs. [place] 0.4 k/mm3 ()?? 09/18/2023 02:28 Abs. Eo 0.1 k/mm3 ()?? 09/18/2023 02:28 Abs. Baso 0.0 k/mm3 ()?? 09/18/2023 02:28 Neut % 55.9 % ()?? 09/18/2023 02:28 Lymph % 36.9 % ()?? 09/18/2023 02:28 [place] % 5.2 % ()?? 09/18/2023 02:28 Eos % 1.3 % ()?? 09/18/2023 02:28 Baso % 0.4 % ()?? 09/18/2023 02:28 Imm Gran 0.3 % ()?? 09/18/2023 02:28 Abs. Imm Gran 0.0 k/mm3 ()?? 09/18/2023 02:28 ?? CHEM GENERAL Sodium 143 mmol/L ()?? 09/18/2023 02:28 Potassium 3.7 mmol/L ()?? 09/18/2023 02:28 Chloride 106 mmol/L ()?? 09/18/2023 02:28 Bicarbonate Level 25 mmol/L ()?? 09/18/2023 02:28 Anion Gap 12 ()?? 09/18/2023 02:28 Glucose Level 114 mg/dL (High)?? 09/18/2023 02:28 BUN 9 mg/dL ()?? 09/18/2023 02:28 Creatinine-Blood 0.78 mg/dL ()?? 09/18/2023 02:28 Estimated GFR Creatinine 104 ML/MIN/1.73 M2 ()?? 09/18/2023 02:28 Calcium 9.2 mg/dL ()?? 09/18/2023 02:28 Protein, Total 6.8 Gm/dL ()?? 09/18/2023 02:28 Albumin 4.2 Gm/dL ()?? 09/18/2023 02:28 AG Ratio 1.6 ()?? 09/18/2023 02:28 Alkaline Phosphatase 95 units/L ()?? 09/18/2023 02:28 Lipase 34 units/L ()?? 09/18/2023 02:28 AST (SGOT) 21 units/L ()?? 09/18/2023 02:28 ALT (SGPT) 8 units/L ()?? 09/18/2023 02:28 Bilirubin, Total <0.2 mg/dL ()?? 09/18/2023 02:28 ?? ENDOCRINE/TUMOR MARKER Blood <1 mIU/mL ()?? 09/18/2023 02:28 ?? UA/URINALYSIS Appear/Color, Urine COLORLESS ()?? 09/18/2023 06:36 Specific [employer], Urine 1.034 (High)?? 09/18/2023 06:36 pH, Urine 7.5 ()?? 09/18/2023 06:36 Albumin, Urine NEGATIVE ()?? 09/18/2023 06:36 Glucose, Urine NEGATIVE ()?? 09/18/2023 06:36 Ketones, Urine NEGATIVE ()?? 09/18/2023 06:36 Bilirubin, Urine NEGATIVE ()?? 09/18/2023 06:36 Hemoglobin, Urine NEGATIVE ()?? 09/18/2023 06:36 Nitrite, Urine NEGATIVE ()?? 09/18/2023 06:36 Leukocyte, Urine NEGATIVE ()?? 09/18/2023 06:36 Urobilinogen NORMAL mg/dL ()?? 09/18/2023 06:36 WBC's, Urine 2 /HPF ()?? 09/18/2023 06:36 RBC's, Urine 1 /HPF ()?? 09/18/2023 06:36 Squamous Epith 2 /HPF ()?? 09/18/2023 06:36 ? Abnormal Labs ?? BLOOD COUNT & DIFF Abs. Imm Gran?0.0 k/mm3 ()?09/18/2023 02:28 Abs. NRBC?0.0 k/mm3 ()?09/18/2023 02:28 Hct?32.4 % (Low)?09/18/2023 02:28 Hgb?9.9 Gm/dL (Low)?09/18/2023 02:28 Imm Gran?0.3 % ()?09/18/2023 02:28 MCH?24.6 pg (Low)?09/18/2023 02:28 MCHC?30.6 g/dL (Low)?09/18/2023 02:28 MPV?9.3 femtoliters (Low)?09/18/2023 02:28 Nucleated RBC (Automated)?0.0 #/100 WBC'S ()?09/18/2023 02:28 RBC?4.02 m/mm3 (Low)?09/18/2023 02:28 RDW-SD?52.1 femtoliters (High)?09/18/2023 02:28 ?? CHEM GENERAL AG Ratio?1.6 ()?09/18/2023 02:28 Estimated GFR Creatinine?104 ML/MIN/1.73 M2 ()?09/18/2023 02:28 Glucose Level?114 mg/dL (High)?09/18/2023 02:28 ?? ENDOCRINE/TUMOR MARKER Blood ?<1 mIU/mL ()?09/18/2023 02:28 ?? UA/URINALYSIS Albumin, Urine?NEGATIVE ()?09/18/2023 06:36 Appear/Color, Urine?COLORLESS ()?09/18/2023 06:36 Bilirubin, Urine?NEGATIVE ()?09/18/2023:36 Glucose, Urine?NEGATIVE ()?09/18/2023:36 Hemoglobin, Urine?NEGATIVE ()?09/18/2023:36 Hold Urine Culture?Testing available 48 hours from time of collection. () ?09/18/2023:36 Ketones, Urine?NEGATIVE ()?09/18/2023:36 Leukocyte, Urine?NEGATIVE ()?09/18/2023 06:36 Nitrite, Urine?NEGATIVE ()?09/18/2023 06:[address] [place], Urine?1.034 (High)?09/18/2023 06:36 Urobilinogen?NORMAL mg/dL ()?09/18/2023 06:36 ?? Note: Critical results are displayed in red. ? * Shamika Brown MD: PERFORM Event Display: Consultation Note Authored Date: Attending Attestation:??I have discussed the case and its management with the advanced practitionerand agree with the findings and plan as documented in the advanced practitioner???s note. ?? Shamika Aguilar M.D Attending-Vascular Neurology Department of Neurosciences Note * Marti Atkins RN: PERFORM Event Display: Discharge/Transfer Note Hospital Authored Date: Nursing Discharge Note Entered On: 09/22/2023 15:20 EDT Performed On: 09/22/2023 15:19 EDT by Marti Atkins RN Nursing Discharge Note 2 Discharge Time : 09/22/2023 15:20 EDT Discharge Level of Care at Discharge : Home/Longterm/Foster Care Patient Left Unit Via : Wheelchair Patient Accompanied Off Unit with : Significant other DC Instructions Provided & Signed by Pt : Yes Patient Understands D/C Instructions : Yes Patient Instructions Discharge Signed : Yes Did Pt have Specialty Bed or Wound Vac : No Marti Atkins RN - 09/22/2023 15:19 EDT * Lenny CALABRESE, Nathan : PERFORM, MODIFY, MODIFY Event Display: Discharge/Transfer Note Hospital Authored Date: [id number] Patient: ??MARIO LEO ? Age:??32 Years?Sex:??Female?:??1990?? Patient Information Discharge Location: [facility] Primary Care Physician: Miya Lara DO Admit Date/Time: 09/18/23 06:05 Discharge Disposition Discharge Disposition: Home: No Services Discharge Diagnosis Recurrent syncope (R55) HTN (hypertension) (I10) IIH (idiopathic intracranial hypertension) (G93.2) Fall (W19.XXXA) Headache (R51.9) Hypertensive urgency (I16.0) Hemiparesthesia (R20.2) GERD (gastroesophageal reflux disease) (K21.9) Fall (W19.XXXA) Recurrent syncope (R55) IIH (idiopathic intracranial hypertension) (G93.2) _ Discharge Medications Acetaminophen/Butalbital/Caffeine (acetaminophen/butalbital/caffeine 325 mg-50 mg-40 mg oral tablet)?1?tab(s)?By Mouth?Every 4 hours?as needed?Pain , Moderate?for 7?Days?TAKE 1 TABLET BY MOUTH EVERY 6 HOURS NEEDED FOR 30 DAYS ORALLY 30 DAYS amiTRIPTYLINE (amitriptyline 25 mg oral tablet)?TAKE 2 TABLETS BY MOUTH EVERY DAY AT BEDTIME Amlodipine (amLODIPine 5 mg oral tablet)?TAKE 1 TABLET BY MOUTH EVERY DAY Cholecalciferol (cholecalciferol 2000 intl units oral tablet)?TAKE 1 TABLET BY MOUTH EVERY DAY Clonazepam (clonazePAM 1 mg oral tablet)?TAKE 1 TABLET BY MOUTH THREE TIMES A DAY NEEDED Escitalopram (escitalopram 10 mg oral tablet)?TAKE 1 TABLET BY MOUTH EVERY MORNING FOR ANXIETY AND DEPRESSION Ferrous Gluconate (ferrous gluconate 324 mg oral tablet)?TAKE 1 TABLET BY MOUTH EVERY DAY Folic Acid (folic acid 1 mg oral tablet)?TAKE 1 TABLET BY MOUTH EVERY DAY Hydromorphone (Dilaudid 2 mg oral tablet)?1?tab(s)?2?Milligram?By Mouth?4 times aday?as needed?as needed for pain?for 3?Days Ibuprofen (ibuprofen 600 mg oral tablet)?TAKE 1 TABLET BY MOUTH EVERY 8 HOURS NEEDED FOR PAIN Lisinopril (lisinopril 40 mg oral tablet)?TAKE 1 TABLET BY MOUTH DAILY Omeprazole (omeprazole 40 mg oral enteric coated capsule)?TAKE 1 CAPSULE BY MOUTH EVERY DAY Sucralfate (sucralfate 1 gm oral tablet)?TAKE 1 TABLET BY MOUTH 3 TIMES DAILY WITH MEALS Medications Started Hydromorphone (Dilaudid 2 mg oral tablet)?1?tab(s)?2?Milligram?By Mouth?4 times aday?as needed?as needed for pain?for 3?Days Allergies Allergies ?(Active and Proposed Allergies Only) Singulair? (Severity: Unknown severity, Onset: Unknown) ketorolac? (Severity: Unknown severity, Onset: Unknown) ?Reactions: Severe anxiety (panic) ? PCP Follow-Up/Heads-Up - Please ensure neurology follow up - Please ensure appropriate pain regimen control Hospital Course This is a 32-year-old lady with past medical history pertinent for idiopathic intracranial hypertension status post LP shunt 2015 but persistently requiring LPs, GERD, HTN, pre-eclampsia, anxiety/depression, iron deficiency anemia who initially presented on 09/17 with syncope and a fall.??CT head and neck was nonrevealing and MRI brain was negative for any lesions. Her??hospital course was pertinent for persistent headaches??that were evaluated by neurology and thought to be??due to migraines??versus??postconcussion headaches.?Etiology of her recurrent syncope is still unclear,??cardiac etiologies and pulmonary hypertension??are considered,??hypoglycemic??episodes not noted??while hospital ized, seizures, tunnel dysfunction,??and vasovagal syncope cannot be ruled out. Per neurology, theysuspect the patient's headaches are a combination of migraines with post concussion headache. Less suspicious for IIH headache given her functioning LP shunt and normal MRI without hydrocephalus. Shewas managed for severe migraine requiring IV pain medication, can be discharged home and follow-up with neurology Dr. Urban for history IIH. ?? Recurrent syncope (R55) IIH (idiopathic intracranial hypertension) (G93.2):?? Migraine Headache (R51.9) Hx of 3 syncopal events all of which occur at the top of her stairs at home. The past few days she endorses worsening headache, with the same sensation from her previous headaches in the past which have responded to LP. Since her fall, her headache is more severe, and we suspect she has a concussion on top of her current issue. Unclear the degree to which her headache is secondary to IIH, which she has not been on medication for. with regards to her syncopal episodes, they have all occured at the top of her stairs. Differentials migraine syncope, situational syncope, seizure??vs cardiac syncope??given she does have a family history. No fractures from fall. CTA for dissection given her paresthesia complaints which was negative EKG NSR. Confirmed w/ neurosurgery -??her AS400 ADMINISTRATOR shunt??does not need reprograming post-MRI. Neurology?? recommend holding of LP as they suspect IIH is not the sole etiology of her headache, so should monitor instead of jumping to an invasive procedure with risks in the setting of an overlapping shunt running over the lumbar spine. ?? Plan: -Scheduled tylenol -Fioracept prn mild ??-PO dilaudid prn headache for 3 days -Echo ordered to r/u anatomic defects vs PH ?? Hemiparesthesia (R20.2):?? Patient presenting with left sided paresthesia involving face, arm, and leg after a fall. Now??is only localized??per patient on my assessment ot her left leg.? -suggests relating pathology to above syncope/migraine.??MRI unrevealing.? Hypertensive urgency (I16.0) (improved) ??Resume hold amlidipine 5 mg daily, lisinopril 40 mg daily Outpatient FU for titration ? Fall (W19.XXXA):??Pt fell down the stairs after losing consciousness, unwitnessed. Pt endorses neck/lower spine/left hip pain,??worse with movement. Initial imaging including CT head/neck/spine/chest/abd??unremarkable.? Chronic medical conditions: ?? GERD (K21.9) - Continue pantoprazole ?? Anemia (D64.9) - Continue home ferrous sulfate qod ?? Objective Vital Signs?? Temperature: 97.2 DegF (09/22/23 08:00:00) Temperature Route: Temporal (09/22/23 08:00:00) Pulse Rate: 78 bpm (09/22/23 08:00:00) Respiratory Rate: 20 br/min (09/22/23 08:43:00) Systolic Blood Pressure:??144 mm Hg??High (09/22/23 08:43:00) Systolic Blood Pressure:??14 mm Hg??Low (09/22/23 08:43:00) Diastolic Blood Pressure:??106 mm Hg??High (09/22/23 08:43:00) Diastolic Blood Pressure:??106 mm Hg??High (09/22/23 08:43:00) Blood pressure sites: Arm, left (09/22/23 08:00:00) Pulse Pressure: 38 mm Hg (09/22/23 08:00:00) Oxygen Saturation: 100 % (09/22/23 08:00:00) Mode of Delivery (Oxygen): Room air (09/22/23 08:00:00) Early Warning Score: 5 (09/22/23 08:44:37) ? Intake/Output? 09/17 06:05 09/21 07:00 09/20 07:00 09/19 07:00 09/18 07:00 ?? 09/21 09:44 09/21 09:44 09/21 06:59 09/20 06:59 09/19 06:59 Intake ? 3242 ?240 ? 1080 ?840 ?720 Output ?0 ?0 ?0 ?0 ?0 Net Total ? 3242 ?240 ? 1080 ?840 ?720 ? Urine Count ? 10 ?0 ?2 ?5 ?3 ? Precautions Seizure Precautions ?? . Physical Exam General Appearance: The patient appears uncomfortable Cardiovascular: S1 and S2 heard with no M/R/G. No JVD. Respiratory: ??Breath sounds clear to auscultation bilaterally. No added sounds, equal air entry GI: Soft. Nontender and nondistended. Normal bowel sounds present throughout abdomen.?? MS: ??No edema or erythema in the lower extremities. No wounds seen on the feet. Peripheral sensation intact.?? Neuro: ??No slurred speech. ??Patient seen moving their upper and lower extremities independently. Psych: Alert and oriented x3. Appropriate and pleasant. Pending Results No Pending Results Patient Education Titles [employer] Patient Education - Vital Signs: Know Your Numbers?? [employer] Patient Education - Eating Well with High Blood Pressure?? [employer] Patient Education - Idiopathic Intracranial Hypertension?? Follow-Up Appointments Added Follow Up ?Time Frame ?Comments Jeffrey Chun DO, Miya?3-5 day: call to discuss follow up visit Patient Instructions Work up for the??headaches was unremarkable and it seems that the headache is due to a combination of migraines and the concussion. MRI was non??revealing.??Please FU with your PCP.?? Please FU with your neurologist regarding your pseudotumor cerebri.?? Post Discharge Care Diet: ??Regular Diet ?? Activity: ??As tolerated ?? Code Status: ??Full Resuscitation ?? Home Health Face to Face going home Results Discharge Labs BLOOD COUNT & DIFF WBC 7.5 k/mm3 ()?? 09/19/2023 02:09 RBC 4.12 m/mm3 (Low)?? 09/19/2023 02:09 Hgb 10.2 Gm/dL (Low)?? 09/19/2023 02:09 Hct 33.4 % (Low)?? 09/19/2023 02:09 MCV 81.1 femtoliters ()?? 09/19/2023 02:09 MCH 24.8 pg (Low)?? 09/19/2023 02:09 MCHC 30.5 g/dL (Low)?? 09/19/2023 02:09 Platelet Count 335 k/mm3 ()?? 09/19/2023 02:09 RDW-SD 52.0 femtoliters (High)?? 09/19/2023 02:09 MPV 9.1 femtoliters (Low)?? 09/19/2023 02:09 Nucleated RBC (Automated) 0.0 #/100 WBC'S ()?? 09/19/2023 02:09 Abs. NRBC 0.0 k/mm3 ()?? 09/19/2023 02:09 Abs. Neut 4.4 k/mm3 ()?? 09/18/2023 02:28 Abs. Lymph 2.9 k/mm3 ()?? 09/18/2023 02:28 Abs. [place] 0.4 k/mm3 ()?? 09/18/2023 02:28 Abs. Eo 0.1 k/mm3 ()?? 09/18/2023 02:28 Abs. Baso 0.0 k/mm3 ()?? 09/18/2023 02:28 Neut % 55.9 % ()?? 09/18/2023 02:28 Lymph % 36.9 % ()?? 09/18/2023 02:28 [place] % 5.2 % ()?? 09/18/2023 02:28 Eos % 1.3 % ()?? 09/18/2023 02:28 Baso % 0.4 % ()?? 09/18/2023 02:28 Imm Gran 0.3 % ()?? 09/18/2023 02:28 Abs. Imm Gran 0.0 k/mm3 ()?? 09/18/2023 02:28 ?? CHEM GENERAL Sodium 138 mmol/L ()?? 09/22/2023 04:01 Potassium 4.7 mmol/L ()?? 09/22/2023 04:01 Chloride 103 mmol/L ()?? 09/22/2023 04:01 Bicarbonate Level 26 mmol/L ()?? 09/22/2023 04:01 Anion Gap 9 ()?? 09/22/2023 04:01 Glucose Level 81 mg/dL ()?? 09/22/2023 04:01 BUN 13 mg/dL ()?? 09/22/2023 04:01 Creatinine-Blood 0.92 mg/dL ()?? 09/22/2023 04:01 Estimated GFR Creatinine 85 ML/MIN/1.73 M2 ()?? 09/22/2023 04:01 Calcium 9.3 mg/dL ()?? 09/22/2023 04:01 Phosphorus 3.2 mg/dL ()?? 09/19/2023 02:09 Magnesium 1.8 mg/dL ()?? 09/22/2023 04:01 Protein, Total 6.6 Gm/dL ()?? 09/19/2023 02:09 Albumin 4.1 Gm/dL ()?? 09/19/2023 02:09 AG Ratio 1.6 ()?? 09/19/2023 02:09 Alkaline Phosphatase 89 units/L ()?? 09/19/2023 02:09 Lipase 34 units/L ()?? 09/18/2023 02:28 AST (SGOT) 16 units/L ()?? 09/19/2023 02:09 ALT (SGPT) 10 units/L ()?? 09/19/2023 02:09 Bilirubin, Total 0.3 mg/dL ()?? 09/19/2023 02:09 ?? ENDOCRINE/TUMOR MARKER TSH 5.98 uIU/mL (High)?? 09/18/2023 16:10 Free T4 1.25 ng/dL ()?? 09/18/2023 16:10 Blood <1 mIU/mL ()?? 09/18/2023 02:28 ? HEME OTHER Hold Lavender Top SPECIMEN DISCARDED AFTER 24 HOURS. ()?? 09/22/2023 04:01 ? UA/URINALYSIS Appear/Color, Urine COLORLESS ()?? 09/18/2023 06:[address] [place], Urine 1.034 (High)?? 09/18/2023 06:36 pH, Urine 7.5 ()?? 09/18/2023 06:36 Albumin, Urine NEGATIVE ()?? 09/18/2023 06:36 Glucose, Urine NEGATIVE ()?? 09/18/2023 06:36 Ketones, Urine NEGATIVE ()?? 09/18/2023 06:36 Bilirubin, Urine NEGATIVE ()?? 09/18/2023 06:36 Hemoglobin, Urine NEGATIVE ()?? 09/18/2023 06:36 Nitrite, Urine NEGATIVE ()?? 09/18/2023 06:36 Leukocyte, Urine NEGATIVE ()?? 09/18/2023 06:36 Urobilinogen NORMAL mg/dL ()?? 09/18/2023 06:36 WBC's, Urine 2 /HPF ()?? 09/18/2023 06:36 RBC's, Urine 1 /HPF ()?? 09/18/2023 06:36 Squamous Epith 2 /HPF ()?? 09/18/2023 06:36 Hold Urine Culture Testing available 48 hours from time of collection. ()?? 09/18/2023 06:36 ? Blood Glucose Trend Glucose Level: 81 mg/dL (09/22/23 04:01:00) ? Patient's case and plan discussed with attending physician ??Taryn Galvez MD Internal Medicine PGY-3 ?? 30 minutes spent on discharge * Taryn CALABRESE, Miquel: PERFORM Event Display: Discharge/Transfer Note Hospital Authored Date: [id number] 32-year-old woman with idiopathic intracranial hypertension status post LP shunt (2015) who presented after??syncope and unwitnessed fall. ?? Idiopathic intracranial hypertension Status post AS400 ADMINISTRATOR shunt Class I obesity due to excess calories in adult???BMI 31 Generalized anxiety disorder ?? Vitals reviewed and significant for Hypertension and otherwise??unremarkable. Labwork reviewed and significant for Normocytic anemia with CBC and BMP otherwise unremarkable. ?? Assessment: Pain still present but somewhat responsive to IV dilaudid ?? Recommendations: ??- PO dilaudid 2mg Q4H ??- OP Pain management ??- OP LP per neurology ?? Quality Measures: CODE STATUS: FULL CODE DVT Prophylaxis: PCBs (Low Alayna score) Disposition: Home ?? I evaluated the patient on date of service 09/22/2023. I saw and evaluated this patient with Dr. Galvez and??agree with the resident???s findings and plan of care as documented by the resident or edited by me. I spent 36 minutes on the following: preparing to see the patient (eg, review of tests), obtaining and/or reviewing separately obtained history, performing a medically appropriate examination and/or evaluation and counseling and educating the patient/family/caregiver * Marti Atkins RN: PERFORM Event Display: Patient Education/Instruction Authored Date: [id number] Inpatient Adult Discharge Instructions. [place] [id number] Name: MARIO LEO : 1990?? Visit: 09/18/2023 06:05?? Current Date: 09/22/2023 14:39 ?? Account: [id number]?? Inpatient Adult Discharge Instructions We would like [...] and their families. Surveys are administered by [employer] ?? If further treatment with your primary care physician or another doctor is recommended, it is important for you to keep the appointment. Call your primary care physician or return to the Emergency Department immediately if your condition worsens, fails to improve, or new symptoms develop. If you need to find a doctor, you can call [facility] for a referral at [phone] or toll free at [phone]) or log in to [email or web address].. ?? [facility], in keeping with [facility] guidance, no longer requires face masks for staff, patientsor visitors in most situations. Similiar to time spent indoors at other locations, there is the chance that you were exposed to repiratory viruses during your time with us (such as flu or COVID-19). If you develop symptoms concerning for a viral respiratory infection, please seek testing (and treatment if indicated) from your medical provider or home test kit. ?? You can view and manage your care through the patient portal or by using a health care gabo of your choosing. [employer] is a website that allows you to securely view your medical information including your hospital discharge summary, office visit summaries, medications and follow-up visits. You can also request appointments, renew medications, and request access to your medical information using a health care gabo of your choosing, or just ask a question. You can enroll at [email or web address] or register during your next office visit. You have been discharged from [facility], Patient Care Unit: D5A??. If you have any questions regarding these instructions, including results of studies pending, afteryou leave, please call us and we will be happy to assist you 16/09. [facility] Your Care Team Attending Physician Taryn CALABRESE, Miquel?? Consulting Providers Miquel Centeno MD?? Discharging Providers Lenny CALABRESE, Nathan Gordon Reason for Your Visit from home, had syncopal episode w/ fall down flight of staris, + HS, + LOC, - thinners. LP shunt, c/o bl hip pain, back pain, neck pain - c-collar in place?? Your Diagnosis HTN (hypertension) Headache GERD (gastroesophageal reflux disease) Hemiparesthesia Hypertensive urgency Syncope/Near syncope Tests Performed Below is a partial list of the tests performed during your hospitalization. You may have had other tests and procedures not included in this list. Please discuss all test results with your provider. Basic Metabolic Panel CBC CBC w/ Differential Comprehensive Metabolic Panel FREE T4 HOLD LAVENDER TUBE Lipase Lytes Magnesium Level Mg Level Phosphorus Level Serum Quantitative TSH with T4 Reflex (Adults Only) Urinalysis w/hold for Urine Culture Brain MRI W/O Contrast CT Abd/Pelvis W/ IV Contrast Only CT Angio Head CT Angio Neck CT Cervical Spine W/O Contrast CT Chest W/ IV Contrast CT Head/Brain W/O Contrast CT Lumbar Spine W/ Contrast CT Thoracic Spine W/ Contrast Basic Metabolic Panel?? Beta HCG Serum (Females Only) ( Serum Quantitative)?? CBC?? CBC w/ Differential?? CT Abd/Pelvis W/ IV Contrast Only?? CT Angio Head?? CT Angio Neck?? CT Cervical Spine W/O Contrast?? CT Chest W/ Contrast (CT Chest W/ IV Contrast)?? CT Head/Brain W/O Contrast?? CT Lumbar Spine W/ Contrast?? CT Thoracic Spine W/ Contrast?? Comprehensive Metabolic Panel?? Electrolytes (Lytes)?? Free T4?? Hold Lavender Top Tube (HOLD LAVENDER TUBE)?? Lipase?? MRI Brain W/O Contrast (Brain MRI W/O Contrast)?? Magnesium Level (Mg Level)?? Phosphorus Level?? TSH with T4 Reflex (Adults Only)?? Urinalysis w/hold for Urine Culture?? Primary Care Provider Miya Lara DO? Advance Directive Health Care Proxy on File Yes - Health Care Proxy Discharge Vitals Temperature: 97.6 DegF Height: 157.48 cm Pulse Rate: 86 bpm Weight: 78.6 kg Respiratory Rate: 18 br/min Body Mass Index:??31.69 kg/m2??Critical Systolic Blood Pressure: 134 mm Hg Body surface area: 1.85 Diastolic Blood Pressure: 79 mm Hg ?? Oxygen Saturation: 99 % ?? Studies Pending All studies ordered during this hospital stay have been completed unless listed below. Please discuss all pending results with your provider listed above in these instructions. ?? No incomplete studies found?? What to do next Instructions From Your Doctor Work up for the??headaches was unremarkable and it seems that the headache is due to a combination of migraines and the concussion. MRI was non??revealing.??Please FU with your PCP.?? Please FU with your neurologist regarding your pseudotumor cerebri.? Orders??:Regular Diet :As tolerated Status: ??Full Resuscitation? 09/22/23 14:24:00 EDT?? You Need to Schedule the Following Appointments Follow Up with??Miya Lara DO When:??Within 3-5 day: call to discuss follow up visit Where: ?? Discharge Medications MARIO LEO :1990 Visit Date:09/18/2023 Medications: Please continue your medications until treatment is completed or stopped by your provider. Medications not listed below should be discontinued. Discuss any questions related to medications with your provider. What How Much When Instructions Next Dose New Hydromorphone (Dilaudid 2 mg oral tablet) 1 tab(s) Oral 4 times a day as needed for as needed for pain Duration: 3 Days Pickup at [facility] 3 as needed Changed Acetaminophen/ Butalbital/ Caffeine (acetaminophen/ butalbital/ caffeine 325 mg-50 mg-40 mgoral tablet) 1 tab(s) Oral Every 4 hours as needed for Pain , Moderate Duration: 7 Days TAKE 1 TABLET BY MOUTH EVERY 6 HOURS NEEDED FOR 30 DAYS ORALLY 30 DAYS ?? Pickup at [facility] 3 as needed Unchanged amiTRIPTYLINE (amitriptyline 25 mg oral tablet) TAKE 2 TABLETS BY MOUTH EVERY DAY AT BEDTIME ?? 09/22/23 Unchanged Amlodipine (amLODIPine 5 mg oral tablet) TAKE 1 TABLET BY MOUTH EVERY DAY ?? 09/23/23 Unchanged Cholecalciferol (cholecalciferol 2000 intl units oral tablet) TAKE 1 TABLET BY MOUTH EVERY DAY ?? 09/23/23 Unchanged Clonazepam (clonazePAM 1 mg oral tablet) TAKE 1 TABLET BY MOUTH THREE TIMES A DAY NEEDED ?? as needed Unchanged Escitalopram (escitalopram 10 mg oral tablet) TAKE 1 TABLET BY MOUTH EVERY MORNING FOR ANXIETY AND DEPRESSION ?? 09/23/23 Unchanged Ferrous Gluconate (ferrous gluconate 324 mg oral tablet) TAKE 1 TABLET BY MOUTH EVERY DAY ?? 09/23/23 Unchanged Folic Acid (folic acid 1 mg oral tablet) TAKE 1 TABLET BY MOUTH EVERY DAY ?? 09/23/23 Unchanged Ibuprofen (ibuprofen 600 mg oral tablet) TAKE 1 TABLET BY MOUTH EVERY 8 HOURS NEEDED FOR PAIN ?? as needed Unchanged Lisinopril (lisinopril 40 mg oral tablet) TAKE 1 TABLET BY MOUTH DAILY ?? 09/23/23 Unchanged Omeprazole (omeprazole 40 mg oral enteric coated capsule) TAKE 1 CAPSULE BY MOUTH EVERY DAY ?? 09/23/23 Unchanged Sucralfate (sucralfate 1 gm oral tablet) TAKE 1 TABLET BY MOUTH 3 TIMES DAILY WITH MEALS ?? 09/22/23 Pharmacy Information [facility]: [address], [place] [id number] [phone] ?? What How Much When Comments Stop Taking Acetaminophen (acetaminophen 325 mg oral tablet) 650 Milligram Oral 3 times a day Temperature Greater than 100.5 ?? Stop Taking NIFEdipine (NIFEdipine (Eqv-Adalat CC) 30 mg oral tablet, extended release) TAKE 1 TABLET BY MOUTH EVERYDAY AT BEDTIME ?? Stop Taking Topiramate (topiramate 100 mg oral tablet) 1 tab(s) Oral Twice a day Duration: 30 Days Prescription Given During Visit Acetaminophen/Butalbital/Caffeine (acetaminophen/butalbital/caffeine 325 mg-50 mg-40 mg oral tablet) - 1 tablet, By Mouth, Every 4 hours, # 28 tablet, 0 Refills, TAKE 1 TABLET BY MOUTH EVERY 6 HOURS NEEDED FOR 30 DAYS ORALLY 30 DAYS, [facility], [address] [place] [address] [phone]?? Hydromorphone (Dilaudid 2 mg oral tablet) - 1 tablet = 2 mg, By Mouth, 4 times a day, # 12 tablet, 0 Refills, [facility], [address] [place] [address] [phone]?? Laboratory Results Below is a partial list of the most recent Laboratory test results done prior to this discharge. You may have had other tests and procedures not included in this list. Please discuss all test resultswith your provider. Basic Metabolic Panel (09/22/2023) ???Sodium - 138 mmol/L???Potassium - 4.7 mmol/L???Chloride - 103 mmol/L???Bicarbonate Level - 26 mmol/L???Anion Gap - 9???Glucose Level - 81 mg/dL???BUN - 13 mg/dL???Creatinine-Blood - 0.92 mg/dL???Estimated GFR Creatinine - 85 ML/MIN/1.73 M2???Calcium - 9.3 mg/dL CBC (09/19/2023) ???WBC - 7.5 k/mm3???RBC - 4.12 m/mm3???Hgb - 10.2 Gm/dL???Hct - 33.4 %???MCV - 81.1 femtoliters???MCH - 24.8 pg???MCHC - 30.5 g/dL???Platelet Count - 335 k/mm3???RDW-SD - 52.0 femtoliters???MPV - 9.1 femtoliters???Nucleated RBC (Automated) - 0.0 #/100 WBC'S???Abs. NRBC - 0.0 k/mm3 CBC w/ Differential (09/18/2023) ???WBC - 7.8 k/mm3???RBC - 4.02 m/mm3???Hgb - 9.9 Gm/dL???Hct - 32.4 %???MCV - 80.6 femtoliters???MCH - 24.6 pg???MCHC - 30.6 g/dL???Platelet Count - 360 k/mm3???RDW-SD - 52.1 femtoliters???MPV - 9.3femtoliters???Nucleated RBC (Automated) - 0.0 #/100 WBC'S???Abs. NRBC - 0.0 k/mm3???Abs. Neut - 4.4 k/mm3???Abs. Lymph - 2.9 k/mm3???Abs. [place] - 0.4 k/mm3???Abs. Eo - 0.1 k/mm3???Abs. Baso - 0.0 k/mm3???Neut % - 55.9 %???Lymph % - 36.9 %???[place] % - 5.2 %???Eos % - 1.3 %???Baso % - 0.4 %???Imm Gran - 0.3 %???Abs. Imm Gran - 0.0 k/mm3 Comprehensive Metabolic Panel (09/19/2023) ???Sodium - 136 mmol/L???Potassium - 3.5 mmol/L???Chloride - 100 mmol/L???Bicarbonate Level - 24 mmol/L???Anion Gap - 12???Glucose Level - 87 mg/dL???BUN - 6 mg/dL???Creatinine-Blood - 0.68 mg/dL???Estimated GFR Creatinine - 119 ML/MIN/1.73 M2???Calcium - 9.0 mg/dL???Protein, Total - 6.6 Gm/dL???Alb umin - 4.1 Gm/dL???AG Ratio - 1.6???Alkaline Phosphatase - 89 units/L???AST (SGOT) - 16 units/L???ALT (SGPT) - 10 units/L???Bilirubin, Total - 0.3 mg/dL FREE T4 (09/18/2023) ???Free T4 - 1.25 ng/dL HOLD LAVENDER TUBE (09/22/2023) ???Hold Lavender Top - SPECIMEN DISCARDED AFTER 24 HOURS. Lipase (09/18/2023) ???Lipase - 34 units/L Lytes (09/20/2023) ???Sodium - 136 mmol/L???Potassium - 3.5 mmol/L???Chloride - 98 mmol/L???Bicarbonate Level - 26 mmol/L???Anion Gap - 12 Magnesium Level (09/19/2023) ???Magnesium - 1.8 mg/dL Mg Level (09/22/2023) ???Magnesium - 1.8 mg/dL Phosphorus Level (09/19/2023) ???Phosphorus - 3.2 mg/dL Serum Quantitative (09/18/2023) ? ?Blood - <1 mIU/mL TSH with T4 Reflex (Adults Only) (09/18/2023) ???TSH - 5.98 uIU/mL Urinalysis w/hold for Urine Culture (09/18/2023) ???Appear/Color, Urine - COLORLESS???Specific [place], Urine - 1.034???pH, Urine - 7.5???Albumin, Urine - NEGATIVE???Glucose, Urine - NEGATIVE???Ketones, Urine - NEGATIVE???Bilirubin, Urine - NEGATIVE???Hemoglobin, Urine - NEGATIVE???Nitrite, Urine - NEGATIVE???Leukocyte, Urine - NEGATIVE???Urobilinogen - NORMAL???WBC's, Urine - 2 /HPF???RBC's, Urine - 1 /HPF???Squamous Epith - 2 /HPF???Hold Urine Culture - Testing available 48 hours from time of collection. You will be contacted within 72 hours with your results. Allergies (NKA means No Known Allergies) Singulair ketorolac??(Severe anxiety (panic)) Problems Active Problems??(11) Anxiety?? GERD (gastroesophageal reflux disease)?? Headache?? HTN (hypertension)?? Hx of preeclampsia, prior , currently ?? IBS (irritable bowel syndrome)?? Obese class I?? palpitations?? Pseudotumor cerebri?? Severe pre-eclampsia, with delivery?? AS400 ADMINISTRATOR (ventriculoperitoneal) shunt status?? Education Materials Below is the list of Educational Leaflet Providered with your Discharge Instructions. [employer] Patient Education - Vital Signs: Know Your Numbers?? [employer] Patient Education - Eating Well with High Blood Pressure?? [employer] Patient Education - Idiopathic Intracranial Hypertension?? Valuables and Belongings I fully understand and agree that [facility] accepts no responsibility for all my personal [...] Review of Valuable and Belonging List: With patient, With witness Date for Pt to Sign Valuables/Belongings: 09/18/23 15:14:00 ?? Other Discharge Information ? Pulmonary Rehab Status?? Pulmonary Rehab Discharge Status?? Respiratory Rate: 18 br/min ? Common Emergency Awareness Tips IS [...] are strongly encouraged to quit. Please call [facility] at [phone] or [phone] ([phone]) or log in to [email or web address] for referrals to smoking cessation programs. ?? 446 Suicide & Crisis Lifeline is available 16/09 if you or someone you know needs to find a reason to keep living. By calling 910 you'll be connected to a skilled, trained counselor at a crisis center in your area. INPATIENT DISCHARGE INSTRUCTIONS SIGNATURE PAGE MARIO LEO Location:[facility] Registration Date and Time:09/18/2023 06:05 EDT Primary Care Physician: Miya Lara DO, Attending Physician: Miquel Centeno MD, I MARIO LEO, have received the above patient education materials/instructions and have verbalized understanding. If ambulance or transport services are being used I further acknowledge being given a choice of service. ?? If you need to contact me, please call me at this number: . Patient/Magnaflux Operator Name: Patient/Magnaflux Operator Signature: Relationship to Patient: Witness Name/Signature: Date: * Nathan Galvez MD: PERFORM Event Display: Patient Education Leaflets Authored Date: [id number] Vital Signs: Know Your Numbers ?? Vital Signs: Know Your Numbers - Video Your heart rate, breathing or respiratory rate, blood pressure, and temperature are known as your vital signs. Measuring your vital signs helps your healthcare provider assess your basic bodily functions. To view the video go to this web address: [email or web address] Or, scan this QR code with your smart phone Last Reviewed Date: 2022 ?? [id number] [employer]. All rights reserved. This information is not intended as a substitute for professional medical care. Always follow your healthcare professional's instructions. ?? * Nathan Galvez MD: PERFORM Event Display: Patient Education Leaflets Authored Date: [id number] Eating Well with High Blood Pressure ?? Eating Well with High Blood Pressure - Video Certain foods can make your blood pressure go too high. Watch and learn how easy it is to have delicious meals without harming your health. To view the video go to this web address: [email or web address] Or, scan this QR code with your smart phone Last Reviewed Date: 2019 ?? [employer]. All rights reserved. This information is not intended as a substitute for professional medical care. Always follow your healthcare professional's instructions. ?? * Lenny CALABRESE, Nathan Gordon: PERFORM Event Display: Patient Education Leaflets Authored Date: [id number] Idiopathic Intracranial Hypertension ?? 57 Idiopathic Intracranial Hypertension What is idiopathic intracranial hypertension? Idiopathic intracranial hypertension (IIH) is a disorder related to high pressure in the brain. It causes signs and symptoms of a brain tumor. It's also sometimes called pseudotumor cerebri or benignintracranial hypertension. The fluid that surrounds the spinal cord and brain is called cerebrospinal fluid or CSF. If too much fluid is made or not enough is reabsorbed, the CSF can build up. This can cause symptoms like those of a brain tumor.? What causes idiopathic intracranial hypertension? Experts don't know why IIH occurs. Obesity is a risk factor. Some medicines have been linked to a higher risk of it. These include common medicines like: ??? control pills ??? Certain antibiotics ??? Chemotherapy medicines ??? Steroids ??? Some acne medicines ?? What are the symptoms of idiopathic intracranial hypertension? The symptoms of IIH mimic those of a true brain tumor. The main sign is unusually high pressure inside the skull. This is known as intracranial hypertension. Other symptoms include: ??? Changes in eyesight, such as blurry vision or double vision ??? Vision loss, especially in the peripheral vision ??? Feeling dizzy or nauseated ??? Vomiting ??? Neck stiffness ??? Trouble walking??? Frequent headaches, often along with nausea or vomiting ??? Persistent ringing in the ears (tinnitus) ??? Forgetfulness ??? Depression These symptoms may look like other health problems. Always see your healthcare provider for a diagnosis.?? You may find that certain symptoms increase when you're exerting yourself. Exercise tends to raise the pressure in the skull. ?? Who is at risk for idiopathic intracranial hypertension? Anyone can develop IIH. But some people are at higher risk for it, such as: ??? Women of childbearing age (20 to 45 years) ??? Overweight people ??? People who have a thyroid condition or chronic kidney failure ?? How is idiopathic intracranial hypertension diagnosed? A physical exam and a few tests can help identify IIH. Diagnosis involves ruling out other health problems. These include a brain tumor. You may need these tests: ??? Brain imaging, such as MRI or CT scans ??? Spinal tap (lumbar puncture) to withdraw a sample offluid from around the spine for testing pressure ??? Exam to test vision and check the back of youreye [id number] ?? How is idiopathic intracranial hypertension treated? Treatment can vary based on what is causing the fluid to build up inside the skull. Treatment choices include: ??? Losing weight, if needed ??? Limiting fluids or salt in the diet ??? Surgically putting a special tube (shunt) in the brain or lumbar spine to drain fluid and ease pressure ??? Having a spinal tap done to remove fluid and reduce pressure ??? Taking medicines, such as water pills (diuretics). These help the body get rid of extra fluid. ??? Having surgery on the optic nerve to ease pressure and save vision ?? What are possible complications of idiopathic intracranial hypertension? Untreated IIH can result in permanent problems. These include vision loss. Have regular eye exams and checkups treat any eye problems before they get worse. It's also possible for symptoms to occur again even after treatment. It's important to get regular checkups to help keep track of symptoms. Also to screen for an underlying problem. ?? Can idiopathic intracranial hypertension be prevented? Obesity has been linked to IIH. So eating a healthy, low-fat diet and getting plenty of exercise may help reduce your risk for the condition. Losing weight is very hard, but don't give up. Ask your healthcare provider for help and support if these strategies don't help you lose weight. ?? When should I call my healthcare provider? Any changes in vision should be checked out by a healthcare provider right away. Diagnosis and treatment can help prevent long-term complications, such as vision loss. ?? Black points about idiopathic intracranial hypertension ??? Idiopathic intracranial hypertension is adisorder related to high pressure in the brain. ??? Even though IIH isn't a brain tumor, it can still cause serious health problems. ??? Seeing a healthcare provider right away to diagnose symptoms and begin treatment can help to prevent complications. ??? Eating a healthy, low-fat diet and gettingplenty of exercise may help reduce your risk for IIH. ?? Next steps Tips to help you get the most from a visit to your healthcare provider: ??? Know the reason for your visit and what you want to happen. ??? Before your visit, write down questions you want answered. ??? Bring someone with you to help you ask questions and remember what your provider tells you. ??? At the visit, write down the name of a new diagnosis, and any new medicines, treatments, or tests. Also write down any new instructions your provider gives you. ??? Know why a new medicine or treatment is prescribed, and how it will help you. Also know what the side effects are. ??? Ask if your condition can be treated in other ways. ??? Know why a test or procedure is recommended and what the results could mean. ??? Know what to expect if you do not take the medicine or have the test or procedure. ??? If you have a follow-up appointment, write down the date, time, and purpose for that visit. ??? Know how you can contact your healthcare provider if you have questions, especially after officehours or on weekends. ?? Last Reviewed Date: 2022 ?? The [employer]. All rights reserved. This information is not intended as a substitute for professional medical care. Always follow your healthcare professional's instructions. ?? Patient Care team information Care Team Personnel Name: Claudia Marie RN Position: [facility] OB RN Member Role: Primary Care Nurse Name: Andrews Lowry RN Position: [facility] RN Member Role: Primary Care Nurse Name: Ilda Cheema RN Position: [facility] OB RN Member Role: Primary Care Nurse Name: Nita Arguelles Position: S RN Member Role: Primary Care Nurse Name: Miya Lara DO Position: [facility] Physician - Primary Care Member Role: PCP Address: Address: [address] [place] [address] Name: Alfred Ko RN Position: S RN Member Role: Primary Care Nurse Name: Anne Trinidad RN Position: S RN Member Role: Primary Care Nurse Name: Shalini Mccauley LPN Position: [facility] RN Member Role: Primary Care Nurse Care Team Related Persons Name: JINNY BRAUN Address: [id number] Address: home [address] [place] [id number] Name: BRENNANMIKIE HERNÁNDEZ Address: home [address] [place] [id number]
[2023-12-24 09:49] LABS: UPreg QC Valid YES; Urine Pregnancy NEGATIVE (NEGATIVE)
[2023-12-24] MEDS: LORazepam 2 MG/ML VIAL 1 MG IVPUSH (11:17)
[2023-12-24 13:03] LABS: CSF Appearance Clear, Colorless; CSF Tube # 1; Glucose CSF 62 mg/dL; Total Protein CSF 28.3 mg/dL (15-45)
[2023-12-24] MEDS: Acetaminophen 325 MG TABLET 650 MG PO (13:03)
[2023-12-24 13:41] LABS: Appearance CSF CLEAR; CSF Tube # 4; Color CSF COLORLESS; Lymphocytes CSF 100 %; Red Blood Cell CSF 0 MM*3; White Blood Cell CSF 1 MM*3
== END 2023-12-24 14:12 | disposition home or self-care (01) ==
PROVIDERS: Physician Assistant Surgical; PCP Internal Medicine; Visit Provider Psychiatry & Neurology Neurology
PROC: 009U3ZZ Drainage of Spinal Canal, Percutaneous Approach (ICD-10-PCS; CPT 62270; principal; 2023-12-24 11:00)
DX: G93.2 Benign intracranial hypertension (principal); Z98.2 Presence of cerebrospinal fluid drainage device; G43.709 Chronic migraine without aura, not intractable, without status migrainosus; I10 Essential (primary) hypertension; M54.50 Low back pain, unspecified
CPT/HCPCS: 62328; 81025; 82945; 84157; 87015; 87070; 87205; 89051; J2003; J2060

== ENCOUNTER → 2023-12-24 11:25 | Outpatient (BNV) | payer OTHER, SELFPAY | PROVIDERS: PCP Internal Medicine; Visit Provider Physician Assistant Surgical | DX: G93.2 Benign intracranial hypertension (principal) | CPT/HCPCS: 62328 ==

== ENCOUNTER 2024-02-22 12:13 | Inpatient (IN) | payer OTHER, SELFPAY ==
[2024-02-22] VITALS (8 sets, daily range): BP systolic 137–150; BP diastolic 76–96; PULSE 81–90; RESP 13–20; TEMP 36.4–37.2; O2SAT 96–100; BMI 30.6
--- NOTE | ~2024-02-22 | CT_ITS ---
CLINICAL HISTORY: worsening abdominal pain CT abdomen and pelvis with contrast Comparison: CT/SR - CT ABDOMEN PELVIS W IV CON - 02/22/24 19:56 EST Findings: The visualized portions of the lungs are normal in appearance. The liver is normal in size without suspicious focal hepatic lesions. No intrahepatic or extrahepatic ductal dilatation is seen. The hepatic and portal veins are patent. Cholecystectomy. Pancreas, spleen and adrenals are normal in appearance. No suspicious focal lesion of the kidneys. No hydronephrosis or calculi. The abdominal aorta demonstrates no evidence of aneurysmal dilatation or dissection. There is mild bowel wall thickening of the descending colon. No evidence of bowel obstruction. Appendix is not visualized. No secondary evidence of acute appendicitis. The pelvic organs are within normal limits. Small pelvic free fluid. No pathologic lymphadenopathy is seen. There is a peritoneal catheter with the proximal portion visualized in the spinal canal. There is a gap of the tubing in the soft tissue of the right lateral abdomen series 3, image 33 and series 8, image 102. There is no fluid collection in this area. There are no osseous or soft tissue abnormalities. IMPRESSION: Mild bowel wall thickening of the descending colon could be due to nondistention. Colitis can not be excluded. A possible lumboperitoneal shunt. There is a gap of the tubing in the soft tissue of the right lateral abdomen. Clinical correlation is recommended to exclude disconnection of the tubing. This document has been electronically signed by: Zoila Zheng MD on 02/26/2024 16:01:42
--- NOTE | ~2024-02-22 | CT_ITS ---
CLINICAL HISTORY: LLQ pain, divertic? CT abdomen and pelvis with contrast Comparison: CT of the abdomen and pelvis from 01/03/2020 Findings: No consolidation in the imaged lung bases. Mild fat deposition of the liver. The gallbladder is surgically absent. Pancreas, adrenal glands, and spleen appear unchanged. No hydronephrosis. Small mesenteric and periaortic lymph nodes are nonspecific and likely reactive. Right side of the intraperitoneal catheter is redemonstrated again terminates in the lower abdomen and pelvis. Appears connected laterally and extends into the imaged spine. Fluid in the small bowel loops can be seen with enteritis. No small bowel obstruction. Fluid in the cecum can be seen with diarrhea type illnesses and colitis. Bladder is favored given wall thickening descending colon and additional mild stranding about the descending colon. Fluid is noted in the endometrium with uterus anteverted. No adnexal soft tissue mass. Additional free fluid in the pelvis nonspecific and may be reactive, reflective pelvic inflammatory disease, secondary to ruptured cyst. Imaged appendix is gas-filled and nondilated. Urinary bladder is mildly distended. Subcutaneous edema is noted. No definite osseous change in the [id number]. IMPRESSION: 1. CT findings of enteric colitis, with colitis of the descending colon. No small bowel obstruction. 2. Free fluid in the pelvis nonspecific. Differential considerations include ruptured ovarian cyst, reactive fluid, and fluid in the pelvic inflammatory disease. This document has been electronically signed by: Kodak Ko MD on 02/22/2024 20:25:51
--- NOTE | ~2024-02-22 | XR_ITS ---
CLINICAL HISTORY: b l low back pain, atraumatic 3 views lumbar spine Comparison: CT/SR - CT LUMBAR SPINE W IV CON - 08/04/23 12:58 EDT CR/SR - XR LUMBAR SPINE 2-3V - 12/06/22 02:06 EDT Findings: The usual lumbar lordosis is maintained without spondylolisthesis. Vertebral body heights are maintained. Mild loss of intervertebral disc height at L4-L5 and L5-S1 with mild lower lumbar facet osteoarthritis. Right upper quadrant and pelvic surgical clips. Partially imaged lumboperitoneal shunt catheter enters the spinal canal at the level of L3-L4 and terminates at the level of T12. No obvious kink or fracture. IMPRESSION: Mild lower lumbar degenerative changes. This document has been electronically signed by: Bernabe Ledbetter DO on 02/22/2024 13:11:51
--- NOTE | 2024-02-22 12:23 | ED_ITS ---
HPI - Back Pain/Injury General Chief Complaint: Back Pain/Injury Stated Complaint: back pain - no inj Time Seen by Provider: 02/22/24 16:12 Source: patient Limitations: no limitations History of Present Illness ED Provider: Alayna Dunn PA-C HPI Narrative: 33-year-old female with a history of GERD, IBS, rheumatoid arthritis, fibromyalgia, kidney stones presents with abdominal pain x1 week. Patient states she has been having mid to lower abdominal discomfort over the past week. Associated mid to low back pain as well. The pain has become diffuse and severe over the past day. Associated chills, diaphoresis, vomiting and diarrhea; these symptoms started overnight. Denies sick contacts with same symptoms, fever, recent cough or cold symptoms. Denies recent travel, use the antibiotics or hospitalization. Denies dysuria or hematuria. Related Data Home Medications ?Medication ?Instructions ?Recorded ?Confirmed famotidine 40 mg tablet 1 tab PO BEDTIME PRN Heartburn 08/14/21 12/24/23 ibuprofen 600 mg tablet 1 tab PO Q6H PRN mild pain 08/14/21 12/24/23 lisinopril 40 mg tablet 1 tab PO DAILY 08/14/21 12/24/23 amitriptyline 25 mg tablet 25 mg PO BEDTIME 05/20/22 12/24/23 clonazepam 1 mg tablet 1 mg PO BID PRN Anxiety 05/20/22 12/24/23 cholecalciferol (vitamin D3) 50 50 mcg PO DAILY 12/18/23 12/24/23 mcg (2,000 unit) tablet (Vitamin D3) docusate sodium 100 mg capsule 100 mg PO BID PRN constipation 12/18/23 12/24/23 escitalopram oxalate 10 mg tablet 10 mg PO QAM depressive disorder 12/18/23 12/24/23 hydrochlorothiazide 25 mg tablet 25 mg PO DAILY 12/18/23 12/24/23 nifedipine 30 mg tablet,extended 30 mg PO BEDTIME 12/18/23 12/24/23 release propranolol 80 mg tablet 80 mg PO BID 12/18/23 12/24/23 sucralfate 1 gram tablet 1 g PO TID 12/18/23 12/24/23 topiramate 100 mg tablet 100 mg PO BID 12/18/23 12/24/23 amlodipine 10 mg tablet 10 mg PO DAILY 12/24/23 12/24/23 omeprazole 20 mg capsule,delayed 40 mg PO DAILY 12/24/23 12/24/23 release Previous Rx's ?Medication ?Instructions ?Recorded sjptqfcxyk-vrwobpzyjmnue-ujjwawzz 1 tab PO Q4H PRN headache #18 tabs 08/16/21 50 mg-325 mg-40 mg tablet cyclobenzaprine 5 mg tablet 5 mg PO TID PRN muscle spasm 7 08/04/23 days #21 tabs Allergies Allergy/AdvReac Type Severity Reaction Status Date / Time ketorolac [From TORADOL] Allergy Unknown ANXIETY, Verified 02/22/24 12:25 NAUSEA, DIZZY metoclopramide [From Reglan] Allergy Hives Verified 02/22/24 12:25 montelukast [From Singulair] Allergy Hives, Verified 02/22/24 12:25 tachycardia,vomitting,diarrhea Review of Systems 2 Review of Systems: Yes all other systems are reviewed and are negative Constitutional: Constitutional: Reports chills, Denies fatigue, Denies fever(s) and Reports malaise Cardiovascular: Cardiovascular: Denies chest pain Gastrointestinal: Gastrointestinal: Reports abdominal pain, Reports diarrhea, Reports nausea and Reports vomiting Genitourinary: Genitourinary: Reports hematuria and Denies dysuria Endocrine: Endocrine: Denies fatigue PMF Past Medical History Attestation statement: The following information was validated with the patient. Medical History (Updated 02/23/24 @ 02:03 by CHANTELL Glover) FH: cholecystectomy delivery delivered Pseudotumor cerebri Pituitary microadenoma Papanicolaou smear of cervix with low grade squamous intraepithelial lesion (LGSIL) Conversion disorder Back pain Headache Sensory deficit present Weakness Kidney stones Hypertension Rheumatoid arthritis Surgical History (Updated 12/18/23 @ 14:57 by Holly Storey RN) History of oophorectomy, unilateral History of esophagogastroduodenoscopy (EGD) S/P LABOR TRAINING MANAGER shunt H/O lumbosacral spine surgery Family History Family History Mother Asthma HTN (hypertension) Pituitary tumor Anxiety Arthritis Brain tumor Father Arthritis Prediabetes Hyperlipidemia Pacemaker Sister Asthma Lupus Brother Arthritis Maternal Grandmother HTN (hypertension) Hyperlipidemia Diabetes Arthritis Maternal Grandfather Heart attack Paternal Grandfather Alzheimer disease Maternal Aunt Breast cancer Social History Social History Household Members: Children Housing: House Do you presently have visiting nurse or other home services: No Alcohol intake: current Alcohol intake frequency: holidays/special occasions only Patient Tobacco Use Status: Current someday Tobacco user Tobacco use type: Cigarette Smoked in Last 30 Days: No Use of substances other than those prescribed or required for medical reasons: Yes Substance Use Type: Marijuana Substance Use Frequency: Occasionally Advance Directives: No Advance Directives Information Provided: No Patient : No service: No Current occupational status: unemployed Physical Exam 2 Vital Signs: Vital Signs: Last Vital Signs Temp 98.9 F 02/22/24 22:44 Pulse 81 02/22/24 22:44 Resp 13 02/22/24 22:44 BP 149/96 H 02/22/24 22:44 Pulse Ox 99 02/22/24 22:44 O2 Del Method Room Air 02/22/24 22:44 BMI result Body Mass Index 30.6 Const: Other: Alert, appears uncomfortable, tearful Orientation/consciousness: patient oriented x3 Resp: Other: Nonlabored respiration Cardio: Other: Normal peripheral perfusion GI: Other: Abdomen is soft, diffusely tender, no guarding Skin: Other: Warm dry no rash Neuro: General: patient oriented x3, no focal motor deficits and CN's II-XI intact bilaterally Psych: Other: Cooperative, anxious, tearful Course Course Course Narrative: This is a Rapid Medical Examination (RME) performed by Eladio Rubio PA-C in triage. Full HPI, ROS, assessment and treatment plan per primary provider in the Main ED. 33 yo female here w/ multiple concerns. reports bilateral lower back/ flank pain x1 week. no injury/ trauma. back pain worse w/ movement. hx of renal stones - states this feels similar. took tylenol around 1999 last night. no urinary sx. now endorsing vomiting, diarrhea, and chills since yesterday. no known sick contacts. Plan: labs, UA, xr, covid/flu testing Reevaluation(s) Reevaluation #1: Adding on Ativan with the morphine, her pain is still poorly controlled and she is very anxious Reevaluation #2: Patient states she still is in a lot of discomfort we will escalate her medication 2.5 of Dilaudid Reevaluation #3: Pain still not well controlled, increasing the medication to 1 mg of Dilaudid Additional Reevaluation(s): CT back, the patient has a enteric colitis, the patient's pain is poorly managed, she is still extremely uncomfortable she is anxious to go home given the level of her pain, furthermore she attempted to drink, it causes significant discomfort. I will admit to the hospitalist. Medications Administered Discontinued Medications Generic Name Dose Route Start Last Admin Trade Name Biis PRN Reason Stop Dose Admin Hydromorphone HCl 0.5 mg 02/22/24 18:34 02/22/24 18:41 Hydromorphone Hcl 0.5 Mg/0.5 Ml Syringe IVPUSH 02/22/24 18:35 0.5 mg ONCE ONE Administration Protocol Hydromorphone HCl 1 mg 02/22/24 22:17 02/22/24 22:47 Hydromorphone Hcl 1 Mg/Ml Syringe IVPUSH 02/22/24 22:18 1 mg ONCE ONE Administration Protocol Hydromorphone HCl 1 mg 02/23/24 01:31 02/23/24 01:44 Hydromorphone Hcl 1 Mg/Ml Syringe IVPUSH 02/23/24 01:32 1 mg ONCE ONE Administration Protocol Sodium Chloride 1,000 mls @ 999 mls/hr 02/22/24 16:15 02/22/24 16:25 Ns IV 02/22/24 17:15 999 mls/hr .Q1H1M CLEMENTE Administration Iohexol 85 ml 02/22/24 20:03 02/22/24 20:04 Iohexol 350 Mg/Ml 100 Ml Infus..Btl IV 02/22/24 20:04 85 ml ONCE ONE Administration Lorazepam 1 mg 02/22/24 17:13 02/22/24 17:29 Lorazepam 2 Mg/Ml Vial IVPUSH 02/22/24 17:14 1 mg ONCE ONE Administration Morphine Sulfate 4 mg 02/22/24 16:14 02/22/24 16:25 Morphine Sulfate 4 Mg/Ml Cartridge IVPUSH 02/22/24 16:15 4 mg ONCE ONE Administration Protocol Ondansetron HCl 4 mg 02/22/24 16:14 02/22/24 16:25 Ondansetron Hcl 4 Mg/2 Ml Vial IVPUSH 02/22/24 16:15 4 mg ONCE ONE Administration Sucralfate 1 gm 02/23/24 01:31 02/23/24 01:43 Sucralfate Oral Suspension 1 Gm/10 Ml Oral.Susp PO 02/23/24 01:32 1 gm ONCE ONE Administration Medical Decision Making Medical Decision Making [facility] Narrative: 33-year-old female with a history of GERD, IBS, rheumatoid arthritis, fibromyalgia, kidney stones presents with abdominal pain x1 week. Patient states she has been having mid to lower abdominal discomfort over the past week. Associated mid to low back pain as well. The pain has become diffuse and severe over the past day. Associated chills, diaphoresis, vomiting and diarrhea; these symptoms started overnight. Denies sick contacts with same symptoms, fever, recent cough or cold symptoms. Denies recent travel, use the antibiotics or hospitalization. Denies dysuria or hematuria. Problem: IBS, kidney stones History: Per patient I have considered the following differential diagnoses: Renal colic, viral gastroenteritis, traveler's diarrhea, C diff, diverticulitis Plan: This is likely viral gastroenteritis given such illness has been prevalent within the community, she has no risk factors for C diff or traveler's diarrhea. However, she is in a lot of discomfort, we will obtain a CT scan. Giving IV fluid antiemetic and morphine. I have independently reviewed the following tests: Labs: Leukocytosis with left shift, no electrolyte abnormality, viral panel negative, urine not infected, not CT abd: IMPRESSION: 1. CT findings of enteric colitis, with colitis of the descending colon. No small bowel obstruction. 2. Free fluid in the pelvis nonspecific. Differential considerations include ruptured ovarian cyst, reactive fluid, and fluid in the pelvic inflammatory disease. This document has been electronically signed by: Kodak Ko MD on 02/22/2024 20:25:51 Lab Data 02/22/24 12:43 02/22/24 12:43 Labs: Lab Results 02/22/24 02/22/24 Range/Units 12:43 14:24 WBC 13.3 H (4.8-10.8) X10*3/uL RBC 4.31 (4.20-5.50) X10*6/uL Hgb 10.6 L (12.0-16.0) g/dl Hct 34.8 L (37.0-47.0) % MCV 80.7 (80.0-98.0) fL MCH 24.6 L (27.0-33.0) pg MCHC 30.5 L (31.0-35.0) g/dl RDW 17.4 H (11.0-16.0) % Plt Count 382 (160-400) X10*3/uL MPV 8.8 L (9.4-12.3) fL Immature Gran % (Auto) 0.5 H (0.0-0.4) % Neut % (Auto) 88.0 H (45-73) % Lymph % (Auto) 7.2 L (20-40) % [place] % (Auto) 3.5 (2-11) % Eos % (Auto) 0.5 (0-4) % Baso % (Auto) 0.3 (0-2) % Lymph # (Auto) 1.0 L (1.2-4.9) X10*3/uL [place] # (Auto) 0.5 (0.1-1.2) X10*3/uL Eos # (Auto) 0.1 (0.0-0.4) X10*3/uL Baso # (Auto) 0.0 (0.0-0.2) X10*3/uL Abs Immat Gran (auto) 0.06 H (0.00-0.03) X10*3/uL Absolute Neuts (auto) 11.8 H (2.0-8.3) x10*3/uL Absolute Nucleated RBC 0.000 (0.0-0.012) X10*3/uL Nucleated RBC % (auto) 0.0 (0.0-0.2) /100WBC Sodium 141 (135-145) mmol/L Potassium 3.6 (3.3-5.1) mmol/L Chloride 107 (96-108) mmol/L Carbon Dioxide 25 (22-29) mmol/L Anion Gap 13 (12-20) BUN 12 (9-16) mg/dL Creatinine 0.77 (0.5-1.4) mg/dL Estim Creat Clear Calc 100.0 Estimated GFR > 60 Random Glucose 97 (60-115) mg/dL Calcium 9.0 D (8.4-10.2) mg/dL Magnesium 1.7 (1.6-2.6) mg/dL Total Bilirubin 0.6 (0.0-1.0) mg/dL AST 27 (5-31) U/L ALT 16 (0-31) U/L Alkaline Phosphatase 87 (39-117) U/L Total Protein 7.7 (6.5-8.0) g/dL Albumin 4.4 (3.5-5.0) g/dL Urine Color Yellow Urine Appearance Cloudy Urine pH 6.5 (5.0-9.0) Ur Specific [place] >= 1.030 H (1.005-1.025) Urine Protein Trace (Neg-Trace) mg/dL Urine Glucose (UA) Negative (Negative) mg/dL Urine Ketones 15 (Negative) mg/dL Urine Blood Negative (Negative) Urine Nitrite Negative (Negative) Ur Leukocyte Esterase Trace H (Negative) Urine RBC 0-2 (0-2) /HPF Urine WBC 0-5 (0-5) /HPF Ur Squamous Epith Cells >20 (0-2) /HPF Urine Bacteria 1+ (None Seen) Hyaline Casts 0-2 (0-2) /LPF Urine Test NEGATIVE (NEGATIVE) Influenza Type A (PCR) NEGATIVE (Negative) Influenza Type B (PCR) NEGATIVE (Negative) RSV RNA Qual (PCR) NEGATIVE (Negative) SARS-CoV-2 RNA (RT-PCR) NEGATIVE (Negative) Discharge Plan Discharge Clinical Impression: Colitis, Abdominal pain Patient Disposition: Admitted As Inpatient Prescriptions: No Action famotidine 40 mg tablet 1 tab PO BEDTIME PRN (Reason: Heartburn) ibuprofen 600 mg tablet 1 tab PO Q6H PRN (Reason: mild pain) lisinopril 40 mg tablet 1 tab PO DAILY fywcfwpgph-efcwnxvfxnzku-ygvu 50-325-40 mg Tablet 1 tab PO Q4H PRN (Reason: headache) Qty: 18 0RF amitriptyline 25 mg tablet 25 mg PO BEDTIME clonazepam 1 mg tablet 1 mg PO BID PRN (Reason: Anxiety) propranolol 80 mg tablet 80 mg PO BID sucralfate 1 gram tablet 1 g PO TID nifedipine 30 mg tablet extended release 30 mg PO BEDTIME docusate sodium 100 mg capsule 100 mg PO BID PRN (Reason: constipation) hydrochlorothiazide 25 mg tablet 25 mg PO DAILY topiramate 100 mg tablet 100 mg PO BID escitalopram oxalate 10 mg tablet 10 mg PO QAM cholecalciferol (vitamin D3) [Vitamin D3] 50 mcg (2,000 unit) tablet 50 mcg PO DAILY amlodipine 10 mg tablet 10 mg PO DAILY omeprazole 20 mg capsule,delayed release(DR/EC) 40 mg PO DAILY cyclobenzaprine 5 mg tablet 5 mg PO TID PRN (Reason: muscle spasm) 7 Days Qty: 21 0RF Print Language: Dominican
[2024-02-22 12:49] LABS: MANUAL DIFF FLAG NO
[2024-02-22 12:50] LABS: Basophils Percent Auto 0.3 % (0-2); Eosinophils Absolute Auto 0.1 X10*3/uL (0.0-0.4); Eosinophils Percent Auto 0.5 % (0-4); Hematocrit 34.8 % (37.0-47.0); Hemoglobin 10.6 g/dl (12.0-16.0); Imm Gran Abs Auto 0.06 X10*3/uL (0.00-0.03); Imm Gran Pct Auto 0.5 % (0.0-0.4); Lymphocytes Percent Auto 7.2 % (20-40); Mean Corpuscular HGB Conc 30.5 g/dl (31.0-35.0); Mean Corpuscular Hemoglobin 24.6 pg (27.0-33.0); Mean Corpuscular Volume 80.7 fL (80.0-98.0); Mean Platelet Volume 8.8 fL (9.4-12.3); Monocytes Absolute Auto 0.5 X10*3/uL (0.1-1.2); Monocytes Percent Auto 3.5 % (2-11); Neutrophils Absolute Auto 11.8 x10*3/uL (2.0-8.3); Platelet Count 382 X10*3/uL (160-400); Red Blood Count 4.31 X10*6/uL (4.20-5.50); Red Cell Distribution Width 17.4 % (11.0-16.0); White Blood Count 13.3 X10*3/uL (4.8-10.8)
[2024-02-22 13:11] LABS: Alanine Aminotransferase 16 U/L (0-31); Albumin Level 4.4 g/dL (3.5-5.0); Alkaline Phosphatase 87 U/L (39-117); Anion Gap 13 (12-20); Aspartate Amino Transferase 27 U/L (5-31); Bilirubin Total 0.6 mg/dL (0.0-1.0); Blood Urea Nitrogen 12 mg/dL (9-16); Carbon Dioxide 25 mmol/L (22-29); Chloride 107 mmol/L (96-108); Estimated Glomerular Filt Rate > 60; Glucose Random 97 mg/dL (60-115); Magnesium 1.7 mg/dL (1.6-2.6); Potassium 3.6 mmol/L (3.3-5.1); Sodium 141 mmol/L (135-145); Total Protein 7.7 g/dL (6.5-8.0)
[2024-02-22 13:50] LABS: Influenza A PCR NEGATIVE (Negative); Influenza B PCR NEGATIVE (Negative); Resp Syncy Virus RNA Qual PCR NEGATIVE (Negative); SARS COV2 PCR INHOUSE NEGATIVE (Negative)
--- NOTE | 2024-02-22 13:58 | PC.NURSE ---
Pt comes to ED today for c/o back pain. Pt reports 10/10 back pain starting 2-3 days ago. States (+) Hx kidney stones years ago and feels this pain is similar. Pt also reports n/v/d, fever and chills. Pt unable to produce urine sample at this time--will reattempt in future. 20g to LAC--positional. Awaiting orders.
[2024-02-22 14:34] LABS: UPreg QC Valid YES; Urine Pregnancy NEGATIVE (NEGATIVE)
[2024-02-22 14:35] LABS: Appearance Urine Cloudy; Color Urine Yellow; Glucose Urine UA Negative (Negative); Leukocyte Esterase Urine Trace (Negative); Nitrite Urine Negative (Negative); PH 6.5 (5.0-9.0); Specific Gravity - Urine >= 1.030 (1.005-1.025); UMIC TRIGGER UACC YES; Urine Blood Negative (Negative); Urine Ketones 15 mg/dL (Negative); Urine Protein Trace mg/dL (Neg-Trace)
[2024-02-22 14:45] LABS: Bacteria Urine 1+ (None Seen); Hyaline Casts Urine 0-2 /LPF (0-2); RBC Urine 0-2 /HPF (0-2); Squamous Epithelial Cell Urine >20 /HPF (0-2); WBC Urine 0-5 /HPF (0-5)
[2024-02-22] MEDS: 0.9 % Sodium Chloride 1,000 ML 999 ML IV (16:25)
[2024-02-22] MEDS: ondansetron HCL 4 MG/2 ML VIAL IVPUSH (16:25)
[2024-02-22] MEDS: Morphine Sulfate 4 MG/ML CARTRIDGE IVPUSH (16:25)
[2024-02-22] MEDS: LORazepam 2 MG/ML VIAL 1 MG IVPUSH (17:29)
[2024-02-22] MEDS: HYDROmorphone HCl 0.5 MG/0.5 ML SYRINGE IVPUSH (18:41)
[2024-02-22] MEDS: iohexoL 350 MG/ML 100 ML INFUS..BTL 85 ML IV (20:04)
--- NOTE | 2024-02-22 20:54 | ECG_ITS ---
Test Reason : chest pain Blood Pressure : / mmHG Vent. Rate : 080 BPM Atrial Rate : 080 BPM P-R Int : 150 ms QRS Dur : 088 ms QT Int : 392 ms P-R-T Axes : 030 008 008 degrees QTc Int : 452 ms Normal sinus rhythm Nonspecific ST abnormality Abnormal ECG When compared with ECG of 05-DEC-2022 23:22, No significant change was found Referred By: Nora Chavez Electronically Signed By:KIERRA GIRALDO MD
--- NOTE | 2024-02-22 21:00 | MHC.EDTECH ---
at this time this tech was told by the pt that she was experiencing some chest discomfort, she requested for an EKG to be done, this tech performed an EKG and placed pt on the autoclave operator, RN aware to get an order for the EKG
[2024-02-22] MEDS: HYDROmorphone HCl 1 MG/ML SYRINGE IVPUSH (22:47)
[2024-02-23] VITALS (9 sets, daily range): BP systolic 135–158; BP diastolic 83–99; PULSE 68–84; RESP 16–18; TEMP 36.5–37; O2SAT 96–100; BMI 31.0
[2024-02-23] MEDS: Sucralfate Oral Suspension 1 GM/10 ML ORAL.SUSP PO (01:43)
[2024-02-23] MEDS: HYDROmorphone HCl 1 MG/ML SYRINGE IVPUSH ×2 (01:44→05:12)
--- NOTE | 2024-02-23 02:11 | PM.IMHP ---
History of Present Illness Date of Service: 02/23/24 <JORGE King Last Filed: 02/23/24 02:24> Attending physician on admission: Tommie Chavez <JORGE King Last Filed: 02/23/24 02:24> Chief Complaint: abd pain, nausea, vomiting, diarrhea <JORGE King Last Filed: 02/23/24 02:24> Patient is a 33-year-old female with a past medical history significant for GERD, IBS, rheumatoid arthritis, fibromyalgia, kidney stones, HTN and LP shunt, who presented to the ED with worsening generalized abdominal pain x1 week. She reported that it initially started as bilateral low back/flank pain that radiates to the lower abdomen. She rates this pain a 10/10 sharp ache with cramping. She also has associated nausea and vomiting with severe diarrhea. She reports the diarrhea is multiple times a day without any blood in the stool. Nausea has been better since arriving to the ED. mother has a history of possible colitis with similar symptoms, unsure if inflammatory bowel disease. She reports she has never had a history of similar symptoms in the past and has not been around anyone sick recently. <JORGE King Last Filed: 02/23/24 02:24> Review of Systems Constitutional: Constitutional: Denies body ache(s), Denies chills, Denies fatigue, Denies fever(s), Denies headache(s) and Reports weakness <JOGRE King Last Filed: 02/23/24 02:24> Eyes: Eyes: Denies change in vision <JORGE King Last Filed: 02/23/24 02:24> ENT: Denies headache(s), Denies nasal congestion, Denies nasal discharge and Denies sore throat <JORGE King Last Filed: 02/23/24 02:24> Cardiovascular: Cardiovascular: Denies chest pain, Denies rapid heart rate, Denies lightheadedness and Denies dyspnea <JORGE King Last Filed: 02/23/24 02:24> Respiratory: Respiratory: Denies chest congestion, Denies cough, Denies dyspnea and Denies wheezing <Treasure Jones PA-C - Last Filed: 02/23/24 02:24> Gastrointestinal: Gastrointestinal: Denies melena, Denies hematochezia, Denies coffee ground emesis, Reports dyspepsia, Reports diarrhea, Reports nausea, Reports vomiting and Denies hematemesis <Treasure Jones PA-C - Last Filed: 02/23/24 02:24> Genitourinary: Genitourinary: Denies dysuria and Denies urinary urgency <Treasure Jones PA-C - Last Filed: 02/23/24 02:24> Musculoskeletal: Musculoskeletal: Reports back pain <JORGE King Last Filed: 02/23/24 02:24> Integumentary/Breasts: Skin/Breast: Denies rash <Treasure Jones PA-C - Last Filed: 02/23/24 02:24> Neurologic: Denies confusion, Denies headache(s), Denies memory loss and Reports weakness <Treasure Jones PA-C - Last Filed: 02/23/24 02:24> Psychiatric: Psychiatric: Reports anxiety, Denies confusion and Denies memory loss <Treasure Jones PA-C Last Filed: 02/23/24 02:24> Endocrine: Endocrine: Denies fatigue <Treasure Jones PA-C Last Filed: 02/23/24 02:24> Hematologic/Lymphatic: Hematologic/Lymphatic: Denies easy bleeding <Treasure Jones PA-C - Last Filed: 02/23/24 02:24> Allergic/Immunologic: Allergic/Immunologic: Denies wheezing <Treasure Jones PA-C - Last Filed: 02/23/24 02:24> [facility] Medical History: Medical History (Updated 02/23/24 @ 02:23 by Treasure Jones PA-C) FH: cholecystectomy delivery delivered Pseudotumor cerebri Pituitary microadenoma Papanicolaou smear of cervix with low grade squamous intraepithelial lesion (LGSIL) Conversion disorder Back pain Headache Sensory deficit present Weakness Kidney stones Hypertension Rheumatoid arthritis <Treasure Jones PA-C - Last Filed: 02/23/24 02:24> Functional capacity: independent ambulation <Treasure Jones PA-C - Last Filed: 02/23/24 02:24> Family History: Family History Mother Asthma HTN (hypertension) Pituitary tumor Anxiety Arthritis Brain tumor Father Arthritis Prediabetes Hyperlipidemia Pacemaker Sister Asthma Lupus Brother Arthritis Maternal Grandmother HTN (hypertension) Hyperlipidemia Diabetes Arthritis Maternal Grandfather Heart attack Paternal Grandfather Alzheimer disease Maternal Aunt Breast cancer <Treasure Jones PA-C - Last Filed: 02/23/24 02:24> Surgical History: Surgical History (Updated 12/18/23 @ 14:57 by Holly Storey RN) History of oophorectomy, unilateral History of esophagogastroduodenoscopy (EGD) S/P LEATHER ETCHER shunt H/O lumbosacral spine surgery <Treasure Jones PA-C - Last Filed: 02/23/24 02:24> Social History: Social History Household Members: Children Housing: House Do you presently have visiting nurse or other home services: No Alcohol intake: current Alcohol intake frequency: holidays/special occasions only Patient Tobacco Use Status: Current someday Tobacco user Tobacco use type: Cigarette Smoked in Last 30 Days: No Use of substances other than those prescribed or required for medical reasons: Yes Substance Use Type: Marijuana Substance Use Frequency: Occasionally Advance Directives: No Advance Directives Information Provided: No Patient : No service: No Current occupational status: unemployed <Treasure Jones PA-C - Last Filed: 02/23/24 02:24> Narrative: occasional marijuana, no tobacco, occasional social alcohol. <Treasure Jones PA-C - Last Filed: 02/23/24 02:24> Meds Allergies/Adverse reactions: Allergies Allergy/AdvReac Type Severity Reaction Status Date / Time ketorolac [From TORADOL] Allergy Unknown ANXIETY, Verified 02/22/24 12:25 NAUSEA, DIZZY metoclopramide [From Reglan] Allergy Hives Verified 02/22/24 12:25 montelukast [From Singulair] Allergy Hives, Verified 02/22/24 12:25 tachycardia,vomitting,diarrhea <Treasure Jones PA-C - Last Filed: 02/23/24 02:24> Active Medications: Current Medications Acetaminophen (Acetaminophen 325 Mg Tablet) 650 mg PO Q6H PRN PRN Reason: Pain, Mild 1-3,fever,headache Calcium Carbonate (Calcium Carbonate 750 Mg Tab.Chew) 750 mg PO Q4H PRN PRN Reason: Heartburn Enoxaparin Sodium (Enoxaparin Sodium 40 Mg/0.4 Ml Syringe) 40 mg SUBCUT Q24H CLEMENTE Hydromorphone HCl (Hydromorphone Hcl 1 Mg/Ml Syringe) 0.5 mg IVPUSH Q4H PRN; Protocol PRN Reason: Pain, Severe (Pain Scale 7-10) Magnesium Hydroxide (Milk Of Magnesia 30 Ml Oral.Susp) 30 ml PO DAILY PRN PRN Reason: Constipation Melatonin (Melatonin 3 Mg Tablet) 6 mg PO BEDTIME PRN PRN Reason: Insomnia Ondansetron HCl (Ondansetron Hcl 4 Mg/2 Ml Vial) 4 mg IVPUSH Q8H PRN PRN Reason: Nausea and Vomiting Sodium Chloride (0.9 % Sodium Chloride Flush 3 Ml Syringe) 3 ml IVFLUSH QSHIFT CLEMENTE <Treasure Jones PA-C - Last Filed: 02/23/24 02:24> Home medications: Home Medications ?Medication ?Instructions ?Recorded ?Confirmed ?Last Taken ?Type famotidine 40 mg tablet 1 tab PO BEDTIME PRN Heartburn 08/14/21 12/24/23 Unknown History ibuprofen 600 mg tablet 1 tab PO Q6H PRN mild pain 08/14/21 12/24/23 Unknown History lisinopril 40 mg tablet 1 tab PO DAILY 08/14/21 12/24/23 08/14/21 History amitriptyline 25 mg tablet 25 mg PO BEDTIME 05/20/22 12/24/23 Unknown History clonazepam 1 mg tablet 1 mg PO BID PRN Anxiety 05/20/22 12/24/23 Unknown History cholecalciferol (vitamin D3) 50 50 mcg PO DAILY 12/18/23 12/24/23 Unknown History mcg (2,000 unit) tablet (Vitamin D3) docusate sodium 100 mg capsule 100 mg PO BID PRN constipation 12/18/23 12/24/23 Unknown History escitalopram oxalate 10 mg tablet 10 mg PO QAM depressive disorder 12/18/23 12/24/23 Unknown History hydrochlorothiazide 25 mg tablet 25 mg PO DAILY 12/18/23 12/24/23 Unknown History nifedipine 30 mg tablet,extended 30 mg PO BEDTIME 12/18/23 12/24/23 Unknown History release propranolol 80 mg tablet 80 mg PO BID 12/18/23 12/24/23 Unknown History sucralfate 1 gram tablet 1 g PO TID 12/18/23 12/24/23 Unknown History topiramate 100 mg tablet 100 mg PO BID 12/18/23 12/24/23 Unknown History amlodipine 10 mg tablet 10 mg PO DAILY 12/24/23 12/24/23 Unknown History omeprazole 20 mg capsule,delayed 40 mg PO DAILY 12/24/23 12/24/23 Unknown History release <Treasure Jones PA-C Last Filed: 02/23/24 02:24> Physical Exam Vital Signs and Narrative: Vital Signs: Last Vital Signs Temp 98.9 F 02/22/24 22:44 Pulse 81 02/22/24 22:44 Resp 13 02/22/24 22:44 BP 149/96 H 02/22/24 22:44 Pulse Ox 99 02/22/24 22:44 O2 Del Method Room Air 02/22/24 22:44 BMI result Body Mass Index 30.6 <Treasure Jones PA-C Last Filed: 02/23/24 02:24> General: AOx3, no acute distress, appears uncomfortable Resp: CTA bilaterally CVS: S1, S2, RRR GI: +BS, generalized tenderness throughout, no distention Skin: Warm, dry Neuro: Cranial nerves II-XII grossly intact bilaterally. Motor grossly intact bilaterally Extremities: No LE edema Psych: Appropriate affect <JORGE King Last Filed: 02/23/24 02:24> Const: General: No confusion <JORGE King Last Filed: 02/23/24 02:24> Orientation/consciousness: No confusion <JORGE King Last Filed: 02/23/24 02:24> Neuro: General: No confusion <Treasure Jones PA-C - Last Filed: 02/23/24 02:24> Results Labs CBC and Chem 7: 02/22/24 12:43 02/22/24 12:43 <Treasure Jones PA-C - Last Filed: 02/23/24 02:24> Labs: Laboratory Results - last 24 hr 02/22/24 02/22/24 12:43 14:24 MCV 80.7 MCH 24.6 L MCHC 30.5 L RDW 17.4 H Plt Count 382 MPV 8.8 L Immature Gran % (Auto) 0.5 H Neut % (Auto) 88.0 H Lymph % (Auto) 7.2 L Cloud % (Auto) 3.5 Eos % (Auto) 0.5 Baso % (Auto) 0.3 Lymph # (Auto) 1.0 L Cloud # (Auto) 0.5 Eos # (Auto) 0.1 Baso # (Auto) 0.0 Abs Immat Gran (auto) 0.06 H Absolute Neuts (auto) 11.8 H Absolute Nucleated RBC 0.000 Nucleated RBC % (auto) 0.0 Anion Gap 13 Estim Creat Clear Calc 100.0 Estimated GFR > 60 Random Glucose 97 Calcium 9.0 D Magnesium 1.7 Total Bilirubin 0.6 AST 27 ALT 16 Alkaline Phosphatase 87 Total Protein 7.7 Albumin 4.4 Urine Color Yellow Urine Appearance Cloudy Urine pH 6.5 Ur Specific [place] >= 1.030 H Urine Protein Trace Urine Glucose (UA) Negative Urine Ketones 15 Urine Blood Negative Urine Nitrite Negative Ur Leukocyte Esterase Trace H Urine RBC 0-2 Urine WBC 0-5 Ur Squamous Epith Cells >20 Urine Bacteria 1+ Hyaline Casts 0-2 Urine Test NEGATIVE Influenza Type A (PCR) NEGATIVE Influenza Type B (PCR) NEGATIVE RSV RNA Qual (PCR) NEGATIVE SARS-CoV-2 RNA (RT-PCR) NEGATIVE <Treasure Jones PA-C - Last Filed: 02/23/24 02:24> Assessment and Plan (1) Colitis: Status: Acute <JORGE King Last Filed: 02/23/24 02:24> (2) Obesity (BMI 30.0-34.9): Status: Chronic <JORGE King Last Filed: 02/23/24 02:24> Patient is a 33-year-old female with a past medical history significant for GERD, IBS, rheumatoid arthritis, fibromyalgia, kidney stones, HTN and LP shunt, who presented to the ED with worsening generalized abdominal pain x1 week. CT suggestive enteric colitis with colitis of the descending colon. Acute colitis - mild leukocytosis, likely reactive, not sepsis - electrolytes normal - UA negative - abdominopelvic CT with enteric colitis with colitis of the descending colon - stool studies ordered including C diff and GI panel - clear liquid diet - pain management: Oxycodone and hydromorphone as needed - GI consult - hold off on antibiotics for now given that colitis is usually viral - admit to medical floor due to intractable pain secondary to colitis GERD - continue home meds HTN - continue home meds Obesity - BMI 30.6 - weight loss encouraged Full code VTE prophylaxis: Lovenox Patient with intractable pain secondary to acute colitis requiring admission for at least 2 midnights stay for pain management. <Treasure Jones PA-C - Last Filed: 02/23/24 02:24> Patient is a 33-year-old female with a past medical history significant for GERD, IBS, rheumatoid arthritis, fibromyalgia, kidney stones, HTN and LP shunt, who presented to the ED with worsening generalized abdominal pain x1 week. CT suggestive enteric colitis with colitis of the descending colon. Acute colitis - mild leukocytosis, likely reactive, not sepsis - electrolytes normal - UA negative - abdominopelvic CT with enteric colitis with colitis of the descending colon - stool studies ordered including C diff and GI panel - clear liquid diet - pain management: Oxycodone and hydromorphone as needed - GI consult - hold off on antibiotics for now given that colitis is usually viral - admit to medical floor due to intractable pain secondary to colitis and unable to tolerate po intake GERD - continue home meds HTN - continue home meds Obesity - BMI 30.6 - weight loss encouraged Full code VTE prophylaxis: Lovenox Patient with intractable pain secondary to acute colitis requiring admission for at least 2 midnights stay for pain management. <Tommie Chavez MD - Last Filed: 02/23/24 02:27> Quality Stroke Does the patient have a stroke diagnosis?: No <Treasure Jones PA-C - Last Filed: 02/23/24 02:24> VTE Prior VTE?: No <Treasure Jones PA-C - Last Filed: 02/23/24 02:24> VTE Risk Level:: Medical - moderate - high <Treasure Jones PA-C - Last Filed: 02/23/24 02:24> VTE Device Contraindication: Treatment Not Indicated <Treasure Jones PA-C - Last Filed: 02/23/24 02:24> VTE Drug Contraindication: N/A - Med Ordered <Treasure Jones PA-C - Last Filed: 02/23/24 02:24>
[2024-02-23] MEDS: Enoxaparin Sodium 40 MG/0.4 ML SYRINGE SUBCUT (03:50)
[2024-02-23] MEDS: HYDROmorphone HCl 1 MG/ML SYRINGE 0.5 MG IVPUSH ×6 (03:51→23:49)
[2024-02-23 04:43] LABS: MANUAL DIFF FLAG NO
[2024-02-23 04:44] LABS: Basophils Percent Auto 0.4 % (0-2); Eosinophils Absolute Auto 0.1 X10*3/uL (0.0-0.4); Eosinophils Percent Auto 1.4 % (0-4); Hematocrit 29.8 % (37.0-47.0); Hemoglobin 9.3 g/dl (12.0-16.0); Imm Gran Abs Auto 0.01 X10*3/uL (0.00-0.03); Imm Gran Pct Auto 0.2 % (0.0-0.4); Lymphocytes Absolute Auto 1.5 X10*3/uL (1.2-4.9); Lymphocytes Percent Auto 26.8 % (20-40); Mean Corpuscular HGB Conc 31.2 g/dl (31.0-35.0); Mean Corpuscular Hemoglobin 24.9 pg (27.0-33.0); Mean Corpuscular Volume 79.9 fL (80.0-98.0); Mean Platelet Volume 8.9 fL (9.4-12.3); Monocytes Absolute Auto 0.5 X10*3/uL (0.1-1.2); Monocytes Percent Auto 9.6 % (2-11); Neutrophils Absolute Auto 3.4 x10*3/uL (2.0-8.3); Neutrophils Percent Auto 61.6 % (45-73); Platelet Count 265 X10*3/uL (160-400); Red Blood Count 3.73 X10*6/uL (4.20-5.50); Red Cell Distribution Width 17.2 % (11.0-16.0); White Blood Count 5.5 X10*3/uL (4.8-10.8)
[2024-02-23 05:04] LABS: Anion Gap 10 (12-20); Blood Urea Nitrogen 7 mg/dL (9-16); Calcium 7.9 mg/dL (8.4-10.2); Carbon Dioxide 24 mmol/L (22-29); Chloride 107 mmol/L (96-108); Creatinine Clr Calc Pharmacy 111.6; Estimated Glomerular Filt Rate > 60; Glucose Random 91 mg/dL (60-115); Potassium 3.1 mmol/L (3.3-5.1); Sodium 138 mmol/L (135-145)
[2024-02-23] MEDS: ondansetron HCL 4 MG/2 ML VIAL IVPUSH ×3 (05:16→20:50)
[2024-02-23] MEDS: Lactated Ringers 1,000 ML 100 ML IVCONT ×2 (08:30→18:37)
[2024-02-23] MEDS: 0.9 % Sodium Chloride Flush 3 ML SYRINGE IVFLUSH ×3 (08:31→23:50)
--- NOTE | 2024-02-23 08:32 | PC.NURSE ---
Pt had small amount of CL breakfast, did not tolerate well - extremely nauseous with abd pain. MD Fair at bedside, made aware.
[2024-02-23] MEDS: LORazepam 2 MG/ML VIAL 0.5 MG IVPUSH ×2 (08:48→14:39)
[2024-02-23] MEDS: Pantoprazole Sodium 40 MG/10 ML VIAL IVPUSH (08:48)
--- NOTE | 2024-02-23 09:04 | P.CNGI_ITS ---
History of Present Illness Data of Consult Service Date: 02/23/24 Requesting physician: Tommie Chavez Primary Care Provider: Anish Wesley MD [facility] Reason for consult: Colitis This is a 33-year-old female with past medical history significant for GERD, IBS, rheumatoid arthritis, fibromyalgia, hypertension, LP shunt, who presented to the hospital for abdominal pain, nausea, vomiting and diarrhea. History was reviewed with the patient at bedside, reports that 3 days ago, she started having lower abdominal and back pain that then progressed to being diffuse abdominal pain. This is associated with multiple episodes of vomiting and diarrhea. Yesterday, when she was not able to keep anything down, she decided to come to the hospital. Vomiting and diarrhea are without blood. No previous history of similar episodes. On arrival to the hospital she was noted to have stable vitals. Labs were significant for leukocytosis with left shift. Chem 7 with hypokalemia and hypocalcemia. CT abdomen pelvis with IV contrast shows wall thickening and small bowel as well as left side of the colon. Currently, patient reports no further vomiting since this morning, no further bowel movements since last night. Review of Systems 2 Review of Systems: Yes all other systems are reviewed and are negative PMFSH Past Medical History Medical History (Updated 02/23/24 @ 14:29 by Perla Burgess MD) FH: cholecystectomy delivery delivered Pseudotumor cerebri Pituitary microadenoma Papanicolaou smear of cervix with low grade squamous intraepithelial lesion (LGSIL) Conversion disorder Back pain Headache Sensory deficit present Weakness Kidney stones Hypertension Rheumatoid arthritis Family History Family History Mother Asthma HTN (hypertension) Pituitary tumor Anxiety Arthritis Brain tumor Father Arthritis Prediabetes Hyperlipidemia Pacemaker Sister Asthma Lupus Brother Arthritis Maternal Grandmother HTN (hypertension) Hyperlipidemia Diabetes Arthritis Maternal Grandfather Heart attack Paternal Grandfather Alzheimer disease Maternal Aunt Breast cancer Surgical History Surgical History (Updated 12/18/23 @ 14:57 by Holly Storey RN) History of oophorectomy, unilateral History of esophagogastroduodenoscopy (EGD) 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 H/O lumbosacral spine surgery Social History Social History Household Members: Children Housing: Apartment Do you presently have visiting nurse or other home services: No Alcohol intake: current Alcohol intake frequency: holidays/special occasions only Patient Tobacco Use Status: Former Tobacco user Tobacco use type: Cigarette Substance Use Type: Marijuana service: No Current occupational status: unemployed Meds Allergies Allergy/AdvReac Type Severity Reaction Status Date / Time ketorolac [From TORADOL] Allergy Unknown ANXIETY, Verified 02/22/24 12:25 NAUSEA, DIZZY metoclopramide [From Reglan] Allergy Hives Verified 02/22/24 12:25 montelukast [From Singulair] Allergy Hives, Verified 02/22/24 12:25 tachycardia,vomitting,diarrhea Active Medications: Current Medications Acetaminophen (Acetaminophen 325 Mg Tablet) 650 mg PO Q6H PRN PRN Reason: Pain, Mild 1-3,fever,headache Calcium Carbonate (Calcium Carbonate 750 Mg Tab.Chew) 750 mg PO Q4H PRN PRN Reason: Heartburn Enoxaparin Sodium (Enoxaparin Sodium 40 Mg/0.4 Ml Syringe) 40 mg SUBCUT Q24H [facility] Last Admin: 02/23/24 03:50 Dose: 40 mg Hydromorphone HCl (Hydromorphone Hcl 1 Mg/Ml Syringe) 0.5 mg IVPUSH Q4H PRN; Protocol PRN Reason: Pain, Severe (Pain Scale 7-10) Last Admin: 02/23/24 08:39 Dose: 0.5 mg Lactated Ringer's (Lr) 1,000 mls @ 100 mls/hr IVCONT .Q10H [facility] Stop: 02/24/24 04:14 Last Admin: 02/23/24 08:30 Dose: 100 mls/hr Lorazepam (Lorazepam 2 Mg/Ml Vial) 0.5 mg IVPUSH Q6H PRN PRN Reason: Nausea and Vomiting Last Admin: 02/23/24 08:48 Dose: 0.5 mg Magnesium Hydroxide (Milk Of Magnesia 30 Ml Oral.Susp) 30 ml PO DAILY PRN PRN Reason: Constipation Melatonin (Melatonin 3 Mg Tablet) 6 mg PO BEDTIME PRN PRN Reason: Insomnia Ondansetron HCl (Ondansetron Hcl 4 Mg/2 Ml Vial) 4 mg IVPUSH Q8H PRN PRN Reason: Nausea and Vomiting Last Admin: 02/23/24 05:16 Dose: 4 mg Oxycodone HCl (Oxycodone Hcl Immed Release 5 Mg Tablet) 5 mg PO Q4H PRN PRN Reason: Pain, Moderate(Pain Scale 4-6) Sodium Chloride (0.9 % Sodium Chloride Flush 3 Ml Syringe) 3 ml IVFLUSH QSHIFT CLEMENTE Last Admin: 02/23/24 08:31 Dose: 3 ml Home Medications ?Medication ?Instructions ?Recorded ?Confirmed ?Last Taken ?Type ibuprofen 600 mg tablet 1 tab PO Q6H PRN mild pain 08/14/21 12/24/23 Unknown History lisinopril 40 mg tablet 1 tab PO DAILY 08/14/21 12/24/23 08/14/21 History clonazepam 1 mg tablet 1 mg PO BID PRN Anxiety 05/20/22 12/24/23 Unknown History hydrochlorothiazide 25 mg tablet 25 mg PO DAILY 12/18/23 12/24/23 Unknown History topiramate 100 mg tablet 100 mg PO BID 12/18/23 12/24/23 Unknown History amlodipine 10 mg tablet 10 mg PO DAILY 12/24/23 12/24/23 Unknown History omeprazole 20 mg capsule,delayed 40 mg PO DAILY 12/24/23 12/24/23 Unknown History release amitriptyline 75 mg tablet 75 mg PO BEDTIME 02/23/24 02/23/24 02/20/24 History [id number] 1 tab PO Q6H PRN headache 02/23/24 02/23/24 Unknown History 50 mg-325 mg-40 mg tablet Physical Exam 2 Vital Signs: Vital Signs: Last Vital Signs Temp 98.2 F 02/23/24 08:18 Pulse 83 02/23/24 08:18 Resp 17 02/23/24 08:18 BP 143/92 H 02/23/24 08:18 Pulse Ox 99 02/23/24 08:18 O2 Del Method Room Air 02/23/24 08:18 BMI result Body Mass Index 30.6 Young female Nonicteric Abdomen soft, nondistended, voluntary guarding Alert and oriented x3 No LE edema Results Labs 02/23/24 04:33 02/23/24 04:33 Labs: Short CBC 02/22/24 02/23/24 Range/Units 12:43 04:33 WBC 13.3 H 5.5 (4.8-10.8) X10*3/uL Hgb 10.6 L 9.3 L (12.0-16.0) g/dl Hct 34.8 L 29.8 L (37.0-47.0) % Plt Count 382 265 D (160-400) X10*3/uL BMP 02/22/24 02/23/24 12:43 04:33 Sodium 141 138 Potassium 3.6 3.1 L Chloride 107 107 Carbon Dioxide 25 24 BUN 12 7 L Creatinine 0.77 0.69 Calcium 9.0 D 7.9 L D Liver Function 02/22/24 Range/Units 12:43 Total Bilirubin 0.6 (0.0-1.0) mg/dL AST 27 (5-31) U/L ALT 16 (0-31) U/L Alkaline Phosphatase 87 (39-117) U/L Albumin 4.4 (3.5-5.0) g/dL Urine 02/22/24 Range/Units 14:24 Urine Color Yellow Urine Appearance Cloudy Urine pH 6.5 (5.0-9.0) Ur Specific [place] >= 1.030 H (1.005-1.025) Urine Protein Trace (Neg-Trace) mg/dL Urine Glucose (UA) Negative (Negative) mg/dL Assessment and Plan (1) Abdominal pain: Status: Acute (2) Colitis: Status: Acute (3) Nausea vomiting and diarrhea: Status: Acute Plan Ddx for enterocoltiis include infectious vs inflammatory. Low suspicion for ischemic given distribution and age. Plan: - Check CRP, C diff, GI panel if pt able to submit a stool sample (no diarrhea since last night per pt) - IVF - Antibiotics not recommended for acute infectious GI illness - Trial of CLD and advance as tolerated - Anticipate improvement over next 24-48h Thank you for allowing me to participate in her care. Please do not hesitate to reach out for any questions or concerns. Procedures Date of Service Date of Service: 02/23/24
--- NOTE | 2024-02-23 09:25 | PM.EVENT ---
Event Note Date of Service: 02/23/24 Event Note: Day Team Follow Up S seen and examined. feeling nauseous and having abd pain O vital - last documented Gen - appears uncomfortable abd - soft with diffuse tenderness without rebound/guarding A/P 33 yo presenting with abd pain and diarrhea continue supoprtive care, check stool studies, await gi input remainder per H&P Time Spent With Patient Time: Total time managing care of this patient today ____ minutes.
--- NOTE | 2024-02-23 11:06 | PHA.MEDREC ---
Addendum entered by Duke Rg RPh 02/23/24 11:58: Reviewed by [facility]. Patient takes 75mg of Amitriptyline. Original Note: Pharmacy Consult ? Medication Reconciliation Pharmacy has completed the medication reconciliation. Confirmed medications with patient. Patient confirmed her medications. She stated she has Escitalopram, Nifedipine, and Propanolol that she picked up and has at home but claims she is not taking them because she does not want too. She confirmed she is taking the Omeprazole 40mg tab now instead of the Famotidine. Patient stated she is taking her Topiramate once daily and when I asked about it being once at bedtime for a week then BID she was not sure about that and states shes been doing it daily. She confirmed she took her medications Friday morning. and the Amitriptyline 25mg tab on Friday night.
--- NOTE | 2024-02-23 12:24 | PC.NURSE ---
VS updated, pt medicated for pain/nausea per APR. Pt ambulatory to the BR with a steady gait, unable to provide stool sample at this time.
--- NOTE | 2024-02-23 13:04 | MHC.CM.PN ---
pt lives with her mother she is independent has own ride home dc plan home n o servies
[2024-02-23] MEDS: Potassium Chloride/H20 10 MEQ/100 ML PIGGYBACK 33.3 MEQ IV (13:31)
--- NOTE | 2024-02-23 15:06 | PC.NURSE ---
13:45 Potassium requested per pharmacy
--- NOTE | 2024-02-23 15:10 | PC.NURSE ---
Pt. is rating pain currently as 8/10. Only PRN available for a pain scale of 8 is PRN Dilaudid 0.5mg, but it is too early at this time for the pt.'s next dose of Dilaudid. Sam Fair MD notified for breakthrough pain.
[2024-02-23] MEDS: Potassium Chloride/H20 10 MEQ/100 ML PIGGYBACK 100 MEQ IV (15:21)
--- NOTE | 2024-02-23 19:37 | PC.NURSE ---
33F admitted with worsening abominal pain, currently 8/10 generalized abdominal pain radiating to back. Prn oxy and Dilaudid ordered, will administer if due before transfer to S3. LR at 100ml/hr, electrolyte replacements just finished. Alert/oriented, ambulatory, VSS, lungs clear. Reports having 3 liquid bowel movements today which has decreased since when she came in. She will be admitted to med/surg d/t intractable pain s/t colitis.
[2024-02-23] MEDS: Amitriptyline HCl 25 MG TABLET 75 MG PO (20:47)
[2024-02-24] VITALS (8 sets, daily range): BP systolic 123–174; BP diastolic 56–101; PULSE 69–83; RESP 16–18; TEMP 36.7–37.4; O2SAT 97–100
--- NOTE | 2024-02-24 01:31 | PC.NURSE ---
Patient made aware a stool sample is needed, hat placed in the bathroom.
[2024-02-24] MEDS: Enoxaparin Sodium 40 MG/0.4 ML SYRINGE SUBCUT (02:58)
[2024-02-24] MEDS: oxyCODONE HCl Immed Release 5 MG TABLET PO (03:01)
[2024-02-24] MEDS: HYDROmorphone HCl 1 MG/ML SYRINGE 0.5 MG IVPUSH ×3 (05:14→12:19)
[2024-02-24] MEDS: Omeprazole 40 MG CAPSULE.DR PO (05:39)
[2024-02-24] MEDS: Topiramate 100 MG TABLET PO (09:08)
[2024-02-24] MEDS: 0.9 % Sodium Chloride Flush 3 ML SYRINGE IVFLUSH (09:09)
[2024-02-24] MEDS: amLODIPine Besylate 10 MG TABLET PO (09:13)
--- NOTE | 2024-02-24 10:11 | HO.PM.IMPN ---
Subjective Subjective Date of Service: 02/24/24 Interval History: seen and examined still with on going pain worsened by oral intake intolerant to clear liquids due to pain denies any further diarrhea Review of Systems Negative except HPI/interval history. Physical Exam Vital Signs: Vital Signs: Last Vital Signs Temp 99.1 F 02/24/24 07:17 Pulse 83 02/24/24 07:17 Resp 16 02/24/24 07:17 BP 174/101 H 02/24/24 09:13 Pulse Ox 98 02/24/24 07:17 O2 Del Method Room Air 02/24/24 07:17 BMI result Body Mass Index 31.0 Const: Other: General - no acute distress, appears comfortable Cardiovascular - regular rate and rhythm, S1-S2 Lungs - normal respiratory effort, clear to auscultation bilaterally, no wheezing Abdomen - soft with right sided ttp without rebound or guarding Extremities - no edema bilaterally Neuro - awake and alert, no focal deficits Objective Data Active Medications Acetaminophen (Acetaminophen 325 Mg Tablet) 650 mg PO Q6H PRN PRN Reason: Pain, Mild 1-3,fever,headache Amitriptyline HCl (Amitriptyline Hcl 25 Mg Tablet) 75 mg PO BEDTIME [facility] Last Admin: 02/23/24 20:47 Dose: 75 mg Documented By: SHAHRAM Amlodipine Besylate (Amlodipine Besylate 10 Mg Tablet) 10 mg PO DAILY [facility]; Protocol Last Admin: 02/24/24 09:13 Dose: 10 mg Documented By: BHAVNA Calcium Carbonate (Calcium Carbonate 750 Mg Tab.Chew) 750 mg PO Q4H PRN PRN Reason: Heartburn Clonazepam (Clonazepam 1 Mg Tablet) 1 mg PO BID PRN PRN Reason: Anxiety Enoxaparin Sodium (Enoxaparin Sodium 40 Mg/0.4 Ml Syringe) 40 mg SUBCUT Q24H [facility] Last Admin: 02/24/24 02:58 Dose: 40 mg Documented By: SHAHRAM Hydromorphone HCl (Hydromorphone Hcl 1 Mg/Ml Syringe) 0.5 mg IVPUSH Q3H PRN; Protocol PRN Reason: Pain, Severe (Pain Scale 7-10) Last Admin: 02/24/24 09:08 Dose: 0.5 mg Documented By: BHAVNA Influenza Virus Vaccine (Flu Vacc [id number](6mos Up)/Pf 0.5 Ml Syringe) 0.5 ml IM .ONCE ONE Stop: 02/24/24 14:01 Lorazepam (Lorazepam 2 Mg/Ml Vial) 0.5 mg IVPUSH Q6H PRN PRN Reason: Nausea and Vomiting Last Admin: 02/23/24 14:39 Dose: 0.5 mg Documented By: NAOMI Magnesium Hydroxide (Milk Of Magnesia 30 Ml Oral.Susp) 30 ml PO DAILY PRN PRN Reason: Constipation Melatonin (Melatonin 3 Mg Tablet) 6 mg PO BEDTIME PRN PRN Reason: Insomnia Omeprazole (Omeprazole 40 Mg Capsule.Dr) 40 mg PO DAILY@0630 [facility] Last Admin: 02/24/24 05:39 Dose: 40 mg Documented By: FAWN Ondansetron HCl (Ondansetron Hcl 4 Mg/2 Ml Vial) 4 mg IVPUSH Q8H PRN PRN Reason: Nausea and Vomiting Last Admin: 02/23/24 20:50 Dose: 4 mg Documented By: SHAHRAM Oxycodone HCl (Oxycodone Hcl Immed Release 5 Mg Tablet) 5 mg PO Q4H PRN PRN Reason: Pain, Moderate(Pain Scale 4-6) Last Admin: 02/24/24 03:01 Dose: 5 mg Documented By: SHAHRAM Sodium Chloride (0.9 % Sodium Chloride Flush 3 Ml Syringe) 3 ml IVFLUSH QSHIFT [facility] Last Admin: 02/24/24 09:09 Dose: 3 ml Documented By: BHAVNA Topiramate (Topiramate 100 Mg Tablet) 100 mg PO DAILY [facility] Last Admin: 02/24/24 09:08 Dose: 100 mg Documented By: BHAVNA Labs 02/23/24 04:33 02/23/24 04:33 Microbiology Microbiology Results: Microbiology 02/22/24 14:24 Urine Culture - Final Urine clean catch - Clean Catch Midstream No growth. Assessment and Plan (1) Abdominal pain: Status: Acute (2) Colitis: Status: Acute Plan 39-year-old 33-year-old female with a past medical history of GERD, IBS, RA, fibromyalgia, kidney stones, hypertension, LP shunt who presented to the ED with complaints of generalized abdominal pain. CT scan is suggestive of enterocolitis. 1. Enterocolitis Infectious versus inflammatory Diarrhea has resolved since arrival to the ED Ongoing abdominal pain GI input appreciated - low suspicion for ischemic given distribution and age, no antibiotics at this time Continue with intravenous fluids Continue with intravenous Dilaudid p.r.n. Slowly advance diet, although this morning intolerant to clears 2. Uncontrolled hypertension Will add back her lisinopril today and continue her Norvasc. Continue holding HCTZ 3. Hypokalemia Due to poor oral intake Repleted yesterday, we will repeat today 4. GERD PPI 5. Obesity Weight loss encouraged Reason for ongoing hospitalization: Continued ongoing severe abdominal pain requiring IV analgesics every 3-4 hours. Intolerant to oral intake requiring ongoing IV fluids. Unclear etiology of pain. Quality Stroke Does the patient have a stroke diagnosis?: No VTE Prior VTE?: No VTE Risk Level:: Medical - moderate - high VTE Device Contraindication: Treatment Not Indicated VTE Drug Contraindication: N/A - Med Ordered
[2024-02-24 10:37] LABS: Hematocrit 30.1 % (37.0-47.0); Hemoglobin 9.2 g/dl (12.0-16.0); Mean Corpuscular HGB Conc 30.6 g/dl (31.0-35.0); Mean Corpuscular Hemoglobin 24.7 pg (27.0-33.0); Mean Corpuscular Volume 80.9 fL (80.0-98.0); Mean Platelet Volume 8.8 fL (9.4-12.3); Platelet Count 259 X10*3/uL (160-400); Red Blood Count 3.72 X10*6/uL (4.20-5.50); Red Cell Distribution Width 16.6 % (11.0-16.0); White Blood Count 6.8 X10*3/uL (4.8-10.8)
[2024-02-24 10:55] LABS: Anion Gap 9 (12-20); Blood Urea Nitrogen 5 mg/dL (9-16); Calcium 8.3 mg/dL (8.4-10.2); Carbon Dioxide 26 mmol/L (22-29); Chloride 104 mmol/L (96-108); Creatinine Clr Calc Pharmacy 123.2; Estimated Glomerular Filt Rate > 60; Glucose Random 101 mg/dL (60-115); Sodium 136 mmol/L (135-145)
[2024-02-24] MEDS: Lactated Ringers 1,000 ML 100 ML IVCONT ×2 (12:17→20:59)
[2024-02-24] MEDS: lisinopriL 40 MG TABLET PO (12:18)
[2024-02-24] MEDS: Flu Vacc TS2024-25(6mos up)/PF 0.5 ML SYRINGE IM (12:27)
[2024-02-24] MEDS: HYDROmorphone HCl 0.5 MG/0.5 ML SYRINGE IVPUSH ×2 (16:24→20:12)
[2024-02-24] MEDS: LORazepam 2 MG/ML VIAL 0.5 MG IVPUSH (20:12)
[2024-02-24] MEDS: Amitriptyline HCl 25 MG TABLET 75 MG PO (20:57)
[2024-02-25] VITALS (7 sets, daily range): BP systolic 125–145; BP diastolic 63–83; PULSE 70–82; RESP 16–18; TEMP 36.6–36.8; O2SAT 96–100
[2024-02-25] MEDS: Enoxaparin Sodium 40 MG/0.4 ML SYRINGE SUBCUT (01:57)
[2024-02-25] MEDS: HYDROmorphone HCl 0.5 MG/0.5 ML SYRINGE IVPUSH ×4 (03:28→20:39)
[2024-02-25] MEDS: Omeprazole 40 MG CAPSULE.DR PO (06:36)
[2024-02-25 08:03] LABS: Anion Gap 11 (12-20); Blood Urea Nitrogen 6 mg/dL (9-16); Carbon Dioxide 23 mmol/L (22-29); Chloride 107 mmol/L (96-108); Creatinine Clr Calc Pharmacy 98.2; Estimated Glomerular Filt Rate > 60; Glucose Random 94 mg/dL (60-115); Potassium 3.4 mmol/L (3.3-5.1); Sodium 138 mmol/L (135-145)
[2024-02-25] MEDS: Topiramate 100 MG TABLET PO (10:21)
[2024-02-25] MEDS: amLODIPine Besylate 10 MG TABLET PO (10:21)
[2024-02-25] MEDS: lisinopriL 40 MG TABLET PO (10:21)
[2024-02-25] MEDS: 0.9 % Sodium Chloride Flush 3 ML SYRINGE IVFLUSH ×2 (10:21→20:38)
--- NOTE | 2024-02-25 11:51 | HO.PM.IMPN ---
Subjective Subjective Date of Service: 02/25/24 Interval History: seen and examined still with mild pain denies any further diarrhea Review of Systems Negative except HPI/interval history. Physical Exam Vital Signs: Vital Signs: Last Vital Signs Temp 98.2 F 02/25/24 11:17 Pulse 76 02/25/24 11:17 Resp 16 02/25/24 11:17 BP 138/83 02/25/24 11:17 Pulse Ox 99 02/25/24 11:17 O2 Del Method Room Air 02/25/24 11:17 BMI result Body Mass Index 31.0 Appearing in no acute distress lung sounds are clear to auscultation heart regular rate rhythm, clear S1, S2 positive bowel sounds, abdomen is soft, nontender neuro patient is alert x3, no focal deficits Objective Data Active Medications Acetaminophen (Acetaminophen 325 Mg Tablet) 650 mg PO Q6H PRN PRN Reason: Pain, Mild 1-3,fever,headache Amitriptyline HCl (Amitriptyline Hcl 25 Mg Tablet) 75 mg PO BEDTIME [facility] Last Admin: 02/24/24 20:57 Dose: 75 mg Documented By: FAWN Amlodipine Besylate (Amlodipine Besylate 10 Mg Tablet) 10 mg PO DAILY [facility]; Protocol Last Admin: 02/25/24 10:21 Dose: 10 mg Documented By: BHAVNA Calcium Carbonate (Calcium Carbonate 750 Mg Tab.Chew) 750 mg PO Q4H PRN PRN Reason: Heartburn Clonazepam (Clonazepam 1 Mg Tablet) 1 mg PO BID PRN PRN Reason: Anxiety Enoxaparin Sodium (Enoxaparin Sodium 40 Mg/0.4 Ml Syringe) 40 mg SUBCUT Q24H [facility] Last Admin: 02/25/24 01:57 Dose: 40 mg Documented By: FAWN Hydromorphone HCl (Hydromorphone Hcl 0.5 Mg/0.5 Ml Syringe) 0.5 mg IVPUSH Q3H PRN; Protocol PRN Reason: Pain, Severe (Pain Scale 7-10) Last Admin: 02/25/24 10:19 Dose: 0.5 mg Documented By: BHAVNA Lisinopril (Lisinopril 40 Mg Tablet) 40 mg PO DAILY [facility]; Protocol Last Admin: 02/25/24 10:21 Dose: 40 mg Documented By: BHAVNA Lorazepam (Lorazepam 2 Mg/Ml Vial) 0.5 mg IVPUSH Q6H PRN PRN Reason: Nausea and Vomiting Last Admin: 02/24/24 20:12 Dose: 0.5 mg Documented By: FAWN Magnesium Hydroxide (Milk Of Magnesia 30 Ml Oral.Susp) 30 ml PO DAILY PRN PRN Reason: Constipation Melatonin (Melatonin 3 Mg Tablet) 6 mg PO BEDTIME PRN PRN Reason: Insomnia Omeprazole (Omeprazole 40 Mg Capsule.Dr) 40 mg PO DAILY@0630 [facility] Last Admin: 02/25/24 06:36 Dose: 40 mg Documented By: FAWN Ondansetron HCl (Ondansetron Hcl 4 Mg/2 Ml Vial) 4 mg IVPUSH Q8H PRN PRN Reason: Nausea and Vomiting Last Admin: 02/23/24 20:50 Dose: 4 mg Documented By: DAVIDASY Oxycodone HCl (Oxycodone Hcl Immed Release 5 Mg Tablet) 5 mg PO Q4H PRN PRN Reason: Pain, Moderate(Pain Scale 4-6) Last Admin: 02/24/24 03:01 Dose: 5 mg Documented By: SHAHRAM Sodium Chloride (0.9 % Sodium Chloride Flush 3 Ml Syringe) 3 ml IVFLUSH QSHIFT [facility] Last Admin: 02/25/24 10:21 Dose: 3 ml Documented By: BHAVNA Topiramate (Topiramate 100 Mg Tablet) 100 mg PO DAILY [facility] Last Admin: 02/25/24 10:21 Dose: 100 mg Documented By: BHAVNA Labs 02/24/24 10:32 02/25/24 07:34 Labs: Laboratory Results - last 24 hr 02/25/24 07:34 Anion Gap 11 L Estim Creat Clear Calc 98.2 Estimated GFR > 60 Random Glucose 94 Calcium 9.0 D Assessment and Plan (1) Abdominal pain: Status: Acute (2) Colitis: Status: Acute Plan 39-year-old 33-year-old female with a past medical history of GERD, IBS, RA, fibromyalgia, kidney stones, hypertension, LP shunt who presented to the ED with complaints of generalized abdominal pain. CT scan is suggestive of enterocolitis. Enterocolitis Infectious versus inflammatory Diarrhea has resolved since arrival to the ED Ongoing abdominal pain GI input appreciated - low suspicion for ischemic given distribution and age, no antibiotics at this time Continue with IV fluids and intravenous Dilaudid p.r.n. Slowly advance diet Uncontrolled hypertension continue lisinopril and norvasc Hypokalemia Due to poor oral intake Repleted and resolved GERD PPI Obesity Weight loss encouraged DVT prophylaxis with Lovenox full code Quality Stroke Does the patient have a stroke diagnosis?: No VTE Prior VTE?: No VTE Risk Level:: Medical - moderate - high VTE Device Contraindication: Treatment Not Indicated VTE Drug Contraindication: N/A - Med Ordered
[2024-02-25] MEDS: LORazepam 2 MG/ML VIAL 0.5 MG IVPUSH (15:16)
[2024-02-25] MEDS: ondansetron HCL 4 MG/2 ML VIAL IVPUSH (20:38)
[2024-02-25] MEDS: Amitriptyline HCl 25 MG TABLET 75 MG PO (20:38)
[2024-02-25] MEDS: clonazePAM 1 MG TABLET PO (20:38)
[2024-02-26] VITALS (7 sets, daily range): BP systolic 108–150; BP diastolic 56–80; PULSE 65–78; RESP 16–18; TEMP 36.2–36.8; O2SAT 97–100
[2024-02-26] MEDS: HYDROmorphone HCl 0.5 MG/0.5 ML SYRINGE IVPUSH ×6 (02:25→21:22)
[2024-02-26] MEDS: Enoxaparin Sodium 40 MG/0.4 ML SYRINGE SUBCUT (02:26)
[2024-02-26] MEDS: Omeprazole 40 MG CAPSULE.DR PO (06:08)
--- NOTE | 2024-02-26 09:30 | P.PNIM_ITS ---
Subjective Subjective Date of Service: 02/26/24 Interval History: seen and examined this AM tried solids yesterday with worsening pain reports abd pain this AM, afraid to try solids again Review of Systems Negative except HPI/interval history. Physical Exam 2 Vital Signs: Vital Signs: Last Vital Signs Temp 98.0 F 02/26/24 07:04 Pulse 66 02/26/24 07:04 Resp 16 02/26/24 07:04 BP 119/69 02/26/24 07:04 Pulse Ox 97 02/26/24 07:04 O2 Del Method Room Air 02/26/24 07:04 BMI result Body Mass Index 31.0 Const: Other: General - no acute distress, appears comfortable Cardiovascular - regular rate and rhythm, S1-S2 Lungs - normal respiratory effort, clear to auscultation bilaterally, no wheezing Abdomen - soft with left sided TTP Extremities - no edema bilaterally Neuro - awake and alert, no focal deficits Objective Data Active Medications Acetaminophen (Acetaminophen 325 Mg Tablet) 650 mg PO Q6H PRN PRN Reason: Pain, Mild 1-3,fever,headache Amitriptyline HCl (Amitriptyline Hcl 25 Mg Tablet) 75 mg PO BEDTIME [facility] Last Admin: 02/25/24 20:38 Dose: 75 mg Documented By: EDELMIRA Amlodipine Besylate (Amlodipine Besylate 10 Mg Tablet) 10 mg PO DAILY [facility]; Protocol Last Admin: 02/25/24 10:21 Dose: 10 mg Documented By: BHAVNA Calcium Carbonate (Calcium Carbonate 750 Mg Tab.Chew) 750 mg PO Q4H PRN PRN Reason: Heartburn Clonazepam (Clonazepam 1 Mg Tablet) 1 mg PO BID PRN PRN Reason: Anxiety Last Admin: 02/25/24 20:38 Dose: 1 mg Documented By: EDELMIRA Enoxaparin Sodium (Enoxaparin Sodium 40 Mg/0.4 Ml Syringe) 40 mg SUBCUT Q24H [facility] Last Admin: 02/26/24 02:26 Dose: 40 mg Documented By: EDELMIRA Hydromorphone HCl (Hydromorphone Hcl 0.5 Mg/0.5 Ml Syringe) 0.5 mg IVPUSH Q3H PRN; Protocol PRN Reason: Pain, Severe (Pain Scale 7-10) Last Admin: 02/26/24 06:08 Dose: 0.5 mg Documented By: EDELMIRA Lisinopril (Lisinopril 40 Mg Tablet) 40 mg PO DAILY [facility]; Protocol Last Admin: 02/25/24 10:21 Dose: 40 mg Documented By: BHAVNA Lorazepam (Lorazepam 2 Mg/Ml Vial) 0.5 mg IVPUSH Q6H PRN PRN Reason: Nausea and Vomiting Last Admin: 02/25/24 15:16 Dose: 0.5 mg Documented By: BHAVNA Magnesium Hydroxide (Milk Of Magnesia 30 Ml Oral.Susp) 30 ml PO DAILY PRN PRN Reason: Constipation Melatonin (Melatonin 3 Mg Tablet) 6 mg PO BEDTIME PRN PRN Reason: Insomnia Omeprazole (Omeprazole 40 Mg Capsule.Dr) 40 mg PO DAILY@0630 [facility] Last Admin: 02/26/24 06:08 Dose: 40 mg Documented By: EDELMIRA Ondansetron HCl (Ondansetron Hcl 4 Mg/2 Ml Vial) 4 mg IVPUSH Q8H PRN PRN Reason: Nausea and Vomiting Last Admin: 02/25/24 20:38 Dose: 4 mg Documented By: EDELMIRA Oxycodone HCl (Oxycodone Hcl Immed Release 5 Mg Tablet) 5 mg PO Q4H PRN PRN Reason: Pain, Moderate(Pain Scale 4-6) Last Admin: 02/24/24 03:01 Dose: 5 mg Documented By: SHAHRAM Sodium Chloride (0.9 % Sodium Chloride Flush 3 Ml Syringe) 3 ml IVFLUSH QSHIFT [facility] Last Admin: 02/25/24 20:38 Dose: 3 ml Documented By: EDELMIRA Topiramate (Topiramate 100 Mg Tablet) 100 mg PO DAILY [facility] Last Admin: 02/25/24 10:21 Dose: 100 mg Documented By: BHAVNA Labs 02/24/24 10:32 02/25/24 07:34 Assessment and Plan (1) Abdominal pain: Status: Acute (2) Colitis: Status: Acute Plan 39-year-old 33-year-old female with a past medical history of GERD, IBS, RA, fibromyalgia, kidney stones, hypertension, LP shunt who presented to the ED with complaints of generalized abdominal pain. CT scan is suggestive of enterocolitis. Enterocolitis Infectious versus inflammatory diarrhea resolved still with on going pain - continue iv analgesics ask GI to re-eval pt today will repeat imaging and labs today Uncontrolled hypertension now improved Hypokalemia Due to poor oral intake Repleted and resolved GERD PPI Obesity Weight loss encouraged DVT prophylaxis with Lovenox full code Reason for ongoing hospitalization: Patient with ongoing pain not improved, requiring repeat imaging and repeat evaluation by GI Quality Stroke Does the patient have a stroke diagnosis?: No VTE Prior VTE?: No VTE Risk Level:: Medical - moderate - high VTE Device Contraindication: Treatment Not Indicated VTE Drug Contraindication: N/A - Med Ordered
[2024-02-26] MEDS: 0.9 % Sodium Chloride Flush 3 ML SYRINGE IVFLUSH (09:38)
[2024-02-26] MEDS: ondansetron HCL 4 MG/2 ML VIAL IVPUSH (09:38)
[2024-02-26] MEDS: Topiramate 100 MG TABLET PO (09:43)
[2024-02-26] MEDS: amLODIPine Besylate 10 MG TABLET PO (09:43)
[2024-02-26] MEDS: lisinopriL 40 MG TABLET PO (09:44)
[2024-02-26] MEDS: Dextrose 5 % and Lactated Ring 1,000 ML 80 ML IVCONT ×2 (10:17→21:25)
[2024-02-26 10:33] LABS: Hematocrit 35.4 % (37.0-47.0); Hemoglobin 10.6 g/dl (12.0-16.0); Mean Corpuscular HGB Conc 29.9 g/dl (31.0-35.0); Mean Corpuscular Hemoglobin 24.7 pg (27.0-33.0); Mean Corpuscular Volume 82.5 fL (80.0-98.0); Mean Platelet Volume 9.3 fL (9.4-12.3); Platelet Count 331 X10*3/uL (160-400); Red Blood Count 4.29 X10*6/uL (4.20-5.50); Red Cell Distribution Width 17.8 % (11.0-16.0); White Blood Count 6.6 X10*3/uL (4.8-10.8)
[2024-02-26 10:48] LABS: Alanine Aminotransferase 68 U/L (0-31); Albumin Level 3.9 g/dL (3.5-5.0); Alkaline Phosphatase 133 U/L (39-117); Anion Gap 11 (12-20); Aspartate Amino Transferase 32 U/L (5-31); Bilirubin Total 0.4 mg/dL (0.0-1.0); Blood Urea Nitrogen 8 mg/dL (9-16); Calcium 9.3 mg/dL (8.4-10.2); Carbon Dioxide 23 mmol/L (22-29); Chloride 108 mmol/L (96-108); Creatinine Clr Calc Pharmacy 92.3; Estimated Glomerular Filt Rate > 60; Glucose Random 103 mg/dL (60-115); Potassium 3.6 mmol/L (3.3-5.1); Sodium 138 mmol/L (135-145); Total Protein 7.2 g/dL (6.5-8.0)
[2024-02-26] MEDS: clonazePAM 1 MG TABLET PO (13:35)
--- NOTE | 2024-02-26 14:32 | P.PNGI_ITS ---
Subjective Subjective Date of Service: 02/26/24 Interval History: Diarrhea resolved but continues to have abd pain and nausea. Tried solids yest but it was very fatty food so got sick again. Critical Care Time (minutes): 0 Physical Exam 2 Vital Signs: Vital Signs: Last Vital Signs Temp 97.1 F 02/26/24 15:25 Pulse 71 02/26/24 15:25 Resp 16 02/26/24 15:25 BP 128/64 02/26/24 15:25 Pulse Ox 100 02/26/24 15:25 O2 Del Method Room Air 02/26/24 15:25 BMI result Body Mass Index 31.0 No apparent distress Nonicteric Abdomen soft, nondistended, no guarding Alert and oriented x3, no focal deficits Objective Data Labs 02/26/24 09:42 02/26/24 09:42 Labs: Laboratory Results - last 24 hr 02/26/24 09:42 WBC 6.6 RBC 4.29 Hgb 10.6 L Hct 35.4 L MCV 82.5 MCH 24.7 L MCHC 29.9 L RDW 17.8 H Plt Count 331 D MPV 9.3 L Absolute Nucleated RBC 0.000 Nucleated RBC % (auto) 0.0 Sodium 138 Potassium 3.6 Chloride 108 Carbon Dioxide 23 Anion Gap 11 L BUN 8 L Creatinine 0.84 Estim Creat Clear Calc 92.3 Estimated GFR > 60 Random Glucose 103 Calcium 9.3 Total Bilirubin 0.4 AST 32 H ALT 68 H Alkaline Phosphatase 133 H Total Protein 7.2 Albumin 3.9 Microbiology Microbiology Results: Microbiology 02/22/24 14:24 Urine clean catch - Clean Catch Midstream Urine Culture - Final No growth. Procedures Date of Service Date of Service: 02/26/24 Progress Note: A&P Assessment and plan (1) Nausea vomiting and diarrhea: Status: Acute (2) Abdominal pain: Status: Acute (3) Colitis: Status: Acute Plan Overall presentation remains consistent with infectious illness however since not progressing, recommend re-imaging. If has worsening findings, low threshold to proceed with diagnostic scope. Consider stool studies GI panel Ok to trial full liquids from GI standpoint, avoid fatty food. Time Spent With Patient Time: Total time managing care of this patient today ____ minutes. Quality Stroke Does the patient have a stroke diagnosis?: No VTE Prior VTE?: No VTE Risk Level:: Medical - moderate - high VTE Device Contraindication: Treatment Not Indicated VTE Drug Contraindication: N/A - Med Ordered
[2024-02-26] MEDS: iohexoL 350 MG/ML 100 ML INFUS..BTL IV (15:00)
[2024-02-26] MEDS: LORazepam 2 MG/ML VIAL 0.5 MG IVPUSH (21:19)
[2024-02-26] MEDS: Amitriptyline HCl 25 MG TABLET 75 MG PO (21:27)
[2024-02-27] VITALS (7 sets, daily range): BP systolic 118–149; BP diastolic 57–87; PULSE 73–82; RESP 17–18; TEMP 36.3–36.9; O2SAT 99–100
[2024-02-27] MEDS: Enoxaparin Sodium 40 MG/0.4 ML SYRINGE SUBCUT (02:14)
[2024-02-27] MEDS: HYDROmorphone HCl 0.5 MG/0.5 ML SYRINGE IVPUSH ×7 (02:14→23:43)
[2024-02-27] MEDS: Omeprazole 40 MG CAPSULE.DR PO (06:21)
--- NOTE | 2024-02-27 09:06 | P.PNIM_ITS ---
Subjective Subjective Date of Service: 02/27/24 Interval History: still with pain, more L > R concerned about having colitis Review of Systems Negative except HPI/interval history. Physical Exam 2 Vital Signs: Vital Signs: Last Vital Signs Temp 98.1 F 02/27/24 07:51 Pulse 73 02/27/24 07:51 Resp 18 02/27/24 07:51 BP 124/72 02/27/24 07:51 Pulse Ox 100 02/27/24 07:51 O2 Del Method Room Air 02/27/24 07:51 BMI result Body Mass Index 31.0 Const: Other: General - no acute distress, appears comfortable Cardiovascular - regular rate and rhythm, S1-S2 Lungs - normal respiratory effort, clear to auscultation bilaterally, no wheezing Abdomen - soft with left sided TTP Extremities - no edema bilaterally Neuro - awake and alert, no focal deficits Objective Data Active Medications Acetaminophen (Acetaminophen 325 Mg Tablet) 650 mg PO Q6H PRN PRN Reason: Pain, Mild 1-3,fever,headache Amitriptyline HCl (Amitriptyline Hcl 25 Mg Tablet) 75 mg PO BEDTIME [facility] Last Admin: 02/26/24 21:27 Dose: 75 mg Documented By: JOCELYNN Amlodipine Besylate (Amlodipine Besylate 10 Mg Tablet) 10 mg PO DAILY [facility]; Protocol Last Admin: 02/26/24 09:43 Dose: 10 mg Documented By: NAIMA Calcium Carbonate (Calcium Carbonate 750 Mg Tab.Chew) 750 mg PO Q4H PRN PRN Reason: Heartburn Clonazepam (Clonazepam 1 Mg Tablet) 1 mg PO BID PRN PRN Reason: Anxiety Last Admin: 02/26/24 13:35 Dose: 1 mg Documented By: NAIMA Comments: patient requested for anxiety Enoxaparin Sodium (Enoxaparin Sodium 40 Mg/0.4 Ml Syringe) 40 mg SUBCUT Q24H [facility] Last Admin: 02/27/24 02:14 Dose: 40 mg Documented By: DUDLEY Hydromorphone HCl (Hydromorphone Hcl 0.5 Mg/0.5 Ml Syringe) 0.5 mg IVPUSH Q3H PRN; Protocol PRN Reason: Pain, Severe (Pain Scale 7-10) Last Admin: 02/27/24 06:34 Dose: 0.5 mg Documented By: DUDLEY Dextrose/Lactated Ringer's (D5lr) 1,000 mls @ 80 mls/hr IVCONT .[id number] [facility] Last Admin: 02/26/24 21:25 Dose: 80 mls/hr Documented By: JOCELYNN Lisinopril (Lisinopril 40 Mg Tablet) 40 mg PO DAILY [facility]; Protocol Last Admin: 02/26/24 09:44 Dose: 40 mg Documented By: NAIMA Lorazepam (Lorazepam 2 Mg/Ml Vial) 0.5 mg IVPUSH Q6H PRN PRN Reason: Nausea and Vomiting Last Admin: 02/26/24 21:19 Dose: 0.5 mg Documented By: JOCELYNN Comments: pt c/o of feeling nauseous Magnesium Hydroxide (Milk Of Magnesia 30 Ml Oral.Susp) 30 ml PO DAILY PRN PRN Reason: Constipation Melatonin (Melatonin 3 Mg Tablet) 6 mg PO BEDTIME PRN PRN Reason: Insomnia Omeprazole (Omeprazole 40 Mg Capsule.Dr) 40 mg PO DAILY@0630 [facility] Last Admin: 02/27/24 06:21 Dose: 40 mg Documented By: ILIR Ondansetron HCl (Ondansetron Hcl 4 Mg/2 Ml Vial) 4 mg IVPUSH Q8H PRN PRN Reason: Nausea and Vomiting Last Admin: 02/26/24 09:38 Dose: 4 mg Documented By: NAIMA Oxycodone HCl (Oxycodone Hcl Immed Release 5 Mg Tablet) 5 mg PO Q4H PRN PRN Reason: Pain, Moderate(Pain Scale 4-6) Last Admin: 02/24/24 03:01 Dose: 5 mg Documented By: SHAHRAM Sodium Chloride (0.9 % Sodium Chloride Flush 3 Ml Syringe) 3 ml IVFLUSH QSHIFT [facility] Last Admin: 02/27/24 00:58 Dose: Not Given Documented By: JOCELYNN Non-Admin Reason: IV Running Topiramate (Topiramate 100 Mg Tablet) 100 mg PO DAILY [facility] Last Admin: 02/26/24 09:43 Dose: 100 mg Documented By: NAIMA Labs 02/26/24 09:42 02/26/24 09:42 Labs: Laboratory Results - last 24 hr 02/26/24 09:42 MCV 82.5 MCH 24.7 L MCHC 29.9 L RDW 17.8 H Plt Count 331 D MPV 9.3 L Absolute Nucleated RBC 0.000 Nucleated RBC % (auto) 0.0 Anion Gap 11 L Estim Creat Clear Calc 92.3 Estimated GFR > 60 Random Glucose 103 Calcium 9.3 Total Bilirubin 0.4 AST 32 H ALT 68 H Alkaline Phosphatase 133 H Total Protein 7.2 Albumin 3.9 Assessment and Plan (1) Abdominal pain: Status: Acute (2) Colitis: Status: Acute Plan 39-year-old 33-year-old female with a past medical history of GERD, IBS, RA, fibromyalgia, kidney stones, hypertension, LP shunt who presented to the ED with complaints of generalized abdominal pain. CT scan is suggestive of enterocolitis. Enterocolitis Infectious versus inflammatory diarrhea resolved still with on going pain - continue iv analgesics CT repeated showing mild thickening of descending colon (where per pain is); also noted ? 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
[2024-02-27] MEDS: 0.9 % Sodium Chloride Flush 3 ML SYRINGE IVFLUSH ×2 (09:07→14:29)
[2024-02-27] MEDS: lisinopriL 40 MG TABLET PO (09:07)
[2024-02-27] MEDS: Topiramate 100 MG TABLET PO (09:07)
[2024-02-27] MEDS: amLODIPine Besylate 10 MG TABLET PO (09:08)
[2024-02-27] MEDS: Dextrose 5 % and Lactated Ring 1,000 ML 80 ML IVCONT ×2 (10:28→20:45)
[2024-02-27] MEDS: clonazePAM 1 MG TABLET PO ×2 (10:31→20:42)
--- NOTE | 2024-02-27 12:29 | P.CONGS_ITS ---
History of Present Illness Consult details Consult date: 02/27/24 Requesting physician: Kashif Fair Narrative: 33-year-old female patient admitted to the hospitalist service on 02/23/2024 presenting to the emergency department with worsening generalized abdominal pain for 1 week. She also reports pain in the low back radiating to the right flank. She has a prior history of GERD, IBS, rheumatoid arthritis, fibromyalgia, kidney stones, hypertension and a previously placed LP shunt. Workup with CT abdomen pelvis was felt to be suggestive of a descending colon colitis. Question was raised regarding the MANAGER DISTRIBUTION shunt possibly having a gap in the right flank. Surgical consultation was requested for further evaluation. Review of Systems 2 Review of Systems: Yes all other systems are reviewed and are negative Gastrointestinal: Gastrointestinal: Reports abdominal pain Musculoskeletal: Musculoskeletal: Reports back pain [facility], [facility] Past Medical History Medical History (Updated 02/27/24 @ 12:35 by Jorje Chadwick MD) FH: cholecystectomy delivery delivered Pseudotumor cerebri Pituitary microadenoma Papanicolaou smear of cervix with low grade squamous intraepithelial lesion (LGSIL) Conversion disorder Back pain Headache Sensory deficit present Weakness Kidney stones Hypertension Rheumatoid arthritis Family History Family History Mother Asthma HTN (hypertension) Pituitary tumor Anxiety Arthritis Brain tumor Father Arthritis Prediabetes Hyperlipidemia Pacemaker Sister Asthma Lupus Brother Arthritis Maternal Grandmother HTN (hypertension) Hyperlipidemia Diabetes Arthritis Maternal Grandfather Heart attack Paternal Grandfather Alzheimer disease Maternal Aunt Breast cancer Surgical History Surgical History (Updated 12/18/23 @ 14:57 by Holly Storey RN) History of oophorectomy, unilateral History of esophagogastroduodenoscopy (EGD) S/P MANAGER DISTRIBUTION shunt H/O lumbosacral spine surgery Social History Social History Household Members: Children Housing: Apartment Do you presently have visiting nurse or other home services: No Alcohol intake: current Alcohol intake frequency: holidays/special occasions only Patient Tobacco Use Status: Former Tobacco user Tobacco use type: Cigarette Substance Use Type: Marijuana service: No Current occupational status: unemployed Meds Allergies Allergy/AdvReac Type Severity Reaction Status Date / Time ketorolac [From TORADOL] Allergy Unknown ANXIETY, Verified 02/22/24 12:25 NAUSEA, DIZZY metoclopramide [From Reglan] Allergy Hives Verified 02/22/24 12:25 montelukast [From Singulair] Allergy Hives, Verified 02/22/24 12:25 tachycardia,vomitting,diarrhea Active Medications: Current Medications Acetaminophen (Acetaminophen 325 Mg Tablet) 650 mg PO Q6H PRN PRN Reason: Pain, Mild 1-3,fever,headache Amitriptyline HCl (Amitriptyline Hcl 25 Mg Tablet) 75 mg PO BEDTIME [facility] Last Admin: 02/26/24 21:27 Dose: 75 mg Amlodipine Besylate (Amlodipine Besylate 10 Mg Tablet) 10 mg PO DAILY [facility]; Protocol Last Admin: 02/27/24 09:08 Dose: 10 mg Calcium Carbonate (Calcium Carbonate 750 Mg Tab.Chew) 750 mg PO Q4H PRN PRN Reason: Heartburn Clonazepam (Clonazepam 1 Mg Tablet) 1 mg PO BID PRN PRN Reason: Anxiety Last Admin: 02/27/24 10:31 Dose: 1 mg Enoxaparin Sodium (Enoxaparin Sodium 40 Mg/0.4 Ml Syringe) 40 mg SUBCUT Q24H [facility] Last Admin: 02/27/24 02:14 Dose: 40 mg Hydromorphone HCl (Hydromorphone Hcl 0.5 Mg/0.5 Ml Syringe) 0.5 mg IVPUSH Q3H PRN; Protocol PRN Reason: Pain, Severe (Pain Scale 7-10) Last Admin: 02/27/24 09:58 Dose: 0.5 mg Dextrose/Lactated Ringer's (D5lr) 1,000 mls @ 80 mls/hr IVCONT .[id number] [facility] Last Admin: 02/27/24 10:28 Dose: 80 mls/hr Lisinopril (Lisinopril 40 Mg Tablet) 40 mg PO DAILY [facility]; Protocol Last Admin: 02/27/24 09:07 Dose: 40 mg Magnesium Hydroxide (Milk Of Magnesia 30 Ml Oral.Susp) 30 ml PO DAILY PRN PRN Reason: Constipation Melatonin (Melatonin 3 Mg Tablet) 6 mg PO BEDTIME PRN PRN Reason: Insomnia Omeprazole (Omeprazole 40 Mg Capsule.Dr) 40 mg PO DAILY@0630 [facility] Last Admin: 02/27/24 06:21 Dose: 40 mg Ondansetron HCl (Ondansetron Hcl 4 Mg/2 Ml Vial) 4 mg IVPUSH Q8H PRN PRN Reason: Nausea and Vomiting Last Admin: 02/26/24 09:38 Dose: 4 mg Oxycodone HCl (Oxycodone Hcl Immed Release 5 Mg Tablet) 5 mg PO Q4H PRN PRN Reason: Pain, Moderate(Pain Scale 4-6) Last Admin: 02/24/24 03:01 Dose: 5 mg Sodium Chloride (0.9 % Sodium Chloride Flush 3 Ml Syringe) 3 ml IVFLUSH QSHIFT [facility] Last Admin: 02/27/24 09:07 Dose: 3 ml Topiramate (Topiramate 100 Mg Tablet) 100 mg PO DAILY [facility] Last Admin: 02/27/24 09:07 Dose: 100 mg Home Medications ?Medication ?Instructions ?Recorded ?Confirmed ?Last Taken ?Type ibuprofen 600 mg tablet 1 tab PO Q6H PRN mild pain 08/14/21 02/23/24 Unknown History lisinopril 40 mg tablet 1 tab PO DAILY 08/14/21 02/23/24 02/21/24 History clonazepam 1 mg tablet 1 mg PO BID PRN Anxiety 05/20/22 02/23/24 Unknown History hydrochlorothiazide 25 mg tablet 25 mg PO DAILY 12/18/23 02/23/24 02/21/24 History topiramate 100 mg tablet 100 mg PO DAILY 12/18/23 02/23/24 02/21/24 History amlodipine 10 mg tablet 10 mg PO DAILY 12/24/23 02/23/24 02/21/24 History omeprazole 20 mg capsule,delayed 40 mg PO DAILY@0630 12/24/23 02/23/24 02/21/24 History release amitriptyline 75 mg tablet 75 mg PO BEDTIME 02/23/24 02/23/24 02/20/24 History [id number]-[id number]-oocbbdyt 1 tab PO Q6H PRN headache 02/23/24 02/23/24 Unknown History 50 mg-325 mg-40 mg tablet Physical Exam 2 Vital Signs: Vital Signs: Last Vital Signs Temp 98.4 F 02/27/24 11:44 Pulse 82 02/27/24 11:44 Resp 18 02/27/24 11:44 BP 118/57 L 02/27/24 11:44 Pulse Ox 99 02/27/24 11:44 O2 Del Method Room Air 02/27/24 11:44 BMI result Body Mass Index 31.0 Const: General: cooperative and no acute distress Nutritional Appearance: w ell nourished Orientation/consciousness: patient oriented x3 Limitations: no limitations HEENT: Head: Yes normocephalic and Yes atraumatic Ears: hearing grossly normal bilaterally Resp: Effort & Inspection: normal respiratory effort, no audible wheezes, no cough and no respiratory distress Cardio: Jugular venous distension: no JVD GI: Other: Soft and nondistended. Tenderness mainly in the lower quadrants left greater than right. Palpable MANAGER DISTRIBUTION shunt with no evidence of seroma, hematoma, or abscess. No overlying erythema appreciated. Inspection: Yes normal to inspection Back/Spine/Pelvis: Other: Lumbar incision is clean and intact with no evidence of erythema or abscess. Back/spine/pelvis image: 1. Lumbar incision Skin: Other: Warm, dry, no rash Neuro: General: patient oriented x3 Extrem: General: Yes no clubbing, cyanosis or edema Results Labs 02/26/24 09:42 02/26/24 09:42 Labs: Urine 02/22/24 Range/Units 14:24 Urine Color Yellow Urine Appearance Cloudy Urine pH 6.5 (5.0-9.0) Ur Specific [place] >= 1.030 H (1.005-1.025) Urine Protein Trace (Neg-Trace) mg/dL Urine Glucose (UA) Negative (Negative) mg/dL Urine Test NEGATIVE (NEGATIVE) All other labs normal. Assessment and Plan (1) Abdominal pain: Qualifiers: Abdominal location: left lower quadrant Qualified Code(s): R10.32 - Left lower quadrant pain Status: Acute Plan 33-year-old female patient with multiple medical problems presenting with complaints of abdominal pain found on CT to have possible evidence of disruption of her MANAGER DISTRIBUTION shunt. Review of the CT scan does reveal a possible artifact from a valve in the right flank. There is no evidence of infection or seroma associated with this MANAGER DISTRIBUTION shunt to indicate a separation. No surgical intervention recommended at this time. Please reconsult for any additional concerns. Procedures Date of Service Date of Service: 02/27/24
--- NOTE | 2024-02-27 13:06 | MHC.CM.PN ---
per rounds pt is not ready for dc pt still having abdomonal pain
[2024-02-27] MEDS: ondansetron HCL 4 MG/2 ML VIAL IVPUSH ×2 (14:22→20:43)
[2024-02-27] MEDS: Amitriptyline HCl 25 MG TABLET 75 MG PO (20:35)
[2024-02-28] MEDS: Enoxaparin Sodium 40 MG/0.4 ML SYRINGE SUBCUT (01:30)
[2024-02-28 03:14] VITALS: BP 111/56; PULSE 84; RESP 18; TEMP 36; O2SAT 100
[2024-02-28] MEDS: HYDROmorphone HCl 0.5 MG/0.5 ML SYRINGE IVPUSH ×5 (03:23→15:25)
[2024-02-28] MEDS: Omeprazole 40 MG CAPSULE.DR PO (05:17)
[2024-02-28 07:29] VITALS: BP 111/67; PULSE 74; RESP 18; TEMP 37.1; O2SAT 99
[2024-02-28] MEDS: ondansetron HCL 4 MG/2 ML VIAL IVPUSH (08:09)
[2024-02-28] MEDS: lisinopriL 40 MG TABLET PO (08:10)
[2024-02-28] MEDS: Topiramate 100 MG TABLET PO (08:10)
[2024-02-28] MEDS: amLODIPine Besylate 10 MG TABLET PO (08:11)
[2024-02-28] MEDS: clonazePAM 1 MG TABLET PO (08:11)
[2024-02-28 11:56] VITALS: BP 116/61; PULSE 71; RESP 18; TEMP 36.4; O2SAT 100
[2024-02-28 15:19] VITALS: BP 93/54; PULSE 74; RESP 18; TEMP 37.2; O2SAT 99
--- NOTE | 2024-02-28 15:54 | PM.DS ---
DS: Providers Provider Date of Service: 02/28/24 Date of admission: 02/23/24 01:58 Date of discharge: 02/28/24 Primary care physician: Anish Wesley MD Consults: 02/23/24 01:58 Consult to Gastroenterology Routine Consulting Provider: Perla Burgess Reason for consultation: colitis ; intractable abd pain 02/27/24 08:32 Consult to General Surgery [place]ine Consulting [place] [facility] Reason for consultation: abd pain, abnormal CT scan related to intraperitoneal catheter DS: Diagnosis Discharge Diagnosis (1) Abdominal pain: Status: Acute DS: Summary Hospital Course Hospital Course: HP as per admitting provider. Patient is a 33-year-old female with a past medical history significant for GERD, IBS, rheumatoid arthritis, fibromyalgia, kidney stones, HTN and LP shunt, who presented to the ED with worsening generalized abdominal pain x1 week. She reported that it initially started as bilateral low back/flank pain that radiates to the lower abdomen. She rates this pain a 10/10 sharp ache with cramping. She also has associated nausea and vomiting with severe diarrhea. She reports the diarrhea is multiple times a day without any blood in the stool. Nausea has been better since arriving to the ED. mother has a history of possible colitis with similar symptoms, unsure if inflammatory bowel disease. She reports she has never had a history of similar symptoms in the past and has not been around anyone sick recently. Inflammatory Enterocolitis. Diarrhea resolved, pain waxes and wanes but she was able to keep down solid food. 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 Home with a few days of oxycodone and Zofran. 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 Uncontrolled hypertension. Much better while hospitalized actually lower. We will decrease lisinopril to 20 mg daily and she can continue her amlodipine and hydrochlorothiazide. Hypokalemia . Due to poor oral intake . Repleted and resolved GERD. Continue PPI Obesity. Weight loss encouraged Time Attestation Discharge Coordination Time (in mins): 40 Quality: Safe Use of Opioids Does Pt have an Active Cancer Diagnosis on the Problem List?: No Quality: Stroke Does the patient have a stroke diagnosis?: No Physical Exam Vital Signs: Vital Signs: Last Vital Signs Temp 98.9 F 02/28/24 15:19 Pulse 74 02/28/24 15:19 Resp 18 02/28/24 15:19 BP 93/54 L 02/28/24 15:19 Pulse Ox 99 02/28/24 15:19 O2 Del Method Room Air 02/28/24 15:19 BMI result Body Mass Index 31.0 Appearing in no acute distress head is normocephalic atraumatic eyes pupils are PERRLA sclera is anicteric mouth throat mucous membranes are intact and moist neck is supple no lymphadenopathy, no JVD noted lung sounds are clear to auscultation heart regular rate rhythm, clear S1, S2 positive bowel sounds, abdomen is soft, nontender neuro patient is alert x3, no focal deficits Discharge Plan Discharge Anticipated Discharge Date/Time: 02/28/24 15:31 Patient Disposition: Home, Self-Care Discharge Diagnosis: Enteritis Abdominal pain Referrals: Anish Wesley MD [Primary Care Provider] - 1 Week Discharge Medications: New oxycodone 5 mg tablet 5 mg PO Q8H PRN (Reason: pain) Qty: 15 0RF Rx Instructions: Partial Fill upon patient request. ondansetron 4 mg tablet,disintegrating 4 mg PO Q8H PRN (Reason: nausea and vomiting) Qty: 15 0RF lisinopril 20 mg tablet 20 mg PO DAILY Qty: 30 0RF Continued clonazepam 1 mg tablet 1 mg PO BID PRN (Reason: Anxiety) hydrochlorothiazide 25 mg tablet 25 mg PO DAILY topiramate 100 mg tablet 100 mg PO DAILY amlodipine 10 mg tablet 10 mg PO DAILY omeprazole 20 mg capsule,delayed release(DR/EC) 40 mg PO DAILY@0630 amitriptyline 75 mg tablet 75 mg PO BEDTIME iqanfmnkem-duixrfuvmdjdn-wyzi 50-325-40 mg tablet 1 tab PO Q6H PRN (Reason: headache) Discontinued ibuprofen 600 mg tablet 1 tab PO Q6H PRN (Reason: mild pain) lisinopril 40 mg tablet 1 tab PO DAILY Discharge Orders: Discharge Order (Routine); Ordered 02/28/24 Ordered By: Clarissa Borrero Diet: Advance to usual diet Activity on Discharge: As tolerated Stand Alone Forms: Patient Portal Discharge page Print Language: [place] Care Plan Goals: [place], low fat diet for a week May use oxycodone as needed for pain as well as ondansetron for nausea Health Concerns: Enteritis Abdominal pain Plan of Treatment: Follow up with primary care provider as needed Your lisinopril was decreased to 20 mg daily Assessment: See discharge summary Patient Instructions: Low Fat Diet (DC), Enteritis (DC) Discharge Date/Time: 02/28/24 16:45
--- NOTE | 2024-02-28 16:05 | P.PNIM_ITS ---
Subjective Subjective Date of Service: 02/28/24 Interval History: still with pain, more L > R but better tolerating food Review of Systems Negative except HPI/interval history. Physical Exam 2 Vital Signs: Vital Signs: Last Vital Signs Temp 98.9 F 02/28/24 15:19 Pulse 74 02/28/24 15:19 Resp 18 02/28/24 15:19 BP 93/54 L 02/28/24 15:19 Pulse Ox 99 02/28/24 15:19 O2 Del Method Room Air 02/28/24 15:19 BMI result Body Mass Index 31.0 Appearing in no acute distress lung sounds are clear to auscultation heart regular rate rhythm, clear S1, S2 positive bowel sounds, abdomen is soft, nontender neuro patient is alert x3, no focal deficits Objective Data Active Medications Acetaminophen (Acetaminophen 325 Mg Tablet) 650 mg PO Q6H PRN PRN Reason: Pain, Mild 1-3,fever,headache Amitriptyline HCl (Amitriptyline Hcl 25 Mg Tablet) 75 mg PO BEDTIME [facility] Last Admin: 02/27/24 20:35 Dose: 75 mg Documented By: AL Amlodipine Besylate (Amlodipine Besylate 10 Mg Tablet) 10 mg PO DAILY [facility]; Protocol Last Admin: 02/28/24 08:11 Dose: 10 mg Documented By: MAICOL Calcium Carbonate (Calcium Carbonate 750 Mg Tab.Chew) 750 mg PO Q4H PRN PRN Reason: Heartburn Enoxaparin Sodium (Enoxaparin Sodium 40 Mg/0.4 Ml Syringe) 40 mg SUBCUT Q24H [facility] Last Admin: 02/28/24 01:30 Dose: 40 mg Documented By: AL Hydromorphone HCl (Hydromorphone Hcl 0.5 Mg/0.5 Ml Syringe) 0.5 mg IVPUSH Q3H PRN; Protocol PRN Reason: Pain, Severe (Pain Scale 7-10) Last Admin: 02/28/24 15:25 Dose: 0.5 mg Documented By: MAICOL Lisinopril (Lisinopril 40 Mg Tablet) 40 mg PO DAILY [facility]; Protocol Last Admin: 02/28/24 08:10 Dose: 40 mg Documented By: MAICOL Magnesium Hydroxide (Milk Of Magnesia 30 Ml Oral.Susp) 30 ml PO DAILY PRN PRN Reason: Constipation Melatonin (Melatonin 3 Mg Tablet) 6 mg PO BEDTIME PRN PRN Reason: Insomnia Omeprazole (Omeprazole 40 Mg Capsule.Dr) 40 mg PO DAILY@0630 [facility] Last Admin: 02/28/24 05:17 Dose: 40 mg Documented By: AL Ondansetron HCl (Ondansetron Hcl 4 Mg/2 Ml Vial) 4 mg IVPUSH Q8H PRN PRN Reason: Nausea and Vomiting Last Admin: 02/28/24 08:09 Dose: 4 mg Documented By: MAICOL Oxycodone HCl (Oxycodone Hcl Immed Release 5 Mg Tablet) 5 mg PO Q4H PRN PRN Reason: Pain, Moderate(Pain Scale 4-6) Last Admin: 02/24/24 03:01 Dose: 5 mg Documented By: TUMASY Sodium Chloride (0.9 % Sodium Chloride Flush 3 Ml Syringe) 3 ml IVFLUSH QSHIFT [facility] Last Admin: 02/28/24 07:41 Dose: Not Given Documented By: MAICOL Non-Admin Reason: IV Running Topiramate (Topiramate 100 Mg Tablet) 100 mg PO DAILY [facility] Last Admin: 02/28/24 08:10 Dose: 100 mg Documented By: MAICOL Labs 02/26/24 09:42 02/26/24 09:42 Assessment and Plan (1) Abdominal pain: Status: Acute (2) Colitis: Status: Acute Plan 39-year-old 33-year-old female with a past medical history of GERD, IBS, RA, fibromyalgia, kidney stones, hypertension, LP shunt who presented to the ED with complaints of generalized abdominal pain. CT scan is suggestive of enterocolitis. 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
== END 2024-02-28 16:45 | disposition home or self-care (01) | DRG 249 ==
LOC: HO.ED 02-23 02:03 → HO.EDOVER 02-23 02:04 → HO.S3 02-23 19:22
PROVIDERS: Family Medicine; Physician Assistant Medical; Admitting Provider Student in an Organized Health Care Education/Training Program; Emergency Provider Emergency Medicine; PCP Internal Medicine; Visit Provider Nurse Practitioner Acute Care
DX: K52.9 Noninfective gastroenteritis and colitis, unspecified (principal); E66.9 Obesity, unspecified; G93.2 Benign intracranial hypertension; M06.9 Rheumatoid arthritis, unspecified; I10 Essential (primary) hypertension; K21.9 Gastro-esophageal reflux disease without esophagitis; E87.6 Hypokalemia; Z20.822 Contact with and (suspected) exposure to COVID-19; Z71.3 Dietary counseling and surveillance; Z23 Encounter for immunization; Z98.2 Presence of cerebrospinal fluid drainage device; Z68.31 Body mass index [BMI] 31.0-31.9, adult; Z79.899 Other long term (current) drug therapy
CPT/HCPCS: 0241U; 36415; 72100; 74177; 80048; 80053; 81001; 81025; 83735; 85025; 85027; 87086; 90656; 93005; 99285; J1171; J1650; J2060; J2270; J2405; J2470; J3480; J7120; Q9967

== ENCOUNTER → 2024-02-22 12:25 | Outpatient (BNV) | payer OTHER, SELFPAY | PROVIDERS: PCP Internal Medicine; Visit Provider Radiology Diagnostic Radiology | DX: K52.89 Other specified noninfective gastroenteritis and colitis (principal); R19.00 Intra-abdominal and pelvic swelling, mass and lump, unspecified site; M51.360 Other intervertebral disc degeneration, lumbar region with discogenic back pain only | CPT/HCPCS: 72100; 74177 ==

== ENCOUNTER → 2024-02-22 20:54 | Outpatient (BNV) | payer OTHER, SELFPAY | PROVIDERS: Admitting Provider Student in an Organized Health Care Education/Training Program; Emergency Provider Emergency Medicine; PCP Internal Medicine; Visit Provider Internal Medicine Cardiovascular Disease | DX: R94.31 Abnormal electrocardiogram [ECG] [EKG] (principal) | CPT/HCPCS: 93010 ==

== ENCOUNTER 2024-02-23 01:58 | Outpatient (BNV) | payer OTHER, SELFPAY | END 2024-02-26 14:40 | PROVIDERS: Admitting Provider Student in an Organized Health Care Education/Training Program; Emergency Provider Emergency Medicine; PCP Internal Medicine; Visit Provider Nuclear Medicine | DX: K91.5 Postcholecystectomy syndrome (principal) | CPT/HCPCS: 74177 ==

== ENCOUNTER → 2024-02-23 01:58 | Outpatient (BNV) | payer OTHER, SELFPAY | PROVIDERS: Admitting Provider Student in an Organized Health Care Education/Training Program; Emergency Provider Emergency Medicine; PCP Internal Medicine; Visit Provider Internal Medicine | DX: R11.2 Nausea with vomiting, unspecified (principal); K52.9 Noninfective gastroenteritis and colitis, unspecified | CPT/HCPCS: 99222; 99232 ==

== ENCOUNTER → 2024-02-23 01:58 | Outpatient (BNV) | payer OTHER, SELFPAY | PROVIDERS: Admitting Provider Student in an Organized Health Care Education/Training Program; Emergency Provider Emergency Medicine; PCP Internal Medicine; Visit Provider Physician Assistant | DX: K52.9 Noninfective gastroenteritis and colitis, unspecified (principal) | CPT/HCPCS: 99232 ==

== ENCOUNTER → 2024-02-23 01:58 | Outpatient (BNV) | payer OTHER, SELFPAY | PROVIDERS: Admitting Provider Student in an Organized Health Care Education/Training Program; Emergency Provider Emergency Medicine; PCP Internal Medicine; Visit Provider Surgery | DX: R10.32 Left lower quadrant pain (principal) | CPT/HCPCS: 99222 ==

== ENCOUNTER 2024-05-18 11:47 | Emergency (ER) | payer OTHER, SELFPAY ==
--- NOTE | ~2024-05-18 | CT_ITS ---
EXAMINATION: CT ABDOMEN PELVIS WITHOUT IV CONTRAST HISTORY: flank pain judi. COMPARISON: Comparison is made with the prior examination dated 02/26/2024. TECHNIQUE: CT scan of the abdomen and pelvis was performed without contrast using standard departmental protocol. Coronal and sagittal reformatted images were generated and reviewed. Oral contrast material was not administered per department protocol. This CT exam was performed with one or more of the following dose reduction techniques: automated exposure control, adjustment of the mA and/or kV according to patient size, use of iterative reconstruction technique. DLP: 550 mGy-cm FINDINGS: LOWER CHEST: The visualized lung bases are clear. There is no pleural effusion. CARDIOVASCULATURE: The heart is normal in size. There is no pericardial effusion. LIVER: The liver is normal in size and contour. The liver has an unremarkable unenhanced appearance. GALLBLADDER / BILE DUCTS: The gallbladder is surgically absent. There is no intra or extrahepatic biliary ductal dilatation. SPLEEN: The spleen is normal in size and has an unremarkable unenhanced appearance. PANCREAS: The pancreas has an unremarkable unenhanced appearance. ADRENAL GLANDS: Unremarkable. KIDNEYS/RETROPERITONEUM: No renal or ureteral calculi are identified. There is no hydronephrosis or hydroureter. LYMPH NODES: No retroperitoneal lymphadenopathy is identified in the abdomen or pelvis. VASCULATURE: The abdominal aorta is normal in caliber. MESENTERY/PERITONEUM: Again seen is a lumboperitoneal catheter. There is a small amount of free fluid in the cul-de-sac. No masses. There is no free intraperitoneal gas. STOMACH: There is debris in the stomach. SMALL BOWEL: The small bowel is normal in caliber. COLON: There is a large amount of stool throughout the colon. APPENDIX: The appendix is not seen, however no inflammatory changes are seen adjacent to the cecum. URINARY BLADDER/PELVIC ORGANS: The urinary bladder is collapsed, limiting evaluation. The uterus and ovaries have an unremarkable unenhanced appearance. BONES / SOFT TISSUES: No suspicious bony or soft tissue abnormalities. CT/CT abdomen pelvis wo IV con IMPRESSION: 1. No evidence of nephrolithiasis or ureteral obstruction. 2. Large amount of stool throughout the colon. Electronically signed by: Satish Jiang MD 05/18/2024 02:14 PM EDT RP
[2024-05-18 11:56] VITALS: BP 162/96; PULSE 109; RESP 18; TEMP 36.8; O2SAT 98
--- NOTE | 2024-05-18 12:04 | ED.GENADULT ---
HPI - General Adult General Chief complaint: Urogenital-Male Stated complaint: Blood in urine Time Seen by Provider: 05/18/24 16:39 Related Data Home Medications ?Medication ?Instructions ?Recorded ?Confirmed clonazepam 1 mg tablet 1 mg PO BID PRN Anxiety 05/20/22 02/23/24 hydrochlorothiazide 25 mg tablet 25 mg PO DAILY 12/18/23 02/23/24 topiramate 100 mg tablet 100 mg PO DAILY 12/18/23 02/23/24 amlodipine 10 mg tablet 10 mg PO DAILY 12/24/23 02/23/24 omeprazole 20 mg capsule,delayed 40 mg PO DAILY@0630 12/24/23 02/23/24 release amitriptyline 75 mg tablet 75 mg PO BEDTIME 02/23/24 02/23/24 tjehxcyqsf-rilgewwvnylgv-czyfrezp 1 tab PO Q6H PRN headache 02/23/24 02/23/24 50 mg-325 mg-40 mg tablet Previous Rx's ?Medication ?Instructions ?Recorded lisinopril 20 mg tablet 20 mg PO DAILY #30 tabs 02/28/24 ondansetron 4 mg disintegrating 4 mg PO Q8H PRN nausea and 02/28/24 tablet vomiting #15 tabs oxycodone 5 mg tablet 5 mg PO Q8H PRN pain #15 tabs 02/28/24 cefuroxime axetil 500 mg tablet 500 mg PO BID 7 days #14 tabs 05/18/24 oxycodone 5 mg tablet 5 mg PO Q6H PRN pain #12 tabs 05/18/24 phenazopyridine 200 mg tablet 200 mg PO TID 2 days #6 tabs 05/18/24 (Pyridium) Allergies Allergy/AdvReac Type Severity Reaction Status Date / Time ketorolac [From TORADOL] Allergy Unknown ANXIETY, Verified 05/18/24 11:58 NAUSEA, DIZZY metoclopramide [From Reglan] Allergy Hives Verified 05/18/24 11:58 montelukast [From Singulair] Allergy Hives, Verified 05/18/24 11:58 tachycardia,vomitting,diarrhea PMFSH Past Medical History Medical History Obesity (BMI 30.0-34.9) FH: cholecystectomy delivery delivered Pseudotumor cerebri Pituitary microadenoma Papanicolaou smear of cervix with low grade squamous intraepithelial lesion (LGSIL) Conversion disorder Back pain Headache Sensory deficit present Weakness Kidney stones Hypertension Rheumatoid arthritis Surgical History History of oophorectomy, unilateral History of esophagogastroduodenoscopy (EGD) S/P APICULTURIST shunt H/O lumbosacral spine surgery Family History Family History Mother Asthma HTN (hypertension) Pituitary tumor Anxiety Arthritis Brain tumor Father Arthritis Prediabetes Hyperlipidemia Pacemaker Sister Asthma Lupus Brother Arthritis Maternal Grandmother HTN (hypertension) Hyperlipidemia Diabetes Arthritis Maternal Grandfather Heart attack Paternal Grandfather Alzheimer disease Maternal Aunt Breast cancer Social History Social History Household Members: Children Housing: Apartment Do you presently have visiting nurse or other home services: No Alcohol intake: current Alcohol intake frequency: holidays/special occasions only Patient Tobacco Use Status: Former Tobacco user Tobacco use type: Cigarette Substance Use Type: Marijuana Advance Directives: Yes Advance Directives Information Provided: Yes Advance Directives on File: No service: No Current occupational status: unemployed Physical Exam ED Vital Signs: Vital Signs - 24 hr 05/18/24 18:13 05/18/24 19:36 Temperature 98.4 F 98.4 F Pulse Rate 80 80 Respiratory Rate 16 16 Blood Pressure 134/89 134/89 Pulse Oximetry 98 98 Oxygen Delivery Method Room Air Room Air BMI result Body Mass Index 30.0 Course Course Course Narrative: This is a rapid medical exam performed by Alayna Dunn PA-C. The patient is a 33-year-old female with a history of kidney stone who is presenting with dysuria x4 days. Associated hematuria passing clot her urine is foul smelling. She complains of lower abdominal pain and pain across her entire back. Denies fever but has had chills. No nausea vomiting. On exam she has bilateral CVA tenderness, with light percussion, she has pain across entire abdomen without guarding with light palpation. Plan to screen basic labs UA, and obtain a CT scan to rule out renal colic. The patient is stable and can return to the waiting room pending her full medical assessment. Medications Administered Discontinued Medications Generic Name Dose Route Start Last Admin Trade Name Bisi PRN Reason Stop Dose Admin Ceftriaxone Sodium 1 gm 05/18/24 17:10 05/18/24 18:18 Ceftriaxone Sodium 1 Gm Vial IVPUSH 05/18/24 17:11 1 gm ONCE ONE Administration Sodium Chloride 1,000 mls @ 999 mls/hr 05/18/24 17:09 05/18/24 19:22 Ns IV 05/18/24 18:09 Infused .Q1H1M ONE Infusion Magnesium Hydroxide 30 ml 05/18/24 19:07 05/18/24 19:25 Milk Of Magnesia 30 Ml Oral.Susp PO 05/18/24 19:08 Not Given ONCE ONE Morphine Sulfate 4 mg 05/18/24 17:09 05/18/24 18:18 Morphine Sulfate 4 Mg/Ml Cartridge IVPUSH 05/18/24 17:10 4 mg ONCE ONE Administration Protocol Ondansetron HCl 4 mg 05/18/24 17:09 05/18/24 18:18 Ondansetron Hcl 4 Mg/2 Ml Vial IVPUSH 05/18/24 17:10 4 mg ONCE ONE Administration Oxycodone HCl 10 mg 05/18/24 19:07 05/18/24 19:29 Oxycodone Hcl Immed Release 5 Mg Tablet PO 05/18/24 19:08 10 mg ONCE ONE Administration Phenazopyridine HCl 200 mg 05/18/24 19:07 05/18/24 19:29 Phenazopyridine Hcl 200 Mg Tablet PO 05/18/24 19:08 200 mg ONCE ONE Administration Medical Decision Making Lab Data 05/18/24 12:36 05/18/24 12:36 Labs: Lab Results 05/18/24 Range/Units 12:36 WBC 9.3 (4.8-10.8) X10*3/uL RBC 4.25 (4.20-5.50) X10*6/uL Hgb 11.6 L (12.0-16.0) g/dl Hct 36.2 L (37.0-47.0) % MCV 85.2 (80.0-98.0) fL MCH 27.3 (27.0-33.0) pg MCHC 32.0 (31.0-35.0) g/dl RDW 20.2 H (11.0-16.0) % Plt Count 264 (160-400) X10*3/uL MPV 9.2 L (9.4-12.3) fL Immature Gran % (Auto) 0.3 (0.0-0.4) % Neut % (Auto) 78.4 H (45-73) % Lymph % (Auto) 16.7 L (20-40) % [place] % (Auto) 4.2 (2-11) % Eos % (Auto) 0.2 (0-4) % Baso % (Auto) 0.2 (0-2) % Lymph # (Auto) 1.6 (1.2-4.9) X10*3/uL [place] # (Auto) 0.4 (0.1-1.2) X10*3/uL Eos # (Auto) 0.0 (0.0-0.4) X10*3/uL Baso # (Auto) 0.0 (0.0-0.2) X10*3/uL Abs Immat Gran (auto) 0.03 (0.00-0.03) X10*3/uL Absolute Neuts (auto) 7.3 (2.0-8.3) x10*3/uL Absolute Nucleated RBC 0.000 (0.0-0.012) X10*3/uL Nucleated RBC % (auto) 0.0 (0.0-0.2) /100WBC Sodium 140 (135-145) mmol/L Potassium 4.0 (3.3-5.1) mmol/L Chloride 108 (96-108) mmol/L Carbon Dioxide 27 (22-29) mmol/L Anion Gap 9 L (12-20) BUN 12 (9-16) mg/dL Creatinine 0.72 (0.5-1.4) mg/dL Estim Creat Clear Calc 105.8 Estimated GFR > 60 Random Glucose 93 (60-115) mg/dL Calcium 9.7 (8.4-10.2) mg/dL Magnesium 1.7 (1.6-2.6) mg/dL Total Bilirubin 0.5 (0.0-1.0) mg/dL AST 28 (5-31) U/L ALT 28 (0-31) U/L Alkaline Phosphatase 62 (39-117) U/L Total Protein 7.1 (6.5-8.0) g/dL Albumin 4.2 (3.5-5.0) g/dL Beta HCG, Quant < 2 mIU/mL Urine Color Yellow Urine Appearance Cloudy Urine pH 6.5 (5.0-9.0) Ur Specific [place] >= 1.030 H (1.005-1.025) Urine Protein 100 (2+) H (Neg-Trace) mg/dL Urine Glucose (UA) Negative (Negative) mg/dL Urine Ketones 15 (Negative) mg/dL Urine Blood Large (3+) H (Negative) Urine Nitrite Negative (Negative) Ur Leukocyte Esterase Moderate (2+) H (Negative) Urine RBC >20 H (0-2) /HPF Urine WBC >50 H (0-5) /HPF Ur Squamous Epith Cells 6-10 (0-2) /HPF Urine Bacteria Trace (None Seen) Hyaline Casts 0-2 (0-2) /LPF Discharge Plan Discharge Clinical Impression: Acute cystitis with hematuria Patient Disposition: Home, Self-Care Instructions: Urinary Tract Infection in Women (ED) Additional Instructions: Drink plenty of fluids Antibiotic as prescribed Pyridium for bladder spasm Follow with your PCP if not better Prescriptions: New cefuroxime axetil 500 mg tablet 500 mg PO BID 7 Days Qty: 14 0RF phenazopyridine [Pyridium] 200 mg tablet 200 mg PO TID 2 Days Qty: 6 0RF oxycodone 5 mg tablet 5 mg PO Q6H PRN (Reason: pain) Qty: 12 0RF Rx Instructions: Partial Fill upon patient request. No Action clonazepam 1 mg tablet 1 mg PO BID PRN (Reason: Anxiety) hydrochlorothiazide 25 mg tablet 25 mg PO DAILY topiramate 100 mg tablet 100 mg PO DAILY amlodipine 10 mg tablet 10 mg PO DAILY omeprazole 20 mg capsule,delayed release(DR/EC) 40 mg PO DAILY@0630 amitriptyline 75 mg tablet 75 mg PO BEDTIME xcmjebtcdt-duyzceomuovyw-hyiu 50-325-40 mg tablet 1 tab PO Q6H PRN (Reason: headache) oxycodone 5 mg tablet 5 mg PO Q8H PRN (Reason: pain) Qty: 15 0RF Rx Instructions: Partial Fill upon patient request. ondansetron 4 mg tablet,disintegrating 4 mg PO Q8H PRN (Reason: nausea and vomiting) Qty: 15 0RF lisinopril 20 mg tablet 20 mg PO DAILY Qty: 30 0RF Interventions: ED Discharge Assessment Last Done: 05/18/24 19:36 Discharge Date/Time: 05/18/24 19:37 Print Language: Polish
[2024-05-18 12:45] LABS: MANUAL DIFF FLAG NO
[2024-05-18 12:46] LABS: Basophils Percent Auto 0.2 % (0-2); Eosinophils Percent Auto 0.2 % (0-4); Hematocrit 36.2 % (37.0-47.0); Hemoglobin 11.6 g/dl (12.0-16.0); Imm Gran Abs Auto 0.03 X10*3/uL (0.00-0.03); Imm Gran Pct Auto 0.3 % (0.0-0.4); Lymphocytes Absolute Auto 1.6 X10*3/uL (1.2-4.9); Lymphocytes Percent Auto 16.7 % (20-40); Mean Corpuscular Hemoglobin 27.3 pg (27.0-33.0); Mean Corpuscular Volume 85.2 fL (80.0-98.0); Mean Platelet Volume 9.2 fL (9.4-12.3); Monocytes Absolute Auto 0.4 X10*3/uL (0.1-1.2); Monocytes Percent Auto 4.2 % (2-11); Neutrophils Absolute Auto 7.3 x10*3/uL (2.0-8.3); Neutrophils Percent Auto 78.4 % (45-73); Platelet Count 264 X10*3/uL (160-400); Red Blood Count 4.25 X10*6/uL (4.20-5.50); Red Cell Distribution Width 20.2 % (11.0-16.0); White Blood Count 9.3 X10*3/uL (4.8-10.8)
[2024-05-18 12:47] LABS: Appearance Urine Cloudy; Color Urine Yellow; Glucose Urine UA Negative (Negative); Leukocyte Esterase Urine Moderate (2+) (Negative); Nitrite Urine Negative (Negative); PH 6.5 (5.0-9.0); Specific Gravity - Urine >= 1.030 (1.005-1.025); UMIC TRIGGER UACC YES; Urine Blood Large (3+) (Negative); Urine Ketones 15 mg/dL (Negative); Urine Protein 100 (2+) mg/dL (Neg-Trace)
[2024-05-18 12:52] LABS: Bacteria Urine Trace (None Seen); Hyaline Casts Urine 0-2 /LPF (0-2); RBC Urine >20 /HPF (0-2); UACC Culture Trigger YES; WBC Urine >50 /HPF (0-5)
[2024-05-18 13:07] LABS: Alanine Aminotransferase 28 U/L (0-31); Albumin Level 4.2 g/dL (3.5-5.0); Alkaline Phosphatase 62 U/L (39-117); Anion Gap 9 (12-20); Aspartate Amino Transferase 28 U/L (5-31); Bilirubin Total 0.5 mg/dL (0.0-1.0); Blood Urea Nitrogen 12 mg/dL (9-16); Calcium 9.7 mg/dL (8.4-10.2); Carbon Dioxide 27 mmol/L (22-29); Chloride 108 mmol/L (96-108); Creatinine Clr Calc Pharmacy 105.8; Estimated Glomerular Filt Rate > 60; Glucose Random 93 mg/dL (60-115); Magnesium 1.7 mg/dL (1.6-2.6); Sodium 140 mmol/L (135-145); Total Protein 7.1 g/dL (6.5-8.0)
[2024-05-18 13:09] LABS: HCG Quantitative < 2 mIU/mL
[2024-05-18 16:38] VITALS: BP 152/89; PULSE 88; RESP 16; TEMP 36.6; O2SAT 100
--- NOTE | 2024-05-18 16:49 | PC.NURSE ---
Patient presents from the waiting room with c/o bilat flank pain with assoc hematuria with clots. Cat Scan obtained and results pending.
--- NOTE | 2024-05-18 17:12 | ED.ABDPAIN ---
HPI - Abdominal Pain General Chief Complaint: Urogenital-Male Stated Complaint: Blood in urine Time Seen by Provider: 05/18/24 16:39 Source: patient Mode of arrival: ambulatory Limitations: no limitations History of Present Illness ED Provider: HPI narrative: Patient is 33 years old with history of kidney stone of pain in lower abdominal with dysuria and frequency last 4 days also had some having chills and nausea and low back pain no vomiting no fever no vaginal discharge or bleed Related Data Home Medications ?Medication ?Instructions ?Recorded ?Confirmed clonazepam 1 mg tablet 1 mg PO BID PRN Anxiety 05/20/22 02/23/24 hydrochlorothiazide 25 mg tablet 25 mg PO DAILY 12/18/23 02/23/24 topiramate 100 mg tablet 100 mg PO DAILY 12/18/23 02/23/24 amlodipine 10 mg tablet 10 mg PO DAILY 12/24/23 02/23/24 omeprazole 20 mg capsule,delayed 40 mg PO DAILY@0630 12/24/23 02/23/24 release amitriptyline 75 mg tablet 75 mg PO BEDTIME 02/23/24 02/23/24 fyzzmvwwif-lrzfwaobknfxg-cxhdpzyz 1 tab PO Q6H PRN headache 02/23/24 02/23/24 50 mg-325 mg-40 mg tablet Previous Rx's ?Medication ?Instructions ?Recorded lisinopril 20 mg tablet 20 mg PO DAILY #30 tabs 02/28/24 ondansetron 4 mg disintegrating 4 mg PO Q8H PRN nausea and 02/28/24 tablet vomiting #15 tabs oxycodone 5 mg tablet 5 mg PO Q8H PRN pain #15 tabs 02/28/24 cefuroxime axetil 500 mg tablet 500 mg PO BID 7 days #14 tabs 05/18/24 oxycodone 5 mg tablet 5 mg PO Q6H PRN pain #12 tabs 05/18/24 phenazopyridine 200 mg tablet 200 mg PO TID 2 days #6 tabs 05/18/24 (Pyridium) Allergies Allergy/AdvReac Type Severity Reaction Status Date / Time ketorolac [From TORADOL] Allergy Unknown ANXIETY, Verified 05/18/24 11:58 NAUSEA, DIZZY metoclopramide [From Reglan] Allergy Hives Verified 05/18/24 11:58 montelukast [From Singulair] Allergy Hives, Verified 05/18/24 11:58 tachycardia,vomitting,diarrhea Review of Systems Review of Systems Yes all other systems are reviewed and are negative [facility] Past Medical History Medical History Obesity (BMI 30.0-34.9) FH: cholecystectomy delivery delivered Pseudotumor cerebri Pituitary microadenoma Papanicolaou smear of cervix with low grade squamous intraepithelial lesion (LGSIL) Conversion disorder Back pain Headache Sensory deficit present Weakness Kidney stones Hypertension Rheumatoid arthritis Surgical History History of oophorectomy, unilateral History of esophagogastroduodenoscopy (EGD) S/P [employer] shunt H/O lumbosacral spine surgery Family History Family History Mother Asthma HTN (hypertension) Pituitary tumor Anxiety Arthritis Brain tumor Father Arthritis Prediabetes Hyperlipidemia Pacemaker Sister Asthma Lupus Brother Arthritis Maternal Grandmother HTN (hypertension) Hyperlipidemia Diabetes Arthritis Maternal Grandfather Heart attack Paternal Grandfather Alzheimer disease Maternal Aunt Breast cancer Social History Social History Household Members: Children Housing: Apartment Do you presently have visiting nurse or other home services: No Alcohol intake: current Alcohol intake frequency: holidays/special occasions only Patient Tobacco Use Status: Former Tobacco user Tobacco use type: Cigarette Substance Use Type: Marijuana Advance Directives: Yes Advance Directives Information Provided: Yes Advance Directives on File: No service: No Current occupational status: unemployed Physical Exam ED Vital Signs: Vital Signs - 24 hr 05/18/24 11:56 05/18/24 16:38 05/18/24 18:13 Temperature 98.2 F 97.8 F 98.4 F Pulse Rate 109 H 88 80 Respiratory Rate 18 16 16 Blood Pressure 162/96 H 152/89 H 134/89 Pulse Oximetry 98 100 98 Oxygen Delivery Method Room Air Room Air Room Air 05/18/24 19:36 Temperature 98.4 F Pulse Rate 80 Respiratory Rate 16 Blood Pressure 134/89 Pulse Oximetry 98 Oxygen Delivery Method Room Air BMI result Body Mass Index 30.0 Appearance: Alert. Oriented X3. No acute distress. Eyes: No pallor or ENT: Pharynx normal. Oral Mucosa moist Neck: Normal inspection. Neck supple. CVS: Normal heart rate and rhythm. Pulses normal. Respiratory: No respiratory distress. Equal air entry bilateral, no wheezing/rales/rhonchi Abdomen: Soft and lowerab discomfort+. Bowel sounds are present, no mass palpable, no CVA tenderness Skin: Skin warm and dry. Normal skin color. Normal skin turgor. Extremities: No lower extremity edema. No calf tenderness Neuro: Oriented X 3. No motor deficit. No sensory deficit.No cerebellar signs , cranial nerves II-XII intact Medical Decision Making Medical Decision Making [facility] Narrative: Patient with acute cystic with hematuria CT scan negative for stone likely cystitis with hematuria patient was given Rocephin in the ER if will prescribe cefuroxime Differential Diagnosis Differential Diagnoses: The differential diagnosis associated with the presentation includes Pyelonephritis/cystitis/kidney stone Lab Data [facility] Lab Attestation statement: I reviewed the patient's lab results. 05/18/24 12:36 05/18/24 12:36 Labs: Lab Results 05/18/24 Range/Units 12:36 WBC 9.3 (4.8-10.8) X10*3/uL RBC 4.25 (4.20-5.50) X10*6/uL Hgb 11.6 L (12.0-16.0) g/dl Hct 36.2 L (37.0-47.0) % MCV 85.2 (80.0-98.0) fL MCH 27.3 (27.0-33.0) pg MCHC 32.0 (31.0-35.0) g/dl RDW 20.2 H (11.0-16.0) % Plt Count 264 (160-400) X10*3/uL MPV 9.2 L (9.4-12.3) fL Immature Gran % (Auto) 0.3 (0.0-0.4) % Neut % (Auto) 78.4 H (45-73) % Lymph % (Auto) 16.7 L (20-40) % [place] % (Auto) 4.2 (2-11) % Eos % (Auto) 0.2 (0-4) % Baso % (Auto) 0.2 (0-2) % Lymph # (Auto) 1.6 (1.2-4.9) X10*3/uL [place] # (Auto) 0.4 (0.1-1.2) X10*3/uL Eos # (Auto) 0.0 (0.0-0.4) X10*3/uL Baso # (Auto) 0.0 (0.0-0.2) X10*3/uL Abs Immat Gran (auto) 0.03 (0.00-0.03) X10*3/uL Absolute Neuts (auto) 7.3 (2.0-8.3) x10*3/uL Absolute Nucleated RBC 0.000 (0.0-0.012) X10*3/uL Nucleated RBC % (auto) 0.0 (0.0-0.2) /100WBC Sodium 140 (135-145) mmol/L Potassium 4.0 (3.3-5.1) mmol/L Chloride 108 (96-108) mmol/L Carbon Dioxide 27 (22-29) mmol/L Anion Gap 9 L (12-20) BUN 12 (9-16) mg/dL Creatinine 0.72 (0.5-1.4) mg/dL Estim Creat Clear Calc 105.8 Estimated GFR > 60 Random Glucose 93 (60-115) mg/dL Calcium 9.7 (8.4-10.2) mg/dL Magnesium 1.7 (1.6-2.6) mg/dL Total Bilirubin 0.5 (0.0-1.0) mg/dL AST 28 (5-31) U/L ALT 28 (0-31) U/L Alkaline Phosphatase 62 (39-117) U/L Total Protein 7.1 (6.5-8.0) g/dL Albumin 4.2 (3.5-5.0) g/dL Beta HCG, Quant < 2 mIU/mL Urine Color Yellow Urine Appearance Cloudy Urine pH 6.5 (5.0-9.0) Ur Specific [place] >= 1.030 H (1.005-1.025) Urine Protein 100 (2+) H (Neg-Trace) mg/dL Urine Glucose (UA) Negative (Negative) mg/dL Urine Ketones 15 (Negative) mg/dL Urine Blood Large (3+) H (Negative) Urine Nitrite Negative (Negative) Ur Leukocyte Esterase Moderate (2+) H (Negative) Urine RBC >20 H (0-2) /HPF Urine WBC >50 H (0-5) /HPF Ur Squamous Epith Cells 6-10 (0-2) /HPF Urine Bacteria Trace (None Seen) Hyaline Casts 0-2 (0-2) /LPF Independent Interpretation I performed an independent interpretation of an: CT Scan Radiology Impression Discussion of test interpretation with radiology: I have reviewed the radiologist's reading. Medications Administered Discontinued Medications Generic Name Dose Route Start Last Admin Trade Name Floydq PRN Reason Stop Dose Admin Ceftriaxone Sodium 1 gm 05/18/24 17:10 05/18/24 18:18 Ceftriaxone Sodium 1 Gm Vial IVPUSH 05/18/24 17:11 1 gm ONCE ONE Administration Sodium Chloride 1,000 mls @ 999 mls/hr 05/18/24 17:09 05/18/24 19:22 Ns IV 05/18/24 18:09 Infused .Q1H1M ONE Infusion Magnesium Hydroxide 30 ml 05/18/24 19:07 05/18/24 19:25 Milk Of Magnesia 30 Ml Oral.Susp PO 05/18/24 19:08 Not Given ONCE ONE Morphine Sulfate 4 mg 05/18/24 17:09 05/18/24 18:18 Morphine Sulfate 4 Mg/Ml Cartridge IVPUSH 05/18/24 17:10 4 mg ONCE ONE Administration Protocol Ondansetron HCl 4 mg 05/18/24 17:09 05/18/24 18:18 Ondansetron Hcl 4 Mg/2 Ml Vial IVPUSH 05/18/24 17:10 4 mg ONCE ONE Administration Oxycodone HCl 10 mg 05/18/24 19:07 05/18/24 19:29 Oxycodone Hcl Immed Release 5 Mg Tablet PO 05/18/24 19:08 10 mg ONCE ONE Administration Phenazopyridine HCl 200 mg 05/18/24 19:07 05/18/24 19:29 Phenazopyridine Hcl 200 Mg Tablet PO 05/18/24 19:08 200 mg ONCE ONE Administration Discharge Plan Discharge Clinical Impression: Acute cystitis with hematuria Patient Disposition: Home, Self-Care Instructions: Urinary Tract Infection in Women (ED) Additional Instructions: Drink plenty of fluids Antibiotic as prescribed Pyridium for bladder spasm Follow with your PCP if not better Prescriptions: New cefuroxime axetil 500 mg tablet 500 mg PO BID 7 Days Qty: 14 0RF phenazopyridine [Pyridium] 200 mg tablet 200 mg PO TID 2 Days Qty: 6 0RF oxycodone 5 mg tablet 5 mg PO Q6H PRN (Reason: pain) Qty: 12 0RF Rx Instructions: Partial Fill upon patient request. No Action clonazepam 1 mg tablet 1 mg PO BID PRN (Reason: Anxiety) hydrochlorothiazide 25 mg tablet 25 mg PO DAILY topiramate 100 mg tablet 100 mg PO DAILY amlodipine 10 mg tablet 10 mg PO DAILY omeprazole 20 mg capsule,delayed release(DR/EC) 40 mg PO DAILY@0630 amitriptyline 75 mg tablet 75 mg PO BEDTIME lvqnnwrgly-mcpnwlbojniyb-ehwr 50-325-40 mg tablet 1 tab PO Q6H PRN (Reason: headache) oxycodone 5 mg tablet 5 mg PO Q8H PRN (Reason: pain) Qty: 15 0RF Rx Instructions: Partial Fill upon patient request. ondansetron 4 mg tablet,disintegrating 4 mg PO Q8H PRN (Reason: nausea and vomiting) Qty: 15 0RF lisinopril 20 mg tablet 20 mg PO DAILY Qty: 30 0RF Interventions: ED Discharge Assessment Last Done: 05/18/24 19:36 Discharge Date/Time: 05/18/24 19:37 Print Language: Yoruba
[2024-05-18 18:13] VITALS: BP 134/89; PULSE 80; RESP 16; TEMP 36.9; O2SAT 98
[2024-05-18] MEDS: 0.9 % Sodium Chloride 1,000 ML 999 ML IV (18:17)
[2024-05-18] MEDS: ondansetron HCL 4 MG/2 ML VIAL IVPUSH (18:18)
[2024-05-18] MEDS: Morphine Sulfate 4 MG/ML CARTRIDGE IVPUSH (18:18)
[2024-05-18] MEDS: cefTRIAXone sodium 1 GM VIAL IVPUSH (18:18)
[2024-05-18] MEDS: oxyCODONE HCl Immed Release 5 MG TABLET 10 MG PO (19:29)
[2024-05-18] MEDS: Phenazopyridine HCL 200 MG TABLET PO (19:29)
[2024-05-18 19:36] VITALS: BP 134/89; PULSE 80; RESP 16; TEMP 36.9; O2SAT 98
== END 2024-05-18 19:37 | disposition home or self-care (01) ==
PROVIDERS: Physician Assistant Medical; Emergency Provider Internal Medicine; PCP Internal Medicine
DX: N30.01 Acute cystitis with hematuria (principal); R30.0 Dysuria; R35.0 Frequency of micturition; R10.30 Lower abdominal pain, unspecified; R11.0 Nausea; M54.50 Low back pain, unspecified; Z79.899 Other long term (current) drug therapy
CPT/HCPCS: 36415; 74176; 80053; 81001; 83735; 84702; 85025; 87086; 96361; 96374; 96375; 99284; J0696; J2270; J2405

== ENCOUNTER → 2024-05-18 12:00 | Outpatient (BNV) | payer OTHER, SELFPAY | PROVIDERS: PCP Internal Medicine; Visit Provider Radiology Diagnostic Radiology | DX: K59.00 Constipation, unspecified (principal) | CPT/HCPCS: 74176 ==

== ENCOUNTER 2025-01-23 15:22 | Emergency (ER) | payer OTHER, SELFPAY ==
--- NOTE | ~2025-01-23 | CT_ITS ---
CLINICAL HISTORY: Syncope CT head without contrast Comparison: CT/REG/SR - CT HEAD/BRAIN WO IV CON - 08/04/2023 10:36 AM EDT Findings: No intra-axial mass, midline shift, hydrocephalus, or acute hemorrhage. No significant atrophy-like change or white matter disease. There is no sinus or mastoid fluid. The orbits are unremarkable. There is no acute fracture. IMPRESSION: 1. No acute intracranial findings. This document has been electronically signed by: Preston Connors MD on 01/23/2025 22:58:16
--- NOTE | ~2025-01-23 | CT_ITS ---
CLINICAL HISTORY: Syncope CT abdomen and pelvis with contrast Comparison: 05/18/2024 Findings: Lung bases are clear. No acute bony abnormalities. Ventriculoperitoneal shunt in abdomen. Small hiatal hernia noted. Liver and spleen within normal limits. Pancreas and adrenal glands unremarkable. Cholecystectomy. No significant focal renal abnormalities. No renal stones or hydronephrosis. Abdominal aorta is normal in caliber. No free fluid or adenopathy in the pelvis. No diverticulitis. Appendix unremarkable. Uterus normal size. No adnexal abnormality. Impression: No acute process This document has been electronically signed by: Jose Pathak MD on 01/24/2025 00:04:41
--- NOTE | ~2025-01-23 | CT_ITS ---
CLINICAL HISTORY: PE r o, syncope CT angiogram chest/pulmonary arteries with contrast Multiplanar reconstructions and MIPS Comparison: None Findings: No filling defects are noted to suggest pulmonary embolus. Main pulmonary artery normal in caliber. Thoracic aorta normal caliber without dissection. Heart size normal. Great vessel origins patent. No coronary calcifications. No significant focal parenchymal abnormalities. No significant mediastinal or hilar adenopathy. No free pleural fluid. No acute bony abnormality noted. Impression: No evidence of pulmonary embolus This document has been electronically signed by: Jose Pathak MD on 01/24/2025 00:01:28
--- NOTE | ~2025-01-23 | CT_ITS ---
CLINICAL HISTORY: Syncope CT cervical spine without contrast Comparison: CT/SR - CT CERVICAL SPINE WITHOUT IV CONTRAST - 08/04/2023 10:36 AM EDT Findings: Vertebral alignment is within normal limits. No significant degenerative change. No acute fractures or dislocations. Visualized intracranial contents are unremarkable. No cervical fluid collections or masses. Lung apices are clear. IMPRESSION: No acute findings. This document has been electronically signed by: Preston Connors MD on 01/23/2025 22:54:44
[2025-01-23 15:27] VITALS: BP 170/80; PULSE 80; O2SAT 99
[2025-01-23 15:31] VITALS: BP 165/110; PULSE 79; RESP 16; TEMP 36.9; O2SAT 98; BMI 30.2
--- NOTE | 2025-01-23 15:35 | ECG_ITS ---
Test Reason : chest pain Blood Pressure : */* mmHG Vent. Rate : 73 BPM Atrial Rate : 73 BPM P-R Int : 144 ms QRS Dur : 96 ms QT Int : 404 ms P-R-T Axes : 21 -7 5 degrees QTcB Int : 445 ms Normal sinus rhythm Minimal voltage criteria for LVH, may be normal variant ( R in aVL ) Borderline ECG When compared with ECG of 22-Feb-2024 20:54, No significant change was found Referred By: Generic ED Physician Electronically Signed By: STACY AVILA
--- OUTSIDE RECORDS SUMMARY | 2025-01-23 16:11 | XMS_ITS ---
Author Name [facility] Organization Unknown Care Team Organization Name Specialty Phone Email Start Date End Da te [facility] 01/01/202209/24
--- OUTSIDE RECORDS SUMMARY | 2025-01-23 16:11 | XMS_ITS | Clinical Summary ---
Author Organization [facility] Address [address] [place] [address] Phone Care Team Providers Care Dx Board Operator Name Role Phone Anish Wesley MD Primary Care Provider Allergies Active Allergy Reactions Criticality Noted Date Comments Diphenhydramine Nausea And Vomiting Medium 12/01/2022 Ketorolac Hives High 05/27/2022 Other Reaction(s): Severe anxiety (panic) Metoclopramide Nausea And Vomiting High 12/01/2022 Metoclopramide Hcl Medium 04/25/2023 Other Reaction(s): Chest tightness, Rash/Dermatitis Montelukast 06/08/2024 Medications L.acid/L.casei /B.bif/B.rosa/F OS (PROBIOTIC BLEND ORAL) Take by mouth. Active clonazePAM (KlonoPIN) 1 mg tablet Take 1 mg by mouth 3 times daily as needed. Active amitriptyline (ELAVIL) 75 mg tablet Take 1 tablet (75 mg total) by mouth at bedtime. 01/08/20 24 Active omeprazole (PriLOSEC) [address] capsule Take 1 capsule (40 mg total) by mouth 1 (one) time each day. Do not crush or chew. 90 capsule 1 07/23/19 25 Active amLODIPine (NORVASC) 10 mg tablet Take 1 tablet (10 mg total) by mouth 1 (one) time each day. 90 tablet 1 09/30/19 25 Active propranoloL (INDERAL) 10 mg tablet Take 1 tablet (10 mg total) by mouth 3 (three) times a day. 270 tablet 1 09/30/19 25 Active topiramate (TOPAMAX) 100 mg tablet Take 1 tablet (100 mg total) by mouth at bedtime. Active triamcinolone (KENALOG) 0.025 % ointment Apply 3-4x/day to affected area 15 g 1 10/05/19 25 Active acetaminophen (TYLENOL) 500 mg tablet TAKE 1 TABLET BY MOUTH 4 TIMES A DAY NEEDED FOR MILD PAIN 360 tablet 1 11/17/19 25 Active diclofenac (VOLTAREN) 1 % topical gel Apply 4 g topically 2 (two) times a day. 200 g 2 11/24/19 25 Active ferrous sulfate 324 mg (65 mg elemental iron) EC tablet TAKE 1 TABLET BY MOUTH ONCE A DAY WITH BREAKFAST. DO NOT CRUSH, CHEW, OR SPLIT. 90 tablet 1 12/07/19 25 Active lisinopril (PRINIVIL,ZEST RIL) 40 mg tablet TAKE 1 TABLET BY MOUTH EVERY DAY 90 tablet 1 12/08/19 25 Active ibuprofen (ADVIL,MOTRIN) 600 mg tablet TAKE 1 TABLET BY MOUTH THREE TIMES A DAY NEEDED FOR MILD PAIN 90 tablet 01/05/20 25 Active ibuprofen (ADVIL,MOTRIN) 600 mg tablet TAKE 1 TABLET BY MOUTH 3 TIMES A DAY NEEDED FOR MILD PAIN 90 tablet 12/03/19 25 025 Discontinued Active Problems Problem Noted Date Diagnosed Date Palpitations 10/01/2024 Assessment & Plan (10/01/2024 2:53 PM EDT): Patient reports near resolution of palpitations with the introduction of propranolol. Please continue with the propranolol 10 mg p.o. 3 times daily. Syncope 10/01/2024 Assessment & Plan (10/01/2024 2:55 PM EDT): Patient is reporting what sounds like some vasovagal symptoms as she is carrying things up the stairs or doing workload above average she sometimes get a flushing feeling and feels lightheaded. This could also be related to elevated blood pressure, she seems to have subjective awareness of this. Regardless I will complete the workup with carotid ultrasound and a 48-hour Holter monitor. I have educated the patient on signs of worsening symptoms and when to report to the office or when to present to the ED. S/P ventriculoperitoneal shunt 09/28/2024 Primary hypertension 07/22/2024 Assessment & Plan (10/01/2024 2:51 PM EDT): Patient continues to have hypertensive readings at home. She did have her propranolol increased to 10 mg p.o. 3 times daily, and recently had amlodipine 10 mg p.o. introduced 2 days prior to this appointment by her PCP. I would like her to check blood pressure measurements throughout the week, reach out to us with what her values are. If patient continues to have hypertensive readings we could increase her propranolol dosage or we could switch that over to her carvedilol. Educated on the importance of diet lifestyle to help further assist in reducing blood pressure. The patient was encouraged to follow low-salt low-fat diet, make purposeful strides towards weight loss, and engage in routine aerobic exercise as tolerated. Iron deficiency anemia due to chronic blood loss 03/30/2024 Idiopathic intracranial hypertension 01/05/2024 Overview (01/05/2024): seepriya Rea Diamox, Normal intracranial MRV 5-16-12 at [facility] S/p LP shunt Pelvic pain 08/02/2022 Overview (01/05/2024): Last Assessment & Plan: UA negative. GC/CT pending. Chronic anemia 04/09/2022 Labile hypertension 04/09/2022 Overview (01/05/2024): - Most recently a 24-hour urine collection for metanephrines was obtained in September 2022 by her primary care and was negative - Renal duplex ultrasound January 2020 showed higher than normal velocities in the bilateral renal arteries but not to the degree consistent with significant renal artery stenosis - Has had labile blood pressures over the years Last Assessment & Plan: The patient is on a very unusual regimen of clonidine 0.1 3 times daily which she reports that she never misses a dose of-I explained missed doses of clonidine can create rebound phenomenon- as well as lisinopril 40 mg daily; I reviewed all of her medications and at 1 point she was on hydrochlorothiazide 12.5 mg daily several years ago but I cannot figure out exactly why it was discontinued; at this point, I think she needs another first-line agent-we are going to attempt a trial of nifedipine 30 mg daily, she will be seeing her primary care in the near future and if blood pressures are not closer to goal of less than 130/90 at rest, would escalate nifedipine therapy and also consider referral to Echo Christie, Dolly.D.-a hypertension specialist- she will have the ability to have more frequent follow- up with the patient and get her on evidence-based therapy and also do a 24-hour ambulatory blood pressure monitor should the patient require it Obesity (BMI 30.0-34.9) 09/21/2021 Fibromyalgia 05/15/2020 Menorrhagia with irregular cycle 01/10/2020 Overview (01/05/2024): Last Assessment & Plan: Urine hCG negative Discussed normal frequency and length of menses Counseled on the effects of stress, changes in sleep, diet, and exercise on the endocrine system GC/CT and wet prep done today to r/o STI CBC ordered to assess for anemia. TSH and prolactin ordered Discussed with patient potential causes of abnormal bleeding including , infection, trauma, anovulation, polyps, fibroids, coagulation defects, hyperplasia, and malignancies. Endometrial biopsy previously negative. Pelvic ultrasound from March 2022 negative for fibroids. Pt was counseled regarding options for treatment of her symptoms including high dose ibuprofen, oral hormonal therapy (progestin only if she is not a candidate for estrogen), levonorgestrel IUD, etc. I reviewed the risks, benefits, and rates of amenorrhea. She was most interested in POPs. Rx provided. She was also instructed on high-dose ibuprofen use starting 1 day before menses and continuing for 3 to 4 days of menstrual bleeding. She was asked to follow-up in 3 months Seropositive rheumatoid arth ritis ([facility] V24, [facility] V28) 08/11/2019 Overview (01/05/2024): 09/2019- start plaquenil- stopped due to intolerance 11/2019- start Humira Irritable bowel syndrome wit h both constipation and diarrhea 09/18/2016 Anxiety 04/24/2015 Papanicolaou smear of cervix with low grade squamous intraepithelial lesion (LGSIL) 04/04/2014 Overview (01/05/2024): ASCUS positive, HPV positive, repeat in one year. 2017 Pap was LSIL but colpo bx neg. Repeat 1 year Pituitary microadenoma ([facility] V24, CMS/[facility] V28 ) 11/12/2012 GERD (gastroesophageal reflux disease) 3 Anxiety and depression 08/16/2010 Chronic nonintractable headache 08/16/2010 Overview (01/05/2024): Papilledema - Dr. Urban 11-26-10- to have MRI and if neg to have LP- R/O intracranial mass and pseudotumor cerebri Chest pain 05/24/2008 Overview (01/05/2024): Exercise stress echocardiogram in January 2020 showed: She was only able to exercise to 4-1/2 minutes and 76% of max predicted heart rate at which point she started developing chest pain and dyspnea on exertion. There was no echocardiographic evidence of ischemia or infarction and ejection fraction was preserved at 55-60 %-so technically it was nondiagnostic because of inability to achieve diagnostic heart rate but it was negative while the patient had symptoms Last Assessment & Plan: Low suspicion for cardiac cause to symptoms, may be a subjective awareness of hypertension, may be a reaction to pain, hold off on any further cardiac work-up Constipation 01/06/2008 Encounters Date Type Department Care Team Description 01/09/2025 Results Follow-Up [facility] Hematology Oncology [address] [place] [id number] Aster Diana PA 12/16/2024 Results Follow-Up Adult Medicine [address] [phone] Lolita Tejeda [place] 11/23/2024 11:00 AM EDT Office Visit Adult Medicine [address] [phone] Yudith Fernandes PA Syncope, unspecified syncope type (Primary Dx); Primary hypertension; Gastroesophageal reflux disease without esophagitis; Seropositive rheumatoid arthritis ([facility] V24, CMS/HCC V28); Screening for diabetes mellitus; Screening cholesterol level; Iron deficiency anemia due to chronic blood loss; Bilateral carpal tunnel syndrome; Anxiety and depression 11/19/2024 Telephone Obstetrics and Gynecology - [place] [address] [place] [id number] Kenisha Manzanares CNM 11/17/2024 10:01 AM EDT - 11/17/2024 11:59 PM EDT Hospital Encounter [facility] Ultrasound [address] [place] [phone] Pelvic pain Discharge Disposition: Home or Self Care 11/15/2024 Telephone [facility] Cardiology [facility] [address] [facility] [address] [place] [address] Wendy Fox [place] 11/11/2024 10:45 AM EDT Ancillary Procedure [facility] [address] [place] [address] Syncope, unspecified syncope type 11/05/2024 10:00 AM EDT Ancillary Procedure [facility] Cardiology [facility] [address] [address] Syncope, unspecified syncope type from Last 3 Months Immunizations Immunization Administration Dates Next Due DTaP (Infanrix) 6wks to less than 7yo ,08/31/1995,01/24/1993,05/01,03/12/1992 [id number]-JMU-AUX (Pentacel) 2mo to less than 5yo 11/12/1995,01/24/1993,05/01/1992,03/02 H1N1 Inj Preservative Free 01/12/2009 HPV 9-valent (Gardisil) 9yo to less than 46yo 02/28/2023 HPV, Quadrivalent 01/06/2008,01/27/2007,11/25/19 07 Hepatitis B Pediatric (Enger ix B; Recombivax HB) to less than 20 yo 12/17/1996,10/15/1996,07/22/1996 Hib (HbOC) 11/12/1995, 3,05/01/1992,03/02 IPV Inactivated polio (Ipol) 6wks and older 11/12/1995,01/24/1993,05/01/1992,03/02 Influenza Quadravalent, MDCK , 0.5ml, preservative free (Flucelvax) 6mo and older 11/24/2019 Influenza trivalent, 0.5mL, preservative free (Fluarix; FluLaval; Fluzone) ages 6mo and older (Afluria) 3 years and older 02/08/2022,11/12/2012,12/26/2011,11/20,11/13/2009,11/22/2008,01/06/2008 MMR, measles mumps and rubel la Live (Priorix; M-M-R II) 12mo and older 05/12/1993,01/24/1993 Meningococcal MCV4P 11/24/2006 PPD Test 07/17/2015 Td Tetanus diptheria (Tdvax) 7yo and older 04/15/2003 Tdap Tetanus diptheria acell ular pertussis (Boostrix; Adacel) 7yo and older 11/24/2019,09/20/2008 Varicella live (Varivax) 12m o and older 02/25/1996 Surgical History Surgery Date Site/Laterality Comments ESOPHAGOGASTRODUODENOSCOPY 03/22/2013 PROCEDURE: DC ESOPHAGOGASTRODUODENOSCOPY TRANSORAL DIAGNOSTIC; COMMENT: normal OTHER SURGICAL HISTORY 04/2013 PROCEDURE: ---- OTHER ----; COMMENT: lumboperitoneal shunt done in april 2013 OTHER SURGICAL HISTORY 07/08/2014 PROCEDURE: HYSTEROSCOPY, DIAGNOSTIC OTHER SURGICAL HISTORY PROCEDURE: ENDOMETRAIL POLYP SPCMN PATHOLOGY EXAM ESOPHAGOGASTRODUODENOSCOPY 11/16/2019 PROCEDURE: DC ESOPHAGOGASTRODUODENOSCOPY TRANSORAL DIAGNOSTIC; COMMENT: Dr. Villanueva -normal SALPINGOOPHORECTOMY 06/2021 Right PROCEDURE: DC LAPAROSCOPY W/RMVL ADNEXAL STRUCTURES; COMMENT: Dr. Littlejohn Medical History Medical History Date Comments Chest pain 05/24/2008 DX:Chest pain; C OMMENT: [facility] chest pain/anxiety and muscle strain EKG nl 1-09 Cxr nl used percocet Varicella DX:Varicella Chlamydia infection 07/26/2009 DX:Chlamydia infection Renal stone 10/11/2009 DX:Renal stone Ovarian cyst 12/25/2009 DX:Ovarian cyst Allergic rhinitis 11/29/2008 DX:Allergic rh initis Constipation 01/06/2008 DX:Constipation Overweight(278.02) DX:Overweight (278.02) Headache(784.0) DX:Headache(784. 0); COMMENT: on Elavil ; Dr. Urban 12/04, MRI nl Papilledema 12/25/2010 DX:Papilledema; COMMENT: theresa Urban; neg brain MRI, neg CSF tap 12/05 Pseudotumor cerebri on Diamox DX:Pseudotum or cerebri; COMMENT: theresa Urban, and neurosurg Dr. Bell Anxiety DX:Anxiety; COMM ENT: sees therapist and psychiatrist at [facility] Hypertension 05/13/2012 DX:Hypertension GERD (gastroesophageal reflu x disease) 06/17/2012 DX:GERD (gastroesophageal re flux disease) Pituitary microadenoma ([facility] V24, CMS/[facility] V28) 11/12/2012 DX:Pituitary microadenoma (H [facility]) S/P PILE FABRIC KNITTER shunt 03/21/2014 DX:S/P PILE FABRIC KNITTER shunt Endometrial polyp DX:Endometrial polyp Epigastric pain DX:Epigastric pa in Nausea DX:Nausea Dysphagia DX:Dysphagia Fibromyalgia DX:Fibromyalgia Nausea and vomiting DX:Nausea an d vomiting Left ovarian cyst 01/11/2010 DX:Left ovaria n cyst; COMMENT: Left side Endometrial thickening on ultrasound 03/29/2022 DX:Endometrial thickening on ultrasound; COMMENT: Pt will be caden fro EMB BV (bacterial vaginosis) 02/28/2023 DX:BV ( bacterial vaginosis) Chronic anemia 04/09/2022 Family History Medical History Relation Name Comments Breast cancer Aunt maternal x 3, one aunt age 30s b/l and , 2 others in 40s on chemo Arthritis Brother Hypertension Father pacemaker, hype rlipidemia, prediabetes, arthritis Heart attack Maternal Grandfather Arthritis Maternal Grandmother Asthma Maternal Grandmother diabete s, htn, hyperlipidemia Asthma Mother HTN, pituitary tumor, anxiety, arthritis Depression Other Both sides Alzheimer's disease Paternal Grandfather Other: lupus Sister 1 Asthma Sister 2 No Known Problems Sister 3 No Known Problems Sister 4 Asthma Sister 5 Other: mental retardation Uncle maternal Breast cancer Neg Hx Colon cancer Neg Hx Ovarian cancer Neg Hx Prostate cancer Neg Hx Uterine cancer Neg Hx Relation Name Status Comments Aunt maternal Alive Brother Alive 1/2 sib Father Alive viri hughes 09-19 unemployed Maternal Grandfather Maternal Grandmother Alive Mother Alive jesse perez 10-25-66 disability brain tumor blind one eye Other Paternal Grandfather Paternal Grandmother Alive Sister 1 Alive 1989 SLE stacie hughes Sister 2 Alive juno cecilia/asth ma Sister 3 Alive 1/2 sib Sister 4 Alive 1/2 sib Sister 5 Alive Uncle maternal Alive Social History Tobacco Use Types Packs/Day Years Used Date Smoking Tobacco: Former Cigarettes 4.8 S tarted: 03/27/2020 Smokeless Tobacco: Never Tobacco Cessation:Counseling Given: Not Answered Alcohol Use Standard Drinks/Week Comments Yes 0 (1 standard drink = 0.6 oz pur e alcohol) occasional Comments No Sex and Gender Information Value Date Recorded Sex Assigned at Female 04/22/2024 1:30 PM EST Legal Sex Female 2:58 AM EST Gender Identity Female 04/22/2024 1:30 PM EST Sexual Orientation Straight 04/22/2024 1: 30 PM EST Obstetrics History Para Term AB IAB SAB Ectopic Multiple Livin g Live Births 2 2 1 1 2 2 Date Outcome GA Total Labor Labor/2nd/3rd Weight Sex Type Anes PTL Li A1 A5 Name Clin 010 Term 37w 4d 11h 43m/ 2948 g (104 oz) M Vag-S pont Epidur al Livin g 8 9 Madelaine velez [facility] Delivery Location:[facility] Comments:cord x1 019 26w 0d 907 g (32 oz) CS-LT ranv Livin g Complications:Severe pre-ecl ampsia Comments:[facility] Last Filed Vital Signs Vital Sign Reading Time Taken Comments Blood Pressure 111/74 11/23/2024 10:37 AM EDT Pulse 75 11/23/2024 10:37 AM EDT Temperature 36.6 C (97.8 F) 11/23/2024 10:37 AM EDT Respiratory Rate 18 11/23/2024 10:37 AM EDT Oxygen Saturation 98% 10/01/2024 9:07 AM EDT Inhaled Oxygen Concentration - - Weight 75.8 kg (167 lb) 11/23/2024 10:37 AM EDT Height 157.5 cm (5' 2 ) 11/23/2024 10:37 AM EDT Body Mass Index 30.54 11/23/2024 10:37 AM EDT Plan of Treatment Health Maintenance Due Date Last Done Comments COVID-19 Vaccine ( season) 2024 10/17/2020, 09/19/2020 Influenza Vaccine (#1) 2024 , 02/08/2022, 11/24/2019, Additional history exists Depression Screening 02/23/2025 12/17/2023 Postpon ed from 02/25/2024 (Patient Refused) Social Influencers of Health Screening 02/24/2025 Postponed from 02/02/2022 (Patient Refused) Hypertension/CHF/CAD Annual BMP Blood Test 12/13/2025 12/13/2024, 06/28/2024, 03/29/2024, Additional history exists Cervical Cancer Screening: HPV 07/06/2028 07/07/2023 DTaP,Tdap,and Td Vaccines (8 - Td or Tdap) 11/23/2029 11/24/2019, 09/20/2008, 04/15/2003, Additional history exists Cholesterol Screening (Lipid Panel) 12/13/2029 12/13/2024, 08/06/2023, 08/06/2023 RSV Immunization Adult Patients (1 - 1-dose 75+ series) 10/21/2066 MMR Vaccines Completed 05/12/1993, 01/24/1993 HIB Vaccines Completed 11/12/1995, 10/25, 01/24/1993, Additional history exists IPV Vaccines Completed 11/12/1995, 10/25, 01/24/1993, Additional history exists Varicella Vaccines Aged Out 02/25/1996 No longer eligible based on patient's age to complete this topic Hepatitis B Vaccines Completed 12/17/1996, 10/15/1996, 07/22/1996 Meningococcal ACWY Vaccine Aged Out 11/24/2006 N o longer eligible based on patient's age to complete this topic HPV Vaccines Completed 02/28/2023, 12/25, 01/27/2007, Additional history exists HIV Screening Completed 10/04/2024, 06/2023, 12/05/2023, Additional history exists Hepatitis C Screening Completed 10/04/2024 , 01/29/2024, 12/05/2023 Hepatitis A Vaccines Aged Out No long er eligible based on patient's age to complete this topic Meningococcal B Vaccine Aged Out No l onger eligible based on patient's age to complete this topic Pneumococcal Vaccine: Pediatrics (0 to 5 Years) and At-Risk Patients (6 to 49 Years) Aged Out No longer eligible based on patient's age to complete this topic RSV Immunization Patients Under 20 months Aged Out No longer eligible based on patient's age to complete this topic Procedures Procedure Name Priority Date/Time Associated Diagnosis Comments FERRITIN Routine 12/13/2024 12:38 PM EDT Iron deficiency anemia due to chronic blood loss Menorrhagia with regular cycle IRON AND TIBC Routine 12/13/2024 12:38 PM EDT Iron deficiency anemia due to chronic blood loss Menorrhagia with regular cycle HEMOGLOBIN A1C Routine 12/13/2024 12:38 PM EDT Primary hypertension Gastroesophageal reflux disease without esophagitis Seropositive rheumatoid arthritis ([facility]/HCC V24, CMS/HCC V28) Screening for diabetes mellitus Screening cholesterol level LIPID PANEL WITH REFLEX TO DIRECT LDL Routine 12/13/2024 12:38 PM EDT Primary hypertension Gastroesophageal reflux disease without esophagitis Seropositive rheumatoid arthritis (CMS/HCC V24, CMS/[facility] V28) Screening for diabetes mellitus Screening cholesterol level BASIC METABOLIC PANEL Routine 12/13/2024 12:38 PM EDT Primary hypertension Gastroesophageal reflux disease without esophagitis Seropositive rheumatoid arthritis ([facility]/HCC V24, CMS/HCC V28) Screening for diabetes mellitus Screening cholesterol level US PELVIS NON OB COMPLETE W TRANSVAGINAL Routine 11/17/2024 11:06 AM EDT Pelvic pain VAS US DUPLEX CAROTID BILATERAL Routine 11/11/2024 10:55 AM EDT Syncope, unspecified syncope type CARDIAC HOLTER MONITOR (REPORT GENERATED IN HOUSE) Routine 11/05/2024 10:00 AM EDT Syncope, unspecified syncope type HEPATITIS C ANTIBODY Routine 10/04/2024 2:44 PM EDT Encounter for screening for viral disease HIV 1, 2 ANTIBODY, P24 ANTIGEN WITH REFLEX TO DIFFERENTIATION Routine 10/04/2024 2:44 PM EDT Encounter for screening for viral disease HM DEPRESSION SCREENING Routine 12/17/2023 HM HPV Routine 07/07/2023 from Last 3 Months or Most Recently Relevant to Health Maintenance Results * Lipid panel with reflex to direct LDL (12/13/2024 12:38 PM EDT) Cholesterol 157 0 - 200 mg/dL LAB CHEMISTRY METHOD 12/13/2024 5:00 PM [facility] Triglycerides 110 0 - 150 mg/dL LAB CHEMISTRY METHOD 12/13/2024 5:00 PM [facility] HDL 60 >=40 mg/dL LAB CHEMISTRY METHOD 12/13/2024 5:00 PM [facility] LDL Calculated 75 0 - 100 mg/dL LAB CHEMISTRY METHOD 12/13/2024 5:00 PM [facility] Comment:Estimated LDL Calcul ated using equation: Total cholesterol - HDL cholesterol - (Triglycerides/5) VLDL Cholesterol Anshul 22 mg/dL LAB CHEMISTRY METHOD 12/13/2024 5:00 PM [facility] Non HDL Chol. (LDL+VLDL) 97 <145 mg/dL LAB CHEMISTRY METHOD 12/13/2024 5:00 PM [facility] Chol/HDL Ratio 2.6 0.0 - 4.4 LAB CHEMISTRY METHOD 12/13/2024 5:00 PM [facility] Blood Venous blood specimen / Unknown Venipuncture / Unknown 12/13/2024 12:38 PM EDT 12/13/2024 12:38 PM EDT Yudith ABDUL LAB BLOOD ORDERABLES Fin al Result Performing Organization Address [facility] Co de Phone Number [facility] [address] [place] [address], [place] [phone] * Iron and TIBC (12/13/2024 12:38 PM EDT) Iron 56 40 - 150 mcg/dL LAB CHEMISTRY METHOD 12/13/2024 5:00 PM EDT [facility] TIBC 317 250 - 450 mcg/dL LAB CHEMISTRY METHOD 12/13/2024 5:00 PM EDT [facility] Iron Saturation 18 15 - 50 % LAB CHEMISTRY METHOD 12/13/2024 5:00 PM EDT [facility] Blood Venous blood specimen / Unknown Venipuncture / Unknown 12/13/2024 12:38 PM EDT 12/13/2024 12:38 PM EDT Aster ABDUL LAB BLOOD ORDERABLES Final Re sult Performing Organization Address [facility] de Phone Number [facility] [address] [place] [address], * Hemoglobin A1c (12/13/2024 12:38 PM EDT) Hemoglobin A1C 5.0 <6.5 % LAB CHEMISTRY METHOD 12/13/2024 10:53 PM EDT [facility] Mean Bld Glu Estim. 97 mg/dL LAB CHEMISTRY METHOD 12/13/2024 10:53 PM EDT [facility] Blood Venous blood specimen / Unknown Venipuncture / Unknown 12/13/2024 12:38 PM EDT 12/13/2024 12:38 PM EDT us Yudith ABDUL LAB BLOOD ORDERABLES Fin al Result [facility] [address] [place] [address], [place] [phone] * Ferritin (12/13/2024 12:38 PM EDT) Pathologist [facility] Ferritin 15 8 - 252 ng/mL LAB CHEMISTRY METHOD 12/13/2024 5:00 PM EDT [facility] Blood Venous blood specimen / Unknown Venipuncture / Unknown 12/13/2024 12:38 PM EDT 12/13/2024 12:38 PM EDT Aster ABDUL LAB BLOOD ORDERABLES Final Re sult Performing Organization Address [facility]/ZIP Co de Phone Number [facility] [address] [place] [address], [place] [phone] * (ABNORMAL) Basic metabolic panel (12/13/2024 12:38 PM EDT) [facility] Sodium 138 133 - 145 mmol/L LAB CHEMISTRY METHOD 12/13/2024 4:59 PM EDT [facility] Potassium 4.1 3.5 - 5.5 mmol/L LAB CHEMISTRY METHOD 12/13/2024 4:59 PM EDT [facility] Chloride 106 96 - 110 mmol/L LAB CHEMISTRY METHOD 12/13/2024 4:59 PM EDT [facility] CO2 30 21 - 32 mmol/L LAB CHEMISTRY METHOD 12/13/2024 4:59 PM EDT [facility] Anion Gap 2(L) 3 - 11 LAB CHEMISTRY METHOD 12/13/2024 4:59 PM EDT [facility] Glucose 89 70 - 100 mg/dL LAB CHEMISTRY METHOD 12/13/2024 4:59 PM EDT [facility] BUN 8 5 - 25 mg/dL LAB CHEMISTRY METHOD 12/13/2024 4:59 PM EDT [facility] Creatinine 0.67 0.50 - 1.10 mg/dL LAB CHEMISTRY METHOD 12/13/2024 4:59 PM EDT [facility] eGFR 119 >=60 mL/min/1. 73m2 LAB CHEMISTRY METHOD 12/13/2024 4:59 PM EDT [facility] Comment:Calculation based on the Chronic Kidney Disease Epidemiology Collaboration (CKD-EPI) equation refit without adjustment for race. BUN/Creatinine Ratio 11.9 LAB CHEMISTRY METHOD 12/13/2024 4:59 PM EDT [facility] Calcium 9.6 8.5 - 10.5 mg/dL LAB CHEMISTRY METHOD 12/13/2024 4:59 PM EDT [facility] Blood Venous blood specimen / Unknown Venipuncture / Unknown 12/13/2024 12:38 PM EDT 12/13/2024 12:38 PM EDT Yudith ABDUL LAB BLOOD ORDERABLES Fin al Result [facility] [address] [place] [address], [place] [phone] * US Pelvis Non OB Complete w Transvaginal (11/17/2024 11:06 AM EDT) Anatomical Region Laterality Modality Body, Pelvis Ultrasound 11/17/2024 1:18 PM EDT Impressions 11/17/2024 1:22 PM EDT Impression: 1. Normal uterus and left ovary. 2. Right ovary surgically absent. 3. Trace free fluid in the cul-de-sac, possibly physiologic. Cuate ABDUL ([id number]) -------- FINAL REPORT -------- Dictated By: Marzena Murcia Dictated Date: 11/17/2024 13:18 ET Assigned Physician: Marzena Murcia Reviewed and Electronically Signed By: Marzena Murcia Signed Date: 11/17/2024 13:22 ET Workstation ID: [id number] Transcribed By: Self Edit Transcribed Date: 11/17/2024 13:18 ET Narrative 11/17/2024 1:22 PM EDT History: 34-year-old 2 para 2, LMP 10/30/24, with left lower quadrant pain for 2 months. Prior right oophorectomy. Lumboperitoneal shunt in place. Comparison: Pelvic ultrasounds 02/02/24, 07/14/23 ([facility], [place], [place]); CT abdomen/pelvis 04/23/23 ([facility]) Findings: Transvesical imaging of the pelvis is supplemented with transvaginal imaging for better detail of the uterus and adnexa. The uterus measures 9.7 cm in length by 3.0 cm in depth by 5.5 cm in width. The endometrial echo complex measures 14 mm in thickness double layer. No endometrial fluid collections are seen. The myometrium is homogeneous. A trace amount of free fluid is seen in the cul-de-sac. The left ovary measures 4.0 x 2.8 x 2.3 cm (volume 13.6 cc), and contains several small follicles. There is normal vascular flow within the ovary by Doppler analysis. The right ovary is not identified, in keeping with the surgical history. Lumboperitoneal shunt tubing is seen in the pelvis, adjacent to the left ovary. Procedure Note Marzena Murcia MD - 11/17/2024 History: 34-year-old 2 para 2, LMP 10/30/24, with left lowerquadrant pain for 2 months. Prior right oophorectomy. Lumboperitonealshunt in place. Comparison: Pelvic ultrasounds 02/02/24, 07/14/23 ([facility], [place], [place]); CT abdomen/pelvis 04/23/23 ([facility]) Findings: Transvesical imaging of the pelvis is supplemented with transvaginalimaging for better detail of the uterus and adnexa. The uterus measures 9.7 cm in length by 3.0 cm in depth by 5.5 cm inwidth. The endometrial echo complex measures 14 mm in thickness doublelayer. No endometrial fluid collections are seen. The myometrium ishomogeneous. A trace amount of free fluid is seen in the cul-de-sac. The left ovary measures 4.0 x 2.8 x 2.3 cm (volume 13.6 cc), and containsseveral small follicles. There is normal vascular flow within the ovary byDoppler analysis. The right ovary is not identified, in keeping with the surgical history. Lumboperitoneal shunt tubing is seen in the pelvis, adjacent to the leftovary. IMPRESSION: Impression: 1. Normal uterus and left ovary. 2. Right ovary surgically absent. 3. Trace free fluid in the cul-de-sac, possibly physiologic. Telesheyla ABDUL ([id number]) -------- FINAL REPORT -------- Dictated By: Marzena Murcia Dictated Date: 11/17/2024 13:18 ET Assigned Physician: Marzena Murcia Reviewed and Electronically Signed By: Marzena Murcia Signed Date: 11/17/2024 13:22 ET Workstation ID: [id number] Transcribed By: Self Edit Transcribed Date: 11/17/2024 13:18 ET us Kenisha Manzanares CNM IMG US PROCEDURES Final Resul t * Vascular US duplex carotid bilateral (11/11/2024 10:55 AM EDT) Left CCA dist duff 36 cm/s [facility] Left CCA dist sys 92 cm/s [facility] LEFT COMMON CAROTID ARTERY MID D 32 cm/s [facility] LEFT COMMON CAROTID ARTERY MID S 95 cm/s [facility] Left CCA prox dfuf 30 cm/s [facility] Left CCA prox sys 101 cm/s [facility] LEFT EXTERNAL CAROTID ARTERY D 31 cm/s [facility] Left ECA sys 119 cm/s [facility] Left ICA/CCA sys 1.30 [facility] Left ICA dist duff 33 cm/s [facility] Left ICA dist sys 74 cm/s CV V[facility] LAB Left ICA mid duff 45 cm/s [facility] Left ICA mid sys 116 cm/s [facility] Left ICA prox duff 36 cm/s CV [facility] LAB Left ICA prox sys 96 cm/s [facility] Left vertebral sys 60 cm/s [facility] Right CCA dist duff 35 cm/s [facility] LAB Right cca dist sys 90 cm/s CV [facility] LAB RIGHT COMMON CAROTID ARTERY MID D 25 cm/s [facility] RIGHT COMMON CAROTID ARTERY MID S 85 cm/s CV V[facility] LAB Right CCA prox duff 26 cm/s CV [facility] LAB Right CCA prox sys 118 cm/s [facility] LAB RIGHT EXTERNAL CAROTID ARTERY D 33 cm/s [facility] LAB Right eca sys 115 cm/s [facility] LAB Right ICA/CCA sys 1.10 [facility] Right ICA dist duff 34 cm/s CV [facility] LAB Right ICA dist sys 73 cm/s CV [facility] LAB Right ICA mid duff 46 cm/s CV [facility] LAB Right ICA mid sys 102 cm/s CV V[facility] LAB Right ICA prox duff 32 cm/s [facility] Right ICA prox sys 83 cm/s [facility] Right vertebral sys 72 cm/s [facility] Left Prox Subclavian PSV 146 cm/s [facility] Right Prox Subclavian PSV 129 cm/s [facility] Right arm BP 119 mmHg [facility] Left arm BP 133 mmHg [facility] Anatomical Region Laterality Modality Vascular, Abdomen Ultrasound Narrative 11/11/2024 2:47 PM EDT No significant plaque in external carotid systems bilaterally with normal flow velocities and waveforms. Normal flow velocities and waveforms in bilateral subclavian arteries. Antegrade vertebral flow bilaterally. Right Carotid The CCA has no significant plaque. The proximal ICA has no significant plaque. The ECA has no significant plaque. Right BP= 119/80 Vertebral flow is antegrade. Left Carotid The CCA has no significant plaque. The proximal ICA has no significant plaque. The ECA has no significant plaque. Left BP= 133/79 Vertebral flow is antegrade. Regional Education Manager Details A souza scale, color and doppler analysis ultrasound was performed. During the study longitudinal and transverse views were obtained. Pulsed wave doppler was performed. us Rodney Mcmillan NP CV VASCULAR PROCEDURES Final Res ult * CARDIAC HOLTER MONITOR (REPORT GENERATED IN HOUSE) (11/05/2024 10:00 AM EDT) Anatomical Region Laterality Modality Cardiac Diagnost ic Narrative 11/11/2024 1:14 PM EDT [facility] DI[facility] DEPARTMENT [address] [place] [address], [address] [address] TEL: FAX: Type of test: 48 hour Holter Monitor Date of test: 11/05/24 Ordering provider: Rodney Mcmillan NP Reason for Test: Syncope Findings: 1: The predominant rhythm was Normal Sinus Rhythm. 2: Heart rate range was 54- 135 bpm with an average of 79 bpm. 3: One PAC. Three PVCs. 4: No pauses noted. Longest R-R 1.2 sec. 5: Diary returned with no entries. Impression: 1. No significant arrhythmias, pauses, or instances of high-grade AV block. 2. No symptoms noted on the monitor. Rodney Mcmillan NP CV CARDIAC SERVICES PROCEDURES F inal Result * Hepatitis C antibody (10/04/2024 2:44 PM EDT) Pathologist [facility] Hepatitis C Antibody Negative Negative LAB CHEMISTRY METHOD 10/04/2024 7:53 PM EDT [facility] Blood Venous blood specimen / Unknown Venipuncture / Unknown 10/04/2024 2:44 PM EDT 10/04/2024 2:44 PM EDT Kenisha Manzanares [facility] BLOOD ORDERABLES Final Re sult [facility] [address] [place] [address], * HIV 1,2 antibody, p24 antigen with reflex to differentiation (10/04/2024 2:44 PM EDT) HIV Combo AB/AG Negative Negative LAB CHEMISTRY METHOD 10/04/2024 7:53 PM EDT [facility] Blood Venous blood specimen / Unknown Venipuncture / Unknown 10/04/2024 2:44 PM EDT 10/04/2024 2:44 PM EDT Narrative JULIANA IBARRA [place] ([facility]) [facility] - 10/04/2024 7:53 PM EDT This assay is a 4th generation assay allowing for earlier detection of HIV infection by detecting the presence of the HIV-1 p24 antigen as well as the traditional antibodies to HIV type 1 (including group O) and type 2. Use of a 4th generation assay is the current CDC recommendation for HIV screening. Kenisha Manzanares [facility] BLOOD ORDERABLES Final Re sult [facility] [address] [place] [address], [place] [phone] * Depression Screening (12/17/2023) Pathologist [facility] Depression Screening Abstracted Historical Provider HEALTH MAINTENANCE Final Result * Cervical Cancer Screening: HPV (07/07/2023) Pathologist [facility] Cervical Cancer Screening: HPV Negative, Abstracted Historical Provider HEALTH MAINTENANCE Final Result from Last 3 Months or Most Recently Relevant to Health Maintenance Insurance [facility] Care Teams Dx Board Operator Relationship Specialty Start Date End Date Anish Wesley MD [address] [place] [phone] PCP - General Internal Medicine 01/28/24
--- OUTSIDE RECORDS SUMMARY | 2025-01-23 16:11 | XMS_ITS | Clinical Summary ---
Author Organization [facility] Address [address] [place] [address] Care Team Providers Care Pershing Missile Crewmember Name Role Phone Miya Lara DO Primary Care P rovider Social History Tobacco Use Types Packs/Day Years Used Date Smoking Tobacco: Never Assessed Sex and Gender Information Value Date Recorded Sex Assigned at Not on file Gender Identity Not on file Sexual Orientation Not on file Job Start Date Occupation Industry Not on file Not on file Not on file Plan of Treatment Health Maintenance Due Date Last Done Comments Hepatitis B Vaccines (1 of 3 - 3-dose series) 1991 Hepatitis C Screening 1991 COVID-19 Vaccine (#1) 04/23/1992 Depression Screening 2003 Preventative Health Evaluation 10/21/2009 Cervical Cancer Screening (Pap Smear) 10/21/2012 Influenza Vaccine (#1) 2024 0, 11/12/2012, 12/26/2011, Additional history exists DTap / Tdap / Td (7 - Td or Tdap) 11/23/2029 11/24/2019, 09/20/2008, 11/12/1995, Additional history exists Pneumococcal Vaccine Aged Out No long er eligible based on patient's age to complete this topic RSV Ped < 20 months Aged Out No longe r eligible based on patient's age to complete this topic Care Teams Pershing Missile Crewmember Relationship Specialty Start Date End Date Miya Lara DO PCP - General Alarm Investigator 03/26/17
--- OUTSIDE RECORDS SUMMARY | 2025-01-23 16:11 | XMS_ITS | Clinical Summary ---
Author Organization [facility] Address [address] [address] Phone Care Team Providers Care Sizing Machine Tender Name Role Phone Unknown, Unknown Primary Care Provider Lexy jhaveri Social History Tobacco Use Types Packs/Day Years Used Date Smoking Tobacco: Never Assessed Education Answer Date Recorded Are you interested in more education? Not on yang e 08/06/2023 Are you concerned about learning? Not on file 08/06/2023 No 08/06/2023 No 08/06/2023 Digital Access Answer Date Recorded No 08/06/2023 No 08/06/2023 Reliable internet access at home? Not on file 08/06/2023 Device with a working camera? Not on file Comments Unknown Sex and Gender Information Value Date Recorded Sex Assigned at Not on file Legal Sex Female 10:58 AM EDT Gender Identity Not on file Sexual Orientation Not on file Plan of Treatment Health Maintenance Due Date Last Done Comments Adult Td,Tdap Booster 1991 DEPRESSION SCREENING 2003 SMOKING Hx and SMOKELESS TOB ACCO SCREENING 10/21/2004 HEPATITIS C SCREENING 10/21/2009 HIV ONE-TIME SCREENING (18-6 5 YEARS) 10/21/2009 PAP SMEAR 10/21/2012 INFLUENZA VACCINE (#1) 2024 COVID-19 VACCINE ( - 2024-2 6 season) 2024 HEPATITIS A VACCINES Aged Out No long er eligible based on patient's age to complete this topic HIB VACCINES Aged Out No longer eligi ble based on patient's age to complete this topic MENINGOCOCCAL VACCINES (ACWY) Aged Out No longer eligible based on patient's age to complete this topic MENINGOCOCCAL VACCINES (B) Aged Out N o longer eligible based on patient's age to complete this topic PNEUMOCOCCAL VACCINES (0-49 years) Aged Out No longer eligible based on patient's age to complete this topic Medical Devices Not on file [facility] [place] [facility] [place] [place] [facility] [place] [id number] Care Teams Sizing Machine Tender Relationship Specialty Start Date End Date Unknown, Unknown, PCP - General 08/06/23 Additional Source Comments The information contained in this document represents components of the legal health record. It is not the complete legal health record.[facility]
--- OUTSIDE RECORDS SUMMARY | 2025-01-23 16:11 | XMS_ITS | Encounter Summary ---
Author Organization [employer] Address [address] [place] [address] Care Team Providers Care Fast Food Delivery Driver Name Role Phone Anish Wesley MD Primary Care Provider [phone] Encounter Details Date Type Department Care Team (Late st Contact Info) Description 01/09/2025 Results Follow-Up [facility] Hematology Oncology [address] [place] [phone] Aster Diana PA [address] [place] [address] Social History Tobacco Use Types Packs/Day Years Used Date Smoking Tobacco: Former Cigarettes 4.8 S tarted: 03/27/2020 Smokeless Tobacco: Never Alcohol Use Standard Drinks/Week Comments Yes 0 (1 standard drink = 0.6 oz pur e alcohol) occasional Comments No Sex and Gender Information Value Date Recorded Sex Assigned at Female 04/22/2024 1:30 PM EST Legal Sex Female 2:58 AM EST Gender Identity Female 04/22/2024 1:30 PM EST Sexual Orientation Straight 04/22/2024 1: 30 PM EST documented as of this encounter Plan of Treatment Not on file documented as of this encounter Visit Diagnoses Not on filedocumented in this encounter Care Teams Fast Food Delivery Driver Relationship Specialty Start Date End Date Anish Wesley MD [address] [place] [address] PCP - General Internal Medicine 01/28/24 documented as of this encounter
--- OUTSIDE RECORDS SUMMARY | 2025-01-23 16:11 | XMS_ITS | Encounter Summary ---
Author Organization [employer] Address [address] [place] [address] Care Team Providers Care Ship Joiner Name Role Phone Anish Wesley MD Primary Care Provider [phone] Encounter Details Date Type Department Care Team (Late st Contact Info) Description 12/16/2024 Results Follow-Up Adult Medicine [address] [phone] Lolita Tejeda MA Social History Tobacco Use Types Packs/Day Years [...] on filedocumented in this encounter Care Teams Ship Joiner Relationship Specialty Start Date End Date Anish Wesley MD [address] [place] [address] PCP - General Internal Medicine 01/28/24 documented as of this encounter
[2025-01-23 16:13] LABS: Hematocrit 36.9 % (37.0-47.0); Hemoglobin 12.3 g/dl (12.0-16.0); Imm Gran Abs Auto 0.02 X10*3/uL (0.00-0.03); Imm Gran Pct Auto 0.2 % (0.0-0.4); Lymphocytes Absolute Auto 2.1 X10*3/uL (1.2-4.9); MANUAL DIFF FLAG NO; Mean Corpuscular HGB Conc 33.3 g/dl (31.0-35.0); Mean Corpuscular Hemoglobin 30.8 pg (27.0-33.0); Mean Corpuscular Volume 92.5 fL (80.0-98.0); NRBC Abs Auto 0.000 X10*3/uL (0.0-0.012); NRBC Pct Auto 0.0 /100WBC (0.0-0.2); Platelet Count 280 X10*3/uL (160-400); Red Blood Count 3.99 X10*6/uL (4.20-5.50); White Blood Count 8.8 X10*3/uL (4.8-10.8)
[2025-01-23 16:14] VITALS: O2SAT 98
[2025-01-23 16:16] VITALS: BP 144/85; PULSE 75; RESP 18; O2SAT 98
[2025-01-23 16:30] LABS: COVID-19 Test Negative (Negative); IDNOW Serial# 08D9AD1C
[2025-01-23 16:33] LABS: Alanine Aminotransferase 17 U/L (0-31); Albumin Level 4.3 g/dL (3.5-5.0); Alkaline Phosphatase 66 U/L (39-117); Anion Gap 11 (12-20); Aspartate Amino Transferase 24 U/L (5-31); Blood Urea Nitrogen 13 mg/dL (9-16); Calcium 9.3 mg/dL (8.4-10.2); Carbon Dioxide 26 mmol/L (22-29); Chloride 109 mmol/L (96-108); Creatinine Clr Calc Pharmacy 99.7; Estimated Glomerular Filt Rate > 60; Magnesium 2.0 mg/dL (1.6-2.6); Potassium 3.9 mmol/L (3.3-5.1); Sodium 142 mmol/L (135-145); Total Protein 6.9 g/dL (6.5-8.0)
[2025-01-23 16:39] LABS: Troponin-I High Sensitivity < 2.7 ng/L (<3.5-17.0)
[2025-01-23 16:45] LABS: IDNOW Serial# 58CA691E; Influenza B2 Negative (Negative)
--- NOTE | 2025-01-23 18:02 | ED.SYNCOPE ---
HPI - Syncope General Chief Complaint: Syncope Stated Complaint: multiple syncopal episodes Time Seen by Provider: 01/23/25 18:01 History of Present Illness ED Provider: Honey Ritchie NP HPI narrative: 34-year-old female medical history significant for depression, anxiety, IBS, RA, fibromyalgia, chronic headaches, pseudotumor cerebri which was treated with a lumbar peritoneal shunt by Dr. Bell about 9 years ago, currently followed by neurology Dr. Ubran, presents to the ED with chief complaint of syncopal events at home, unwitnessed by her children. She reports that she had headaches ongoing for the past 4 days, she has been using the Fioricet prescribed by Neurology without much relief. Today she fell once this morning, with head strike and off the counter cyst, and then a 2nd time getting off of the bed. She endorses a headache 12/03 and is crying upon my assessment. No dizziness or lightheadedness, visual disturbances, chest pain or pressure, shortness of breath or abdominal pain. Some nausea, no vomiting, diarrhea or constipation. No recent illnesses, travel. No fever, chills. Related Data Home Medications ?Medication ?Instructions ?Recorded ?Confirmed clonazepam 1 mg tablet 1 mg PO BID PRN Anxiety 05/20/22 02/23/24 hydrochlorothiazide 25 mg tablet 25 mg PO DAILY 12/18/23 02/23/24 topiramate 100 mg tablet 100 mg PO DAILY 12/18/23 02/23/24 amlodipine 10 mg tablet 10 mg PO DAILY 12/24/23 02/23/24 omeprazole 20 mg capsule,delayed 40 mg PO DAILY@0630 12/24/23 02/23/24 release amitriptyline 75 mg tablet 75 mg PO BEDTIME 02/23/24 02/23/24 Previous Rx's ?Medication ?Instructions ?Recorded lisinopril 20 mg tablet 20 mg PO DAILY #30 tabs 02/28/24 ondansetron 4 mg disintegrating 4 mg PO Q8H PRN nausea and 02/28/24 tablet vomiting #15 tabs oxycodone 5 mg tablet 5 mg PO Q8H PRN pain #15 tabs 02/28/24 cefuroxime axetil 500 mg tablet 500 mg PO BID 7 days #14 tabs 05/18/24 oxycodone 5 mg tablet 5 mg PO Q6H PRN pain #12 tabs 05/18/24 phenazopyridine 200 mg tablet 200 mg PO TID 2 days #6 tabs 05/18/24 (Pyridium) wliheswmkr-rjanvvijmfqlv-ektowdaq 1 tab PO Q6H PRN headache 30 days 11/04/24 50 mg-325 mg-40 mg tablet #20 tabs acetaminophen 300 mg-codeine 30 mg 1 tab PO Q6H PRN headache 30 days 11/09/24 tablet #60 tabs cephalexin 500 mg capsule 500 mg PO QID #28 caps 01/24/25 Allergies Allergy/AdvReac Type Severity Reaction Status Date / Time ketorolac (From TORADOL) Allergy Unknown ANXIETY, Verified 01/23/25 15:34 NAUSEA, DIZZY metoclopramide (From Reglan) Allergy Hives Verified 01/23/25 15:34 montelukast (From Singulair) Allergy Hives, Verified 01/23/25 15:34 tachycardia,vomitting,diarrhea Review of Systems Review of Systems: ROS is otherwise negative unless mentioned in HPI. [facility] Past Medical History Medical History Obesity (BMI 30.0-34.9) FH: cholecystectomy delivery delivered Pseudotumor cerebri Pituitary microadenoma Papanicolaou smear of cervix with low grade squamous intraepithelial lesion (LGSIL) Conversion disorder Back pain Headache Sensory deficit present Weakness Kidney stones Hypertension Rheumatoid arthritis Surgical History History of oophorectomy, unilateral History of esophagogastroduodenoscopy (EGD) S/P FUSE CUTTER shunt H/O lumbosacral spine surgery Family History Family History Mother Asthma HTN (hypertension) Pituitary tumor Anxiety Arthritis Brain tumor Father Arthritis Prediabetes Hyperlipidemia Pacemaker Sister Asthma Lupus Brother Arthritis Maternal Grandmother HTN (hypertension) Hyperlipidemia Diabetes Arthritis Maternal Grandfather Heart attack Paternal Grandfather Alzheimer disease Maternal Aunt Breast cancer Social History Social History Household Members: Children Housing: Apartment Do you presently have visiting nurse or other home services: No Alcohol intake: current Alcohol intake frequency: holidays/special occasions only Patient Tobacco Use Status: Former Tobacco user Tobacco use type: Cigarette Smoked in Last 30 Days: No Use of substances other than those prescribed or required for medical reasons: No Substance Use Type: Marijuana Advance Directives: No Advance Directives Information Provided: No Do you have a plan to hurt others: No Plan service: No Current occupational status: unemployed Physical Exam Exam: Exam: Nursing notes and vital signs reviewed. Constitutional: Well-appearing, NAD. Alert. Oriented X3. Eyes: Pupils equal, round and reactive to light. EOMI. ENT: Pharynx normal. Neck: Normal inspection. Neck supple. No midline c-spine tenderness, ROM intact. CVS: Normal heart rate and rhythm. Pulses normal. Respiratory: No respiratory distress. Breath sounds normal. Abdomen: Soft and nontender, nondistended. Skin: Skin warm and dry. Normal skin color. Extremities: No lower extremity edema. Neuro: Oriented X 3. No motor deficit. Vital Signs: Vital Signs: Last Vital Signs Temp 97.8 F 01/24/25 00:48 Pulse 72 01/24/25 00:48 Resp 16 01/24/25 00:48 BP 134/61 01/24/25 00:48 Pulse Ox 99 01/24/25 00:48 O2 Del Method Room Air 01/24/25 00:48 BMI result Body Mass Index 30.2 Course Course Course Narrative: 3:53 AM 01/24/2025 (Eladio ABDUL): The patient was signed out to this provider at shift change. In summary the patient is a 34-year-old female with a history of fibromyalgia, headaches, pseudotumor cerebri treated 9 years ago with a lumbar shunt, as well as rheumatoid arthritis, GERD, depression, anxiety, and IBS, presenting to the ED for evaluation of 2 syncopal episodes. The patient reports for the past 5 days she has been feeling severe fatigue and malaise, 4 days ago began experiencing persistent headache. Patient reports today when standing the headache increased and she suffered 2 episodes of syncope prompting ED evaluation. The patient has episodes of syncope were not witnessed. The patient reports her headache increasing upon standing is similar to a post dural headache she experienced after a previous lumbar puncture. The patient denies any recent instrumentation of her CSF spaces. The patient has been afebrile throughout ED course. Per sign-out the patient's metabolic workup was largely reassuring, at time of discharge the patient was awaiting CT tidwell scan due to her 2 episodes of syncope. While awaiting CT imaging the patient required additional pain management with Dilaudid with good effect. The patient's CTs resulted and showed no acute abnormalities. The patient was reassessed, upon reassessment the patient had good range of motion of the neck, no evidence of meningismus, NIH stroke scale of 0, no focal neurological deficits found, patient remained afebrile. Upon chart review the patient had no leukocytosis, however patient had given a urinalysis which resulted after initial sign-out, urinalysis shows evidence of a UTI. The patient was treated with Rocephin. Patient stated additional concerns regarding her headache and it is similarly to a previous postdural headache. An extensive risk/benefit discussion was held with the patient regarding indications for and against lumbar puncture. Patient's imaging, exam, and laboratory evaluation showed no indication for lumbar puncture, presence of lumbar shunt presents increased risks for otherwise non indicated lumbar puncture. Seeing as the patient's urinalysis is positive for infection, providing an alternative explanation for the patient's malaise, fatigue, nausea, and headache, LP was not performed. Instead a CRP and ESR were added on. ESR and CRP have now resulted and are both within normal limits. Seeing as ESR and CRP are unremarkable, there is no indication for admission for neurology consultation/LP at this time, and the patient will be discharged with 10 days of cephalexin and supportive care. Medications Administered Discontinued Medications Generic Name Dose Route Start Last Admin Trade Name Freq PRN Reason Stop Dose Admin Diphenhydramine HCl 50 mg 01/23/25 21:43 01/23/25 22:27 Diphenhydramine Hcl 50 Mg/Ml Vial IVPUSH 01/23/25 21:44 50 mg ONCE ONE Administration Hydromorphone HCl 0.5 mg 01/23/25 21:43 01/23/25 22:27 Hydromorphone Hcl 0.5 Mg/0.5 Ml Syringe IVPUSH 01/23/25 21:44 0.5 mg ONCE ONE Administration Protocol Hydromorphone HCl 1 mg 01/24/25 02:03 01/24/25 02:09 Hydromorphone Hcl 1 Mg/Ml Syringe IVPUSH 01/24/25 02:04 1 mg ONCE ONE Administration Protocol Sodium Chloride 1,000 mls @ 999 mls/hr 01/23/25 21:45 01/23/25 23:30 Ns IV 01/23/25 22:45 Infused .Q1H1M CLEMENTE Infusion Ceftriaxone Sodium 1 gm/ 50 mls @ 100 mls/hr 01/24/25 01:38 01/24/25 02:36 Sodium Chloride IV 01/24/25 02:07 Infused ONCE ONE Infusion Iohexol 100 ml 01/23/25 22:20 01/23/25 22:27 Iohexol 350 Mg/Ml 100 Ml Infus..Btl IV 01/23/25 22:21 100 ml ONCE ONE Administration Morphine Sulfate 4 mg 01/23/25 18:12 01/23/25 18:17 Morphine Sulfate 4 Mg/Ml Cartridge IVPUSH 01/23/25 18:13 4 mg ONCE ONE Administration Protocol Morphine Sulfate 4 mg 01/23/25 20:17 01/23/25 20:22 Morphine Sulfate 4 Mg/Ml Cartridge IVPUSH 01/23/25 20:18 4 mg ONCE ONE Administration Protocol Ondansetron HCl 4 mg 01/23/25 18:12 01/23/25 18:17 Ondansetron Hcl 4 Mg/2 Ml Vial IVPUSH 01/23/25 18:13 4 mg ONCE ONE Administration Medical Decision Making Medical Decision Making MDM Narrative: Upon my assessment the patient was actively crying, reporting a severe headache 12/03. She is not currently complaining of any lower back pain, shortness of breath or chest pain. She does complain of 2 syncopal events that occurred today, headache ongoing for 4 days, and 2 episodes of striking her head during the syncopal events. She fully lost consciousness. She was not home with anyone else, the any events were not witnessed. Given the syncope, we will rule out PE, ACS. Lab work was ordered prior to my assessment of the patient, which is currently overall reassuring. Her LFTs are improved in comparison to previous, currently pending a urinalysis. Negative viral panel. EKG is nonischemic, improved in comparison to previous. Troponin is flat. CTA PE chest, CT abdomen and pelvis, CT of the head, cervical spine and reassess. Given morphine, antiemetic. 2029-- patient is complaining of pain again, was ordered for a 2nd dose of morphine. Still currently pending imaging, the lab work has been overall reassuring. Troponin flat. Pending urinalysis. 2044--Signed out to oncoming provider, CHANTELL Pisano. If imaging is normal, plan to discharge home with outpatient Neurology follow up. Differential Diagnosis Differential Diagnoses: The differential diagnosis associated with the presentation includes syncope, seizure, fall, migraine, intracranial hemorrhage, shunt malfunction Admission/Observation Consideration of admission/observation: Escalation of care including admission/observation considered Lab Data MDM Lab Attestation statement: I reviewed the patient's lab results. 01/23/25 16:05 01/23/25 16:05 Labs: Lab Results 01/23/25 01/23/25 01/24/25 Range/Units 16:05 23:11 02:39 WBC 8.8 (4.8-10.8) X10*3/uL RBC 3.99 L (4.20-5.50) X10*6/uL Hgb 12.3 (12.0-16.0) g/dl Hct 36.9 L (37.0-47.0) % MCV 92.5 (80.0-98.0) fL MCH 30.8 (27.0-33.0) pg MCHC 33.3 (31.0-35.0) g/dl RDW 13.1 (11.0-16.0) % Plt Count 280 (160-400) X10*3/uL MPV 9.1 L (9.4-12.3) fL Immature Gran % (Auto) 0.2 (0.0-0.4) % Neut % (Auto) 69.9 (45-73) % Lymph % (Auto) 23.9 (20-40) % [place] % (Auto) 4.6 (2-11) % Eos % (Auto) 1.1 (0-4) % Baso % (Auto) 0.3 (0-2) % Lymph # (Auto) 2.1 (1.2-4.9) X10*3/uL [place] # (Auto) 0.4 (0.1-1.2) X10*3/uL Eos # (Auto) 0.1 (0.0-0.4) X10*3/uL Baso # (Auto) 0.0 (0.0-0.2) X10*3/uL Abs Immat Gran (auto) 0.02 (0.00-0.03) X10*3/uL Absolute Neuts (auto) 6.1 (2.0-8.3) x10*3/uL Absolute Nucleated RBC 0.000 (0.0-0.012) X10*3/uL Nucleated RBC % (auto) 0.0 (0.0-0.2) /100WBC ESR 7 (0-20) MM/HR Sodium 142 (135-145) mmol/L Potassium 3.9 (3.3-5.1) mmol/L Chloride 109 H (96-108) mmol/L Carbon Dioxide 26 (22-29) mmol/L Anion Gap 11 L (12-20) BUN 13 (9-16) mg/dL Creatinine 0.76 (0.5-1.4) mg/dL Estim Creat Clear Calc 99.7 Estimated GFR > 60 Random Glucose 87 (60-115) mg/dL Calcium 9.3 (8.4-10.2) mg/dL Magnesium 2.0 (1.6-2.6) mg/dL Total Bilirubin 0.4 (0.0-1.0) mg/dL AST 24 (5-31) U/L ALT 17 (0-31) U/L Alkaline Phosphatase 66 (39-117) U/L Troponin I High Sens < 2.7 (<3.5-17.0) ng/L C-Reactive Protein 0.22 (< or = 0.50) mg/dL Total Protein 6.9 (6.5-8.0) g/dL Albumin 4.3 (3.5-5.0) g/dL Beta HCG, Quant < 2 mIU/mL Urine Color Red A Urine Appearance Cloudy Urine pH 6.5 (5.0-9.0) Ur Specific [place] >= 1.030 H (1.005-1.025) Urine Protein 100 (2+) H (Neg-Trace) mg/dL Urine Glucose (UA) Negative (Negative) mg/dL Urine Ketones Negative (Negative) mg/dL Urine Blood Large (3+) H (Negative) Urine Nitrite Negative (Negative) Ur Leukocyte Esterase Moderate (2+) H (Negative) Urine RBC >20 H (0-2) /HPF Urine WBC >50 H (0-5) /HPF Ur Squamous Epith Cells 3-5 (0-2) /HPF Urine Bacteria 4+ (None Seen) Hyaline Casts 0-2 (0-2) /LPF COVID-19 (YVETTE) Negative (Negative) COVID-19 Clin Com See Note Influenza Type A (STACY) Negative (Negative) Influenza Type B (STACY) Negative (Negative) Influenza A & B Note See Note Independent Interpretation I performed an independent interpretation of an: EKG Interpretation: Rate: 73 Rhythm: NSR [place]: normal Normal P waves. Normal LILIAN. Normal QRS complex. ST T wave : no dep, elev qTC: 445 prior studies: improved The study has been interpreted contemporaneously by me. Radiology Impression Discussion of test interpretation with radiology: I have reviewed the radiologist's reading. Independent Historian Clinical information obtained from an independent historian. History obtained from or confirmed by: EMS External Record Review External record reviewed: Office record (Neurology) Chronic Conditions Patient?s care impacted by: Other (Pseudotumor cerebri ) Social Determinants Patient?s care significantly limited by Social Determinants of Health including: Problems related to primary support group Discharge Plan Discharge Clinical Impression: UTI (urinary tract infection) Qualifiers: Urinary tract infection type: acute cystitis Hematuria presence: without hematuria Qualified Code(s): N30.00 - Acute cystitis without hematuria Headache Qualifiers: Headache type: unspecified Headache chronicity pattern: acute headache Intractability: not intractable Qualified Code(s): R51.9 - Headache, unspecified Patient Disposition: Home, Self-Care Instructions: Urinary Tract Infection in Women (ED), Acute Headache (ED) Additional Instructions: Thank you for choosing [facility]'s Emergency Department for your care today. Thankfully your laboratory evaluation, EKG, CT head, neck, chest, and abdomen and pelvis, and your viral swabs are all reassuring. At this time there is no indication for admission to the hospital or continued ED observation, and it is safe to discharge you home. Your urinalysis did show evidence of a urinary tract infection. This may have been the source of your fatigue, nausea, and headache over the past 4-5 days. We are treating you with antibiotics, please take cephalexin as prescribed until finished. Thankfully the test we added to your laboratory evaluation show no evidence of an acute inflammatory process and thus there is low concern for meningitis, and no indication for admission or lumbar puncture. Please continue taking your Fioricet, as well as ibuprofen and Tylenol as indicated for persistent headache. Please follow up with your primary care physician and neurologist for re-evaluation, additional management of your symptoms, and continued preventative care. If you do not have a primary care physician, please call the [facility] at [phone] to establish a new primary care physician. While waiting to establish your new primary care physician, you can call our Walk[facility]in [facility] at [phone] for non-emergency needs. Please return to the emergency department if you develop a severe or sudden change in your symptoms, a fever over 100.4 that does not improve with Tylenol or Ibuprofen, recurrent vomiting, or any other new or worsening symptoms or concerns. Prescriptions: New cephalexin 500 mg capsule 500 mg PO QID Qty: 28 0RF No Action sfdflhyfxt-quxpvdedssvgl-cnyg 50-325-40 mg tablet 1 tab PO Q6H PRN (Reason: headache) 30 Days Qty: 20 2RF acetaminophen-codeine 300-30 mg tablet 1 tab PO Q6H PRN (Reason: headache) 30 Days Qty: 60 2RF clonazepam 1 mg tablet 1 mg PO BID PRN (Reason: Anxiety) hydrochlorothiazide 25 mg tablet 25 mg PO DAILY topiramate 100 mg tablet 100 mg PO DAILY amlodipine 10 mg tablet 10 mg PO DAILY omeprazole 20 mg capsule,delayed release(DR/EC) 40 mg PO DAILY@0630 cefuroxime axetil 500 mg tablet 500 mg PO BID 7 Days Qty: 14 0RF phenazopyridine [Pyridium] 200 mg tablet 200 mg PO TID 2 Days Qty: 6 0RF oxycodone 5 mg tablet 5 mg PO Q6H PRN (Reason: pain) Qty: 12 0RF Rx Instructions: Partial Fill upon patient request. amitriptyline 75 mg tablet 75 mg PO BEDTIME oxycodone 5 mg tablet 5 mg PO Q8H PRN (Reason: pain) Qty: 15 0RF Rx Instructions: Partial Fill upon patient request. ondansetron 4 mg tablet,disintegrating 4 mg PO Q8H PRN (Reason: nausea and vomiting) Qty: 15 0RF lisinopril 20 mg tablet 20 mg PO DAILY Qty: 30 0RF Referrals: Anish Wesley MD [Primary Care Provider, Internal Medicine] Clinical Impression: UTI (urinary tract infection); Headache Print Language: Icelandic
[2025-01-23 18:39] VITALS: BP 130/89; PULSE 72; RESP 13; TEMP 36.6; O2SAT 97
[2025-01-23] MEDS: iohexoL 350 MG/ML 100 ML INFUS..BTL IV (22:27)
[2025-01-23 22:28] VITALS: BP 182/94; PULSE 72; RESP 18; TEMP 36.5; O2SAT 98
[2025-01-23 23:40] LABS: Appearance Urine Cloudy; Glucose Urine UA Negative (Negative); PH 6.5 (5.0-9.0); Specific Gravity - Urine >= 1.030 (1.005-1.025); UMIC TRIGGER UACC YES
[2025-01-23 23:47] LABS: UACC Culture Trigger YES
--- NOTE | 2025-01-24 00:46 | PC.NURSE ---
Took over care from RAFY Burkett and MARCO A Saab at 23:00, pt reports feeling dizzy when ambulating, report to CHANTELL Pisano, pt resting in bed awaiting CT results. Call dominguez at the bed side.
[2025-01-24 00:48] VITALS: BP 134/61; PULSE 72; RESP 16; TEMP 36.6; O2SAT 99
--- NOTE | 2025-01-24 01:23 | PC.NURSE ---
CHANTELL Pisano, completed a full neuro assessment on pt. reviewed CT results.
--- NOTE | 2025-01-24 02:12 | PC.NURSE ---
medicated per mar.
[2025-01-24 03:16] LABS: Erythrocyte Sedimentation Rate 7 MM/HR (0-20)
[2025-01-24 04:37] VITALS: BP 146/70; PULSE 62; RESP 20; TEMP 36.7; O2SAT 98
--- NOTE | 2025-01-24 04:37 | PC.NURSE ---
Iv removed, reviewed discharge instructions with pt, pt verbalized understanding, no sign of distress, pt had a steady gait.
[2025-01-24 04:39] VITALS: BP 146/70; PULSE 62; RESP 20; TEMP 36.7; O2SAT 98
== END 2025-01-24 04:39 | disposition home or self-care (01) ==
PROVIDERS: Physician Assistant; Emergency Provider Emergency Medicine Emergency Medical Services; PCP Internal Medicine
DX: R51.9 Headache, unspecified (principal); N30.00 Acute cystitis without hematuria; E66.9 Obesity, unspecified; Z68.30 Body mass index [BMI] 30.0-30.9, adult; Z79.899 Other long term (current) drug therapy; Z87.442 Personal history of urinary calculi; Z87.891 Personal history of nicotine dependence
CPT/HCPCS: 70450; 71275; 72125; 74177; 80053; 81001; 83735; 84484; 84702; 85025; 85652; 86140; 87086; 87502; 87635; 93005; 96361; 96365; 96375; 96376; 99285; J0696; J1171; J1200; J2270; J2405; Q9967

== ENCOUNTER → 2025-01-23 15:35 | Outpatient (BNV) | payer OTHER, SELFPAY | PROVIDERS: Emergency Provider Emergency Medicine Emergency Medical Services; PCP Internal Medicine; Visit Provider Internal Medicine | DX: R07.9 Chest pain, unspecified (principal) | CPT/HCPCS: 93010 ==

== ENCOUNTER → 2025-01-23 18:03 | Outpatient (BNV) | payer OTHER, SELFPAY | PROVIDERS: Emergency Provider Emergency Medicine Emergency Medical Services; PCP Internal Medicine; Visit Provider Radiology Diagnostic Radiology | DX: R55 Syncope and collapse (principal); Z03.89 Encounter for observation for other suspected diseases and conditions ruled out | CPT/HCPCS: 70450; 71275; 72125; 74177 ==